=== PATIENT | female | born 1950 | race Caucasian/White ===

== ENCOUNTER 2024-04-06 00:43 | Day surgery (SDC) | payer MEDICARE, SELFPAY ==
[2024-03-26 13:00] VITALS: BMI 21.5
--- NOTE | 2024-04-06 08:51 | PC.NURSE ---
Pts. daughter called in concerned what to do it patients blood sugar starts to drop. Her blood sugar is currently at 197, she has not taken any of her medications for her DM this am. Spoke with Dr. Muniz and pt is to monitor blood sugar today and to take a glucose tab if her sugar is low for her and symptomatic. Daughter verbalizes understanding.
[2024-04-06 14:26] VITALS: BP 127/80; PULSE 69; RESP 19; TEMP 36.6; O2SAT 100
--- NOTE | 2024-04-06 14:28 | SUR.PREOP ---
BG 192 per dexcom in pre-op
[2024-04-06] MEDS: LACTATED RINGERS 1,000 ML 150 ML IV CONT (14:29)
--- NOTE | 2024-04-06 14:29 | WPDHPUPDATE1 ---
History and Physical Update Update Date/Time: 04/06/24 14:29 History and Physical has been reviewed, including an updated exam of the patient. There are NO changes in the patient's condition. Risks, benefits, and alternatives have been discussed and questions answered. Patient agrees to proceed with procedure.
--- NOTE | 2024-04-06 14:39 | WPDANESEPPF ---
Anes - Initial Pre Proc Eval Procedure: Operation Date: 04/06/24 16:00 Proposed Procedures p Esophagogastroduodenoscopy & Colonoscopy - Kurtis Mendez MD Date/Time: 04/06/24 14:39 Surgeon: Kurtis Mendez MD Pre Op Diagnosis: Rees's esophagus, Mixed IBS,GERD Patient Data Age: 73 Gender: F Height: 1.63 m Weight: 55.5 kg Last Vital Signs Temp 97.9 F 04/06/24 14:26 Pulse 69 04/06/24 14:26 Resp 19 04/06/24 14:26 BP 127/80 04/06/24 14:26 Pulse Ox 100 04/06/24 14:26 O2 Del Method Room Air 04/06/24 14:26 Allergies Allergy/AdvReac Type Severity Reaction Status Date / Time No Known Allergies Allergy Mild Verified 04/06/24 14:26 Home Medications Medication Instructions Recorded Confirmed Type atorvastatin 40 mg tablet 40 mg PO DAILY 02/10/24 03/26/24 History cholecalciferol (vitamin D3) 125 125 mcg PO .COMPLEX 02/10/24 03/26/24 History mcg (5,000 unit) capsule ferrous sulfate 325 mg (65 mg 325 mg PO DAILY 02/10/24 03/26/24 History iron) tablet gabapentin 300 mg capsule 300 mg PO BID 02/10/24 03/26/24 History latanoprost 0.005 % eye drops 1 drp LEFT EYE QPM 02/10/24 03/26/24 History mecobalamin (vitamin B12) 2,500 2,500 mcg PO DAILY 02/10/24 03/26/24 History mcg chewable tablet multivitamin 1 tablet PO DAILY 02/10/24 03/26/24 History sertraline 100 mg tablet 100 mg PO DAILY 02/10/24 03/26/24 History solifenacin 5 mg tablet 5 mg PO DAILY 02/10/24 03/26/24 History amlodipine 5 mg tablet 5 mg PO DAILY #90 tabs 03/10/24 03/26/24 Rx glucagon 1 mg/0.2 mL subcutaneous 1 mg (0.2 mL) subcut ONCE #0.4 mL 03/16/24 03/26/24 Rx auto-injector (Gvoke HypoPen 2-Pack) glucose 4 gram chewable tablet 16 g PO Q15M PRN hypoglycemia #60 03/16/24 03/26/24 Rx (Dex4 Glucose) tabs insulin aspart U-100 100 unit/mL 60 unit (0.6 mL) subcut DAILY #60 03/16/24 03/26/24 Rx (3 mL) subcutaneous pen (Novolog mL FlexPen U-100 Insulin aspart) insulin degludec 100 unit/mL (3 24 unit (0.24 mL) subcut DAILY #30 03/16/24 03/26/24 Rx mL) subcutaneous pen (Tresiba mL FlexTouch U-100 insulin) omeprazole 40 mg capsule,delayed 40 mg PO BID 90 days #180 caps 03/16/24 03/26/24 Rx release Patient hx anesthesia problems: none Family hx anesthesia problems: none Results Review: All pre-operative results and documents have been reviewed as part of the pre-operative evaluation. [facility] Past Medical History Medical History Anemia Anxiety Arthritis Depression Diabetes Hypertension IBS (irritable bowel syndrome) Kidney disease Osteoporosis Right ankle injury Surgical History Surgical History History of right shoulder replacement Family History Family History Father Alcoholism Cerebrovascular accident Heart disease Grandparent Cancer of unknown origin Son Diabetes mellitus Daughter Diabetes mellitus Daughter Depression Social History Social History Smoking packs per day: 1 Smoking cigarettes per day: 20.0 Years smoked: 30 Smoking pack-years: 30.00 Smoking status: Former smoker Tobacco type: cigarettes Second hand tobacco smoke exposure: No Smoking end date: 08/13/19 Alcohol intake: current Alcohol use details: socially Substance use: never Substance use type: does not use Do You Feel Safe in your Home?: Yes Lack of Transportation: No Lack of Food: Never True Current Housing: I Have Housing Concerned About Future Housing: No Difficulty Paying Gas/Electric Bills: No Difficulty Paying for Meds: No Currently Unemployed: No Education: Bachelor's Degree Difficulty w/ Childcare or Family Care: No Living arrangements: other Occupation/Education: retired Gender id
--- NOTE | 2024-04-06 14:53 | SUR.OPER ---
EGD end at 1449. Colon started 1453.
[2024-04-06 15:07] VITALS: BP 129/40; PULSE 59; RESP 20; O2SAT 100
[2024-04-06 15:17] VITALS: BP 112/41; PULSE 63; RESP 20; O2SAT 100
--- NOTE | 2024-04-06 15:17 | SUR.PHASEII ---
Blood sugar 187 per dexcom.
[2024-04-06 15:27] VITALS: BP 129/59; PULSE 64; RESP 18; O2SAT 100
== END 2024-04-06 15:40 | disposition home or self-care (01) ==
PROVIDERS: PCP Family Medicine; Referring Provider Nurse Practitioner; Visit Provider Internal Medicine Gastroenterology
PROC: 0DJ08ZZ Inspection of Upper Intestinal Tract, Via Natural or Artificial Opening Endoscopic (ICD-10-PCS; CPT 43235; principal; 2024-04-06 16:00)
DX: R19.4 Change in bowel habit (principal); R10.31 Right lower quadrant pain; D12.3 Benign neoplasm of transverse colon; K64.8 Other hemorrhoids; K58.2 Mixed irritable bowel syndrome; K22.70 Barrett's esophagus without dysplasia; K21.00 Gastro-esophageal reflux disease with esophagitis, without bleeding; E78.5 Hyperlipidemia, unspecified; M81.0 Age-related osteoporosis without current pathological fracture; N18.9 Chronic kidney disease, unspecified; E11.22 Type 2 diabetes mellitus with diabetic chronic kidney disease; I12.9 Hypertensive chronic kidney disease with stage 1 through stage 4 chronic kidney disease, or unspecified chronic kidney disease; F41.9 Anxiety disorder, unspecified
CPT/HCPCS: 43239; 45385; 88305; J2001; J2704; J7120

== ENCOUNTER 2024-05-10 11:12 | Outpatient (CLI) | payer MEDICARE, SELFPAY ==
--- NOTE | ~2024-05-10 | DEXA_ITS ---
Bone Density Report Name: NIKA AMIN Age: 73 Sex: Female Ethnicity: White Date of : 1950 Indication: postmenopausal; screening for osteoporosis; height loss; inflammatory bowel disease; prior fracture; secondary osteoporosis; Referring Provider: JIMENA TRAN Study: Bone densitometry was performed. Exam Date: May 10, 2024 Accession number: [id number] Bone Density: Region BMD T-score Z-score Classification AP Spine(L1-L4) 1.002 -0.4 1.9 Normal Femoral Neck (Right) 0.577 -2.4 -0.5 Osteopenia Total Hip (Right) 0.739 -1.7 0.0 Osteopenia World Health Organization criteria for BMD impression classify patients as: Normal (T-score at or above -1.0), Osteopenia (T-score between -1.0 and -2.5), or Osteoporosis (T-score at or below -2.5). 10-year Fracture Risk: FRAX not reported because: Prior hip or vertebral fracture Clinical Information Provided by Patient: Have had a previous hip or vertebral fracture Has had a low trauma fracture Has secondary osteoporosis Has used the following medications: Vitamin D Has the following medical conditions: Inflammatory bowel diseases Patient maximum height was 64 Menopause Age: 43 No regular weight bearing exercise Drinks caffeinated beverages Onset of menses at age 14 Number of children 3 Impression: The patient has low bone mass, based on the Right Femoral Neck T-score. The patient has risk factors, including: previous fracture. Discussion: INCREASED RISK OF FRACTURE DUE TO HISTORY OF FRACTURE. The patient's previous fracture puts the patient at high risk of a future fracture. In untreated patients, the risk of osteoporotic fracture increases approximately two-fold for each 1.0 SD decrease in T-score. Low bone density is not the only risk factor for fracture; also consider factors such as patient's age, frailty or poor health, risk of falling, risk of injury, previous osteoporotic fracture, family history of osteoporosis, cigarette smoking, low body weight, etc. Not everyone with a low trauma fracture has osteoporosis; osteomalacia and other metabolic bone disorders should also be considered. Patients who have osteoporosis should be evaluated for specific diseases and conditions (secondary causes) that may cause or contribute to bone loss and fracture risk. National Osteoporosis Foundation (NOF) recommends pharmacologic intervention for patients with a prior hip or vertebral fracture regardless of BMD T-score. The patient should follow a healthful lifestyle (good nutrition with adequate calcium and vitamin D, and appropriate weight-bearing exercise). Follow-Up: Consider a repeat BMD and Vertebral Fracture Assessment (VFA) exam in 2 years or sooner if medically necessary, to reassess this patient's status. Reported by: LAURYN on 05/10/2024 11:51:00 AM.
== END 2024-05-10 11:13 | disposition home or self-care (01) ==
LOC: ANHIMG 11:13
PROVIDERS: PCP Physician Assistant Medical; Visit Provider Nurse Practitioner Family
DX: M81.0 Age-related osteoporosis without current pathological fracture (principal); M85.89 Other specified disorders of bone density and structure, multiple sites; Z13.820 Encounter for screening for osteoporosis
CPT/HCPCS: 77080

== ENCOUNTER 2024-05-18 09:30 | Outpatient (RCR) | payer MEDICARE, SELFPAY ==
[2024-03-23 13:42] VITALS: BMI 21.7
[2024-03-23 14:03] VITALS: BMI 21.7
[2024-05-11 14:28] VITALS: BMI 20.9
[2024-05-11 14:31] VITALS: BMI 20.9
== END 2024-06-15 11:24 | disposition home or self-care (01) ==
LOC: ANHDMC 09:30
PROVIDERS: PCP Family Medicine; Visit Provider Internal Medicine Endocrinology, Diabetes & Metabolism
DX: N28.9 Disorder of kidney and ureter, unspecified (principal); N18.32 Chronic kidney disease, stage 3b; E11.9 Type 2 diabetes mellitus without complications; Z71.3 Dietary counseling and surveillance; Z71.89 Other specified counseling
CPT/HCPCS: 97802; 97803; G0108

== ENCOUNTER 2024-05-21 16:23 | Inpatient (IN) | payer MEDICARE, SELFPAY ==
[2024-05-21] VITALS (12 sets, daily range): BP systolic 89–171; BP diastolic 48–72; PULSE 67–74; RESP 15–19; TEMP 36.6–36.7; O2SAT 19–100
--- NOTE | ~2024-05-21 | XR_ITS ---
XR chest 1V portable Ordering provider: Kvng Maier MD History: 73 years Female with . syncopal episode . Comparison: August 07, 2009 FINDINGS: MEDIASTINUM: The cardiac silhouette is not enlarged. LUNGS: No infiltrates, effusions or pneumothorax. OTHER: A right shoulder arthroplasty. No free air under the diaphragm. Degenerative changes of the sp ine. IMPRESSION: No acute cardiopulmonary pathology. Reviewed, dictated and finalized at location A.
--- NOTE | ~2024-05-21 | CT_ITS ---
CT brain wo con Ordering provider: Willie Najera MD History: 73 years Female with . fall . Comparison: November 27, 2007 Technique: CT of the head without contrast. Radiation reduction technique utilized. The dose-length product was 529.67 mGy-cm. FINDINGS: BRAIN PARENCHYMA AND CSF SPACES: Mild leukoaraiosis and diffuse cortical atrophy. Mild atheromatous d isease. Old lacunar infarcts in the basal ganglia. No midline shift, mass effect or hemorrhage. The brain parenchyma and CSF spaces are otherwise normal. VISUALIZED PARANASAL SINUSES: Well aerated. MASTOIDS: Well aerated. BONES: The bones appear intact. SOFT TISSUES: Visualized nasopharynx is normal. Superficial soft tissues are normal. IMPRESSION: No acute intracranial findings. Reviewed, dictated and finalized at location A.
--- NOTE | ~2024-05-21 | CT_ITS ---
CT cervical spine wo con Ordering provider: Willie Najera MD History: . fall . Comparison: None. Technique: CT of the cervical spine was performed without contrast. Sagittal and coronal reformatted images were also obtained and reviewed. Automated exposure control and iterative reconstruction misael hnique were employed. The dose-length product was 197.89 mGy-cm. FINDINGS: VERTEBRAE: No subluxation or acute fracture. The occipital condyles are intact. DISC SPACES: Narrowing of the disc C6-C7. Multilevel facet joint disease. Multilevel uncovertebral zia int osteoarthritic changes. Multilevel intervertebral foraminal narrowing. PARASPINOUS SOFT TISSUES: Bilateral carotid calcifications. IMPRESSION: No acute osseous abnormality cervical spine. Reviewed, dictated and finalized at location A.
--- NOTE | ~2024-05-21 | US_ITS ---
EXAMINATION: US carotid duplex BI DATE: 05/23/2024 14:34 INDICATION: Bilateral carotid bruits. TECHNIQUE: Grayscale, color Doppler, and pulsed Doppler images of the cervical carotid arteries were obtained. The degree of vessel stenosis is placed in one of the following categories: normal, <50%, 5 0-69%, >=70% but less than near-occlusion, near-occlusion, or total occlusion. Note that percent sten osis relative to normal distal artery lumen diameter is indirectly measured from velocity measurement s as described by Indra, et al. Radiology 2003; 229:340-346. COMPARISON: None. FINDINGS: RIGHT: The right common carotid artery (CCA) peak systolic velocity (PSV) is 63 cm/s. The right internal car otid artery (ICA) PSV is 94 cm/s. The right ICA end-diastolic velocity (EDV) is 23 cm/s. The right IC A/CCA PSV ratio is 1.5. Grayscale and color Doppler images yield an estimate of <50% diameter reducti on from plaque in the ICA. There is antegrade flow in the right vertebral artery. LEFT: The left CCA PSV is 77 cm/s. The left ICA PSV is 98 cm/s. The left ICA EDV is 26 cm/s. The left ICA/C CA PSV ratio is 1.3. Grayscale and color Doppler images yield an estimate of <50% diameter reduction from plaque in the ICA. There is antegrade flow in the left vertebral artery. IMPRESSION: 1. <50% stenosis in the right internal carotid artery. 2. <50% stenosis in the left internal carotid artery. Reviewed, dictated and finalized at location E.
--- NOTE | 2024-05-21 16:30 | ECG_ITS ---
Test Date: 2024-05-21 16:35:34 Measurements Intervals Hugo Rate: 68 P: 79 ID: [id number] QRS: 58 QRSD: 101 T: 61 QT: 386 QTc: 412 Interpretive Statements SINUS RHYTHM POSSIBLE LEFT ATRIAL ENLARGEMENT [-0.1mV P WAVE IN V1/V2] POSSIBLE LEFT VENTRICULAR HYPERTROPHY [VOLTAGE CRITERIA PLUS LAE OR QRS WIDENING] MINIMAL ST DEPRESSION [0.025+ mV ST DEPRESSION] No previous ECG available for comparison Electronically Signed On 05-23-2024 13:20:35 CDT by Juan Manuel José M.D.
[2024-05-21 16:58] LABS: Basophils Percent Auto 0.5 % (0.2-1.2); Eosinophils Absolute Auto 0.1 K/mm3 (0-0.3); Eosinophils Percent Auto 2.3 % (0-4.4); Hematocrit 31.2 % (37.0-47.0); Hemoglobin 10.1 g/dL (12.0-15.0); Immature Granulocyte Absolute 0.02 K/mm3 (0.00-0.031); Immature Granulocyte Percent A 0.4 % (0-0.5); Lymphocytes Absolute Auto 1.33 K/mm3 (0.9-3.2); Lymphocytes Percent Auto 23.8 % (18.3-44.2); Mean Corpuscular HGB Conc 32.4 g/dl (32-36); Mean Corpuscular Hemoglobin 32.7 pg (26-34); Mean Platelet Volume 11.7 fl (7.4-10.4); Monocytes Absolute Auto 0.4 K/mm3 (0.1-0.6); Monocytes Percent Auto 7.3 % (2.6-8.5); Neutrophils Absolute Auto 3.7 K/mm3 (1.3-6.7); Neutrophils Percent Auto 65.7 % (45.5-73.1); Platelet Count Result 177 k/mm3 (150-375); Red Blood Count 3.09 M/mm3 (4.2-5.4); White Blood Count 5.6 K/mm3 (4.5-10.0)
--- NOTE | 2024-05-21 17:04 | ED.GENADULT ---
HPI - General Adult General Chief complaint: Syncope Stated complaint: hypotension, near syncope event Time Seen by Provider: 05/21/24 16:47 Source: patient Mode of arrival: ambulatory Limitations: no limitations History of Present Illness HPI narrative: 73 years old white female came to the emergency room by private car because of a fall and possible low blood pressure last night. Patient is telling me that she was sitting on the table reading got up and felt a little bit of balance head wall and slid down slowly to the floor. No loss of consciousness no pain was able to check her blood pressure and was 60/30 she had a large cup of water, later her blood pressure improved to 87/60. Patient is telling me that she had a fall 3 weeks ago while boarding the plane, tripped and fell hit her head on the floor at that time without loss of consciousness. She is telling me that she been having neck pain for the last 6 months, got worse over the last few weeks. She is telling me that the fall last night has nothing to do with her neck pain which is chronic. History of diabetes, peripheral neuropathy, GERD, does not take anti-platelet or anticoagulant medication, currently her main complaint is neck pain which worse with certain movement and certain position better with certain movement and certain positions. Patient denies any fever, chills, nausea, vomiting, chest pain, shortness of breath, back pain or headache or focal neuro deficit. Related Data Home Medications Medication Instructions Recorded Confirmed atorvastatin 40 mg tablet 40 mg PO DAILY 02/10/24 04/13/24 cholecalciferol (vitamin D3) 125 125 mcg PO .COMPLEX 02/10/24 04/13/24 mcg (5,000 unit) capsule ferrous sulfate 325 mg (65 mg 325 mg PO DAILY 02/10/24 04/13/24 iron) tablet gabapentin 300 mg capsule 300 mg PO BID 02/10/24 04/13/24 latanoprost 0.005 % eye drops 1 drp LEFT EYE QPM 02/10/24 04/13/24 mecobalamin (vitamin B12) 2,500 2,500 mcg PO DAILY 02/10/24 04/13/24 mcg chewable tablet multivitamin 1 tablet PO DAILY 02/10/24 04/13/24 polyethylene glycol 3350 17 17 g PO DAILY 04/13/24 04/13/24 gram/dose oral powder (Miralax) Allergies Allergy/AdvReac Type Severity Reaction Status Date / Time No Known Allergies Allergy Mild Verified 05/11/24 15:10 Review of Systems Review of Systems: All systems reviewed & are unremarkable except as noted in HPI and below PMFSH Past Medical History Medical History (Updated 05/21/24 @ 18:57 by Willie Najera MD) Anemia Anxiety Arthritis Chronic kidney disease, stage 3b Depression Diabetes GERD (gastroesophageal reflux disease) Hyperlipidemia Hypertension IBS (irritable bowel syndrome) Kidney disease Osteoporosis Right ankle injury Surgical History Surgical History (Updated 05/21/24 @ 18:33 by Siria Thompson APRN) History of right shoulder replacement Status post amputation of toe of left foot Family History Family History Father Alcoholism Cerebrovascular accident Heart disease Grandparent Cancer of unknown origin Son Diabetes mellitus Daughter Diabetes mellitus Daughter Depression Social History Social History Smoking packs per day: 1 Smoking cigarettes per day: 20.0 Years smoked: 30 Smoking pack-years: 30.00 Smoking status: Former smoker Tobacco type: cigarettes Second hand tobacco smoke exposure: No Smoking end date: 08/13/19 Alcohol intake: current Alcohol use details: socially Substance use: never Substance use type: does not use Do You Feel Safe in your Home?: Yes Lack of Transportation: No Lack of Food: Never True Current Housing: I Have Housing Concerned About Future Housing: No Difficulty Paying Gas/Electric Bills: No Difficulty Paying for Meds: No Currently Unemployed: No Education: Bachelor's Degree Difficulty w/ Childcare or Family Care:
[2024-05-21 17:14] LABS: Alanine Aminotransferase 21 U/L (6-35); Albumin Level 4.2 g/dL (3.5-5.1); Alkaline Phosphatase 62 U/L (38-126); Anion Gap 12 mmol/L (4-12); Aspartate Amino Transferase 20 U/L (14-36); Bilirubin,Total 0.3 mg/dL (0.2-1.3); Blood Urea Nitrogen 42 mg/dL (7-17); Calcium 10.5 mg/dL (8.4-10.2); Carbon Dioxide 22 mmol/L (22-30); Chloride 103 mmol/L (98-107); Estimated Glomerular Filt Rate 21; Glucose 185 mg/dL (65-110); Potassium 4.4 mmol/L (3.4-5.0); Sodium 137 mmol/L (137-145)
--- NOTE | 2024-05-21 18:26 | PM.IMHP ---
H&P: HPI History of Present Illness Date/Time: 05/21/24 18:26 Chief Complaint: Hypotension, Weakness Narrative: 73 y/o F presents here with hypertension and generalized weakness with PMH of DM1, anemia, CKD 3B, GERD, HLD, HTN (not on medication), IBS (primarily diarrhea). The patient reports near syncopal episode that occurred last night. The patient reports that she got up from her chair and began walking. Then felt lightheaded and off balance. Patient had to lean against the wall and slide her body down to the floor. She denies loss of consciousness. Patient then checked her blood pressure which was 60/30 and she checked her glucose which was in the 300s. Patient then drink large cup of water and recheck her blood pressure which improved 87/60. These events were precipitated by hyperglycemia, patient reports her blood sugar has been in the 300s for the past 2 days. Endorses associated polydipsia. Denies changes in urine output but patient is intermittently incontinent at baseline and has chronic diarrhea (no change from baseline) so she reports this is difficult for her to assess and may not be accurate. Patient also reports a history of IBS with primarily diarrhea. She reports no change in volume of diarrhea. No associated nausea, vomiting, abdominal pain, or urinary symptoms. Reports that she moved back here from [place] in January. Patient plans to see Stella here for CKD, first visit scheduled for June. Patient reports she has also been able to establish care with a local process safety engineer, Kaya WELDON. Per their last note on 05/11/24 her regimen was changed to Tresiba 14 units in the a.m., NovoLog 1 unit for every 12 g of carbs, and sliding scale. Patient also in the process of acquiring a insulin pump for the patient to use in tandem with her Dexcom. Patient had had a few lows since then but this has been an improvement from previous where she would be very high and very low. Initial VS at presentation: 98? F, HR 70, RR 18, 89/48, and 100% on RA. ED workup showed: No leukocytosis, hemoglobin 10.1, creatinine 2.3 and GFR 21 (no previous available for comparison), glucose 185, and UA suspicious for UTI. Review of Systems Review of Systems: All systems reviewed & are unremarkable except as noted in HPI and below PMFSH Past Medical History Medical History Anemia Anxiety Arthritis Chronic kidney disease, stage 3b Depression Diabetes GERD (gastroesophageal reflux disease) Hyperlipidemia Hypertension IBS (irritable bowel syndrome) Kidney disease Osteoporosis Right ankle injury Surgical History Surgical History History of right shoulder replacement Status post amputation of toe of left foot Family History Family History Father Alcoholism Cerebrovascular accident Heart disease Grandparent Cancer of unknown origin Son Diabetes mellitus Daughter Diabetes mellitus Daughter Depression Social History Social History Smoking packs per day: 1 Smoking cigarettes per day: 20.0 Years smoked: 30 Smoking pack-years: 30.00 Smoking status: Former smoker Tobacco type: cigarettes Second hand tobacco smoke exposure: No Smoking end date: 08/13/19 Alcohol intake: never Alcohol use details: socially Substance use: never Substance use type: does not use Do You Feel Safe in your Home?: Yes Lack of Transportation: No Lack of Food: Never True Current Housing: I Have Housing Concerned About Future Housing: No Difficulty Paying Gas/Electric Bills: No Difficulty Paying for Meds: No Currently Unemployed: No Education: Bachelor's Degree Difficulty w/ Childcare or Family Care: No Living arrangements: other Occupation/Education: retired Gender identity (if efrain
[2024-05-21] MEDS: SODIUM CHLORIDE 0.9% IV 1,000 ML 999 ML IV CONT (18:33)
[2024-05-21 18:57] LABS: Add Urine Microscopic? YES; Appearance Urine Cloudy (Clear); Bacteria Urine 3+ /hpf; Bilirubin Urine Negative (Negative); Blood Urine Trace (Negative); Color Urine Yellow (Yellow); Glucose Urine UA Negative (Negative); Ketones Urine Trace mg/dL (Negative); Leukocyte Esterase Ur 2+ LEU/UL (Negative); Need Manual Microscopic Reviewed; Nitrate Urine Negative (Negative); Protein Urine 1+ mg/dL (Negative); Specific Grav Ur 1.016 (1.001-1.035); Squamous Epithelial Cell Urine Moderate /hpf (Few); Urobilinogen Urine 0.2 mg/dL (<2.0); WBC Urine 51-100 /hpf (0-3)
[2024-05-21] MEDS: SODIUM CHLORIDE 0.9% IV 1,000 ML 125 ML IV CONT (19:14)
[2024-05-21 19:28] LABS: Troponin I < 0.012 ng/mL (0.000-0.034)
--- NOTE | 2024-05-21 19:47 | ADMGEN ---
This patient, Ashley Joseph, was admitted to Medical Room 252-01. Patient/family oriented to hospital policies and general routines including ID bracelet, bed and alarms, visiting hours, pain management, procedures, bathroom and other care routines, personal items, smoking policy, room service/diet, and visiting hours. Information on how to activate the Rapid Response Team has been discussed. Patient/Family are encouraged to report perceived risks to care and to ask questions if they do not understand what they are told or what they should do.
[2024-05-21] MEDS: PANTOPRAZOLE 40 MG TABLET PO (21:01)
[2024-05-21] MEDS: GABAPENTIN 300 MG CAPSULE PO (21:01)
[2024-05-21] MEDS: SERTRALINE HCL 50 MG TABLET 100 MG PO (21:01)
[2024-05-21] MEDS: ATORVASTATIN 40 MG TABLET PO (21:01)
[2024-05-21] MEDS: LATANOPROST 0.005% OP SOLN 2.5 ML BTL 1 DROP LEFT EYE (21:04)
[2024-05-21 21:13] LABS: Glucose Point of Care 143 mg/dl (65-105)
[2024-05-21 22:19] LABS: Troponin I < 0.012 ng/mL (0.000-0.034)
[2024-05-22] VITALS (11 sets, daily range): BP systolic 105–160; BP diastolic 46–81; PULSE 62–78; RESP 16–18; TEMP 36.4–37; O2SAT 96–100
[2024-05-22 02:55] LABS: Basophils Percent Auto 0.6 % (0.2-1.2); Eosinophils Absolute Auto 0.2 K/mm3 (0-0.3); Eosinophils Percent Auto 3.2 % (0-4.4); Hematocrit 27.6 % (37.0-47.0); Hemoglobin 9.2 g/dL (12.0-15.0); Immature Granulocyte Absolute 0.01 K/mm3 (0.00-0.031); Immature Granulocyte Percent A 0.2 % (0-0.5); Lymphocytes Absolute Auto 1.52 K/mm3 (0.9-3.2); Lymphocytes Percent Auto 28.6 % (18.3-44.2); Mean Corpuscular HGB Conc 33.3 g/dl (32-36); Mean Corpuscular Hemoglobin 33.2 pg (26-34); Mean Corpuscular Volume 99.6 fl (80-100); Mean Platelet Volume 11.2 fl (7.4-10.4); Monocytes Absolute Auto 0.4 K/mm3 (0.1-0.6); Neutrophils Absolute Auto 3.2 K/mm3 (1.3-6.7); Neutrophils Percent Auto 60.4 % (45.5-73.1); Platelet Count Result 156 k/mm3 (150-375); Red Blood Count 2.77 M/mm3 (4.2-5.4); White Blood Count 5.3 K/mm3 (4.5-10.0)
[2024-05-22 03:04] LABS: Alanine Aminotransferase 17 U/L (6-35); Albumin Level 3.4 g/dL (3.5-5.1); Alkaline Phosphatase 52 U/L (38-126); Anion Gap 6 mmol/L (4-12); Aspartate Amino Transferase 19 U/L (14-36); Bilirubin,Total 0.2 mg/dL (0.2-1.3); Blood Urea Nitrogen 35 mg/dL (7-17); Calcium 9.4 mg/dL (8.4-10.2); Carbon Dioxide 23 mmol/L (22-30); Chloride 110 mmol/L (98-107); Estimated CRCL calculation 19 ml/min; Estimated Glomerular Filt Rate 26; Glucose 83 mg/dL (65-110); Potassium 4.2 mmol/L (3.4-5.0); Sodium 139 mmol/L (137-145)
[2024-05-22 03:16] LABS: Troponin I < 0.012 ng/mL (0.000-0.034)
[2024-05-22] MEDS: SODIUM CHLORIDE 0.9% IV 1,000 ML 125 ML IV CONT ×3 (05:46→20:53)
--- NOTE | 2024-05-22 05:47 | PC.NURSE ---
PT HAS DEXCOM, SEE FLOWSHEET
--- NOTE | 2024-05-22 07:09 | PM.IMPN ---
Progress Note: A&P Assessment and Plan (1) Near syncope: Code(s): R55 - Syncope and collapse Status: Acute Assessment and Plan: Per patient she stood from a chair and began walking when she felt lightheaded and dizzy. Patient then had to lean against the wall and slide down to the floor. States her BP at that time was 60/30s with blood glucose in the 300s. -Suspect orthostatic hypotension secondary to dehydration. Dehydration may be secondary to hyperglycemia that has been present for the past 2 days. - Initial BP 89/48, most recent orthostatics negative. Given 3L bolus on admission, started on maintenance fluids. - Initial blood glucose 185. Started on Lantus 14 units daily, SSI TIDWM. - Troponin WNL - EKG showed sinus rhythm with possible left atrial enlargement, possible left ventricular hypertrophy, minimal ST depression. Awaiting formal read. - CXR: No acute cardiopulmonary pathology - Head CT: No acute intracranial findings - C-spine CT: No osseous abnormalities of the cervical spine - UA: cloudy appearance with 1+ protein , trace ketones, 2+ leukocytes, 3-5 RBC, 51-100 WBC, 3+ bacteria - Urine culture collected on 05/21: pending (2) Chronic kidney disease, stage 3b: Code(s): N18.32 - Chronic kidney disease, stage 3b Status: Acute Assessment and Plan: BUN/Cr 42/2.3 with GFR 21 on admission. BERTA superimposed on CKD, suspect this may be due to polyuria due to hyperglycemia and UTI. Patient follows Nephrology, Dr. Douglas. Last seen 02/24/24. Per nephrology note patients baseline Cr appears to be 1.5-1.6. With most recent on 02/17 being 1.56. - BUN/Cr 35/1.9 with GFR 26 on am labs - IV NS 125 ml/hr - Monitor I/O and vital signs - Avoid nephrotoxic medications - Renally dose medications - Trend renal function - Trend electrolytes, correct as needed - Nephrology consulted Continue IV fluids (3) UTI (urinary tract infection): Code(s): N39.0 - Urinary tract infection, site not specified Status: Acute Assessment and Plan: - UA: Cloudy, 1+ protein, trace ketones, 2+ leuks, 3-5 RBC, 51-100 WBC, moderate epithelial cells, 3+ bacteria. - UC pending - no previous micro to be reviewed - started on Ceftriaxone on 05/21 (4) Type 1 diabetes mellitus with hyperglycemia: Code(s): E10.65 - Type 1 diabetes mellitus with hyperglycemia Status: Acute Assessment and Plan: Follows endocrinology Dr. Kirkpatrick. Last seen 05/11/24. Per last endo note, plan to try tandem pump with dexcom g7. - suspect elevated glucose secondary to UTI - hypoglycemia protocol - POC blood glucose ACHS - home medication: Tresiba 14 units and Novolog 1 unit/12 g of carbs - correct regimen ordered - lantus 14 units and low dose TIDWM - A1C 8.9% on 04/13/2024 Plan Diet: Diabetic GI Prophylaxis: Not currently indicated DVT Prophylaxis: SCDs Lines: Peripheral Code Status: Full code Time Spent With Patient Time with patient: 25 - 35 minutes Subjective Date/time seen: 05/22/24 07:09 Interval history: 73 year old female with past medical history of DM1, anemia, CKD 3B, GERD, HLD, HTN (not on medication), IBS (primarily diarrhea) presents here with hypertension and generalized weakness. Patient is pleasant lying comfortably in bed. She states that she has been having dizziness/light headedness with standing for about a month. Her orthostatic blood pressures were negative today. PT/OT ordered. Patient BUN/Cr is improving. Nephrology evaluated patient today. Plan to continue IV fluids and monitor renal function. Patient remains on rocephin for her UTI. Cultures pending. She denies dysuria, burning, odor, increased frequency and trickling of urine. Patient states that her dexcom showed 56 overnight. She was asymptomatic at that time. Likely due to patient not eating dinner. Patients blood glucose has been stable on the current regimen. Patient denies chest pain, shortness of breath, alethea
[2024-05-22 07:57] LABS: Glucose Point of Care 146 mg/dl (65-105)
--- NOTE | 2024-05-22 08:09 | PM.CNNEP ---
Assessment and Plan Assessment and plan (1) Chronic kidney disease, stage 3b: Code(s): N18.32 - Chronic kidney disease, stage 3b Status: Acute Assessment and Plan: Patient has chronic kidney disease. Her baseline creatinine is around 1.5-1.6. It has been as high as 1.8 in the past while she was in [place]. Most likely the CKD is due to hypertension and diabetes. She has been seeing another sagger maker for about 5 years in [place]. She does not tolerate Jose inhibitors. She is not on an SGL T2 inhibitor. Of course with her UTI this is not the time to start. Patient also has acute kidney injury. Her creatinine was up to 2.3 on admission. The patient does have a bladder infection and her sugars were high at home so she could be dehydrated from the glucosuria. If the patient's creatinine has improved overnight with IV fluids. If she gets back down to baseline pretty soon I do not think we need to do a big workup for other causes of BERTA at this point. I will check a CK just to be sure things are okay there. Will continue IV fluids. She is eating now though so I will reduce the rate to 50 per hour. It sounds like her blood pressure probably dropped on standing to make her fall. Will check orthostatic blood pressure readings as well. Her amlodipine is on hold for now. (2) UTI (urinary tract infection): Code(s): N39.0 - Urinary tract infection, site not specified Status: Acute Assessment and Plan: The patient has pyuria. Cultures pending. She is getting ceftriaxone (3) Near syncope: Code(s): R55 - Syncope and collapse Status: Acute Assessment and Plan: Possibly related to orthostatic hypotension from dehydration. Will check orthostatic blood pressure readings today (4) Hypertension: Code(s): I10 - Essential (primary) hypertension Status: Acute Assessment and Plan: Blood pressure is under good control right (5) Barretts esophagus: Code(s): K22.70 - Rees's esophagus without dysplasia Status: Acute Assessment and Plan: She gets scopes occasional (6) Diabetes: Code(s): E11.9 - Type 2 diabetes mellitus without complications Status: Acute Assessment and Plan: Management per hospitalists. History of Present Illness Reason for Consult Consult date: 05/22/24 Chief Complaint Chief complaint: Renal Failure History of Present Illness Narrative: Ashley is a very pleasant 73-year-old lady who has multiple medical problems including chronic kidney disease for at least 5 years due to diabetes and hypertension, Rees's esophagus, hyperlipidemia, osteoarthritis. The patient says she was feeling well until the day of admission which in when she was reading for a long time and then stood up felt woozy took a couple of steps then fell. She called the ambulance and they brought her over to the emergency room. Apparently her blood pressure was 60/40 at home. I am not sure if that was by the ambulance her by her home cuff. In any case when she got to the ER her blood pressure was above 150 and she was asymptomatic. Dr. Najera evaluate and her creatinine was 2.3. She does not have a baseline in the lab section of the chart any felt that she was dehydrated so she was admitted to the floor with IV fluids. She does feel better today. She has not had any fainting spells before. She has never had a stroke or heart attack. She does not have any bloody urine, foamy urine, kidney stones, or bladder infections. No pain with urination. Does not take any Advil Aleve ibuprofen or Motrin. Patient has chronic diabetes. She has had this for 20 years. She does have diabetic retinopathy and has had laser therapy and shots. She has had hypertension for just a couple of years. The patient is on amlodipine now. She had been on lisinopril in the past but her blood pressure went too low so she stopped it. She was told by her former nephrologis
[2024-05-22 08:58] LABS: Creatine Kinase 60 U/L (30-135)
[2024-05-22] MEDS: CYANOCOBALAMIN 500 MCG TABLET PO (09:31)
[2024-05-22] MEDS: GABAPENTIN 300 MG CAPSULE PO ×2 (09:31→17:50)
[2024-05-22] MEDS: SOLIFENACIN 5 MG TABLET PO (09:31)
[2024-05-22] MEDS: CHOLECALCIFEROL 5,000 UNITS TABLET 5000 UNITS PO (09:31)
[2024-05-22] MEDS: FERROUS SULFATE 325 MG TABLET DR PO (09:31)
[2024-05-22] MEDS: MULTIVITAMINS THERAPEUTIC TAB (*BKC) 1 TABLET PO (09:31)
[2024-05-22] MEDS: CYANOCOBALAMIN 1,000 MCG TABLET 2000 MCG PO (09:31)
[2024-05-22] MEDS: PANTOPRAZOLE 40 MG TABLET PO ×2 (09:32→17:50)
[2024-05-22] MEDS: INSULIN GLARGINE (*BKC) 100 UNITS/ML 14 UNITS SUB-Q (09:36)
[2024-05-22 11:45] LABS: Glucose Point of Care 249 mg/dl (65-105)
[2024-05-22] MEDS: INSULIN ASPART (*BKC) 100 UNITS/ML SUB-Q ×2 (12:20→17:50)
[2024-05-22 16:54] LABS: Glucose Point of Care 268 mg/dl (65-105)
[2024-05-22 18:55] LABS: Influenza A QL RT-PCR Negative (Negative); Influenza B QL RT-PCR Negative (Negative); RSV RNA, RT-PCR Negative (Negative); SARS-CoV-2 RNA PCR Negative (Negative)
[2024-05-22] MEDS: SERTRALINE HCL 50 MG TABLET 100 MG PO (20:52)
[2024-05-22] MEDS: ATORVASTATIN 40 MG TABLET PO (20:53)
[2024-05-22] MEDS: LATANOPROST 0.005% OP SOLN 2.5 ML BTL 1 DROP LEFT EYE (21:00)
[2024-05-22 21:03] LABS: Glucose Point of Care 88 mg/dl (65-105)
[2024-05-23] VITALS (8 sets, daily range): BP systolic 119–165; BP diastolic 42–59; PULSE 64–72; RESP 16–20; TEMP 36.6–36.9; O2SAT 97–100
[2024-05-23 04:56] LABS: Basophils Percent Auto 0.9 % (0.2-1.2); Eosinophils Absolute Auto 0.1 K/mm3 (0-0.3); Eosinophils Percent Auto 2.2 % (0-4.4); Hematocrit 28.2 % (37.0-47.0); Hemoglobin 8.9 g/dL (12.0-15.0); Immature Granulocyte Absolute 0.01 K/mm3 (0.00-0.031); Immature Granulocyte Percent A 0.2 % (0-0.5); Lymphocytes Absolute Auto 1.35 K/mm3 (0.9-3.2); Lymphocytes Percent Auto 29.3 % (18.3-44.2); Mean Corpuscular HGB Conc 31.6 g/dl (32-36); Mean Corpuscular Volume 101.4 fl (80-100); Monocytes Absolute Auto 0.4 K/mm3 (0.1-0.6); Monocytes Percent Auto 7.6 % (2.6-8.5); Neutrophils Absolute Auto 2.8 K/mm3 (1.3-6.7); Neutrophils Percent Auto 59.8 % (45.5-73.1); Platelet Count Result 159 k/mm3 (150-375); Red Blood Count 2.78 M/mm3 (4.2-5.4); Red Cell Distribution Width 12.8 % (11.5-14.5); White Blood Count 4.6 K/mm3 (4.5-10.0)
[2024-05-23 05:15] LABS: Alanine Aminotransferase 16 U/L (6-35); Albumin Level 3.1 g/dL (3.5-5.1); Alkaline Phosphatase 48 U/L (38-126); Anion Gap 6 mmol/L (4-12); Aspartate Amino Transferase 18 U/L (14-36); Bilirubin,Total 0.3 mg/dL (0.2-1.3); Blood Urea Nitrogen 29 mg/dL (7-17); Calcium 8.7 mg/dL (8.4-10.2); Carbon Dioxide 25 mmol/L (22-30); Chloride 110 mmol/L (98-107); Estimated CRCL calculation 24 ml/min; Estimated Glomerular Filt Rate 34; Glucose 155 mg/dL (65-110); Phosphorus 3.4 mg/dL (2.5-4.5); Potassium 4.5 mmol/L (3.4-5.0); Sodium 141 mmol/L (137-145)
[2024-05-23 07:47] LABS: Glucose Point of Care 103 mg/dl (65-105)
[2024-05-23] MEDS: SODIUM CHLORIDE 0.9% IV 1,000 ML 125 ML IV CONT ×2 (08:04→17:42)
[2024-05-23] MEDS: CYANOCOBALAMIN 500 MCG TABLET PO (08:04)
[2024-05-23] MEDS: SOLIFENACIN 5 MG TABLET PO (08:05)
[2024-05-23] MEDS: FERROUS SULFATE 325 MG TABLET DR PO (08:05)
[2024-05-23] MEDS: CYANOCOBALAMIN 1,000 MCG TABLET 2000 MCG PO (08:05)
[2024-05-23] MEDS: GABAPENTIN 300 MG CAPSULE PO ×2 (08:05→16:42)
[2024-05-23] MEDS: MULTIVITAMINS THERAPEUTIC TAB (*BKC) 1 TABLET PO (08:05)
[2024-05-23] MEDS: PANTOPRAZOLE 40 MG TABLET PO ×2 (08:05→16:42)
[2024-05-23] MEDS: INSULIN GLARGINE (*BKC) 100 UNITS/ML 14 UNITS SUB-Q (08:08)
--- NOTE | 2024-05-23 08:43 | PM.PNNEP ---
Progress Note: A&P Assessment and Plan (1) Chronic kidney disease, stage 3b: Code(s): N18.32 - Chronic kidney disease, stage 3b Status: Acute Assessment and Plan: Patient has chronic kidney disease. Her baseline creatinine is around 1.5-1.6. It has been as high as 1.8 in the past while she was in [place]. Most likely the CKD is due to hypertension and diabetes. 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 She does not tolerate Jose inhibitors. She is not on an SGL T2 inhibitor. Of course with her UTI this is not the time to start. Patient also has acute kidney injury. Her creatinine was up to 2.3 on admission. She has received fluids. These have been discontinued. Her creatinine is down to 1.5. Patient has bilateral carotid bruits. Will check a carotid Doppler. (2) UTI (urinary tract infection): Code(s): N39.0 - Urinary tract infection, site not specified Status: Acute Assessment and Plan: The patient has pyuria. Cultures shows E coli. Sensitivities pending. She is getting ceftriaxone (3) Near syncope: Code(s): R55 - Syncope and collapse Status: Acute Assessment and Plan: Possibly related to orthostatic hypotension from dehydration. Orthostatics showed a drop of about 14 yesterday. Will see what they are today. (4) Hypertension: Code(s): I10 - Essential (primary) hypertension Status: Acute Assessment and Plan: Blood pressure is under good control right now (5) Barretts esophagus: Code(s): K22.70 - Rees's esophagus without dysplasia Status: Acute Assessment and Plan: She gets scopes occasionally (6) Diabetes: Code(s): E11.9 - Type 2 diabetes mellitus without complications Status: Acute Assessment and Plan: Management per hospitalists. Subjective Date/time seen: 05/23/24 08:43 Interval history: Ashley is feeling better today. No chest pain or shortness of breath No dizziness on standing Review of Systems Constitutional: Constitutional: Reports no additional constitutional complaints Cardiovascular: Cardiovascular: Reports no additional cardiovascular complaints Respiratory: Respiratory: Reports no additional respiratory complaints Gastrointestinal: Gastrointestinal: Reports no additional gastrointestinal complaints Genitourinary: Genitourinary: Reports no additional female genitourinary complaints Exam Narrative: WDWN in NAD skin no rash head ncat lungs clear cor reg no rub abd BS+ nontender and soft ext no edema. Objective Data Vital Signs Vital Signs: Vital Signs - 24 hr 05/22/24 10:58 05/22/24 16:00 05/22/24 19:47 Temperature 97.9 F 98.5 F 98.6 F Pulse Rate 74 77 62 Respiratory Rate 18 18 16 Blood Pressure 158/51 H 160/62 H 124/81 Pulse Oximetry 99 98 99 Oxygen Delivery 05/22/24 19:50 05/22/24 19:56 05/22/24 20:00 Temperature Pulse Rate 66 72 Respiratory Rate Blood Pressure 124/57 L 110/46 L Pulse Oximetry Oxygen Delivery Room Air 05/22/24 21:08 05/23/24 05:59 Temperature 97.8 F Pulse Rate 65 Respiratory Rate 16 Blood Pressure 141/59 H Pulse Oximetry 99 98 Oxygen Delivery Room Air Intake/Output Intake/Output: Intake & Output 05/20/24 05/21/24 05/22/24 05/23/24 23:59 23:59 23:59 23:59 Intake Total 1050 4489.6 1200 Output Total 2500 1000 Balance 1050 1989.6 200 Meds/Results Medications: Active Medications Generic Name Dose Route Start Last Admin Trade Name Freq PRN Reason Stop Dose Admin Acetaminophen 650 mg 05/21/24 18:40 Acetaminophen 325 Mg Tablet PO Q4H PRN Mild Pain (1-3) or Fever Atorvastatin Calcium 40 mg 05/21/24 21:00 05/22/24 20:53 Atorvastatin 40 Mg Tablet PO 40 mg HS BLAKE Administration Cyanocobalamin 2,000 mcg 05/22/24 09:00 05/23/24 08:05 Cyanocobalamin 1,000 Mcg Tablet PO 2,000 mcg DAILY BLAKE Administ
[2024-05-23 12:01] LABS: Glucose Point of Care 139 mg/dl (65-105)
--- NOTE | 2024-05-23 15:57 | PM.IMPN ---
Progress Note: A&P Assessment and Plan (1) Near syncope: Code(s): R55 - Syncope and collapse Status: Acute Assessment and Plan: Per patient she stood from a chair and began walking when she felt lightheaded and dizzy. Patient then had to lean against the wall and slide down to the floor. States her BP at that time was 60/30s with blood glucose in the 300s. -Suspect orthostatic hypotension secondary to dehydration. Dehydration may be secondary to hyperglycemia that has been present for the past 2 days. - Initial BP 89/48, most recent orthostatics negative. Given 3L bolus on admission, started on maintenance fluids. - Initial blood glucose 185. Started on Lantus 14 units daily, SSI TIDWM. - Troponin WNL - EKG showed sinus rhythm with possible left atrial enlargement, possible left ventricular hypertrophy, minimal ST depression. Awaiting formal read. - CXR: No acute cardiopulmonary pathology - Head CT: No acute intracranial findings - C-spine CT: No osseous abnormalities of the cervical spine - UA: cloudy appearance with 1+ protein , trace ketones, 2+ leukocytes, 3-5 RBC, 51-100 WBC, 3+ bacteria - Urine culture collected on 05/21: ecoli sensitivities pending (2) Chronic kidney disease, stage 3b: Code(s): N18.32 - Chronic kidney disease, stage 3b Status: Acute Assessment and Plan: BUN/Cr 42/2.3 with GFR 21 on admission. BERTA superimposed on CKD, suspect this may be due to polyuria due to hyperglycemia and UTI. Patient follows Nephrology, Dr. Douglas. Last seen 02/24/24. Per nephrology note patients baseline Cr appears to be 1.5-1.6. With most recent on 02/17 being 1.56. - BUN/Cr 29/1.5 with GFR 26 on am labs - IV NS 125 ml/hr - Monitor I/O and vital signs - Avoid nephrotoxic medications - Renally dose medications - Trend renal function - Trend electrolytes, correct as needed - Nephrology consulted Continue IV fluids (3) UTI (urinary tract infection): Code(s): N39.0 - Urinary tract infection, site not specified Status: Acute Assessment and Plan: - UA: Cloudy, 1+ protein, trace ketones, 2+ leuks, 3-5 RBC, 51-100 WBC, moderate epithelial cells, 3+ bacteria. - UC: ecoli sensitivities pending - no previous micro to be reviewed - started on Ceftriaxone on 05/21 (4) Type 1 diabetes mellitus with hyperglycemia: Code(s): E10.65 - Type 1 diabetes mellitus with hyperglycemia Status: Acute Assessment and Plan: Follows endocrinology Dr. Kirkpatrick. Last seen 05/11/24. Per last endo note, plan to try tandem pump with dexcom g7. - suspect elevated glucose secondary to UTI - hypoglycemia protocol - POC blood glucose ACHS - home medication: Tresiba 14 units and Novolog 1 unit/12 g of carbs - correct regimen ordered - lantus 14 units and low dose TIDWM - A1C 8.9% on 04/13/2024 Plan Diet: Diabetic GI Prophylaxis: Not currently indicated DVT Prophylaxis: SCDs Lines: Peripheral Code Status: Full code Time Spent With Patient Time with patient: 25 - 35 minutes Subjective Date/time seen: 05/23/24 15:57 Interval history: 73 year old female with past medical history of DM1, anemia, CKD 3B, GERD, HLD, HTN (not on medication), IBS (primarily diarrhea) presents here with hypertension and generalized weakness. Patient is pleasant sitting up in her chair. She has no complaints at this time, denying dizziness/lightheadedness, chest pain, shortness of breath, nausea/vomiting and changes in bowel. She denies burning sensation, dysuria, and hematuria as well. Her urine culture is positive with ecoli, sensitivities pending. She remains on Rocephin at this time. Patients orthostatic pressures negative today. Patient was evaluated by PT who recommends home health. Care coordination following. Review of Systems Review of Systems: All systems reviewed & are unremarkable except as noted in HPI and below Exam Narrative: AF HR 64 RR 18 SpO2 97 BP 150/54 General: fema
[2024-05-23 17:09] LABS: Glucose Point of Care 164 mg/dl (65-105)
[2024-05-23] MEDS: SERTRALINE HCL 50 MG TABLET 100 MG PO (20:14)
[2024-05-23] MEDS: ATORVASTATIN 40 MG TABLET PO (20:14)
[2024-05-23 21:15] LABS: Glucose Point of Care 197 mg/dl (65-105)
[2024-05-23] MEDS: LATANOPROST 0.005% OP SOLN 2.5 ML BTL 1 DROP LEFT EYE (23:31)
[2024-05-24] MEDS: SODIUM CHLORIDE 0.9% IV 1,000 ML 125 ML IV CONT (02:45)
[2024-05-24 04:07] VITALS: BP 120/52; PULSE 72; RESP 18; TEMP 36.4; O2SAT 98
[2024-05-24 05:14] LABS: Basophils Percent Auto 0.6 % (0.2-1.2); Eosinophils Absolute Auto 0.2 K/mm3 (0-0.3); Eosinophils Percent Auto 3.2 % (0-4.4); Hematocrit 27.1 % (37.0-47.0); Hemoglobin 8.7 g/dL (12.0-15.0); Immature Granulocyte Absolute 0.02 K/mm3 (0.00-0.031); Immature Granulocyte Percent A 0.4 % (0-0.5); Lymphocytes Absolute Auto 0.97 K/mm3 (0.9-3.2); Lymphocytes Percent Auto 18.4 % (18.3-44.2); Mean Corpuscular HGB Conc 32.1 g/dl (32-36); Mean Corpuscular Hemoglobin 32.5 pg (26-34); Mean Corpuscular Volume 101.1 fl (80-100); Mean Platelet Volume 11.4 fl (7.4-10.4); Monocytes Absolute Auto 0.4 K/mm3 (0.1-0.6); Monocytes Percent Auto 6.8 % (2.6-8.5); Neutrophils Absolute Auto 3.7 K/mm3 (1.3-6.7); Neutrophils Percent Auto 70.6 % (45.5-73.1); Platelet Count Result 152 k/mm3 (150-375); Red Blood Count 2.68 M/mm3 (4.2-5.4); Red Cell Distribution Width 12.9 % (11.5-14.5); White Blood Count 5.3 K/mm3 (4.5-10.0)
[2024-05-24 05:37] LABS: Alanine Aminotransferase 18 U/L (6-35); Albumin Level 2.9 g/dL (3.5-5.1); Alkaline Phosphatase 44 U/L (38-126); Anion Gap 4 mmol/L (4-12); Aspartate Amino Transferase 25 U/L (14-36); Bilirubin,Total 0.2 mg/dL (0.2-1.3); Blood Urea Nitrogen 21 mg/dL (7-17); Calcium 8.5 mg/dL (8.4-10.2); Carbon Dioxide 24 mmol/L (22-30); Chloride 112 mmol/L (98-107); Estimated CRCL calculation 27 ml/min; Estimated Glomerular Filt Rate 40; Glucose 119 mg/dL (65-110); Phosphorus 3.1 mg/dL (2.5-4.5); Sodium 140 mmol/L (137-145)
[2024-05-24 08:16] LABS: Glucose Point of Care 102 mg/dl (65-105)
[2024-05-24] MEDS: ACETAMINOPHEN 325 MG TABLET 650 MG PO (08:55)
[2024-05-24] MEDS: AMOXICILLIN/CLAVULANATE K 875-125 MG TAB 1 TABLET PO (08:56)
[2024-05-24] MEDS: CYANOCOBALAMIN 1,000 MCG TABLET 2000 MCG PO (08:57)
[2024-05-24] MEDS: CHOLECALCIFEROL 5,000 UNITS TABLET 5000 UNITS PO (08:57)
[2024-05-24] MEDS: CYANOCOBALAMIN 500 MCG TABLET PO (08:57)
[2024-05-24] MEDS: SOLIFENACIN 5 MG TABLET PO (08:58)
[2024-05-24] MEDS: PANTOPRAZOLE 40 MG TABLET PO (08:58)
[2024-05-24] MEDS: FERROUS SULFATE 325 MG TABLET DR PO (08:58)
[2024-05-24] MEDS: GABAPENTIN 300 MG CAPSULE PO (08:58)
[2024-05-24] MEDS: MULTIVITAMINS THERAPEUTIC TAB (*BKC) 1 TABLET PO (08:59)
[2024-05-24] MEDS: INSULIN GLARGINE (*BKC) 100 UNITS/ML 14 UNITS SUB-Q (08:59)
--- NOTE | 2024-05-24 11:01 | PM.PNNEP ---
Progress Note: A&P Assessment and Plan (1) BERTA (acute kidney injury): Code(s): N17.9 - Acute kidney failure, unspecified Status: Acute Assessment and Plan: improvement noted suspect due to prerenal factors +/- UTI continue current therapy (2) Chronic kidney disease, stage 3b: Code(s): N18.32 - Chronic kidney disease, stage 3b Status: Chronic Assessment and Plan: stable if not better than basleimt baseline creatinine runs around 1.5 - 1.6mg/dl thought to be secondary to diabetes and hypertension (3) UTI (urinary tract infection): Code(s): N39.0 - Urinary tract infection, site not specified Status: Acute Assessment and Plan: admission UA suggestive urine culture with E. coli on antibiotics (4) Near syncope: Code(s): R55 - Syncope and collapse Status: Acute Assessment and Plan: suspect orthostatic hypotension from dehydration better at this time (5) Hypertension: Code(s): I10 - Essential (primary) hypertension Status: Chronic Assessment and Plan: reasonable control follow trend of hemodynamics (6) Diabetes: Code(s): E11.9 - Type 2 diabetes mellitus without complications Status: Chronic Assessment and Plan: follow accu-cheks glycemic control per hospitalists Not much else to add -- will continue to follow from a distance. Subjective Date/time seen: 05/24/24 11:01 Interval history: Follow-up for acute kidney injury/acute renal failure on chronic kidney disease. Chart reviewed -- assuming care from Dr. Douglas; renal function stable if not better than baseline by recent testing; no apparent distress voiced at the time of my visit; no other issues/events overnight or earlier this morning. Exam Narrative: General: elderly but WD/WN female in NAD Heart: normal S1 and S2; no rub Lungs: clear to auscultation Abdomen: soft, nontender, nondistended, positive bowel sounds Extremities: no cyanosis or clubbing; no edema Skin: warm and dry Objective Data Vital Signs Vital Signs: Vital Signs Temp Pulse Resp BP Pulse Ox O2 Del Method 05/24/24 08:58 Room Air 05/24/24 04:07 97.6 F 72 18 120/52 L 98 05/23/24 20:00 Room Air 05/23/24 19:29 64 161/56 H 05/23/24 19:26 67 165/59 H 05/23/24 19:24 98 F 66 18 157/57 H 99 05/23/24 15:59 98.5 F 64 18 160/57 H 100 05/23/24 14:54 Room Air Intake/Output Intake/Output: Intake & Output 05/21/24 05/22/24 05/23/24 05/24/24 23:59 23:59 23:59 23:59 Intake Total 1050 4539.6 3220 1720 Output Total 2500 2350 200 Balance 1050 2039.6 870 1520 Meds/Results Medications: Active Medications Generic Name Dose Route Start Last Admin Trade Name Freq PRN Reason Stop Dose Admin Acetaminophen 650 mg 05/21/24 18:40 05/24/24 08:55 Acetaminophen 325 Mg Tablet PO 650 mg Q4H PRN Administration Mild Pain (1-3) or Fever Amoxicillin/Clavulanate Potassium 1 tablet 05/24/24 09:00 05/24/24 08:56 Amoxicillin/Clavulanate K 875-125 Mg Tab PO 1 tablet Q12HR BLAKE Administration Atorvastatin Calcium 40 mg 05/21/24 21:00 05/23/24 20:14 Atorvastatin 40 Mg Tablet PO 40 mg HS BLAKE Administration Cyanocobalamin 2,000 mcg 05/22/24 09:00 05/24/24 08:57 Cyanocobalamin 1,000 Mcg Tablet PO 2,000 mcg DAILY BLAKE Administration Cyanocobalamin 500 mcg 05/22/24 09:00 05/24/24 08:57 Cyanocobalamin 500 Mcg Tablet PO 500 mcg DAILY BLAKE Administration Dextrose 12.5 gm 05/21/24 20:10 Dextrose 50% 25 Gm/50 Ml Syringe IV PUSH PRN PRN Hypoglycemia Protocol Ferrous Sulfate 325 mg 05/22/24 09:00 05/24/24 08:58 Ferrous Sulfate [address] PO 325 mg DAILY BLAKE Administration Gabapentin 300 mg 05/21/24 20:25 05/24/24 08:58 Gabapentin 300 Mg Capsule PO 300 mg BID BLAKE Administration Glucagon 1 mg
[2024-05-24 11:44] LABS: Glucose Point of Care 167 mg/dl (65-105)
--- NOTE | 2024-05-24 14:32 | PM.DS ---
DS: Admitting Diagnosis Discharge Date 05/24/24 Admitting Diagnosis Near syncope CKD stage IIIB Urinary tract infection Type 1 diabetes DS: Discharge Diagnosis Discharge Diagnosis (1) Near syncope: Code(s): R55 - Syncope and collapse Status: Acute (2) Chronic kidney disease, stage 3b: Code(s): N18.32 - Chronic kidney disease, stage 3b Status: Chronic (3) UTI (urinary tract infection): Code(s): N39.0 - Urinary tract infection, site not specified Status: Acute (4) Type 1 diabetes mellitus with hyperglycemia: Code(s): E10.65 - Type 1 diabetes mellitus with hyperglycemia Status: Acute DS: Summary Hospital Course Reason for hospitalization: Near syncope CKD stage IIIB Urinary tract infection Type 1 diabetes Hospital Course: 73 year old female with past medical history of DM1, anemia, CKD 3B, GERD, HLD, HTN (not on medication), IBS (primarily diarrhea) presents here with hypertension and generalized weakness. Per patient she stood from a chair and began walking when she felt lightheaded and dizzy. Patient then had to lean against the wall and slid down to the floor. States her BP at that time was 60/30s with blood glucose in the 300s. Suspect the orthostatic hypotension secondary to dehydration as patient notes that she had decreased oral intake for past few days. Patient also reported increased urination likely secondary to hyperglycemia from her ongoing infection. On admission patient had a BP of 89/48 with a blood glucose 185. She was started on IV fluids at that time and her home diabetes regimen. Troponin WNL. EKG sinus rhythm. All imaging negative for acute processes. UA was concerning for UTI and patient started on rocephin. Patient also noted to have an BERTA on CKD. Nephrology was consulted and BUN/Cr returned to baseline. Carotid dopplers showed < 50% stenosis of bilateral ICAs. Urine culture positive for pansenstive ecoli. Patient was transitioned to Augmentin. Patients glucose remained stable throughout admission. She is to follow up with her getterer as scheduled. Orthostatics were negative prior to discharge. Patient denied dizziness/lightheadedness and feelings of off balance prior to discharge. She was evaluated by PT/OT who recommended home health. Patient discharged with home health in stable condition. She is to complete her antibiotic as prescribed and follow up with her PCP and getterer as scheduled. Status at Discharge Functional status at discharge: uses cane/walker Time Spent with Patient Time attestation: Total time spent providing and/or coordinating discharge services: Exam Narrative: AF HR 72 RR 18 SpO2 98 BP 120/52 General: female in no acute respiratory distress who is nontoxic appearing, lying semi recumbent in bed. HEENT: Normocephalic. Atraumatic. No facial asymmetry. Chest: Lungs are clear to auscultation bilaterally. No wheezes or crackles. CV: Heart was regular rate and rhythm. Blowing systolic murmur. No gallops, or rubs. Abd: Abdomen was soft. Nontender. Nondistended. Positive bowel sounds. No organomegaly or masses. Ext: No clubbing, cyanosis, or edema. 2+ DP pulses bilaterally. DS: Data Data Completed and Pending Completed studies during hospitalization: carotid doppler study c spine ct head ct chest XR Labs on day of discharge: Labs from last 24 hours 05/24/24 05/24/24 05/24/24 11:38 08:11 04:52 WBC 5.3 RBC 2.68 L Hgb 8.7 L Hct 27.1 L MCV 101.1 H MCH 32.5 MCHC 32.1 RDW 12.9 Plt Count 152 MPV 11.4 H Immature Gran % (Auto) 0.4 Neut % (Auto) 70.6 Lymph % (Auto) 18.4 Brown % (Auto) 6.8 Eos % (Auto) 3.2 Baso % (Auto) 0.6 Lymph # (Auto) 0.97 Brown # (Auto) 0.4 Eos # (Auto) 0.2 Baso # (Auto) 0.0 Abs Immat Gran (auto) 0.02 Absolute Neuts (auto) 3.7 Absolute Nucleated RBC 0.000 Nucleated RBC % 0.0 Sodium 140 Potassium 4.0 C
== END 2024-05-24 13:34 | disposition home health service (06) | DRG 312 ==
LOC: ANHED 17:08 → ANH2MED 18:55
PROVIDERS: Internal Medicine Nephrology; Student in an Organized Health Care Education/Training Program; Admitting Provider Internal Medicine; Emergency Provider Emergency Medicine; PCP Family Medicine; Visit Provider Student in an Organized Health Care Education/Training Program
DX: I95.1 Orthostatic hypotension (principal); N39.0 Urinary tract infection, site not specified; N17.9 Acute kidney failure, unspecified; B96.20 Unspecified Escherichia coli [E. coli] as the cause of diseases classified elsewhere; E86.0 Dehydration; E10.65 Type 1 diabetes mellitus with hyperglycemia; N18.32 Chronic kidney disease, stage 3b; E10.22 Type 1 diabetes mellitus with diabetic chronic kidney disease; I12.9 Hypertensive chronic kidney disease with stage 1 through stage 4 chronic kidney disease, or unspecified chronic kidney disease; K21.9 Gastro-esophageal reflux disease without esophagitis; D64.9 Anemia, unspecified; F41.9 Anxiety disorder, unspecified; E10.42 Type 1 diabetes mellitus with diabetic polyneuropathy; M19.90 Unspecified osteoarthritis, unspecified site; M81.0 Age-related osteoporosis without current pathological fracture; F32.A Depression, unspecified; K58.0 Irritable bowel syndrome with diarrhea; E78.5 Hyperlipidemia, unspecified; Z96.611 Presence of right artificial shoulder joint; Z89.422 Acquired absence of other left toe(s); Z87.891 Personal history of nicotine dependence
CPT/HCPCS: 36415; 70450; 71045; 72125; 80053; 80069; 81001; 82550; 82948; 84100; 84484; 85025; 87077; 87086; 87088; 87186; 87637; 93005; 93880; 96361; 96365; 97161; 97165; 99285; A9270; G0378; J0696; J1815; J7030

== ENCOUNTER 2024-06-21 13:45 | Outpatient (CLI) | payer MEDICARE, SELFPAY ==
--- NOTE | ~2024-06-21 | MM_ITS ---
EXAMINATION: MM screening patrick BI w emi HISTORY: Screening mammogram TECHNIQUE: Craniocaudal and mediolateral oblique 3-D tomosynthesis images were obtained and synthetic 2-D images were generated. CAD analysis was submitted and interpreted. COMPARISON: 12/02/2007 BREAST PARENCHYMAL COMPOSITION:Dense: The breasts are extremely dense, which lowers the sensitivity o f mammography. FINDINGS: No suspicious mass, calcification, or architectural distortion are identified in either kenneth ast to suggest malignancy. There has been no suspicious interval change. IMPRESSION: No mammographic evidence of malignancy. Recommend routine screening mammography in one year. BI-RADS Category 1: Negative Reviewed, dictated and finalized at location M.
== END 2024-06-21 13:46 | disposition home or self-care (01) ==
LOC: MICIMG 13:46
PROVIDERS: PCP Family Medicine; Visit Provider Physician Assistant Medical
DX: Z12.31 Encounter for screening mammogram for malignant neoplasm of breast (principal)
CPT/HCPCS: 77063; 77067

== ENCOUNTER 2024-07-06 12:18 | Outpatient (CLI) | payer MEDICARE, SELFPAY ==
--- NOTE | ~2024-07-06 | CT_ITS ---
EXAMINATION: CT abdomen pelvis w con DATE: 07/06/2024 13:01 INDICATION: Left lower quadrant abdominal pain. TECHNIQUE: Computed tomography (CT) of the abdomen and pelvis was performed with 100 mL Omnipaque-350 intravenous contrast. Automated exposure control and iterative reconstruction technique were employe d. The dose-length product was 239.40 mGy-cm. COMPARISON: 10/28/2007 FINDINGS: Mild dependent and discoid atelectasis in the bilateral lower lobes. Heart size is normal. Atheroscle rotic coronary artery calcifications and aortic valve and mitral annular calcific lesion. No pericard ial or pleural effusion. Focal hepatic steatosis along the ligamentum teres. Gallbladder, pancreas an d bilateral adrenal glands are normal. Splenic calcifications consistent with old granulomatous disea se. There are bilateral renal cysts the largest on the left measuring 3.0 cm. There is also asymmetri c diffuse mild left renal atrophy. No bowel obstruction. Bladder is normal. Uterus and bilateral adne xa are unremarkable. Old healed subcapital fracture of the proximal left femur which is fixed with 3 leg screws. Small amount of free fluid in the cul-de-sac. No abscess or free intraperitoneal gas. Mil d lumbar dextrocurvature. Chronic appearing L1 and L5 compression fractures. IMPRESSION: 1. Small amount of nonspecific free fluid in the cul-de-sac. No acute intra-abdominal/pelvic process. 2. Mild left renal atrophy. Reviewed, dictated and finalized at location A. IMPRESSION: 1. Small amount of nonspecific free fluid in the cul-de-sac. No acute intra-abd ominal/pelvic process. 2. Mild left renal atrophy.
== END 2024-07-06 12:19 | disposition home or self-care (01) ==
LOC: ANHIMG 12:23
PROVIDERS: PCP Family Medicine; Visit Provider Nurse Practitioner
DX: R10.32 Left lower quadrant pain (principal)
CPT/HCPCS: 74177; Q9967

== ENCOUNTER 2024-09-06 11:00 | Outpatient (RCR) | payer MEDICARE, SELFPAY ==
--- NOTE | 2024-07-05 11:47 | OPREHPOC ---
Outpatient Therapy Plan of Care This is a Multidisciplinary Plan of Care that may contain components documented by all disciplines (PT, OT, and ST.) PT Problem 1 PT Problem #1 Knowledge Deficit PT Goal 1 Goal / Goal Update Patient will be independent with HEP for gross strengthening Target Visit 4 PT Problem 2 PT Problem #2 Impaired Gait PT Goal 1 Goal / Goal Update Patient will demonstrate 375' ambulation on 3 minute walk test to reflect improved endurance an gait speed to reduce fall risk. Target Visit 8 PT Goal 2 Goal / Goal Update Improve Tinetti Score by 4 point to reduce gross fall risk and improve home mobility Target Visit 8 PT Problem 3 PT Problem #3 Impaired Strength PT Goal 1 Goal / Goal Update Improve francie hip abduction to 4.5 to improve lateral stability with gait and squatting activity Target Visit 8 PT Goal 2 Goal / Goal Update Improve francie hip flexion strength to 4+/5 to improve foot clearance with stairs and ambulatory activity Target Visit 8 PT Problem 4 PT Problem #4 Impaired Functional Mobil PT Goal 1 Goal / Goal Update Improve 5 sit to stand test by 2 seconds to reduce fall risk with transfers and transitional activity in home and community Target Visit 8
--- NOTE | 2024-07-05 11:47 | PTOPEVAL1 ---
Assessment and note entered by Glen Fermin, PT Evaluation Information Assessment Status Evaluation ICD-10 Condition Codes (PT) Difficulty Walking R26.2,R26.9,Weakness R53.1 Onset December 2021 Subjective Information Reports that for the last year and a half she has noticed increased unsteadiness on her feet. Reports that she became more sedentary and she started to see more problems with her balance. She noticed some drops in her blood pressure with activity. She has been monitoring her blood pressure and it drops throughout the day. She has been using a wheeled walker for about 2 months. She had a kidney infection and was hospitalized prior. Last fall was in April but she had a few prior to that. Has mild neck pain but nothing significant in LEs. Really feels that she is just getting weak. 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 She would like to be able to get around the yard a little better and garden. Reported Pain Level Pain Score 0: Self Report Assessment PT Clinical Summary Patient presents with high risk for falls and weakness of francie hips at this time. Patient demonstrates consistent unsteadiness with straight line ambulation and deconditioning. Will benefit form skilled therapy to address objective deficits to reduce fall risk and improve gross functional mobility and safety. Plan of Care Interventions Gait Training,Manual Therapy,Neuro Re-education, Therapeutic Activities,Therapeutic Exercise PT Services Indicated Yes Treatment Frequency and 2x/week for 8 visits Duration These treatments will address the objective and functional deficits as defined above. The patient will be advanced safely and appropriately in order for the patient to progress towards his/her prior level of function. Additional exercises will be introduced and as well as a comprehensive home exercise program upon discharge, if needed, ?to ensure carryover of functional gains achieved in the clinic. This treatment plan has been reviewed and agreement upon by the patient.
--- NOTE | 2024-07-28 11:56 | OPREHPOC ---
Outpatient Therapy Plan of Care This is a Multidisciplinary Plan of Care that may contain components documented by all disciplines (PT, OT, and ST.) PT Problem 1 PT Problem #1 Knowledge Deficit PT Goal 1 Goal / Goal Update Patient will be independent with HEP for gross strengthening Target Visit 4 Progress Met PT Goal 2 Goal / Goal Update 07-28-24: progress goal met; continue to progress HEP Target Visit 14 PT Problem 2 PT Problem #2 Impaired Gait PT Goal 1 Goal / Goal Update Patient will demonstrate 375' ambulation on 2 minute walk test to reflect improved endurance an gait speed to reduce fall risk. 07-28-24: progress goal not met, but improved to 350' increase goal to 400' Target Visit 14 PT Goal 2 Goal / Goal Update Improve Tinetti Score by 4 point to reduce gross fall risk and improve home mobility 07-28-24: progress goal met; increase goal to Tinetti balance/gait score of 26/ 28 Target Visit 14 PT Problem 3 PT Problem #3 Impaired Strength PT Goal 1 Goal / Goal Update 1 Improve francie hip abduction to 4.5 to improve lateral stability with gait and squatting activity 07-28-24: progress goal not met continue towards goal 1 NEW GOALS *2 single leg standing R 6 seconds *3 single leg standing L 6 seconds Target Visit 14 PT Goal 2 Goal / Goal Update Improve francie hip flexion strength to 4+/5 to improve foot clearance with stairs and ambulatory activity 07-28-24: progress goal met Target Visit 8 Progress Met PT Problem 4 PT Problem #4 Impaired Functional Mobil PT Goal 1 Goal / Goal Update Improve 5 sit to stand test by 2 seconds to reduce fall risk with transfers and transitional activity in home and community Target Visit 8 Progress Not Met PT Goal 2 Goal / Goal Update 07-28-24: progress goal not met; goal for 5 reps sit/stand time of 15 seconds Target Visit 14
--- NOTE | 2024-07-28 11:57 | PTOPPROG ---
Assessment and note entered by Martha Shah, PT Progress Report Assessment Status Progress ICD-10 Condition Codes (PT) Difficulty Walking R26.2,R26.9,Weakness R53.1 Onset December 2021 Subjective Information feel like her legs are stronger but balance still not good; use the wheeled walker when going out but not in her house; have been doing the exercises 1-2 x/day; have not had any falls since starting therapy; doing ok on stairs, use the hand railing; am comfortable with using the walker to get around, want to be safe; want to continue therapy for more strength and balance--want to go to [place] to visit her daughter and family; Assessment PT Clinical Summary Ashley has received 8 PT sessions. Compared to the initial evaluation: Tinetti balance score from 16 to 23/28; 2 minute walking test distance with wheeled walker from 310 to 350' 5 reps sit/stand time from 16 to 18 seconds; strength of hips/LE improved; Self assessment with LE functional scale from 50 to 41% limitation in activity level. Education for HEP and safety with mobility and transfers completed. The goals were partially met. Continue PT to further increase strength and balance, for safety with mobility and return to more active lifestyle. Plan of Care Interventions Gait Training,Neuro Re-education,Patient/Caregiver Education,Therapeutic Activities,Therapeutic Exercise PT Services Indicated Yes Treatment Frequency and 1x/wk for 6 visits Duration These treatments will address the objective and functional deficits as defined above. The patient will be advanced safely and appropriately in order for the patient to progress towards his/her prior level of function. Additional exercises will be introduced and as well as a comprehensive home exercise program upon discharge, if needed, ?to ensure carryover of functional gains achieved in the clinic. This treatment plan has been reviewed and agreement upon by the patient.
--- NOTE | 2024-08-10 11:58 | PCPTNOTE ---
Pt cancelled due to illness.
--- NOTE | 2024-08-25 15:04 | PCPTNOTE ---
Pt canceled due to illness.
--- NOTE | 2024-09-06 11:48 | PTOPDC ---
Assessment and note entered by Martha Shah, PT Discharge Report Assessment Status Discharge ICD-10 Condition Codes (PT) Difficulty Walking R26.2,R26.9,Weakness R53.1 Onset December 2021 Subjective Information legs are stronger, walking is better; do not use the walker for short distances or in her home; use the rollator for distances; have not had any falls; using the treadmill every day, trying for 15 minutes, 1-2x/day; doing the exercises every day; ready for discharge from PT. Reported Pain Level Pain Score 0: Self Report Assessment PT Clinical Summary Ashley has received a total of 12 PT sessions. Compared to the last reevaluation: Tinetti balance score improved by 1 point; 2 minute walking test distance from 350' to 375' with rollator; 5 reps sit/stand time is the same; LE functional scale from 41% to 29% limitation in activity level. Education completed for HEP and safety with mobility. The goals were partially achieved. Discharge PT. She is to continue with her HEP and activity as tolerated. Plan of Care PT Services Indicated No
== END 2024-09-17 11:25 | disposition home or self-care (01) ==
LOC: ANHPT 11:00
PROVIDERS: PCP Family Medicine; Visit Provider Student in an Organized Health Care Education/Training Program
DX: R26.81 Unsteadiness on feet (principal); R53.1 Weakness
CPT/HCPCS: 97110; 97112; 97116; 97161; 97530

== ENCOUNTER 2024-09-08 08:00 | Outpatient (CLI) | payer MEDICARE, SELFPAY ==
--- NOTE | ~2024-09-08 | CT_ITS ---
EXAMINATION: CT abdomen pelvis wo con DATE: 09/08/2024 08:40 INDICATION: Other ascites. TECHNIQUE: Computed tomography (CT) of the abdomen and pelvis was performed without intravenous contr ast. Automated exposure control and iterative reconstruction technique were employed. The dose-length product was 222.80 mGy-cm. COMPARISON: CT abdomen and pelvis 07/06/2024 FINDINGS: The visualized portions of the lung bases demonstrate mild atelectasis. No pleural effusion . The liver and gallbladder are normal. Calcifications in the spleen are consistent with old granulom atous disease. The pancreas and adrenal glands are normal. There are cysts in the kidneys measuring u p to 3.0 cm on the left. There is mild atrophy of left kidney. There is no urolithiasis. The bladder is markedly distended. Gas in the bladder lumen is likely from recent instrumentation. There are no d ilated loops of bowel. The appendix is not visualized. There is calcified atherosclerosis of the aort a and many of the other arteries. There is no free intraperitoneal fluid. There are no pathologically enlarged lymph nodes. There is internal fixation of proximal left femur. There are chronic compressi on fractures of L1 and L5. There is mild lumbar spondylosis. IMPRESSION: 1. No ascites. Reviewed, dictated and finalized at location A. HANT KEEPER IMPRESSION: 1. No ascites.
[2024-09-08 08:20] LABS: Estimated Glomerular Filt Rate 26
== END 2024-09-08 08:01 | disposition home or self-care (01) ==
PROVIDERS: PCP Family Medicine; Visit Provider Nurse Practitioner
DX: R18.8 Other ascites (principal)
CPT/HCPCS: 74176

== ENCOUNTER 2024-10-25 16:10 | Emergency (ER) | payer MEDICARE, SELFPAY ==
--- NOTE | ~2024-10-25 | CT_ITS ---
CLINICAL INDICATION: Nausea vomiting and diarrhea COMPARISON: 09/08/2024 and dating back to 10/28/2007. TECHNIQUE: Multiple contiguous axial images of the abdomen and pelvis were performed following the ad ministration of with 100 mL Omnipaque-350 intravenous contrast The dose-length product (DLP) was 220.00 mGy-cm. Automated exposure control and iterative reconstruction technique were employed. FINDINGS/OBSERVATIONS: Visualized lower thorax: Trace dependent atelectasis. The remainder of the bilateral lung bases are clear. The heart is of normal size, without pericardial effusion. Small hiatal hernia is present. Liver: The liver enhances homogeneously, and is not enlarged measuring 15 cm in longitudinal dimension. Gallbladder and biliary system: The gallbladder is only minimally distended, and otherwise unremarkable. Pancreas: The pancreas is atrophic, without ductal dilatation. Spleen: Punctate calcifications identified within the splenic parenchyma, suggesting prior granulomatous dise ase. The remainder of the spleen otherwise enhances homogeneously and is not enlarged measuring 8 cm in lo ngitudinal dimension. Kidneys: Multiple areas of fluid attenuation within the bilateral kidneys, unchanged dating back to 2007 for w hich cysts are suspected. The remainder of the bilateral kidneys otherwise enhance symmetrically without hydronephrosis or krystal l calculi. Adrenal glands: Unremarkable. Gastrointestinal tract: Fecal stasis within the colon. Appendix: The appendix is not definitively visualized. However, no pericecal inflammatory change is identified suggest the presence of acute appendicitis. Vasculature: Densely calcified atherosclerotic disease. Lymph nodes: No pathologically enlarged or morphologically suspicious lymph nodes within the retroperitoneum or at the root of the mesentery. Pelvic structures: The bladder is significantly distended, and contains a small amount of nondependent air. Wall thickening is also noted, which is abnormal given the amount of bladder distention. Free fluid within the rectouterine pouch. The uterus is anteverted and anteflexed, and somewhat atrophic, and contains multiple calcifications suggesting prior fibroid disease. Body wall and musculoskeletal: Degenerative disease within the lumbar spine, with osteophyte formation and disc space narrowing. Compression of the superior endplate of L5 is present, unchanged when compared with 07/06/2024 (but an interval change from 2007). Compression of the inferior endplate of L1, unchanged when compared with 07/06/2024 (but an interval c hange from 2007). Multiple screws within the left femur. IMPRESSION: Wall thickening within the bladder with significant bladder distention and free fluid within the rect outerine pouch. Otherwise, innumerable nonacute findings, as detailed above. Reviewed, dictated and finalized at location A. NT EXTERMINATOR IMPRESSION: Wall thickening within the bladder with significant bladder distention and free fluid within the rectouterine pouch. Otherwise, innumerable nonacute findings, as detailed above.
[2024-10-25 16:22] VITALS: BP 164/68; PULSE 84; RESP 20; TEMP 36.1; O2SAT 100
[2024-10-25 16:29] LABS: Glucose Point of Care 406 mg/dl (65-105)
--- NOTE | 2024-10-25 17:42 | ED.NAVMDI ---
HPI - Nausea/Vomiting/Diarrhea General Chief complaint: Nausea/Vomiting/Diarrhea <CATRACHO Walters Last Filed: 10/25/24 17:54> Stated complaint: high blood glucose N/V <CATRACHO Walters Last Filed: 10/25/24 17:54> Time Seen by Provider: 10/25/24 17:42 <CATRACHO Walters Last Filed: 10/25/24 17:54> Focused HPI: Patient is a 73 y/o female who presents to the ED via EMS with c/o N/V, hyperglycemia. Patient has hx of IDDM. Was started on an insulin pump a couple of months ago. BG typically around 120s. Began elevating around 10am last night. Was > 450 this morning. Patient then began having nausea with dry heaving and vomiting this morning and afternoon. Was c/o pain throughout her upper abdomen, but states this has subsided some. Also reports diarrhea. Denies known fevers. Patient was admitted here several years ago for DKA. GENERAL: Elderly, somewhat frail, and in no acute distress. HEAD: Normocephalic, atraumatic. CHEST: Clear to auscultation. ?No respiratory distress. HEART: Regular rate and rhythm.? ABD: Mild TTP in epigastric region. NEURO: ?Alert and oriented x3. Patient screened in triage and initial orders placed.? ?Additional care and disposition to be based upon?diagnostic testing and treatment. <CATRACHO Walters Last Filed: 10/25/24 17:54> Source: patient and family <CATRACHO Walters Last Filed: 10/25/24 17:54> Mode of arrival: EMS <CATRACHO Walters Last Filed: 10/25/24 17:54> Limitations: no limitations <CATRACHO Walters Last Filed: 10/25/24 17:54> Related Data Home medications: Home Medications ?Medication ?Instructions ?Recorded ?Confirmed ?Last Taken ?Type atorvastatin 40 mg tablet 40 mg PO HS 02/10/24 09/28/24 Unknown History cholecalciferol (vitamin D3) 125 125 mcg PO EVERY OTHER DAY 02/10/24 09/28/24 Unknown History mcg (5,000 unit) capsule ferrous sulfate 325 mg (65 mg 325 mg PO DAILY 02/10/24 09/28/24 Unknown History iron) tablet latanoprost 0.005 % eye drops 1 drp LEFT EYE HS 02/10/24 09/28/24 Unknown History mecobalamin (vitamin B12) 2,500 2,500 mcg PO DAILY 02/10/24 09/28/24 Unknown History mcg chewable tablet multivitamin 1 tablet PO DAILY 02/10/24 09/28/24 Unknown History <Bella Milligan PA-C - Last Filed: 10/25/24 17:54> Allergies/Adverse reactions: Allergies Allergy/AdvReac Type Severity Reaction Status Date / Time No Known Allergies Allergy Mild Verified 10/25/24 16:30 <Bella Milligan PA-C - Last Filed: 10/25/24 17:54> Review of Systems Review of Systems: All systems are reviewed and are negative unless stated otherwise in the HPI. <Saleem Rodriguez MD - Last Filed: 10/25/24 23:04> PMFSH Past Medical History Medical History: Medical History GERD (gastroesophageal reflux disease) Chronic kidney disease, stage 3b Hyperlipidemia Right ankle injury Osteoporosis Kidney disease IBS (irritable bowel syndrome) Hypertension Diabetes Arthritis Depression Anxiety Anemia <CATRACHO Walters Last Filed: 10/25/24 17:54> Surgical History Surgical History: Surgical History Status post amputation of toe of left foot History of right shoulder replacement <Bella Milligan PA-C - Last Filed: 10/25/24 17:54> Family History Family History: Family History Father Alcoholism Cerebrovascular accident Heart disease Grandparent Cancer of unknown origin Son Diabetes mellitus Daughter Diabetes mellitus Daughter Depression <Bella Milligan PA-C - Last Filed: 10/25/24 17:54> Social History Social History: Social History Smoking packs per day: 1 Smoking cigarettes per day: 20.0 Years smoked: 30 Smoking pack-years: 30.00 Smoking status: Former smoker Tobacco type: cigarettes Second hand tobacco smoke exposure: No Smoking end date: 08/13/19 Alcohol intake: never Alcohol use details: socially Substance use: never Substance use type: does not use Do You Feel Safe in your Home?: Yes Lack of Transportation: No Lack of Food: Never True Current Housing: I Have Housing Concerned About Future Housing: No Difficulty Paying Gas/Electric Bills: No Difficulty Paying for Meds: No Currently Unemployed: No Education: Bachelor's Degree Difficulty w/ Childcare or Family Care: No Living arrangements: other Occupation/Education: retired Gender identity (if verbalized by the patient): Female Spiritual care concerns: No Agree to blood products: Yes <Bella Milligan PA-C - Last Filed: 10/25/24 17:54> Exam Narrative: General: Alert, awake, afebrile, in no acute distress. HEENT: PERRL, no rhinorrhea, no post nasal drip, oropharynx clear. Neck: Trachea midline, no JVD, no lymphadenopathy. Cardiovascular: Regular rate and rhythm, no murmurs, rubs or gallops, no peripheral edema. Respiratory: Clear to auscultation bilaterally, no tachypnea, no wheezing, no rhonchi, no rubs, no respiratory distress. Abdomen: Soft, nontender, nondistended, no rebound, no guarding, no peritoneal signs. Musculoskeletal: No joint swelling or deformity, normal muscle tone. Skin: No rashes or petechia, no signs of infection. Psychiatric: Alert and oriented, normal behavior and judgment for situation. Neurological: Alert and oriented to person, place, and time. Follows all commands. No focal deficits, speech is clear and fluent. <Saleem Rodriguez MD - Last Filed: 10/25/24 23:04> Course Vital Signs Vital signs: Vital Signs Temperature 97.0 F L 10/25/24 16:22 Pulse Rate 84 10/25/24 16:22 Respiratory Rate 20 10/25/24 16:22 Blood Pressure 164/68 H 10/25/24 16:22 Pulse Oximetry 100 10/25/24 16:22 Oxygen Delivery Room Air 10/25/24 16:22 Temperature 97.0 F L 10/25/24 16:22 Pulse Rate 84 10/25/24 16:22 Respiratory Rate 20 10/25/24 16:22 Blood Pressure 164/68 H 10/25/24 16:22 Pulse Oximetry 100 10/25/24 16:22 Oxygen Delivery Room Air 10/25/24 16:22 <Bella Milligan PA-C - Last Filed: 10/25/24 17:54> Vital Signs Temperature 97.0 F L 10/25/24 16:22 Pulse Rate 84 10/25/24 16:22 Respiratory Rate 20 10/25/24 16:22 Blood Pressure 164/68 H 10/25/24 16:22 Pulse Oximetry 100 10/25/24 16:22 Oxygen Delivery Room Air 10/25/24 16:22 Temperature 97.0 F L 10/25/24 16:22 Pulse Rate 84 10/25/24 16:22 Respiratory Rate 20 10/25/24 16:22 Blood Pressure 164/68 H 10/25/24 16:22 Pulse Oximetry 100 10/25/24 16:22 Oxygen Delivery Room Air 10/25/24 16:22 <Saleem Rodriguez MD - Last Filed: 10/25/24 23:04> MDM - Nausea/Vomiting/Diarrhea MDM Narrative Medical decision making narrative: MSE by CAROLINA in triage. <Bella Milligan PA-C - Last Filed: 10/25/24 17:54> MSE by CAROLINA in triage. The patient was evaluated by myself in the emergency department. History is obtained from patient who is an independent historian and physical exam was performed. External medical records were reviewed at this time. IV was established and pertinent tests were ordered. Patient was administered 1 L IV fluid bolus with normal saline and 4 mg of IV Zofran for nausea. Laboratory results obtained revealing a glucose of 349 otherwise unremarkable. Urinalysis revealed a 11-20 white blood cells and 4+ bacteria. Patient was informed of these findings at bedside and that she will be placed on oral antibiotic for her urinary tract infection. 1 g of IV Rocephin was administered at this time. Imaging studies obtained included CT abdomen pelvis with IV contrast which was independently interpreted by me revealing bladder wall thickening with distension otherwise no acute process, which is pending final radiology interpretation. Differential diagnosis considerations include gastroenteritis, dehydration, electrolyte derangements, DKA, hyperglycemia, infectious process such as pneumonia/UTI. Comorbidities impacting this visit include history of type 1 insulin-dependent diabetes mellitus. I have evaluated and discussed social determinants of health with the patient that could potentially impact subsequent diagnosis and treatment plans. On repeat assessment of the patient, reevaluation revealed that the patient is doing well and is in no acute distress. Patient symptoms have improved since she arrived to our emergency department. Repeat vital signs were all reviewed and noted to be stable. Differential diagnosis and treatment plan were discussed with the patient at bedside. Patient agrees with discussion and after shared medical decision making agrees with discharge. All questions were answered to the patient's satisfaction. Patient will follow up with her PCP in 3-5 days. Script for Zofran and cephalexin were sent to patient's pharmacy to take as prescribed. Patient was provided with strict return precautions and instructed to return to the emergency department if any new or worsening symptoms develop. The patient was discharged in stable condition. <Saleem Rodriguez MD - Last Filed: 10/25/24 23:04> Lab Data Result diagrams: 10/25/24 19:16 10/25/24 19:16 <Bella Milligan PA-C - Last Filed: 10/25/24 17:54> Labs: Lab Results 10/25/24 10/25/24 10/25/24 Range/Units 16:25 19:16 19:17 WBC 8.7 (4.5-10.0) K/mm3 RBC 2.93 L (4.2-5.4) M/mm3 Hgb 9.5 L (12.0-15.0) g/dL Hct 29.4 L (37.0-47.0) % MCV 100.3 H (80-100) fl MCH 32.4 (26-34) pg MCHC 32.3 (32-36) g/dl RDW 13.3 (11.5-14.5) % Plt Count 213 (150-375) k/mm3 MPV 10.8 H (7.4-10.4) fl Immature Gran % (Auto) 0.3 (0-0.5) % Neut % (Auto) 92.0 H (45.5-73.1) % Lymph % (Auto) 4.9 L (18.3-44.2) % [place] % (Auto) 2.5 L (2.6-8.5) % Eos % (Auto) 0.0 (0-4.4) % Baso % (Auto) 0.3 (0.2-1.2) % Lymph # (Auto) 0.43 L (0.9-3.2) K/mm3 [place] # (Auto) 0.2 (0.1-0.6) K/mm3 Eos # (Auto) 0.0 (0-0.3) K/mm3 Baso # (Auto) 0.0 (0.0-0.1) K/mm3 Abs Immat Gran (auto) 0.03 (0.00-0.031) K/mm3 Absolute Neuts (auto) 8.0 H (1.3-6.7) K/mm3 Absolute Nucleated RBC 0.000 (0.0-0.012) K/mm3 Nucleated RBC % 0.0 (0.0-0.2) % Sodium 139 (137-145) mmol/L Potassium 4.8 (3.4-5.0) mmol/L Chloride 108 H (98-107) mmol/L Carbon Dioxide 22 (22-30) mmol/L Anion Gap 9 (4-12) mmol/L BUN 46 H D (7-17) mg/dL Creatinine 1.40 H (0.7-1.0) mg/dL Estim Creat Clear Calc 25 ml/min Estimated GFR 37 L (59 - ) Glucose 349 H (65-110) mg/dL POC Capillary Glucose 406 H (65-105) mg/dl Hemoglobin A1c 7.3 H (<5.7) % Lactic Acid 1.1 (0.7-2.0) mmol/L Calcium 9.6 (8.4-10.2) mg/dL Phosphorus 2.5 (2.5-4.5) mg/dL Magnesium 1.8 (1.6-2.3) mg/dL Total Bilirubin 0.4 (0.2-1.3) mg/dL AST 35 (14-36) U/L ALT 38 H (6-35) U/L Alkaline Phosphatase 65 (38-126) U/L Total Protein 7.0 (6.3-8.2) g/dL Albumin 4.1 (3.5-5.1) g/dL Beta-Hydroxybutyrate/Acetoacetate 0.21 (0.02-0.27) mmol/L Urine Color (Yellow) Urine Appearance (Clear) Urine pH (5.0-9.0) Ur Specific [place] (1.001-1.035) Urine Protein (Negative) mg/dL Urine Glucose (UA) (Negative) mg/dL Urine Ketones (Negative) mg/dL Ur Blood (Man) (Negative) Urine Nitrate (Negative) Urine Bilirubin (Negative) Urine Urobilinogen (<2.0) mg/dL Add Ur Microanalysis Leukocyte Esterase Rfl (Negative) TAYLOR/UL Urine RBC (0-2) /hpf Urine WBC (0-3) /hpf Ur Squamous Epith Cells (Few) /hpf Urine Bacteria /hpf Urine Casts Influenza A (RT-PCR) Negative (Negative) Influenza B (RT-PCR) Negative (Negative) RSV (RT-PCR) Negative (Negative) SARS-CoV-2 RNA (RT-PCR) Negative (Negative) 10/25/24 10/25/24 Range/Units 21:25 21:38 WBC (4.5-10.0) K/mm3 RBC (4.2-5.4) M/mm3 Hgb (12.0-15.0) g/dL Hct (37.0-47.0) % MCV (80-100) fl MCH (26-34) pg MCHC (32-36) g/dl RDW (11.5-14.5) % Plt Count (150-375) k/mm3 MPV (7.4-10.4) fl Immature Gran % (Auto) (0-0.5) % Neut % (Auto) (45.5-73.1) % Lymph % (Auto) (18.3-44.2) % [place] % (Auto) (2.6-8.5) % Eos % (Auto) (0-4.4) % Baso % (Auto) (0.2-1.2) % Lymph # (Auto) (0.9-3.2) K/mm3 [place] # (Auto) (0.1-0.6) K/mm3 Eos # (Auto) (0-0.3) K/mm3 Baso # (Auto) (0.0-0.1) K/mm3 Abs Immat Gran (auto) (0.00-0.031) K/mm3 Absolute Neuts (auto) (1.3-6.7) K/mm3 Absolute Nucleated RBC (0.0-0.012) K/mm3 Nucleated RBC % (0.0-0.2) % Sodium (137-145) mmol/L Potassium (3.4-5.0) mmol/L Chloride (98-107) mmol/L Carbon Dioxide (22-30) mmol/L Anion Gap (4-12) mmol/L BUN (7-17) mg/dL Creatinine (0.7-1.0) mg/dL Estim Creat Clear Calc ml/min Estimated GFR (59 - ) Glucose (65-110) mg/dL POC Capillary Glucose 252 H (65-105) mg/dl Hemoglobin A1c (<5.7) % Lactic Acid (0.7-2.0) mmol/L Calcium (8.4-10.2) mg/dL Phosphorus (2.5-4.5) mg/dL Magnesium (1.6-2.3) mg/dL Total Bilirubin (0.2-1.3) mg/dL AST (14-36) U/L ALT (6-35) U/L Alkaline Phosphatase (38-126) U/L Total Protein (6.3-8.2) g/dL Albumin (3.5-5.1) g/dL Beta-Hydroxybutyrate/Acetoacetate (0.02-0.27) mmol/L Urine Color Yellow (Yellow) Urine Appearance Cloudy H (Clear) Urine pH 5.0 (5.0-9.0) Ur Specific [place] 1.019 (1.001-1.035) Urine Protein 3+ H (Negative) mg/dL Urine Glucose (UA) 3+ H (Negative) mg/dL Urine Ketones Negative (Negative) mg/dL Ur Blood (Man) 1+ H (Negative) Urine Nitrate Negative (Negative) Urine Bilirubin Negative (Negative) Urine Urobilinogen 0.2 (<2.0) mg/dL Add Ur Microanalysis Reviewed Leukocyte Esterase Rfl Negative (Negative) TAYLOR/UL Urine RBC 0-2 (0-2) /hpf Urine WBC 11-20 H (0-3) /hpf Ur Squamous Epith Cells None seen (Few) /hpf Urine Bacteria 4+ H /hpf Urine Casts 0-2 Influenza A (RT-PCR) (Negative) Influenza B (RT-PCR) (Negative) RSV (RT-PCR) (Negative) SARS-CoV-2 RNA (RT-PCR) (Negative) <Bella Milligan PA-C - Last Filed: 10/25/24 17:54> Lab Results 10/25/24 10/25/24 10/25/24 Range/Units 16:25 19:16 19:17 WBC 8.7 (4.5-10.0) K/mm3 RBC 2.93 L (4.2-5.4) M/mm3 Hgb 9.5 L (12.0-15.0) g/dL Hct 29.4 L (37.0-47.0) % MCV 100.3 H (80-100) fl MCH 32.4 (26-34) pg MCHC 32.3 (32-36) g/dl RDW 13.3 (11.5-14.5) % Plt Count 213 (150-375) k/mm3 MPV 10.8 H (7.4-10.4) fl Immature Gran % (Auto) 0.3 (0-0.5) % Neut % (Auto) 92.0 H (45.5-73.1) % Lymph % (Auto) 4.9 L (18.3-44.2) % [place] % (Auto) 2.5 L (2.6-8.5) % Eos % (Auto) 0.0 (0-4.4) % Baso % (Auto) 0.3 (0.2-1.2) % Lymph # (Auto) 0.43 L (0.9-3.2) K/mm3 [place] # (Auto) 0.2 (0.1-0.6) K/mm3 Eos # (Auto) 0.0 (0-0.3) K/mm3 Baso # (Auto) 0.0 (0.0-0.1) K/mm3 Abs Immat Gran (auto) 0.03 (0.00-0.031) K/mm3 Absolute Neuts (auto) 8.0 H (1.3-6.7) K/mm3 Absolute Nucleated RBC 0.000 (0.0-0.012) K/mm3 Nucleated RBC % 0.0 (0.0-0.2) % Sodium 139 (137-145) mmol/L Potassium 4.8 (3.4-5.0) mmol/L Chloride 108 H (98-107) mmol/L Carbon Dioxide 22 (22-30) mmol/L Anion Gap 9 (4-12) mmol/L BUN 46 H D (7-17) mg/dL Creatinine 1.40 H (0.7-1.0) mg/dL Estim Creat Clear Calc 25 ml/min Estimated GFR 37 L (59 - ) Glucose 349 H (65-110) mg/dL POC Capillary Glucose 406 H (65-105) mg/dl Hemoglobin A1c 7.3 H (<5.7) % Lactic Acid 1.1 (0.7-2.0) mmol/L Calcium 9.6 (8.4-10.2) mg/dL Phosphorus 2.5 (2.5-4.5) mg/dL Magnesium 1.8 (1.6-2.3) mg/dL Total Bilirubin 0.4 (0.2-1.3) mg/dL AST 35 (14-36) U/L ALT 38 H (6-35) U/L Alkaline Phosphatase 65 (38-126) U/L Total Protein 7.0 (6.3-8.2) g/dL Albumin 4.1 (3.5-5.1) g/dL Beta-Hydroxybutyrate/Acetoacetate 0.21 (0.02-0.27) mmol/L Urine Color (Yellow) Urine Appearance (Clear) Urine pH (5.0-9.0) Ur Specific [place] (1.001-1.035) Urine Protein (Negative) mg/dL Urine Glucose (UA) (Negative) mg/dL Urine Ketones (Negative) mg/dL Ur Blood (Man) (Negative) Urine Nitrate (Negative) Urine Bilirubin (Negative) Urine Urobilinogen (<2.0) mg/dL Add Ur Microanalysis Leukocyte Esterase Rfl (Negative) TAYLOR/UL Urine RBC (0-2) /hpf Urine WBC (0-3) /hpf Ur Squamous Epith Cells (Few) /hpf Urine Bacteria /hpf Urine Casts Influenza A (RT-PCR) Negative (Negative) Influenza B (RT-PCR) Negative (Negative) RSV (RT-PCR) Negative (Negative) SARS-CoV-2 RNA (RT-PCR) Negative (Negative) 10/25/24 10/25/24 Range/Units 21:25 21:38 WBC (4.5-10.0) K/mm3 RBC (4.2-5.4) M/mm3 Hgb (12.0-15.0) g/dL Hct (37.0-47.0) % MCV (80-100) fl MCH (26-34) pg MCHC (32-36) g/dl RDW (11.5-14.5) % Plt Count (150-375) k/mm3 MPV (7.4-10.4) fl Immature Gran % (Auto) (0-0.5) % Neut % (Auto) (45.5-73.1) % Lymph % (Auto) (18.3-44.2) % [place] % (Auto) (2.6-8.5) % Eos % (Auto) (0-4.4) % Baso % (Auto) (0.2-1.2) % Lymph # (Auto) (0.9-3.2) K/mm3 [place] # (Auto) (0.1-0.6) K/mm3 Eos # (Auto) (0-0.3) K/mm3 Baso # (Auto) (0.0-0.1) K/mm3 Abs Immat Gran (auto) (0.00-0.031) K/mm3 Absolute Neuts (auto) (1.3-6.7) K/mm3 Absolute Nucleated RBC (0.0-0.012) K/mm3 Nucleated RBC % (0.0-0.2) % Sodium (137-145) mmol/L Potassium (3.4-5.0) mmol/L Chloride (98-107) mmol/L Carbon Dioxide (22-30) mmol/L Anion Gap (4-12) mmol/L BUN (7-17) mg/dL Creatinine (0.7-1.0) mg/dL Estim Creat Clear Calc ml/min Estimated GFR (59 - ) Glucose (65-110) mg/dL POC Capillary Glucose 252 H (65-105) mg/dl Hemoglobin A1c (<5.7) % Lactic Acid (0.7-2.0) mmol/L Calcium (8.4-10.2) mg/dL Phosphorus (2.5-4.5) mg/dL Magnesium (1.6-2.3) mg/dL Total Bilirubin (0.2-1.3) mg/dL AST (14-36) U/L ALT (6-35) U/L Alkaline Phosphatase (38-126) U/L Total Protein (6.3-8.2) g/dL Albumin (3.5-5.1) g/dL Beta-Hydroxybutyrate/Acetoacetate (0.02-0.27) mmol/L Urine Color Yellow (Yellow) Urine Appearance Cloudy H (Clear) Urine pH 5.0 (5.0-9.0) Ur Specific [place] 1.019 (1.001-1.035) Urine Protein 3+ H (Negative) mg/dL Urine Glucose (UA) 3+ H (Negative) mg/dL Urine Ketones Negative (Negative) mg/dL Ur Blood (Man) 1+ H (Negative) Urine Nitrate Negative (Negative) Urine Bilirubin Negative (Negative) Urine Urobilinogen 0.2 (<2.0) mg/dL Add Ur Microanalysis Reviewed Leukocyte Esterase Rfl Negative (Negative) TAYLOR/UL Urine RBC 0-2 (0-2) /hpf Urine WBC 11-20 H (0-3) /hpf Ur Squamous Epith Cells None seen (Few) /hpf Urine Bacteria 4+ H /hpf Urine Casts 0-2 Influenza A (RT-PCR) (Negative) Influenza B (RT-PCR) (Negative) RSV (RT-PCR) (Negative) SARS-CoV-2 RNA (RT-PCR) (Negative) <Saleem Rodriguez MD - Last Filed: 10/25/24 23:04> Discharge Plan Discharge Clinical Impression: Nausea & vomiting, Diarrhea, Acute UTI (urinary tract infection), Hyperglycemia <Bella Milligan PA-C - Last Filed: 10/25/24 17:54> Patient Disposition: Home, Self-Care <Bella Milligan PA-C - Last Filed: 10/25/24 17:54> Condition: Improved <Bella Milligan PA-C - Last Filed: 10/25/24 17:54> Instructions: Antibiotic Form, Gastroenteritis (ED), Urinary Tract Infection in Older Adults (ED) <CATRACHO Walters Last Filed: 10/25/24 17:54> Additional Instructions: Please take the prescribed antibiotic as instructed for urinary tract infection. Return to the emergency department if any new or worsening symptoms develop. Follow-up with your family doctor within the next 3-5 days. <CATRACHO Walters Last Filed: 10/25/24 17:54> Patient Language: [place] <CATRACHO Walters Last Filed: 10/25/24 17:54> Prescriptions: New cephalexin 500 mg capsule 500 mg PO Q12H 7 Days Qty: 14 0RF ondansetron 4 mg tablet,disintegrating 4 mg PO Q8H PRN (Reason: nausea and vomiting) Qty: 14 0RF No Action omeprazole 40 mg capsule,delayed release(DR/EC) 40 mg PO BID 90 Days Qty: 180 3RF insulin aspart U-100 [Novolog U-100 Insulin aspart] 100 unit/mL solution 50 unit continuous subcutaneous infusion DAILY 90 Days Qty: 50 1RF atorvastatin 40 mg tablet 40 mg PO HS latanoprost 0.005 % drops 1 drp LEFT EYE HS cholecalciferol (vitamin D3) 125 mcg (5,000 unit) capsule 125 mcg PO EVERY OTHER DAY Rx Instructions: 125 mcg orally every other day; DUE NEXT ON TUESDAY 05/22 mecobalamin (vitamin B12) 2,500 mcg tablet,chewable 2,500 mcg PO DAILY ferrous sulfate 325 mg (65 mg iron) tablet 325 mg PO DAILY multivitamin Tablet 1 tablet PO DAILY Gvoke HypoPen 2-Pack 1 mg/0.2 mL auto-injector 1 mg subcut ONCE Qty: 0.4 4RF Rx Instructions: may repeat once after 15 minutes if no response glucose [Dex4 Glucose] 4 gram tablet,chewable 16 g PO Q15M PRN (Reason: hypoglycemia) Qty: 60 1RF Rx Instructions: until symptoms of low blood sugar are controlled cholestyramine-aspartame 4 gram powder in packet 4 g PO DAILY Qty: 60 3RF Rx Instructions: administer w/meal; avoid other meds within 1hr before or 4-6hr after dose solifenacin 5 mg tablet 5 mg PO DAILY Qty: 90 1RF gabapentin 300 mg capsule 300 mg PO BID Qty: 180 1RF sertraline 100 mg tablet 100 mg PO HS Qty: 30 6RF <Bella Milligan PA-C - Last Filed: 10/25/24 17:54> Follow-up/Referrals: Corine Smith MD [Primary Care Provider] - 3 Days <Bella Milligan PA-C - Last Filed: 10/25/24 17:54> Time of Disposition: 22:54 <Bella Milligan PA-C - Last Filed: 10/25/24 17:54> 22:54 <Saleem Rodriguez MD - Last Filed: 10/25/24 23:04>
[2024-10-25 19:30] LABS: Basophils Percent Auto 0.3 % (0.2-1.2); Hematocrit 29.4 % (37.0-47.0); Hemoglobin 9.5 g/dL (12.0-15.0); Immature Granulocyte Absolute 0.03 K/mm3 (0.00-0.031); Immature Granulocyte Percent A 0.3 % (0-0.5); Lymphocytes Absolute Auto 0.43 K/mm3 (0.9-3.2); Lymphocytes Percent Auto 4.9 % (18.3-44.2); Mean Corpuscular HGB Conc 32.3 g/dl (32-36); Mean Corpuscular Hemoglobin 32.4 pg (26-34); Mean Corpuscular Volume 100.3 fl (80-100); Mean Platelet Volume 10.8 fl (7.4-10.4); Monocytes Absolute Auto 0.2 K/mm3 (0.1-0.6); Monocytes Percent Auto 2.5 % (2.6-8.5); Platelet Count Result 213 k/mm3 (150-375); Red Blood Count 2.93 M/mm3 (4.2-5.4); Red Cell Distribution Width 13.3 % (11.5-14.5); White Blood Count 8.7 K/mm3 (4.5-10.0)
[2024-10-25 19:45] LABS: Lactic Acid Reflex 1.1 mmol/L (0.7-2.0)
[2024-10-25 19:47] LABS: Alanine Aminotransferase 38 U/L (6-35); Albumin Level 4.1 g/dL (3.5-5.1); Alkaline Phosphatase 65 U/L (38-126); Anion Gap 9 mmol/L (4-12); Aspartate Amino Transferase 35 U/L (14-36); Bilirubin,Total 0.4 mg/dL (0.2-1.3); Blood Urea Nitrogen 46 mg/dL (7-17); Calcium 9.6 mg/dL (8.4-10.2); Carbon Dioxide 22 mmol/L (22-30); Chloride 108 mmol/L (98-107); Estimated CRCL calculation 25 ml/min; Estimated Glomerular Filt Rate 37; Glucose 349 mg/dL (65-110); Magnesium 1.8 mg/dL (1.6-2.3); Phosphorus 2.5 mg/dL (2.5-4.5); Potassium 4.8 mmol/L (3.4-5.0); Sodium 139 mmol/L (137-145)
[2024-10-25 19:52] LABS: Beta-Hydroxybutyrate/Acetoacetate 0.21 mmol/L (0.02-0.27)
[2024-10-25 20:08] LABS: Influenza A QL RT-PCR Negative (Negative); Influenza B QL RT-PCR Negative (Negative); RSV RNA, RT-PCR Negative (Negative); SARS-CoV-2 RNA PCR Negative (Negative)
[2024-10-25 21:30] LABS: Hemoglobin A1C 7.3 % (<5.7)
[2024-10-25 21:30] LABS: Glucose Point of Care 252 mg/dl (65-105)
[2024-10-25] MEDS: ONDANSETRON INJ 4 MG/2 ML VIAL IV PUSH (21:43)
[2024-10-25] MEDS: FAMOTIDINE 20 MG/2 ML VIAL IV PUSH (21:43)
[2024-10-25] MEDS: SODIUM CHLORIDE 0.9% IV 1,000 ML 999 ML IV CONT (22:01)
[2024-10-25 22:40] LABS: Add Urine Microscopic? YES; Appearance Urine Cloudy (Clear); Bacteria Urine 4+ /hpf; Bilirubin Urine Negative (Negative); Blood Urine 1+ (Negative); Color Urine Yellow (Yellow); Glucose Urine UA 3+ mg/dL (Negative); Ketones Urine Negative (Negative); Leukocyte Esterase Ur Negative LEU/UL (Negative); Need Manual Microscopic Reviewed; Nitrate Urine Negative (Negative); Non Pathogenic Casts 0-2; Protein Urine 3+ mg/dL (Negative); RBC Urine 0-2 /hpf (0-2); Specific Grav Ur 1.019 (1.001-1.035); Squamous Epithelial Cell Urine None Seen /hpf (Few); Urobilinogen Urine 0.2 mg/dL (<2.0)
[2024-10-25] MEDS: METOCLOPRAMIDE HCL INJ 10 MG/2 ML VIAL IV PUSH (23:22)
[2024-10-25] MEDS: diphenhydrAMINE HCl INJ 50 MG/ML VIAL 25 MG IV PUSH (23:22)
[2024-10-25] MEDS: SODIUM CHLORIDE 0.9% IV 200 ML 100 ML (23:23)
== END 2024-10-26 00:50 | disposition home or self-care (01) ==
PROVIDERS: Physician Assistant; Emergency Provider Emergency Medicine; PCP Family Medicine
DX: R11.2 Nausea with vomiting, unspecified (principal); R19.7 Diarrhea, unspecified; N39.0 Urinary tract infection, site not specified; E11.65 Type 2 diabetes mellitus with hyperglycemia; Z79.4 Long term (current) use of insulin; Z96.41 Presence of insulin pump (external) (internal); K21.9 Gastro-esophageal reflux disease without esophagitis; N18.32 Chronic kidney disease, stage 3b; M81.0 Age-related osteoporosis without current pathological fracture; I12.9 Hypertensive chronic kidney disease with stage 1 through stage 4 chronic kidney disease, or unspecified chronic kidney disease; F41.8 Other specified anxiety disorders; Z87.891 Personal history of nicotine dependence; Z20.822 Contact with and (suspected) exposure to COVID-19
CPT/HCPCS: 36415; 74177; 80053; 81001; 82010; 82948; 83036; 83605; 83735; 84100; 85025; 87086; 87186; 87637; 96365; 96366; 96367; 96375; 96376; 99284; J0696; J1200; J2405; J2765; J7030; Q9967

== ENCOUNTER 2024-12-29 11:19 | Emergency (ER) | payer MEDICARE, SELFPAY ==
[2024-12-29] VITALS (7 sets, daily range): BP systolic 154–203; BP diastolic 58–72; PULSE 63–78; RESP 16; TEMP 36.3–36.6; O2SAT 94–100
--- NOTE | ~2024-12-29 | XR_ITS ---
Clinical Indication: Chest pain PA and lateral views of the chest: Comparison: 05/21/2024 Findings: The lungs are clear, without evidence of focal consolidation or pleural effusion. Cardiome diastinal silhouette is within normal limits. Right shoulder arthroplasty present. Impression: Clear lungs. Reviewed, dictated and finalized at [facility]. Impression: Clear lungs.
--- NOTE | ~2024-12-29 | CT_ITS ---
CTA brain carotid Ordering provider: Isabell Alanis MD History: . HTN, blurred vision, posterior TODD . Comparison: None Technique: CT angiogram head and neck was performed following timed intravenous injection of contrast . Thin slice axial images and reformatted coronal images were obtained. Three dimensional reformatted images of the brain were also obtained using a [employer] workstation. DLP: 1066 mGy-cm FINDINGS: HEAD: --ANTERIOR AND MIDDLE CEREBRAL ARTERIES AND BRANCHES: Normal caliber and contour. --INTERNAL CAROTID ARTERIES: Mild atheromatous disease but no significant stenosis. No occlusion. --BASILAR ARTERY AND BRANCHES: Normal caliber and contour. No atheromatous disease. 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 --ANEURYSM: None visualized. --BRAIN: Please refer to report of CT head performed the same day. --BONES AND SUPERFICIAL SOFT TISSUES: Please refer to report of CT head performed the same day. --PARANASAL SINUSES AND MASTOIDS: Please refer to report of CT head done the same day. NECK: --RIGHT CERVICAL CAROTID SYSTEM: Mild atheromatous disease of the carotid bulb and proximal internal carotid artery without significant stenosis. Percent stenosis per NASCET criteria is 17% No carotid dissection. --LEFT CERVICAL CAROTID SYSTEM: Normal caliber and contour. Percent stenosis per NASCET criteria is 0% No carotid dissection. --VERTEBRAL ARTERIES: Normal caliber and contour. --VISUALIZED AORTIC ARCH AND BRANCHING VESSELS: Mild atheromatous disease but no significant stenosis . --SOFT TISSUES: Unremarkable. --CERVICAL SPINE: Age appropriate degenerative changes. IMPRESSION: Unremarkable CTA of the head and neck. Percent stenosis per NASCET criteria is 17% on the right, 0% on the left. Reviewed, dictated and finalized at location A.
--- NOTE | ~2024-12-29 | CT_ITS ---
CT head without contrast Indication: Hypertension, headache COMPARISON: 924 Technique: Serial scans were obtained through the brain without the administration of contrast. Dose reduction technique was used on this scan by utilizing automated exposure control and iterative recon struction technique. The dose-length product (DLP) was 605.33 mGy-cm. Findings: There is no evidence of intracranial hemorrhage, mass lesion, or acute infarct. The ventri cles and subarachnoid spaces are dilated, consistent with mild atrophy. Low attenuation regions are seen within the periventricular white matter bilaterally, likely representing changes from chronic mi crovascular ischemic disease. There is no evidence of edema, mass effect or midline shift. The visu alized paranasal sinuses and mastoid air cells are clear. Impression: No intracranial hemorrhage, mass, or acute infarct. Atrophy and chronic white matter changes, as above. Reviewed, dictated and finalized at location . Impression: No intracranial hemorrhage, mass, or acute infarct. Atrophy and chronic white matter changes, as above.
--- NOTE | ~2024-12-29 | US_ITS ---
EXAMINATION: US venous doppler [facility] DATE: 12/29/2024 19:18 INDICATION: Positive d-dimer TECHNIQUE: Grayscale ultrasound images without and with compression and Doppler ultrasound images of the bilateral lower extremity veins were obtained. COMPARISON: None. FINDINGS: The visualized portions of right common femoral vein, profunda (deep) femoral vein, femoral vein, pop liteal vein, peroneal veins, posterior tibial veins, and greater saphenous vein outflow are patent. The visualized portions of left common femoral vein, profunda femoral vein, femoral vein, popliteal v ein, peroneal veins, posterior tibial veins, and greater saphenous vein outflow are patent. IMPRESSION: 1. No deep venous thrombosis within the bilateral lower extremities. Reviewed, dictated and finalized at location A.
--- NOTE | 2024-12-29 11:38 | ECG_ITS ---
Test Date: 2024-12-29 11:45:36 Measurements Intervals [place] Rate: 68 P: 65 OK: 173 QRS: 52 QRSD: 99 T: 57 QT: 392 QTc: 419 Interpretive Statements SINUS RHYTHM LEFT VENTRICULAR HYPERTROPHY ABNORMAL ECG Electronically Signed On 12-29-2024 12:56:00 CDT by Serjio Moreland M.D.
--- OUTSIDE RECORDS SUMMARY | 2024-12-29 13:15 | XMS_ITS | Continuity of Care Document ---
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 Role Phone Aguilar OD, Rory Unavailable Unavailable Procedures Procedure Date Eye Exam & Treatment Refraction BF Plastic Sphcyl [place] To +/-4d .12-2d Frames Deluxe Tax - Medical Advance Directives Directive Yes / No Effective Date File Name No Information Encounters Encounter Description Practice Location Reason(s) For Visit Diagnoses Date Provider Providers Copied on Encounter [facility], [id number] [place] [address] [address], [place], [place], [address], [place] tel:[phone] SEC [facility] No Information Mar-0 3-201 0 Aguilar OD Rory. [address] [facility] , [address], [place], [address], [place]. tel:[phone] [facility], [address] [place] [address] [address], [place], [place], [id number], [place] tel:[phone] SEC [facility] No Information Mar-0 3-201 0 [facility] . [address] [facility], [address], [place], [place], [id number], [place]. tel:[phone] Referring Provider: Rory Aguilar OD Niyah, [address] [place], [place] [address], [place], [address]. tel:[phone] sulting Provider: Jamie March, [address] [place], [place] [address]ate [place], [address]. tel:[phone] Family History Family Member Type Diagnosis Age At Onset No Information Payers Payer name Insurance type Covered green party ID Eugenia baeza(s) [facility] CI [id number] Social History Type Description Quantity Date Captured [...]
--- NOTE | 2024-12-29 13:33 | ED.RECABL ---
HPI - Recheck/Abnormal Lab/Rx General Chief Complaint: Recheck/Abnormal Lab/Rx <Bella Milligan PA-C - Last Filed: 12/29/24 13:44> Stated Complaint: htn <Bella Milligan PA-C - Last Filed: 12/29/24 13:44> Time Seen by Provider: 12/29/24 13:33 <CATRACHO Walters Last Filed: 12/29/24 13:44> Focused HPI: Patient is a 74-year-old female who presents the ED with report of hypertension. Patient reports she had a wound check f/u appointment today with her PCP and BP was elevated to 190s systolic in the office. Sent here for further evaluation. Patient does complain of blurry vision, posterior headache, heart burn. Has history of GERD and is on omeprazole, does not typically have heartburn. Denies shortness of breath, dizziness, lightheadedness, syncope, double vision, focal weakness or numbness. Has previous hx of HTN, had been on amlodipine but was taken off this at least 8 months ago d/t having syncopal episodes/hypotension. GENERAL: Elderly but well-appearing, well-nourished, and in no acute distress. HEAD: Normocephalic, atraumatic. CHEST: Clear to auscultation. ?No respiratory distress. HEART: Regular rate and rhythm.? SKIN: Small healing wound to L anterior myles. No signs of infection. NEURO: ?Alert and oriented x3. no pronator drift. Eyes PERRLA, EOMI, no nystagmus. No focal deficits. Moves all extremities equally. Steady gait. Patient screened in triage and initial orders placed.? ?Additional care and disposition to be based upon?diagnostic testing and treatment. <CATRACHO Walters Last Filed: 12/29/24 13:44> Source: patient <CATRACHO Walters Last Filed: 12/29/24 13:44> Mode of arrival: ambulatory <CATRACHO Walters Last Filed: 12/29/24 13:44> Limitations: no limitations <CATRACHO Walters Last Filed: 12/29/24 13:44> History of Present Illness HPI narrative: agree with the above with the following additions/corrections: At PCP for wound check. Patient had previously been on amlodipine for diagnosis of hypertension but this was discontinued due to hypotension and syncope. she has a history of diabetes for which she is on insulin pump. she denies any unilateral symptoms including no sensory or motor issues. No slurred speech or altered mentation per her and her daughter. Denies anticoagulation or trauma. States it is hard to tell if she is having chest pain. describes it more as heartburn because she has a diagnosis of Rees's esophagus and GERD. On omeprazole. Denies any chest pain. While in the emergency department, she developed a posterior headache. She denies any photophobia or phonophobia. Denies any fever or neck stiffness. No nausea. She has no vision in her left eye states that she has been having issues with blurred vision in her right eye with worsening over the past 2 days. No diplopia. patient states she has been having balance problems so she was taken off her bladder medication (she states it was sertraline ?) . She then started to have more significant urine output became incontinent again and so she put herself back on this medication. patient denies any subjective lower extremity edema. lives with her daughter who has not been symptomatic. <Isabell Alanis MD - Last Filed: 12/29/24 22:17> Related Data Home Medications: Home Medications ?Medication ?Instructions ?Recorded ?Confirmed ?Last Taken ?Type cholecalciferol (vitamin D3) 125 125 mcg PO EVERY OTHER DAY 02/10/24 12/29/24 Unknown History mcg (5,000 unit) capsule ferrous sulfate 325 mg (65 mg 325 mg PO DAILY 02/10/24 12/29/24 Unknown History iron) tablet mecobalamin (vitamin B12) 2,500 2,500 mcg PO DAILY 02/10/24 12/29/24 Unknown History mcg chewable tablet multivitamin 1 tablet PO DAILY 02/10/24 12/29/24 Unknown History <Bella Milligan PA-C - Last Filed: 12/29/24 13:44> Allergies/Adverse Reactions: Allergies Allergy/AdvReac Type Severity Reaction Status Date / Time No Known Allergies Allergy Mild Verified 12/14/24 14:06 <CATRACHO Walters Last Filed: 12/29/24 13:44> [facility] Past Medical History Medical History: Medical History Barretts esophagus GERD (gastroesophageal reflux disease) Chronic kidney disease, stage 3b Hyperlipidemia Right ankle injury Osteoporosis Kidney disease IBS (irritable bowel syndrome) Hypertension Diabetes Arthritis Depression Anxiety Anemia <CATRACHO Walters Last Filed: 12/29/24 13:44> Surgical History Surgical History: Surgical History Status post amputation of toe of left foot History of right shoulder replacement <CATRACHO Walters Last Filed: 12/29/24 13:44> Family History Family History: Family History Father Alcoholism Cerebrovascular accident Heart disease Grandparent Cancer of unknown origin Son Diabetes mellitus Daughter Diabetes mellitus Daughter Depression <CATRACHO Walters Last Filed: 12/29/24 13:44> Social History Social History: Social History Smoking packs per day: 1 Smoking cigarettes per day: 20.0 Years smoked: 30 Smoking pack-years: 30.00 Smoking status: Former smoker Tobacco type: cigarettes Second hand tobacco smoke exposure: No Smoking end date: 08/13/19 Alcohol intake: never Alcohol use details: socially Substance use: never Substance use type: does not use Do You Feel Safe in your Home?: Yes Lack of Transportation: No Lack of Food: Never True Current Housing: I Have Housing Concerned About Future Housing: No Difficulty Paying Gas/Electric Bills: No Difficulty Paying for Meds: No Currently Unemployed: No Education: Bachelor's Degree Difficulty w/ Childcare or Family Care: No Living arrangements: with family Additional living arrangements comments: daughter Occupation/Education: retired Gender identity (if verbalized by the patient): Female Spiritual care concerns: No Agree to blood products: Yes <CATRACHO Walters Last Filed: 12/29/24 13:44> Exam Narrative: GENERAL: Well-appearing, well-nourished, and in no acute distress. HEAD: Normocephalic, atraumatic. EYES: Non injected, non icteric. ENT: Nares clear, no rhinorrhea or epistaxis. NECK: Supple. Meningismus. Demonstrates flexion and extension as well as rotational movement of her neck. CHEST: Speaking in full sentences. No respiratory distress. HEART: Regular rate and rhythm. . ABDOMEN: Soft, nondistended. EXTREMITIES: Normal range of motion. 1+ edema in right lower extremity; trace edema on left. SKIN: Warm, dry, no rash. NEURO: No focal deficits. Alert and oriented x3. Answers questions appropriately. Follows commands. No abnormal movements appreciated. Speaks clearly without aphasia or dysarthria. No motor drift x4. No loss of nasolabial fold or other facial asymmetry. PSYCH: Normal mood and affect. <Isabell Alanis MD - Last Filed: 12/29/24 22:17> Course Vital Signs Vital signs: Vital Signs Temperature 97.8 F 12/29/24 11:35 Pulse Rate 72 12/29/24 11:35 Respiratory Rate 16 12/29/24 11:35 Blood Pressure 203/71 H 12/29/24 11:35 Pulse Oximetry 100 12/29/24 11:35 Oxygen Delivery Room Air 12/29/24 11:35 Temperature 97.4 F L 12/29/24 15:04 Pulse Rate 66 12/29/24 19:53 Respiratory Rate 16 12/29/24 19:53 Blood Pressure 154/67 H 12/29/24 19:53 Pulse Oximetry 95 12/29/24 19:53 Oxygen Delivery Room Air 12/29/24 11:35 <Bella Milligan PA-C - Last Filed: 12/29/24 13:44> Vital Signs Temperature 97.8 F 12/29/24 11:35 Pulse Rate 72 12/29/24 11:35 Respiratory Rate 16 12/29/24 11:35 Blood Pressure 203/71 H 12/29/24 11:35 Pulse Oximetry 100 12/29/24 11:35 Oxygen Delivery Room Air 12/29/24 11:35 Temperature 97.4 F L 12/29/24 15:04 Pulse Rate 66 12/29/24 19:53 Respiratory Rate 16 12/29/24 19:53 Blood Pressure 154/67 H 12/29/24 19:53 Pulse Oximetry 95 12/29/24 19:53 Oxygen Delivery Room Air 12/29/24 11:35 <Isabell Alanis MD - Last Filed: 12/29/24 22:17> MDM - Recheck/Abnormal Lab/Rx MDM Narrative Medical decision making narrative: MSE by CAROLINA in triage. <Bella Milligan PA-C - Last Filed: 12/29/24 13:44> MSE by CAROLINA in triage. Patient presents after being at primary care physician's for a wound check and found to be hypertensive. Previous diagnosis of hypertension and had been amlodipine was discontinued due to hypotension and syncope. She has also been having questionable chest pain she describes it as a heartburn fill to relate more to her known diagnosis of Rees's esophagus and GERD for which she is on omeprazole. In the emergency department she is afebrile vital signs notable for hypertension. Patient's creatinine is stable and consistent with previous, CKD. troponin normal. Normocytic anemia, stable from previous. While in the emergency department a developed a posterior headache. After obtaining the patient's history and performing a physical exam, the headache is most likely due to benign etiology (e.g. tension headache, migraine, or other headache of non-emergent etiology), though considered alternative diagnoses including below. Unlikely SAH: headache is non-thunderclap. Headache is non-maximal at onset Unlikely subdural/epidural hematoma: no history of trauma, no anticoagulation Unlikely meningitis: afebrile, no meningismus, no photophobia Unlikely temporal arteritis: No tenderness in temporal area - pain is posterior/occipital Unlikely acute angle glaucoma: pupils grossly normal; no nausea Unlikely carbon monoxide poisoning: no other house members with similar symptoms The patient's headache was treated symptomatically with ketorolac, benadryl, compazine after non contrast CT obtained. Given her lower extremity edema (though no shortness of breath), particularly generally unilateral, Dimer ordered. Elevated so proceeded with US to evaluate for DVT. Held off on ordering BNP as lungs CTAB and on imaging. repeat troponin normal right eye 20/30 on visual acuity and left eye cannot see anything although patient states this is chronic patient reassessed at approximately 7:00 p.m. she states her headache is better although still present, described as a pressure posteriorly. Will administer magnesium as well as labetalol. US negative for DVT. Patient's headache is resolved she is feeling much better. She has had improvement of her blood pressure continually including systolic of 154 on assessment approximately and weakness. Discussed the uncertainty of what hypertension was causing her symptoms or if her symptoms with pain or causing or contributing to her hypertension. She is feeling much better currently. Option of admission versus discharge with outpatient follow up was extensively discussed. Through shared decision making with patient and her daughter, both feel comfortable with being discharged home. Discussed appropriate way to measure blood pressure at home with home cuff. Advised she call Dr. Smith's office to inquire how long to keep a long and when follow up was advised. Encouraged her to keep the log including if she is having any symptoms at the time. Discussed that it may be recommended in the future the patient placed back on antihypertensive, potentially the same or different agent. Patient was given strict emergency department return precautions and they verifies understanding and are in agreement. Discussed the spectrum of asymptomatic as symptomatic hypertension including the differential diagnoses listed below. <Isabell Alanis MD - Last Filed: 12/29/24 22:17> Differential Diagnosis Differential diagnosis: Likely other (Asymptomatic hypertension; hypertensive urgency/emergency/crisis; PRES (though not encephalopathic); ) <Isabell Alanis MD - Last Filed: 12/29/24 22:17> Medical Records Attestation: I reviewed the patient's medical records. <Isabell Alanis MD - Last Filed: 12/29/24 22:17> Medical records narrative: Previous carotid artery examination had demonstrated 50% bilateral per review previous ultrasound, improved today <Isabell Alanis MD - Last Filed: 12/29/24 22:17> Lab Data Attestation: I reviewed the patient's lab results. <Isabell Alanis MD - Last Filed: 12/29/24 22:17> Result diagrams: 12/29/24 14:26 12/29/24 14:26 <Bella Milligan PA-C - Last Filed: 12/29/24 13:44> Labs: Lab Results 12/29/24 12/29/24 12/29/24 Range/Units 14:26 17:35 17:35 WBC 5.2 (4.5-10.0) K/mm3 RBC 3.09 L (4.2-5.4) M/mm3 Hgb 10.0 L (12.0-15.0) g/dL Hct 30.9 L (37.0-47.0) % MCV 100.0 (80-100) fl MCH 32.4 (26-34) pg MCHC 32.4 (32-36) g/dl RDW 13.8 (11.5-14.5) % Plt Count 179 (150-375) k/mm3 MPV 11.1 H (7.4-10.4) fl Immature Gran % (Auto) 0.4 (0-0.5) % Neut % (Auto) 70.6 (45.5-73.1) % Lymph % (Auto) 18.6 (18.3-44.2) % Hendricks % (Auto) 7.7 (2.6-8.5) % Eos % (Auto) 2.3 (0-4.4) % Baso % (Auto) 0.4 (0.2-1.2) % Lymph # (Auto) 0.97 (0.9-3.2) K/mm3 Hendricks # (Auto) 0.4 (0.1-0.6) K/mm3 Eos # (Auto) 0.1 (0-0.3) K/mm3 Baso # (Auto) 0.0 (0.0-0.1) K/mm3 Abs Immat Gran (auto) 0.02 (0.00-0.031) K/mm3 Absolute Neuts (auto) 3.7 (1.3-6.7) K/mm3 Absolute Nucleated RBC 0.000 (0.0-0.012) K/mm3 Nucleated RBC % 0.0 (0.0-0.2) % PT 11.9 (11.1-14.7) Seconds INR 0.9 APTT 25.7 (22.3-36.8) Seconds D-Dimer 1.43 H (<0.48) ug/mL Sodium 140 (137-145) mmol/L Potassium 4.8 (3.4-5.0) mmol/L Chloride 105 (98-107) mmol/L Carbon Dioxide 27 (22-30) mmol/L Anion Gap 8 (4-12) mmol/L BUN 40 H (7-17) mg/dL Creatinine 1.49 H (0.7-1.0) mg/dL Estim Creat Clear Calc 26 ml/min Estimated GFR 34 L (59 - ) Glucose 105 (65-110) mg/dL Calcium 9.4 (8.4-10.2) mg/dL Magnesium 1.8 Cancelled (1.6-2.3) mg/dL Total Bilirubin 0.4 (0.2-1.3) mg/dL AST 26 (14-36) U/L ALT 25 (6-35) U/L Alkaline Phosphatase 66 (38-126) U/L Troponin I < 0.012 < 0.012 (0.000-0.034) ng/mL Total Protein 7.0 (6.3-8.2) g/dL Albumin 3.9 (3.5-5.1) g/dL Lipase 28 (23-300) U/L <Bella Milligan PA-C - Last Filed: 12/29/24 13:44> Lab Results 12/29/24 12/29/24 12/29/24 Range/Units 14:26 17:35 17:35 WBC 5.2 (4.5-10.0) K/mm3 RBC 3.09 L (4.2-5.4) M/mm3 Hgb 10.0 L (12.0-15.0) g/dL Hct 30.9 L (37.0-47.0) % MCV 100.0 (80-100) fl MCH 32.4 (26-34) pg MCHC 32.4 (32-36) g/dl RDW 13.8 (11.5-14.5) % Plt Count 179 (150-375) k/mm3 MPV 11.1 H (7.4-10.4) fl Immature Gran % (Auto) 0.4 (0-0.5) % Neut % (Auto) 70.6 (45.5-73.1) % Lymph % (Auto) 18.6 (18.3-44.2) % Hendricks % (Auto) 7.7 (2.6-8.5) % Eos % (Auto) 2.3 (0-4.4) % Baso % (Auto) 0.4 (0.2-1.2) % Lymph # (Auto) 0.97 (0.9-3.2) K/mm3 Hendricks # (Auto) 0.4 (0.1-0.6) K/mm3 Eos # (Auto) 0.1 (0-0.3) K/mm3 Baso # (Auto) 0.0 (0.0-0.1) K/mm3 Abs Immat Gran (auto) 0.02 (0.00-0.031) K/mm3 Absolute Neuts (auto) 3.7 (1.3-6.7) K/mm3 Absolute Nucleated RBC 0.000 (0.0-0.012) K/mm3 Nucleated RBC % 0.0 (0.0-0.2) % PT 11.9 (11.1-14.7) Seconds INR 0.9 APTT 25.7 (22.3-36.8) Seconds D-Dimer 1.43 H (<0.48) ug/mL Sodium 140 (137-145) mmol/L Potassium 4.8 (3.4-5.0) mmol/L Chloride 105 (98-107) mmol/L Carbon Dioxide 27 (22-30) mmol/L Anion Gap 8 (4-12) mmol/L BUN 40 H (7-17) mg/dL Creatinine 1.49 H (0.7-1.0) mg/dL Estim Creat Clear Calc 26 ml/min Estimated GFR 34 L (59 - ) Glucose 105 (65-110) mg/dL Calcium 9.4 (8.4-10.2) mg/dL Magnesium 1.8 Cancelled (1.6-2.3) mg/dL Total Bilirubin 0.4 (0.2-1.3) mg/dL AST 26 (14-36) U/L ALT 25 (6-35) U/L Alkaline Phosphatase 66 (38-126) U/L Troponin I < 0.012 < 0.012 (0.000-0.034) ng/mL Total Protein 7.0 (6.3-8.2) g/dL Albumin 3.9 (3.5-5.1) g/dL Lipase 28 (23-300) U/L <Isabell Alanis MD - Last Filed: 12/29/24 22:17> Imaging Data Radiologist's impression: Impressions Head CT 12/29/24 13:51 Impression: No intracranial hemorrhage, mass, or acute infarct. Atrophy and chronic white matter changes, as above. Chest X-Ray 12/29/24 13:58 Impression: Clear lungs. Head/Neck CTA 12/29/24 18:13 IMPRESSION: Unremarkable CTA of the head and neck. Percent stenosis per NASCET criteria is 17% on the right, 0% on the left. Venous Doppler Study 12/29/24 19:23 IMPRESSION: 1. No deep venous thrombosis within the bilateral lower extremities. <Isabell Alanis MD - Last Filed: 12/29/24 22:17> ECG Data EKG #1: Attestation: I personally reviewed and interpreted this ECG as follows: <Isabell Alanis MD - Last Filed: 12/29/24 22:17> ECG completion date: 12/29/24 <Isabell Alanis MD - Last Filed: 12/29/24 22:17> ECG completion time: 11:45 <Isabell Alanis MD - Last Filed: 12/29/24 22:17> Interpretation: normal sinus rhythm at a rate of 60 beats per minute. MN interval 173. QRS 99. QT/ QTC 392/410. Good R-wave progression across the precordial leads. no T-wave inversions. Pre populated algorithm suggests left ventricular hypertrophy ; S wave depth in V1 + tallest R wave height in V5-6 is >/=35mm but R wave in lead I + S wave in lead III is <25mm. <Isabell Alanis MD - Last Filed: 12/29/24 22:17> Discharge Plan Discharge Clinical Impression: HTN (hypertension), CKD (chronic kidney disease), Normocytic anemia, Stenosis of right carotid artery, Cephalalgia <Bella Milligan PA-C - Last Filed: 12/29/24 13:44> Patient Disposition: Home, Self-Care <Bella Milligan PA-C - Last Filed: 12/29/24 13:44> Condition: Stable <Bella Milligan PA-C - Last Filed: 12/29/24 13:44> Instructions: Antibiotic Form, Chronic Kidney Disease (ED), Chronic Kidney Disease Diet (DC), Carotid Artery Disease (DC), Acute Headache (DC), Hypertension (ED), Anemia (ED), Hypertension and Diabetes (ED) <Bella Milligan PA-C - Last Filed: 12/29/24 13:44> Additional Instructions: as we discussed, is reasonable to go home and start keeping a log of her blood pressures as well as if you have having any symptoms and follow-up with your primary care physician to see if you should be started on another blood pressure medication. return to the emergency department with any new or worsening symptoms Percent stenosis per NASCET criteria is 17% on the right, 0% on the left. You have had carotid artery ultrasound before and, if your primary care physician believes further work up is necessary, they can follow up on this. <Bella Milligan PA-C - Last Filed: 12/29/24 13:44> Patient Language: Kazakh <Bella Milligan PA-C - Last Filed: 12/29/24 13:44> Prescriptions: No Action omeprazole 40 mg capsule,delayed release(DR/EC) 40 mg PO BID 90 Days Qty: 180 3RF insulin aspart U-100 [Novolog U-100 Insulin aspart] 100 unit/mL solution 50 unit continuous subcutaneous infusion DAILY 90 Days Qty: 50 1RF atorvastatin 40 mg tablet 40 mg PO HS Qty: 90 1RF gabapentin 300 mg capsule 300 mg PO BID Qty: 180 1RF cholecalciferol (vitamin D3) 125 mcg (5,000 unit) capsule 125 mcg PO EVERY OTHER DAY Rx Instructions: 125 mcg orally every other day; DUE NEXT ON TUESDAY 05/22 mecobalamin (vitamin B12) 2,500 mcg tablet,chewable 2,500 mcg PO DAILY ferrous sulfate 325 mg (65 mg iron) tablet 325 mg PO DAILY multivitamin Tablet 1 tablet PO DAILY Gvoke HypoPen 2-Pack 1 mg/0.2 mL auto-injector 1 mg subcut ONCE Qty: 0.4 4RF Rx Instructions: may repeat once after 15 minutes if no response glucose [Dex4 Glucose] 4 gram tablet,chewable 16 g PO Q15M PRN (Reason: hypoglycemia) Qty: 60 1RF Rx Instructions: until symptoms of low blood sugar are controlled mupirocin [Centany] 2 % ointment 1 applic topical BID Qty: 15 0RF ondansetron 4 mg tablet,disintegrating 4 mg PO Q8H PRN (Reason: nausea and vomiting) Qty: 14 0RF sertraline 100 mg tablet 100 mg PO HS Qty: 30 6RF solifenacin 5 mg tablet 5 mg PO DAILY Qty: 90 1RF colestipol [Colestid] 1 gram tablet 1 g PO BID Qty: 60 6RF <Bella Milligan PA-C - Last Filed: 12/29/24 13:44> Follow-up/Referrals: Corine Smith MD [Primary Care Provider] - <Bella Milligan PA-C - Last Filed: 12/29/24 13:44> Time of Disposition: 19:55 <Bella Milligan PA-C - Last Filed: 12/29/24 13:44> 19:55 <Isabell Alanis MD - Last Filed: 12/29/24 22:17>
[2024-12-29 14:34] LABS: Basophils Percent Auto 0.4 % (0.2-1.2); Eosinophils Absolute Auto 0.1 K/mm3 (0-0.3); Eosinophils Percent Auto 2.3 % (0-4.4); Hematocrit 30.9 % (37.0-47.0); Immature Granulocyte Absolute 0.02 K/mm3 (0.00-0.031); Immature Granulocyte Percent A 0.4 % (0-0.5); Lymphocytes Absolute Auto 0.97 K/mm3 (0.9-3.2); Lymphocytes Percent Auto 18.6 % (18.3-44.2); Mean Corpuscular HGB Conc 32.4 g/dl (32-36); Mean Corpuscular Hemoglobin 32.4 pg (26-34); Mean Platelet Volume 11.1 fl (7.4-10.4); Monocytes Absolute Auto 0.4 K/mm3 (0.1-0.6); Monocytes Percent Auto 7.7 % (2.6-8.5); Neutrophils Absolute Auto 3.7 K/mm3 (1.3-6.7); Neutrophils Percent Auto 70.6 % (45.5-73.1); Platelet Count Result 179 k/mm3 (150-375); Red Blood Count 3.09 M/mm3 (4.2-5.4); Red Cell Distribution Width 13.8 % (11.5-14.5); White Blood Count 5.2 K/mm3 (4.5-10.0)
[2024-12-29 14:46] LABS: INR 0.9; Prothrombin Time 11.9 Seconds (11.1-14.7)
[2024-12-29 14:47] LABS: Partial Thromboplastin Time 25.7 Seconds (22.3-36.8)
[2024-12-29 14:59] LABS: Alanine Aminotransferase 25 U/L (6-35); Albumin Level 3.9 g/dL (3.5-5.1); Alkaline Phosphatase 66 U/L (38-126); Anion Gap 8 mmol/L (4-12); Aspartate Amino Transferase 26 U/L (14-36); Bilirubin,Total 0.4 mg/dL (0.2-1.3); Blood Urea Nitrogen 40 mg/dL (7-17); Calcium 9.4 mg/dL (8.4-10.2); Carbon Dioxide 27 mmol/L (22-30); Chloride 105 mmol/L (98-107); Estimated CRCL calculation 26 ml/min; Estimated Glomerular Filt Rate 34; Glucose 105 mg/dL (65-110); Potassium 4.8 mmol/L (3.4-5.0); Sodium 140 mmol/L (137-145)
[2024-12-29 15:10] LABS: Troponin I < 0.012 ng/mL (0.000-0.034)
--- OUTSIDE RECORDS SUMMARY | 2024-12-29 17:18 | XMS_ITS | Continuity of Care Document ---
Author Organization 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, [id number] [place] [address] [address], [place], [place], [id number], [place] tel:[phone] SEC [facility] No Information Mar-0 3-201 0 Aguilar OD Rory. [address] [facility] , [address], [place], [address], [place]. tel:[phone] [facility], [address] [place] [address] [address], [place], [place], [address], [place] tel:[phone] SEC [facility] No Information Mar-0 3-201 0 [facility] . [address] [address] [facility], [address], [place], [place], [address], [place]. tel:[phone] Referring Provider: Rory Aguilar OD Niyah, [address] [place], [place] [address], [place], [address]. tel:[phone] sulting Provider: Jamie March, [address] [place], [place] [address]ate [facility] [place], [address]. tel:[phone] Family History Family Member Type Diagnosis Age At Onset No Information Payers Payer name Insurance type Covered democrat ID Eugenia baeza(s) [facility] CI [id number] Social History Type Description Quantity Date Captured [...]
--- NOTE | 2024-12-29 17:27 | ECG_ITS ---
Test Date: 2024-12-29 17:29:27 Measurements Intervals [place] Rate: 68 P: 63 WI: 179 QRS: 30 QRSD: 98 T: 43 QT: 381 QTc: 405 Interpretive Statements SINUS RHYTHM POSSIBLE LEFT ATRIAL ENLARGEMENT [-0.1mV P-WAVE IN V1/V2] POSSIBLE LEFT VENTRICULAR HYPERTROPHY [VOLTAGE CRITERIA PLUS LAE OR QRS WIDENING] Compared to ECG 12/29/2024 11:45:36 No significant changes Electronically Signed On 12-30-2024 09:13:40 CDT by Villa Hamm M.D.
[2024-12-29 17:58] LABS: Lipase 28 U/L (23-300); Magnesium 1.8 mg/dL (1.6-2.3)
[2024-12-29] MEDS: diphenhydrAMINE HCl INJ 50 MG/ML VIAL 12.5 MG IV PUSH (18:05)
[2024-12-29] MEDS: KETOROLAC 15 MG/ML VIAL (*BKC) IV PUSH (18:05)
[2024-12-29] MEDS: ACETAMINOPHEN 500 MG TABLET 1000 MG PO (18:05)
[2024-12-29] MEDS: PROCHLORPERAZINE EDISYLATE 10 MG/2 ML VIAL 2.5 MG IV PUSH (18:06)
[2024-12-29 18:09] LABS: Troponin I < 0.012 ng/mL (0.000-0.034)
[2024-12-29 18:19] LABS: D Dimer 1.43 ug/mL (<0.48)
[2024-12-29] MEDS: LABETALOL HCL INJ 100 MG/20 ML VIAL 10 MG IV PUSH (19:05)
[2024-12-29] MEDS: MAGNESIUM SULF 1 GM/D5W 100 ML 1 GM/100 ML BAG IVPB (19:05)
[2024-12-29] MEDS: BELLADONNA ALK/PHENOB ELIX 10 ML, MAG HYDROX/ALUMINUM HYD/SIMETH 30 ML, LIDOCAINE 2% VI... PO (19:57)
== END 2024-12-29 20:04 | disposition home or self-care (01) ==
PROVIDERS: Physician Assistant; Emergency Provider Student in an Organized Health Care Education/Training Program; PCP Family Medicine
DX: D64.9 Anemia, unspecified (principal); I12.9 Hypertensive chronic kidney disease with stage 1 through stage 4 chronic kidney disease, or unspecified chronic kidney disease; N18.9 Chronic kidney disease, unspecified; R51.9 Headache, unspecified; I65.21 Occlusion and stenosis of right carotid artery; K21.9 Gastro-esophageal reflux disease without esophagitis; E78.5 Hyperlipidemia, unspecified; E11.9 Type 2 diabetes mellitus without complications; F32.A Depression, unspecified; Z79.4 Long term (current) use of insulin; R60.0 Localized edema
CPT/HCPCS: 36415; 70450; 70496; 70498; 71046; 80053; 83690; 83735; 84484; 85025; 85380; 85610; 85730; 93005; 93970; 96365; 96375; 99284; A9270; J0780; J1200; J1885; J3475; Q9967

== ENCOUNTER 2025-01-05 12:34 | Outpatient (CLI) | payer MEDICARE, SELFPAY ==
--- NOTE | 2025-01-05 12:57 | ECHO_ITS ---
Patient Info Name: Ashley Joseph Age: 74 years : 1950 Gender: Female Ht: 64 in Wt: 119 lbs BSA: 1.56 m2 HR: 74 bpm BP: 139 / 71 mmHg Technical Quality: Good Exam Date: 01/05/2025 1:00 PM Exam Location: Echo Lab Patient Status: Outpatient Admit Date: 01/05/2025 Staff Ordering Physician: Raya Gauthier PA-C Cadd Drafter: Kayce Mireles RDCS Attending Provider: Raya Gauthier PA-C Referring Physician: Abrahan ORR; Exam Type: CA echo doppler color flow Study Info Indications R01.1 - Cardiac murmur, unspecified Complete two-dimensional, color flow and Doppler transthoracic echocardiogram is performed. Summary 1. Complete two-dimensional, color flow and Doppler transthoracic echocardiogram is performed. 2. Left ventricular chamber dimension is mildly enlarged. 3. Left ventricular systolic function is normal, estimated at 60-65%. 4. There is mild concentric increased left ventricular wall thickness. 5. The left ventricular diastolic function is grade I diastolic dysfunction. 6. E/e' 13 is mildly elevated. 7. Left atrial chamber dimension is mildly enlarged. 8. There is severe aortic valve sclerosis. 9. There is moderate aortic valve stenosis with a peak velocity of 303 cm/s, mean gradient of 22 mmHg, and aortic valve area of 1.6 cm2. 10. There is mild aortic valve regurgitation. 11. The mitral valve has moderately calcified annulus. 12. There is moderate tricuspid valve regurgitation. 13. No pulmonary hypertension, estimated pulmonary arterial systolic pressure is 35 mmHg. 14. There is trace pulmonic regurgitation. 15. Dilated inferior vena cava with >50% collapse upon inspiration consistent with elevated right atrial pressure, 10 mmHg. Left Ventricle E/e' 13 is mildly elevated. Left ventricular chamber dimension is mildly enlarged. Left ventricular systolic function is normal, estimated at 60-65%. There is mild concentric increased left ventricular wall thickness. The left ventricular diastolic function is grade I diastolic dysfunction. Right Ventricle Right ventricular systolic function is normal and with normal TAPSE 2.2 cm. Right ventricular chamber dimension is normal. Left Atria Left atrial chamber dimension is mildly enlarged. Right Atria Right atrial chamber dimension is normal. Aortic Valve The aortic valve is trileaflet. There is severe aortic valve sclerosis. There is moderate aortic valve stenosis with a peak velocity of 303 cm/s, mean gradient of 22 mmHg, and aortic valve area of 1.6 cm2. There is mild aortic valve regurgitation. Pulmonic Valve There is trace pulmonic regurgitation. Mitral Valve The mitral valve has moderately calcified annulus. There is no mitral valve stenosis. There is no mitral valve regurgitation. Tricuspid Valve There is moderate tricuspid valve regurgitation. No pulmonary hypertension, estimated pulmonary arterial systolic pressure is 35 mmHg. Pericardium/Pleural There is no pericardial effusion. Inferior Vena Cava Dilated inferior vena cava with >50% collapse upon inspiration consistent with elevated right atrial pressure, 10 mmHg. Aorta The aortic root size at the sinus of Valsalva is normal. Left Ventricular Outflow Tract Name Value Normal LVOT 2D LVOT Diameter 2.0 cm LVOT Doppler LVOT Peak Gradient 7 mmHg LVOT Mean Gradient 4 mmHg LVOT VTI 36 cm LVOT VTI/AV VTI Ratio 0.5 LVOT Stroke Volume 115 ml LVOT CO 19.9 l/min LVOT CI 12.8 l/min/m2 Pulmonic Valve Name Value Normal PV Doppler PV Peak Gradient 5 mmHg Mitral Valve Name Value Normal MV Doppler MV Decel [place] 330 cm/s2 MV PHT 68 ms MV Area (PHT) 3.2 cm2 4.0-5.0 MV Diastolic Function MV E Peak Velocity 77 cm/s MV A Peak Velocity 124 cm/s MV E/A 0.6 MV Decel Time 234 ms MV Annular TDI MV E/e' (Septal) 14.2 <=8.0 MV E/e' (Lateral) 13.3 <=8.0 MV E/e' (Average) 13.8 Tricuspid Valve Name Value Normal TV Regurgitation Doppler TR Peak Velocity 251 cm/s TR Peak Gradient 24 mmHg Estimated PAP/RSVP RA Pressure 10 mmHg <=5 PA Systolic Pressure 35 mmHg <36 RV Systolic Pressure 35 mmHg <36 Aorta Name Value Normal Ascending Aorta Ao Root Diameter (MM) 2.9 cm Ao Root Diam Index (MM) 1.9 cm/m2 Aortic Valve Name Value Normal AV Doppler AV Peak Velocity 303 cm/s AV Peak Gradient 37 mmHg AV Mean Gradient 22 mmHg AV VTI 73 cm AV Area (Cont Eq VTI) 1.6 cm2 >=3.0 AV Area (Cont Eq Mauri) 1.4 cm2 AV Regurgitation 2D LVOT Area 3.2 cm2 AV Regurgitation Doppler AR Decel Time 1,671 ms AR Decel [place] 261 cm/s2 AR PHT 485 ms Ventricles Name Value Normal LV Dimensions 2D/MM IVS Diastolic Thickness (2D) 1.2 cm 0.6-1.0 LVID Diastole (2D) 4.0 cm 3.8-5.2 LVIW Diastolic Thickness (2D) 1.1 cm 0.6-0.9 LVID Systole (2D) 3.1 cm 2.2-3.5 LVOT Diameter 2.0 cm LV Mass (2D Cubed) 157.41 g 67.00-162.00 LV Mass Index (2D Cubed) 101 g/m2 43-95 Relative Wall Thickness (2D) 0.56 LV Fractional Shortening/Ejection Fraction 2D/MM LV Fractional Shortening (2D) 23 % 27-45 LV EF (2D Teicholz) 46 % 54-74 LV Diastolic Volume (4C MOD) 113 ml LV EF (4C MOD) 58 % LV Diastolic Volume (2C MOD) 104 ml LV EF (2C MOD) 61 % LV Diastolic Volume (BP MOD) 111 ml 46-106 LV Diastolic Volume Index (BP MOD) 71 ml/m2 29-61 LV Systolic Volume (BP MOD) 44 ml 14-42 LV Systolic Volume Index (BP MOD) 28 ml/m2 8-24 LV EF (BP MOD) 61 % 54-74 LV Diastolic Length (4C) 7.6 cm LV Systolic Length (4C) 6.1 cm LV Stroke Volume (4C MOD) 66 ml Atria Name Value Normal LA Dimensions LA Dimension (MM) 0.0 cm 2.7-3.8 LA Volume (4C A-L) 59 ml LA Volume (BP A-L) 54 ml RA Dimensions RA Area (4C) 15.5 cm2 <=18.0 Report Signatures
--- OUTSIDE RECORDS SUMMARY | 2025-01-05 13:37 | XMS_ITS | Continuity of Care Document ---
Author Organization [facility] Address [address] [place] [address] Phone Care Team Providers Care Silhouette Artist Name Role Phone Aguilar OD, Rory Unavailable Unavailable Procedures Procedure Date Eye Exam & Treatment Refraction BF Plastic Sphcyl [place] To +/-4d .12-2d Frames Deluxe Tax - Medical Advance Directives Directive Yes / No Effective Date File Name No Information Encounters Encounter Description Practice Location Reason(s) For Visit Diagnoses Date Provider Providers Copied on Encounter [facility], [id number] [place] [address] [address], [place], [place], [id number], [place] tel:[phone] [facility] No Information Mar-0 3-201 0 Aguilar OD Rory. [address] [facility] , [address], [place], [address], [place]. tel:[phone] [facility], [address] [place] [address] [address], [place], [place], [id number], [place] tel:[phone] [facility] No Information Mar-0 3-201 0 [facility] . [address], [address], [place], [place], [address], [place]. tel:[phone] Referring Provider: Rory Aguilar OD Niyah, [address] [place], [place] [address], [place], [address]. tel:[phone] sulting Provider: Jamie March, [address] [place], [place] [address]ate [facility] [place], [address]. tel:[phone] Family History Family Member Type Diagnosis Age At Onset No Information Payers Payer name Insurance type Covered constitution party ID Eugenia baeza(s) [facility] CI [id number] Social History Type Description Quantity Date Captured [...]
== END 2025-01-05 12:35 | disposition home or self-care (01) ==
LOC: ANHCARD 12:37
PROVIDERS: PCP Family Medicine; Visit Provider Student in an Organized Health Care Education/Training Program
DX: R01.1 Cardiac murmur, unspecified (principal); I51.89 Other ill-defined heart diseases
CPT/HCPCS: 93306

== ENCOUNTER 2025-01-17 10:50 | Outpatient (CLI) | payer MEDICARE, SELFPAY ==
--- NOTE | ~2025-01-17 | MR_ITS ---
MRI of the brain Clinical History: Unsteady gait Technique: Axial and sagittal T1-weighted images were acquired. These were followed by axial T2-weigh samantha, diffusion weighted, gradient, and FLAIR images. Following intravenous administration of 10 cc Pr oHance gadolinium, T1-weighted fat-sat imaging was performed in the axial and coronal planes. Findings: There is no acute infarct, internal hemorrhage, or mass lesion. There is moderate chronic m icrovascular ischemic change in the periventricular white matter bilaterally. Ventricles and subarachnoid spaces are mildly dilated. Orbits are unremarkable. There are mild bilate ral mastoid effusions. Paranasal sinuses are clear. Major intracranial flow voids are grossly intact. Sagittal midline structures are intact. No abnormal postcontrast enhancement identified. IMPRESSION: No acute infarct, intracranial hemorrhage, or mass lesion. Moderate chronic microvascular ischemic change and mild to moderate generalized atrophy. Reviewed, dictated and finalized at [facility].
--- OUTSIDE RECORDS SUMMARY | 2025-01-17 12:34 | XMS_ITS | Continuity of Care Document ---
Author Organization [facility] Address [address] [place] [address] Phone Care Team Providers Care Cytogenetics Laboratory Manager Name Role Phone Aguilar OD, Rory Unavailable Unavailable Procedures Procedure Date Eye Exam & Treatment Refraction BF Plastic Sphcyl [place] To +/-4d .12-2d Frames Deluxe Tax - Medical Advance Directives Directive Yes / No Effective Date File Name No Information Encounters Encounter Description Practice Location Reason(s) For Visit Diagnoses Date Provider Providers Copied on Encounter [facility], [address] [place] [address] [address], [place], [place], [address], [place] tel:[phone] [facility] No Information Mar-0 3-201 0 Aguilar OD Rory. [address] [facility] , [address], [place], [address], [place]. tel:[phone] [facility], [address] [place] [address] [address], [place], [place], [address], [place] tel:[phone] [facility] No Information Mar-0 3-201 0 [facility] . [address] [facility], [address], [place], [place], [address], [place]. tel:[phone] Referring Provider: Rory Aguilar OD Niyah, [address] [place], [place] [address], [place], [address]. tel:[phone] sulting Provider: Jamie March, [address] [place], [place] [address]ate [place], [address]. tel:[phone] Family History Family Member Type Diagnosis Age At Onset No Information Payers Payer name Insurance type Covered libertarian ID Eugenia baeza(s) [facility] CI [id number] Social History Type Description Quantity Date Captured [...]
== END 2025-01-17 10:51 | disposition home or self-care (01) ==
PROVIDERS: PCP Family Medicine; Visit Provider Student in an Organized Health Care Education/Training Program
DX: I67.82 Cerebral ischemia (principal); G31.9 Degenerative disease of nervous system, unspecified; R41.89 Other symptoms and signs involving cognitive functions and awareness; R26.81 Unsteadiness on feet
CPT/HCPCS: 70553; A9579

== ENCOUNTER 2025-07-05 13:28 | Outpatient (CLI) | payer MEDICARE, SELFPAY ==
--- OUTSIDE RECORDS SUMMARY | 2009-12-13 05:00 | XMS_ITS | Continuity of Care Document ---
Author Organization [facility] Address [address] [place] [address] Phone Care Team Providers Care Vice President Of Marketing Name Role Phone Aguilar OD, Rory Unavailable Unavailable Procedures Procedure Date Eye Exam & Treatment Refraction BF Plastic Sphcyl [place] To +/-4d .12-2d Frames Deluxe Tax - Medical Advance Directives Directive Yes / No Effective Date File Name No Information Encounters Encounter Description Practice Location Reason(s) For Visit Diagnoses Date Provider Providers Copied on Encounter [facility], [address] [place] [address] [address], [place], [place], [address], [place] tel:[phone] SEC [facility] No Information Mar-0 3-201 0 Aguilar OD Rory. [address] [facility] , [address], [place], [address], [place]. tel:[phone] [facility], [address] [place] [address] [address], [place], [place], [address], [place] tel:[phone] SEC [facility] No Information Mar-0 3-201 0 [facility] . [address] [facility], [address], [place], [place], [address], [place]. tel:[phone] Referring Provider: Rory Aguilar OD Niyah, [address] [place], [place] [address], [place], [address]. tel:[phone] sulting Provider: Jamie March, [address] [place], [place] [address]ate [facility], [address]. tel:[phone] Family History Family Member Type Diagnosis Age At Onset No Information Payers Payer name Insurance type Covered republican ID Eugenia baeza(s) [facility] CI [id number] Social History Type Description Quantity Date Captured [...]
--- NOTE | ~2025-07-05 | MM_ITS ---
EXAMINATION: MM screening patrick BI w emi HISTORY: Screening TECHNIQUE: Craniocaudal and mediolateral oblique 3-D tomosynthesis images were obtained and synthetic 2-D images were generated. CAD analysis was submitted and interpreted. COMPARISON: 03/21/2024 BREAST PARENCHYMAL COMPOSITION: The breasts are extremely dense, which lowers the sensitivity of mammography. FINDINGS: There is no evidence of suspicious mass, calcification, or architectural distortion to suggest malignancy. There has been no suspicious interval change. IMPRESSION: 1. No mammographic evidence of malignancy. Recommend routine screening mammography in one year. BI-RADS Category 2: Benign finding(s) Reviewed, dictated and finalized at location Q. IMPRESSION: 1. No mammographic evidence of malignancy. Recommend routine screening mammogra phy in one year. BI-RADS Category 2: Benign finding(s)
== END 2025-07-05 13:29 | disposition home or self-care (01) ==
PROVIDERS: PCP Family Medicine; Visit Provider Family Medicine
DX: Z12.31 Encounter for screening mammogram for malignant neoplasm of breast (principal)
CPT/HCPCS: 77063; 77067

== ENCOUNTER 2025-07-26 01:57 | Inpatient (IN) | payer MEDICARE, SELFPAY ==
--- OUTSIDE RECORDS SUMMARY | 2009-12-13 05:00 | XMS_ITS | Continuity of Care Document ---
Author Organization [facility] Address [address] [place] [address] Phone Care Team Providers Care Obstetrician Name Role Phone Aguilar OD, Rory Unavailable Unavailable Procedures Procedure Date Eye Exam & Treatment Refraction BF Plastic Sphcyl [place] To +/-4d .12-2d Frames Deluxe Tax - Medical Advance Directives Directive Yes / No Effective Date File Name No Information Encounters Encounter Description Practice Location Reason(s) For Visit Diagnoses Date Provider Providers Copied on Encounter [facility], [address] [place] [address] [address], [place], [place], [address], [place] tel:[phone] SEC [facility] No Information Mar-0 3-201 0 Agiular OD Rory. [address] [facility] , [address], [place], [address], [place]. tel:[phone] [facility], [address] [place] [address] [address], [place], [place], [address], [place] tel:[phone] SEC [facility] No Information Mar-0 3-201 0 [facility] . [address], [address], [place], [place], [address], [place]. tel:[phone] Referring Provider: Rory Aguilar OD Niyah, [address] [place], [place] [address], [place], [address]. tel:[phone] sulting Provider: Jamie March, [address] [place], [place] [address]ate [facility] [place], [address]. tel:[phone] Family History Family Member Type Diagnosis Age At Onset No Information Payers Payer name Insurance type Covered green party ID Eugenia baeza(s) [facility] CI [id number] Social History Type Description Quantity Date Captured [...]
[2025-07-26] VITALS (32 sets, daily range): BP systolic 136–215; BP diastolic 53–107; PULSE 68–86; RESP 14–20; TEMP 35.6–37.1; O2SAT 96–100; BMI 23.1
--- NOTE | ~2025-07-26 | XR_ITS ---
Examination: XR chest 1V portable Clinical History: high blood sugar Comparison: 12/29/2024 Technique: Portable AP Findings: Heart size normal. Lungs clear. No acute bony abnormality. IMPRESSION: 1. No acute cardiopulmonary findings given portable technique. Reviewed, dictated and finalized at location R.
--- NOTE | ~2025-07-26 | US_ITS ---
EXAMINATION: US renal BI DATE: 07/28/2025 16:34 INDICATION: Worsening renal function TECHNIQUE: Multiple ultrasound grayscale images of the kidneys were obtained. COMPARISON: None. FINDINGS: The right kidney measures 12.7 x 5.8 x 6.4 cm. The left kidney measures 8.2 x 4.9 x 4.9 cm. There is mild cortical thinning of the left kidney when compared with the right kidney Bilateral diffuse increased renal cortical echogenicity consistent with medical renal disease. Bilateral anechoic renal cysts measuring up to 1.8 cm the right kidney and up to 3.1 cm the left kidney. Mild bilateral hydronephrosis. No stones identified. The bladder is distended with bilateral ureteral jets visible on color Doppler. IMPRESSION: 1. Mild bilateral hydronephrosis but with bilateral ureteral jets visualized in the distended bladder on color Doppler. 2. Diffuse bilateral increased renal cortical echogenicity consistent with medical renal disease. 3. Mild left renal atrophy. Reviewed, dictated and finalized at location A. IMPRESSION: 1. Mild bilateral hydronephrosis but with bilateral ureteral jets visualized i n the distended bladder on color Doppler. 2. Diffuse bilateral increased renal cortical echogenicity consistent with medi arabella renal disease. 3. Mild left renal atrophy.
--- NOTE | ~2025-07-26 | CT_ITS ---
CT abdomen pelvis w con Clinical History: LLQ abd pain; hypergly; UTI; chronic diarrhea . Comparison: CT abdomen and pelvis 10/25/2024 Technique: Axial images lung bases to symphysis pubis IV contrast information not listed in PACS Coronal, sagittal reformats CT images acquired with automatic exposure control for dose reduction DLP: 265 mGy-cm Findings: Lung bases: Scarring. Visualized heart and pericardium: Unremarkable. Liver: Unremarkable. Gallbladder: Unremarkable. Spleen: Unremarkable. Pancreas: Atrophic. Adrenal glands: Unremarkable. Kidneys: Chronic perinephric stranding, nonspecific. Probable minimal central collecting system urothelial enhancement. Right kidney- No hydronephrosis. No renal stones. Several cysts. Left kidney-atrophic. No hydronephrosis. No renal stones. Cyst. Distal esophagus/stomach: Unremarkable. Small bowel loops: Mild wall thickening. Colon: Normal caliber and wall thickness. Normal RLQ appendix. Nodes: No enlarged nodes. Peritoneum: No ascites. No free air. Urinary bladder: Wall thickening. Intraluminal gas locules. Uterus: Unremarkable. Adnexa: No masses. Bones: No acute bony abnormality. Superior endplate compression deformity L5. Inferior endplate deformity L1. Both unchanged. Soft tissues: Unremarkable. Aorta: No aneurysm or dissection. Atherosclerotic disease. IVC: Unremarkable. Main portal vein/SMV/splenic vein: Patent. IMPRESSION: 1. Enteritis. 2. Cystitis. Suspect superimposed ascending pyelitis. Reviewed, dictated and finalized at location R.
--- OUTSIDE RECORDS SUMMARY | 2025-07-26 01:59 | XMS_ITS ---
Author Organization Unknown ENCOUNTERS Encounter Performer Location Date Diagnosis Diagnosis Status Outpatient [facility] [address] [place] [id number] [facility] [address] [place] [address] [id number] ANGY Pre Admit [facility] [address] [place] [address] [id number] Outpatient [facility] [address] [place] [id number] [facility] [address] [place] [address] [id number] ANGY Inpatient [facility] [address] [place] [address] [id number] HHS Outpatient [facility] [address] [place] [address] [id number] Emergency [facility] [address] [place] [address] [id number] Pre Admit [facility] [address] [place] [address] [id number] Outpatient [facility] [address] [place] [address] [id number] ANGY Outpatient [facility] [address] [place] [address] [id number] ANGY Pre Admit [facility] [address] [place] [address] [id number] Outpatient [facility] [address] [place] [address] [id number] ANGY *Note: Encounters from your own facility or health system may be excluded. Allergies, Adverse Reactions, Alerts Allergen Type Severity Identification Date Medications Name Date Quantity Days Supplied GPI Number
[2025-07-26 02:45] LABS: Hematocrit 28.9 % (37.0-47.0); Hemoglobin 9.2 g/dL (12.0-15.0); Immature Granulocyte Percent A 0.2 % (0-0.5); Lymphocytes Absolute Auto 0.85 K/mm3 (0.9-3.2); Mean Corpuscular HGB Conc 31.8 g/dl (32-36); Mean Corpuscular Hemoglobin 31.8 pg (26-34); Mean Corpuscular Volume 100.0 fl (80-100); Nucleated Red Blood Cells Absolute Auto 0.000 K/mm3 (0.0-0.012); Nucleated Red Blood Cells Perc 0.0 % (0.0-0.2); Platelet Count Result 201 k/mm3 (150-375); Red Blood Count 2.89 M/mm3 (4.2-5.4); White Blood Count 5.8 K/mm3 (4.5-10.0)
[2025-07-26 02:54] LABS: Alanine Aminotransferase 19 U/L (6-35); Albumin Level 3.7 g/dL (3.5-5.1); Alkaline Phosphatase 92 U/L (38-126); Anion Gap 10 mmol/L (4-12); Aspartate Amino Transferase 23 U/L (14-36); Bilirubin,Total 0.3 mg/dL (0.2-1.3); Blood Urea Nitrogen 50 mg/dL (7-17); Calcium 8.1 mg/dL (8.4-10.2); Carbon Dioxide 17 mmol/L (22-30); Chloride 102 mmol/L (98-107); Estimated CRCL calculation 19 ml/min; Estimated Glomerular Filt Rate 23; Magnesium 1.6 mg/dL (1.6-2.3); Potassium 5.3 mmol/L (3.4-5.0); Sodium 129 mmol/L (137-145); Total Protein 6.8 g/dL (6.3-8.2)
[2025-07-26 03:07] LABS: Glucose 762 mg/dL (65-110)
[2025-07-26 03:21] LABS: Add Urine Microscopic? YES; Appearance Urine Cloudy (Clear); Glucose Urine UA 3+ mg/dL (Negative); Leukocyte Esterase Ur 1+ LEU/UL (Negative); Nitrate Urine Negative (Negative); Non Pathogenic Casts 0-2; Specific Grav Ur 1.016 (1.001-1.035)
[2025-07-26] MEDS: LACTATED RINGERS 1,000 ML 999 ML IV CONT (03:53)
[2025-07-26 04:48] LABS: Influenza A QL RT-PCR Negative (Negative); Influenza B QL RT-PCR Negative (Negative); RSV RNA, RT-PCR Negative (Negative); SARS-CoV-2 RNA PCR Negative (Negative)
--- NOTE | 2025-07-26 08:03 | ED_ITS ---
HPI - Recheck/Abnormal Lab/Rx General Chief Complaint: Recheck/Abnormal Lab/Rx Stated Complaint: high blood sugar Time Seen by Provider: 07/26/25 07:37 Source: patient and family Mode of arrival: ambulatory Limitations: no limitations History of Present Illness HPI narrative: Patient presents with report high blood sugar with past 24 hours. It had been reading high day on her continuous glucose monitor. She has an insulin pump in place which delivers 0.55 units/hour as the basal rate with boluses based on either carb correction or blood glucose readings. Her last bolus was 4.53 units. She has chronic diarrhea. She is concerned for urinary tract infection based on a burning sensation with urination. Her inspector crystal is Dr. Douglas. She sees irrigator sprinkling system Dr. Davey Ludwig in your refill. Her device is showing that it is delivering insulin and there does not appear to be any indication of pump failure although patient does note that this has happened before where her blood sugar remains high in the setting of infection. Blood sugar was 398 at dinner which was approximately 6:00 p.m.. Patient reports that she had a partial last bowel movement. Her diarrhea has otherwise been nonbloody. Not on antibiotics. She has a history of being in DKA several years ago and was in the ICU for 4 days. Denies any altered mental status and daughter confirms. Patient notably hypertensive in the emergency department and is reported that she had briefly been on antihypertensive medications once but had frequently been hypotensive on these and thus they were not discontinued. Patient had been prescribed a cough medicines and had been told that it could cause a urinary tract infection but she states that she never took this prescription. She is complaining of some left lower quadrant abdominal pain but denies any fevers or chills. Her primary care physician is/was Dr Corine Smith, due to see the PA next week. Last HA1c when saw her irrigator sprinkling system recently was 6.5%. Related Data Home Medications ?Medication ?Instructions ?Recorded ?Confirmed ?Last Taken ?Type cholecalciferol (vitamin D3) 125 125 mcg PO EVERY OTHE R DAY 02/10/24 07/26/25 07/25/25 History mcg (5,000 unit) capsule ferrous sulfate 325 mg (65 mg 325 mg PO DAILY 02/10/24 07/26/25 07/25/25 History iron) tablet mecobalamin (vitamin B12) 2,500 2,500 mcg PO DAILY 07/26/25 07/25/25 History mcg chewable tablet multivitamin 1 tablet PO DAILY 02/10/24 1 07/25/25 History furosemide 20 mg tablet 40 mg PO QAM 07/26/2507/25/25 History Allergies Allergy/AdvReac Type Severity Reaction Status Date / Time No Known Allergies Allergy Mild Verified 07/26/25 02:02 PMFSH Past Medical History Medical History (Updated 07/27/25 @ 05:34 by Isabell Alanis MD) DKA (diabetic ketoacidosis) Chronic diarrhea Diabetic polyneuropathy Minimal cognitive impairment Hyperlipidemia Barretts esophagus GERD (gastroesophageal reflux disease) Chronic kidney disease, stage 3b Right ankle injury Osteoporosis Kidney disease IBS (irritable bowel syndrome) Hypertension Diabetes Arthritis Depression Anxiety Anemia Surgical History Surgical History Status post amputation of toe of left foot History of right shoulder replacement Family History Family History Father Alcoholism Cerebrovascular accident Heart disease Grandparent Cancer of unknown origin Son Diabetes mellitus Daughter Diabetes mellitus Daughter Depression Social History Social History Smoking packs per day: 1 Smoking cigarettes per day: 20.0 Years smoked: 30 Smoking pack-years: 30.00 Smoking status: Former smoker Tobacco type: cigarettes Second hand tobacco smoke exposure: No Smoking end date: 08/13/19 Alcohol intake: never Alcohol use details: socially Substance use: never Substance use type: does not use Do You Feel Safe in your Home?: Yes Lack of Transportation: No Lack of Food: Never True Current Housing: I Have Housing Concerned About Future Housing: No Difficulty Paying Gas/Electric Bills: No Difficulty Paying for Meds: No Currently Unemployed: No Education: Bachelor's Degree Difficulty w/ Childcare or Family Care: No Living arrangements: with family Additional living arrangements comments: daughter Occupation/Education: retired Gender identity (if verbalized by the patient): Female Spiritual care concerns: No Agree to blood products: Yes Exam 2 Narrative: GENERAL: Well-appearing, well-nourished, and in no acute distress. HEAD: Normocephalic, atraumatic. EYES: Non injected, non icteric ENT: Nares clear, no rhinorrhea or epistaxis. Gross auditory acuity intact. NECK: Supple. No meningismus. CHEST: Speaking in full sentences. No respiratory distress. HEART: Regular rate and rhythm. . ABDOMEN: Soft, nondistended. No rigidity or guarding. Not peritoneal. Mild TTP in LLQ/left of suprapubic. EXTREMITIES: Normal range of motion. No lower extremity edema. SKIN: Warm, dry, no rash. NEURO: No focal deficits. Alert and oriented. Answering questions. Following commands. Normal speech without aphasia or dysarthria. PSYCH: Normal mood and affect. Course Vital Signs Vital signs: Vital Signs Temperature 97.9 F 07/26/25 02:00 Pulse Rate 78 07/26/25 02:00 Respiratory Rate 18 07/26/25 02:00 Blood Pressure 205/66 H 07/26/25 02:00 Pulse Oximetry 98 07/26/25 02:00 Temperature 97.7 F 07/26/25 21:26 Pulse Rate 79 07/26/25 21:26 Respiratory Rate 14 07/26/25 21:26 Blood Pressure 153/65 H 07/26/25 23:50 Pulse Oximetry 98 07/26/25 21:26 Oxygen Delivery Room Air 07/26/25 20:00 MDM - Recheck/Abnormal Lab/Rx MDM Narrative Medical decision making narrative: Patient presents with concern for high blood sugar for the past 24 hours. She has a continuous glucose monitor and insulin pump which has been seemingly delivering both her basal rate and bolus is that account for both p.r.n. carb correction as well as continuous readings. She is concerned she has urinary tract infection based on dysuria. History of DKA. In the emergency department she is afebrile with vital signs notable for hypertension. POC glucose >500. 1L LR had been ordered from triage. Magnesium within normal limits. Urinalysis with signs of infection. Urine culture from 10/2024 grew E coli which was pansensitive to the antibiotics tested. For this reason will give a dose of ceftriaxone, and pyridium for dysuria. She has glucosuria but notably no ketonuria. Hemoglobin shows a normocytic anemia, stable from previous. Creatinine shows that she has an BERTA; this appears to be superimposed on baseline CKD. An additional 1 L normal saline is ordered. She has mild hyperkalemia. Calcium gluconate and EKG are ordered as is 5U (renally dosed) insulin. Pseudo hyponatremia as the sodium corrects to 140/145 given the glucose. Patient's calcium also corrects to 8.3 given the albumin level. Overall, although patient's glucose is markedly elevated greater than 700 on her chemistry and she does have an abnormal CO2, she is not frankly acidotic as it is greater than 17 and she is without anion gap; beta hydroxybutyrate is elevated. Phosphorus, viral swab, and chest x-ray normal. Repeat BMP are timed / ordered for 9:30 a.m.. Repeat POC >[address] abd/pelvis ordered given LLQ pain. I did sign given her GFR but with every reason to believe she would improve on repeat assessment of labs. Repeat POC >600. On repeat, her hyperglycemia persists although without anion gap. Her creatinine is improving. She continues to have pseudo hyponatremia as it corrects to 139/144 (normal) given hyperglycemia. Given the combination of BERTA and hyperglycemia and infection, patient was offered admission versus discharge home. She is concerned that her blood sugar has remained so high in the setting of this infection and does believe that she should stay in the hospital and this is very reasonable for all the reasons above. In addition, she has remained hypertensive while in the emergency department. While I am hesitant to give a diagnosis of hypertension, she does have 1 listed in her EMR and this should be monitored further to see if she should be placed on an antihypertensive medication again. Patient had previously been on 1 but had been hypotensive with that. Discussed with on-call hospitalist and accepted for admission. TIDAC glucose checks ordered in addition to hypoglycemia protocol. Differential Diagnosis Differential diagnosis: Likely other (DKA, hyperglycemia, HHS; infection including urinary tract infection/diverticulitis; chronic diarrhea; electrolyte abnormalities) Lab Data Attestation: I reviewed the patient's lab results. 07/26/25 02:25 07/26/25 08:12 Labs: Lab Results 07/26/25 07/26/25 07/26/25 Range/Units 02:04 02:25 04:04 WBC 5.8 (4.5-10.0) K/mm3 RBC 2.89 L (4.2-5.4) M/mm3 Hgb 9.2 L (12.0-15.0) g/dL Hct 28.9 L (37.0-47.0) % MCV 100.0 (80-100) fl MCH 31.8 (26-34) pg MCHC 31.8 L (32-36) g/dl RDW 13.2 (11.5-14.5) % Plt Count 201 (150-375) k/mm3 MPV 11.6 H (7.4-10.4) fl Immature Gran % (Auto) 0.2 (0-0.5) % Neut % (Auto) 74.6 H (45.5-73.1) % Lymph % (Auto) 14.7 L (18.3-44.2) % [place] % (Auto) 6.7 (2.6-8.5) % Eos % (Auto) 3.1 (0-4.4) % Baso % (Auto) 0.7 (0.2-1.2) % Lymph # (Auto) 0.85 L (0.9-3.2) K/mm3 [place] # (Auto) 0.4 (0.1-0.6) K/mm3 Eos # (Auto) 0.2 (0-0.3) K/mm3 Baso # (Auto) 0.0 (0.0-0.1) K/mm3 Abs Immat Gran (auto) 0.01 (0.00-0.031) K/mm3 Absolute Neuts (auto) 4.3 (1.3-6.7) K/mm3 Absolute Nucleated RBC 0.000 (0.0-0.012) K/mm3 Nucleated RBC % 0.0 (0.0-0.2) % Sodium 129 L (137-145) mmol/L Potassium 5.3 H (3.4-5.0) mmol/L Chloride 102 (98-107) mmol/L Carbon Dioxide 17 L (22-30) mmol/L Anion Gap 10 (4-12) mmol/L BUN 50 H D (7-17) mg/dL Creatinine 2.07 H (0.7-1.0) mg/dL Estim Creat Clear Calc 19 ml/min Estimated GFR 23 L (59 - ) Glucose 762 H* (65-110) mg/dL POC Capillary Glucose > 500 H* (65-105) mg/dl Calcium 8.1 L (8.4-10.2) mg/dL Phosphorus 3.7 (2.5-4.5) mg/dL Magnesium 1.6 (1.6-2.3) mg/dL Total Bilirubin 0.3 (0.2-1.3) mg/dL AST 23 (14-36) U/L ALT 19 (6-35) U/L Alkaline Phosphatase 92 (38-126) U/L Total Protein 6.8 (6.3-8.2) g/dL Albumin 3.7 (3.5-5.1) g/dL Beta-Hydroxybutyrate/Acetoacetate (0.02-0.27) mmol/L Urine Color Yellow (Yellow) Urine Appearance Cloudy H (Clear) Urine pH 5.5 (5.0-9.0) Ur Specific [place] 1.016 (1.001-1.035) Urine Protein 2+ H (Negative) mg/dL Urine Glucose (UA) 3+ H (Negative) mg/dL Urine Ketones Negative (Negative) mg/dL Ur Blood (Man) 1+ H (Negative) Urine Nitrate Negative (Negative) Urine Bilirubin Negative (Negative) Urine Urobilinogen 0.2 (<2.0) mg/dL Leukocyte Esterase Rfl 1+ H (Negative) TAYLOR/UL Urine RBC 3-5 H (0-2) /hpf Urine WBC 21-50 H (0-3) /hpf Ur Squamous Epith Cells Occasional (Few) /hpf Urine Bacteria 4+ H /hpf Urine Casts 0-2 Influenza A (RT-PCR) Negative (Negative) Influenza B (RT-PCR) Negative (Negative) RSV (RT-PCR) Negative (Negative) SARS-CoV-2 RNA (RT-PCR) Negative (Negative) 07/26/25 07/26/25 07/26/25 Range/Units 08:12 08:12 08:12 WBC (4.5-10.0) K/mm3 RBC (4.2-5.4) M/mm3 Hgb (12.0-15.0) g/dL Hct (37.0-47.0) % MCV (80-100) fl MCH (26-34) pg MCHC (32-36) g/dl RDW (11.5-14.5) % Plt Count (150-375) k/mm3 MPV (7.4-10.4) fl Immature Gran % (Auto) (0-0.5) % Neut % (Auto) (45.5-73.1) % Lymph % (Auto) (18.3-44.2) % [place] % (Auto) (2.6-8.5) % Eos % (Auto) (0-4.4) % Baso % (Auto) (0.2-1.2) % Lymph # (Auto) (0.9-3.2) K/mm3 [place] # (Auto) (0.1-0.6) K/mm3 Eos # (Auto) (0-0.3) K/mm3 Baso # (Auto) (0.0-0.1) K/mm3 Abs Immat Gran (auto) (0.00-0.031) K/mm3 Absolute Neuts (auto) (1.3-6.7) K/mm3 Absolute Nucleated RBC (0.0-0.012) K/mm3 Nucleated RBC % (0.0-0.2) % Sodium 130 L Cancelled (137-145) mmol/L Potassium 5.0 Cancelled (3.4-5.0) mmol/L Chloride 106 (98-107) mmol/L Carbon Dioxide (22-30) mmol/L Anion Gap (4-12) mmol/L BUN (7-17) mg/dL Creatinine (0.7-1.0) mg/dL Estim Creat Clear Calc ml/min Estimated GFR (59 - ) Glucose (65-110) mg/dL POC Capillary Glucose (65-105) mg/dl Calcium (8.4-10.2) mg/dL Phosphorus (2.5-4.5) mg/dL Magnesium (1.6-2.3) mg/dL Total Bilirubin (0.2-1.3) mg/dL AST (14-36) U/L ALT (6-35) U/L Alkaline Phosphatase (38-126) U/L Total Protein (6.3-8.2) g/dL Albumin (3.5-5.1) g/dL Beta-Hydroxybutyrate/Acetoacetate (0.02-0.27) mmol/L Urine Color (Yellow) Urine Appearance (Clear) Urine pH (5.0-9.0) Ur Specific [place] (1.001-1.035) Urine Protein (Negative) mg/dL Urine Glucose (UA) (Negative) mg/dL Urine Ketones (Negative) mg/dL Ur Blood (Man) (Negative) Urine Nitrate (Negative) Urine Bilirubin (Negative) Urine Urobilinogen (<2.0) mg/dL Leukocyte Esterase Rfl (Negative) TAYLOR/UL Urine RBC (0-2) /hpf Urine WBC (0-3) /hpf Ur Squamous Epith Cells (Few) /hpf Urine Bacteria /hpf Urine Casts Influenza A (RT-PCR) (Negative) Influenza B (RT-PCR) (Negative) RSV (RT-PCR) (Negative) SARS-CoV-2 RNA (RT-PCR) (Negative) 07/26/25 07/26/25 07/26/25 Range/Units 08:12 08:12 08:12 WBC (4.5-10.0) K/mm3 RBC (4.2-5.4) M/mm3 Hgb (12.0-15.0) g/dL Hct (37.0-47.0) % MCV (80-100) fl MCH (26-34) pg MCHC (32-36) g/dl RDW (11.5-14.5) % Plt Count (150-375) k/mm3 MPV (7.4-10.4) fl Immature Gran % (Auto) (0-0.5) % Neut % (Auto) (45.5-73.1) % Lymph % (Auto) (18.3-44.2) % [place] % (Auto) (2.6-8.5) % Eos % (Auto) (0-4.4) % Baso % (Auto) (0.2-1.2) % Lymph # (Auto) (0.9-3.2) K/mm3 [place] # (Auto) (0.1-0.6) K/mm3 Eos # (Auto) (0-0.3) K/mm3 Baso # (Auto) (0.0-0.1) K/mm3 Abs Immat Gran (auto) (0.00-0.031) K/mm3 Absolute Neuts (auto) (1.3-6.7) K/mm3 Absolute Nucleated RBC (0.0-0.012) K/mm3 Nucleated RBC % (0.0-0.2) % Sodium (137-145) mmol/L Potassium (3.4-5.0) mmol/L Chloride Cancelled (98-107) mmol/L Carbon Dioxide 15 L Cancelled (22-30) mmol/L Anion Gap 9 Cancelled (4-12) mmol/L BUN 49 H (7-17) mg/dL Creatinine (0.7-1.0) mg/dL Estim Creat Clear Calc ml/min Estimated GFR (59 - ) Glucose (65-110) mg/dL POC Capillary Glucose (65-105) mg/dl Calcium (8.4-10.2) mg/dL Phosphorus (2.5-4.5) mg/dL Magnesium (1.6-2.3) mg/dL Total Bilirubin (0.2-1.3) mg/dL AST (14-36) U/L ALT (6-35) U/L Alkaline Phosphatase (38-126) U/L Total Protein (6.3-8.2) g/dL Albumin (3.5-5.1) g/dL Beta-Hydroxybutyrate/Acetoacetate (0.02-0.27) mmol/L Urine Color (Yellow) Urine Appearance (Clear) Urine pH (5.0-9.0) Ur Specific [place] (1.001-1.035) Urine Protein (Negative) mg/dL Urine Glucose (UA) (Negative) mg/dL Urine Ketones (Negative) mg/dL Ur Blood (Man) (Negative) Urine Nitrate (Negative) Urine Bilirubin (Negative) Urine Urobilinogen (<2.0) mg/dL Leukocyte Esterase Rfl (Negative) TAYLOR/UL Urine RBC (0-2) /hpf Urine WBC (0-3) /hpf Ur Squamous Epith Cells (Few) /hpf Urine Bacteria /hpf Urine Casts Influenza A (RT-PCR) (Negative) Influenza B (RT-PCR) (Negative) RSV (RT-PCR) (Negative) SARS-CoV-2 RNA (RT-PCR) (Negative) 07/26/25 07/26/25 07/26/25 Range/Units 08:12 08:12 08:12 WBC (4.5-10.0) K/mm3 RBC (4.2-5.4) M/mm3 Hgb (12.0-15.0) g/dL Hct (37.0-47.0) % MCV (80-100) fl MCH (26-34) pg MCHC (32-36) g/dl RDW (11.5-14.5) % Plt Count (150-375) k/mm3 MPV (7.4-10.4) fl Immature Gran % (Auto) (0-0.5) % Neut % (Auto) (45.5-73.1) % Lymph % (Auto) (18.3-44.2) % [place] % (Auto) (2.6-8.5) % Eos % (Auto) (0-4.4) % Baso % (Auto) (0.2-1.2) % Lymph # (Auto) (0.9-3.2) K/mm3 [place] # (Auto) (0.1-0.6) K/mm3 Eos # (Auto) (0-0.3) K/mm3 Baso # (Auto) (0.0-0.1) K/mm3 Abs Immat Gran (auto) (0.00-0.031) K/mm3 Absolute Neuts (auto) (1.3-6.7) K/mm3 Absolute Nucleated RBC (0.0-0.012) K/mm3 Nucleated RBC % (0.0-0.2) % Sodium (137-145) mmol/L Potassium (3.4-5.0) mmol/L Chloride (98-107) mmol/L Carbon Dioxide (22-30) mmol/L Anion Gap (4-12) mmol/L BUN Cancelled (7-17) mg/dL Creatinine 1.89 H Cancelled (0.7-1.0) mg/dL Estim Creat Clear Calc 20 Cancelled ml/min Estimated GFR 26 L (59 - ) Glucose (65-110) mg/dL POC Capillary Glucose (65-105) mg/dl Calcium (8.4-10.2) mg/dL Phosphorus (2.5-4.5) mg/dL Magnesium (1.6-2.3) mg/dL Total Bilirubin (0.2-1.3) mg/dL AST (14-36) U/L ALT (6-35) U/L Alkaline Phosphatase (38-126) U/L Total Protein (6.3-8.2) g/dL Albumin (3.5-5.1) g/dL Beta-Hydroxybutyrate/Acetoacetate (0.02-0.27) mmol/L Urine Color (Yellow) Urine Appearance (Clear) Urine pH (5.0-9.0) Ur Specific [place] (1.001-1.035) Urine Protein (Negative) mg/dL Urine Glucose (UA) (Negative) mg/dL Urine Ketones (Negative) mg/dL Ur Blood (Man) (Negative) Urine Nitrate (Negative) Urine Bilirubin (Negative) Urine Urobilinogen (<2.0) mg/dL Leukocyte Esterase Rfl (Negative) TAYLOR/UL Urine RBC (0-2) /hpf Urine WBC (0-3) /hpf Ur Squamous Epith Cells (Few) /hpf Urine Bacteria /hpf Urine Casts Influenza A (RT-PCR) (Negative) Influenza B (RT-PCR) (Negative) RSV (RT-PCR) (Negative) SARS-CoV-2 RNA (RT-PCR) (Negative) 07/26/25 07/26/25 07/26/25 Range/Units 08:12 08:12 08:12 WBC (4.5-10.0) K/mm3 RBC (4.2-5.4) M/mm3 Hgb (12.0-15.0) g/dL Hct (37.0-47.0) % MCV (80-100) fl MCH (26-34) pg MCHC (32-36) g/dl RDW (11.5-14.5) % Plt Count (150-375) k/mm3 MPV (7.4-10.4) fl Immature Gran % (Auto) (0-0.5) % Neut % (Auto) (45.5-73.1) % Lymph % (Auto) (18.3-44.2) % [place] % (Auto) (2.6-8.5) % Eos % (Auto) (0-4.4) % Baso % (Auto) (0.2-1.2) % Lymph # (Auto) (0.9-3.2) K/mm3 [place] # (Auto) (0.1-0.6) K/mm3 Eos # (Auto) (0-0.3) K/mm3 Baso # (Auto) (0.0-0.1) K/mm3 Abs Immat Gran (auto) (0.00-0.031) K/mm3 Absolute Neuts (auto) (1.3-6.7) K/mm3 Absolute Nucleated RBC (0.0-0.012) K/mm3 Nucleated RBC % (0.0-0.2) % Sodium (137-145) mmol/L Potassium (3.4-5.0) mmol/L Chloride (98-107) mmol/L Carbon Dioxide (22-30) mmol/L Anion Gap (4-12) mmol/L BUN (7-17) mg/dL Creatinine (0.7-1.0) mg/dL Estim Creat Clear Calc ml/min Estimated GFR Cancelled (59 - ) Glucose 681 H* Cancelled (65-110) mg/dL POC Capillary Glucose > 500 H* (65-105) mg/dl Calcium 7.5 L Cancelled (8.4-10.2) mg/dL Phosphorus (2.5-4.5) mg/dL Magnesium (1.6-2.3) mg/dL Total Bilirubin (0.2-1.3) mg/dL AST (14-36) U/L ALT (6-35) U/L Alkaline Phosphatase (38-126) U/L Total Protein (6.3-8.2) g/dL Albumin (3.5-5.1) g/dL Beta-Hydroxybutyrate/Acetoacetate (0.02-0.27) mmol/L Urine Color (Yellow) Urine Appearance (Clear) Urine pH (5.0-9.0) Ur Specific [place] (1.001-1.035) Urine Protein (Negative) mg/dL Urine Glucose (UA) (Negative) mg/dL Urine Ketones (Negative) mg/dL Ur Blood (Man) (Negative) Urine Nitrate (Negative) Urine Bilirubin (Negative) Urine Urobilinogen (<2.0) mg/dL Leukocyte Esterase Rfl (Negative) TAYLOR/UL Urine RBC (0-2) /hpf Urine WBC (0-3) /hpf Ur Squamous Epith Cells (Few) /hpf Urine Bacteria /hpf Urine Casts Influenza A (RT-PCR) (Negative) Influenza B (RT-PCR) (Negative) RSV (RT-PCR) (Negative) SARS-CoV-2 RNA (RT-PCR) (Negative) 07/26/25 07/26/25 07/26/25 Range/Units 08:13 09:14 10:08 WBC (4.5-10.0) K/mm3 RBC (4.2-5.4) M/mm3 Hgb (12.0-15.0) g/dL Hct (37.0-47.0) % MCV (80-100) fl MCH (26-34) pg MCHC (32-36) g/dl RDW (11.5-14.5) % Plt Count (150-375) k/mm3 MPV (7.4-10.4) fl Immature Gran % (Auto) (0-0.5) % Neut % (Auto) (45.5-73.1) % Lymph % (Auto) (18.3-44.2) % [place] % (Auto) (2.6-8.5) % Eos % (Auto) (0-4.4) % Baso % (Auto) (0.2-1.2) % Lymph # (Auto) (0.9-3.2) K/mm3 [place] # (Auto) (0.1-0.6) K/mm3 Eos # (Auto) (0-0.3) K/mm3 Baso # (Auto) (0.0-0.1) K/mm3 Abs Immat Gran (auto) (0.00-0.031) K/mm3 Absolute Neuts (auto) (1.3-6.7) K/mm3 Absolute Nucleated RBC (0.0-0.012) K/mm3 Nucleated RBC % (0.0-0.2) % Sodium (137-145) mmol/L Potassium (3.4-5.0) mmol/L Chloride (98-107) mmol/L Carbon Dioxide (22-30) mmol/L Anion Gap (4-12) mmol/L BUN (7-17) mg/dL Creatinine (0.7-1.0) mg/dL Estim Creat Clear Calc ml/min Estimated GFR (59 - ) Glucose (65-110) mg/dL POC Capillary Glucose > 500 H* 417 H (65-105) mg/dl Calcium (8.4-10.2) mg/dL Phosphorus (2.5-4.5) mg/dL Magnesium (1.6-2.3) mg/dL Total Bilirubin (0.2-1.3) mg/dL AST (14-36) U/L ALT (6-35) U/L Alkaline Phosphatase (38-126) U/L Total Protein (6.3-8.2) g/dL Albumin (3.5-5.1) g/dL Beta-Hydroxybutyrate/Acetoacetate 1.82 H (0.02-0.27) mmol/L Urine Color (Yellow) Urine Appearance (Clear) Urine pH (5.0-9.0) Ur Specific [place] (1.001-1.035) Urine Protein (Negative) mg/dL Urine Glucose (UA) (Negative) mg/dL Urine Ketones (Negative) mg/dL Ur Blood (Man) (Negative) Urine Nitrate (Negative) Urine Bilirubin (Negative) Urine Urobilinogen (<2.0) mg/dL Leukocyte Esterase Rfl (Negative) TAYLOR/UL Urine RBC (0-2) /hpf Urine WBC (0-3) /hpf Ur Squamous Epith Cells (Few) /hpf Urine Bacteria /hpf Urine Casts Influenza A (RT-PCR) (Negative) Influenza B (RT-PCR) (Negative) RSV (RT-PCR) (Negative) SARS-CoV-2 RNA (RT-PCR) (Negative) Imaging Data Radiologist's impression: Impressions Chest X-Ray 07/26/25 06:30 IMPRESSION: 1. No acute cardiopulmonary findings given portable technique. Abdomen/Pelvis CT 07/26/25 09:09 IMPRESSION: 1. Enteritis. 2. Cystitis. Suspect superimposed ascending pyelitis. ECG Data EKG #1: Attestation: I personally reviewed and interpreted this ECG as follows: ECG completion date: 07/26/25 ECG completion time: 08:37 Interpretation: Normal sinus rhythm at a rate of 80 beats per minute. [place] interval 144. QRS 100. QT/QTC 370/437. Good R-wave progression across the precordial leads. No T-wave inversion. There is baseline artifact in V4 and V5 that limits full interpretation however no marked elevation. Discharge Plan Discharge Clinical Impression: Dysuria, Normocytic anemia, Acute kidney injury superimposed on CKD, Pseudohyponatremia, Enteritis, Cystitis, Pyelitis, Hyperglycemia due to diabetes mellitus UTI (urinary tract infection) Qualifiers: Urinary tract infection type: site unspecified Hematuria presence: without hematuria Qualified Code(s): N39.0 - Urinary tract infection, site not specified Patient Disposition: Still a Patient Condition: Stable
--- NOTE | 2025-07-26 08:10 | ECG_ITS ---
Test Date: 2025-07-26 08:37:51 Measurements Intervals [place] Rate: 80 P: 39 AL: 144 QRS: 30 QRSD: 100 T: 50 QT: 378 QTc: 437 Interpretive Statements SINUS RHYTHM MINIMAL Q WAVES- LATERAL LEADS BASELINE ARTIFACT- V4-V5 BORDERLINE ECG Compared to ECG 12/29/2024 17:29:27 No significant changes Electronically Signed On 07-26-2025 09:20:32 CDT by Toro Bell D.O.
[2025-07-26] MEDS: PHENAZOPYRIDINE HCL 100 MG TABLET PO (08:31)
[2025-07-26] MEDS: CALCIUM GLUCONATE 1,000 MG/10 ML VIAL 1000 MG IV PUSH (08:32)
[2025-07-26] MEDS: SODIUM CHLORIDE 0.9% IV 1,000 ML 999 ML IV CONT (08:32)
[2025-07-26] MEDS: INSULIN HUMAN REGULAR (*BKC) 100 UNITS/ML IV PUSH (08:34)
[2025-07-26] MEDS: SODIUM CHLORIDE 0.9% IV 100 ML 600 ML (08:39)
[2025-07-26 08:42] LABS: Glucose 681 mg/dL (65-110)
[2025-07-26] MEDS: cefTRIAXone 1 GM in SODIUM CHLORIDE 0.9% IV 50 ML 100 ML IVPB (08:51)
[2025-07-26 09:10] LABS: Beta-Hydroxybutyrate/Acetoace. 1.82 mmol/L (0.02-0.27)
[2025-07-26] MEDS: GABAPENTIN 300 MG CAPSULE PO ×2 (10:05→18:29)
[2025-07-26 10:55] LABS: Anion Gap 9 mmol/L (4-12); Blood Urea Nitrogen 49 mg/dL (7-17); Calcium 7.5 mg/dL (8.4-10.2); Carbon Dioxide 15 mmol/L (22-30); Chloride 106 mmol/L (98-107); Estimated CRCL calculation 20 ml/min; Estimated Glomerular Filt Rate 26; Potassium 5.0 mmol/L (3.4-5.0); Sodium 130 mmol/L (137-145)
--- NOTE | 2025-07-26 12:24 | PM.IMHP ---
H&P: HPI History of Present Illness Date/Time: 07/26/25 12:24 Chief Complaint: Hyperglycemia, UTI Narrative: A 74-year-old female with a past medical history of GERD, CKD, telemetry HTN, depression and anxiety, hyperlipidemia, type 1 diabetes presents to the ED on 07/26/2025 with complaints of her continuous glucose monitor reading ?high? all day. Denies polydipsia, polyuria, altered mental status. Patient also believes she has a UTI due to a burning sensation while urinating. Denies urine retention and urgency. Denies fever, cough, chills, shortness of breath, chest pain. Symptoms of her UTI and hyperglycemia started 1 day prior to arrival and patient attempted to bring her sugar down at home with insulin boluses. Patient has had the insulin pump for about 1 year and is compliant with it. She states the last time she was hyperglycemic like this she had a UTI. Her insulin pump is working and she believes the UTI is contributing to her hyperglycemia. Urine culture from October 2024 grew E coli pansensitive to the antibiotics tested. Vital signs in the ED are significant for hypertension. She is afebrile. UA shows infection with WBC 20 1-50, leukocyte esterase 1+, 1+ blood, and rbc's 3-5. Glucosuria noted but no ketonuria. Labs notable for stable normocytic anemia, BERTA on baseline CKD. Sodium corrects to 140/145 given glucose. Glucose greater than 700 on chemistry and CO2 17 but patient is not acidotic and is without anion gap. Viral PCR negative and chest x-ray shows no acute abnormalities. CT abdomen pelvis with enteritis and cystitis. Suspect superimposed ascending pyelitis. Review of Systems Review of Systems: All systems reviewed & are unremarkable except as noted in HPI and below [facility] Past Medical History Medical History Diabetic polyneuropathy Minimal cognitive impairment Hyperlipidemia Barretts esophagus GERD (gastroesophageal reflux disease) Chronic kidney disease, stage 3b Right ankle injury Osteoporosis Kidney disease IBS (irritable bowel syndrome) Hypertension Diabetes Arthritis Depression Anxiety Anemia Surgical History Surgical History Status post amputation of toe of left foot History of right shoulder replacement Family History Family History Father Alcoholism Cerebrovascular accident Heart disease Grandparent Cancer of unknown origin Son Diabetes mellitus Daughter Diabetes mellitus Daughter Depression Social History Social History Smoking packs per day: 1 Smoking cigarettes per day: 20.0 Years smoked: 30 Smoking pack-years: 30.00 Smoking status: Former smoker Tobacco type: cigarettes Second hand tobacco smoke exposure: No Smoking end date: 08/13/19 Alcohol intake: never Alcohol use details: socially Substance use: never Substance use type: does not use Do You Feel Safe in your Home?: Yes Lack of Transportation: No Lack of Food: Never True Current Housing: I Have Housing Concerned About Future Housing: No Difficulty Paying Gas/Electric Bills: No Difficulty Paying for Meds: No Currently Unemployed: No Education: Bachelor's Degree Difficulty w/ Childcare or Family Care: No Living arrangements: with family Additional living arrangements comments: daughter Occupation/Education: retired Gender identity (if verbalized by the patient): Female Spiritual care concerns: No Agree to blood products: Yes Meds Home Medications and Allergies Home Medications ?Medication ?Instructions ?Recorded ?Confirmed ?Type cholecalciferol (vitamin D3) 125 125 mcg PO EVERY OTHER DAY 02/10/24 07/26/25 History mcg (5,000 unit) capsule ferrous sulfate 325 mg (65 mg 325 mg PO DAILY 02/10/24 07/26/25 History iron) tablet mecobalamin (vitamin B12) 2,500 2,500 mcg PO DAILY 02/10/24 07/26/25 History mcg chewable tablet multivitamin 1 tablet PO DAILY 02/10/24 07/26/25 History glucagon 1 mg/0.2 mL subcutaneous 1 mg (0.2 mL) subcut ONCE #0.4 mL 03/16/24 07/26/25 Rx auto-injector (Gvoke HypoPen 2-Pack) glucose 4 gram chewable tablet 16 g (4 x 4 gram) PO Q15M PRN 03/16/24 07/26/25 Rx (Dex4 Glucose) hypoglycemia #60 tabs omeprazole 40 mg capsule,delayed 40 mg PO BID 90 days #180 caps 06/28/24 07/26/25 Rx release colestipol 1 gram tablet (Colestid) 1 g PO BID #60 tabs 12/07/24 07/26/25 Rx insulin aspart U-100 100 unit/mL 60 unit (0.6 mL) continuous 03/28/25 07/26/25 Rx subcutaneous solution (Novolog subcutaneous infusion DAILY 90 U-100 Insulin aspart) days #54 mL sertraline 100 mg tablet 100 mg PO HS #30 tabs 05/18/25 07/26/25 Rx gabapentin 300 mg capsule See Rx Instructions .Route 05/23/25 07/26/25 Rx .COMPLEX #180 caps atorvastatin 40 mg tablet See Rx Instructions .Route 06/02/25 07/26/25 Rx .COMPLEX #90 tabs ondansetron 4 mg disintegrating 4 mg PO Q8H PRN nausea and 07/12/25 07/26/25 Rx tablet vomiting #7 tabs Held on 07/26/25. Instructions: .Provider Order furosemide 20 mg tablet 40 mg PO QAM 07/26/25 07/26/25 History Allergies Allergy/AdvReac Type Severity Reaction Status Date / Time No Known Allergies Allergy Mild Verified 07/26/25 02:02 Vital Signs Vital Signs - 24 hr 07/26/25 02:00 07/26/25 02:12 07/26/25 02:24 Temperature 97.9 F 98.7 F Pulse Rate 78 80 Respiratory Rate 18 16 Blood Pressure 205/66 H 215/80 H 206/69 H Pulse Oximetry 98 97 100 07/26/25 02:26 07/26/25 02:31 07/26/25 03:14 Temperature Pulse Rate 78 Respiratory Rate 18 Blood Pressure 206/69 H 204/65 H 199/73 H Pulse Oximetry 100 99 100 07/26/25 03:16 07/26/25 04:02 07/26/25 05:01 Temperature Pulse Rate Respiratory Rate Blood Pressure 196/63 H 195/70 H 159/66 H Pulse Oximetry 100 99 07/26/25 05:16 07/26/25 05:31 07/26/25 05:46 Temperature Pulse Rate Respiratory Rate Blood Pressure 180/67 H 184/69 H 171/66 H Pulse Oximetry 98 98 07/26/25 05:57 07/26/25 06:00 07/26/25 06:01 Temperature Pulse Rate 86 Respiratory Rate 18 Blood Pressure 171/66 H 171/62 H Pulse Oximetry 98 96 97 07/26/25 06:46 07/26/25 07:01 07/26/25 07:16 Temperature Pulse Rate Respiratory Rate Blood Pressure 157/56 H 151/56 H 156/53 H Pulse Oximetry 07/26/25 07:31 07/26/25 08:01 07/26/25 08:12 Temperature Pulse Rate Respiratory Rate Blood Pressure 160/64 H 159/63 H Pulse Oximetry 96 07/26/25 08:21 07/26/25 08:40 07/26/25 08:45 Temperature Pulse Rate 82 83 82 Respiratory Rate 20 16 19 Blood Pressure 136/107 H 169/74 H Pulse Oximetry 98 98 97 07/26/25 09:12 07/26/25 09:16 07/26/25 09:56 Temperature Pulse Rate 83 83 78 Respiratory Rate 17 15 20 Blood Pressure 192/71 H Pulse Oximetry 97 97 99 07/26/25 11:10 Temperature 97.6 F Pulse Rate 72 Respiratory Rate 15 Blood Pressure 152/63 H Pulse Oximetry 99 Exam Narrative: GENERAL: non-toxic appearing, in no acute distress. HEAD: Normocephalic, atraumatic. EYES: PERRLA. Conjunctivae clear. NOSE: Normal no drainage. THROAT: Pharynx clear, no exudate. NECK: Trachea midline. No adenopathy, no masses. RESPIRATORY: Airway patent, respirations nonlabored. CTA. CARDIOVASCULAR: Regular rate and rhythm. BREASTS: Defer GASTROINTESTINAL: Abdomen is soft and nontender. No organomegaly. Bowel sounds normal in all quadrants. MUSCULOSKELETAL: Moves all extremities. No gross deformities. No calf tenderness. +2 pitting edema to bilateral lower extremities SKIN: Warm, dry, normal color. NEURO: A&O X4. Speech clear PSYCHIATRIC: Normal interaction H&P: Results Labs Labs: Short CBC 07/26/25 Range/Units 02:25 WBC 5.8 (4.5-10.0) K/mm3 Hgb 9.2 L (12.0-15.0) g/dL Hct 28.9 L (37.0-47.0) % Plt Count 201 (150-375) k/mm3 BMP 07/26/25 07/26/25 07/26/25 02:25 08:12 08:12 Sodium 129 L 130 L Cancelled Potassium 5.3 H 5.0 Chloride 102 Carbon Dioxide 17 L BUN 50 H D Creatinine 2.07 H Glucose 762 H* Calcium 8.1 L 07/26/25 07/26/25 07/26/25 08:12 08:12 08:12 Sodium Potassium Cancelled Chloride 106 Cancelled Carbon Dioxide 15 L Cancelled BUN 49 H Creatinine Glucose Calcium 07/26/25 07/26/25 07/26/25 08:12 08:12 08:12 Sodium Potassium Chloride Carbon Dioxide BUN Cancelled Creatinine 1.89 H Cancelled Glucose 681 H* Cancelled Calcium 7.5 L 07/26/25 08:12 Sodium Potassium Chloride Carbon Dioxide BUN Creatinine Glucose Calcium Cancelled Liver Function 07/26/25 Range/Units 02:25 Total Bilirubin 0.3 (0.2-1.3) mg/dL AST 23 (14-36) U/L ALT 19 (6-35) U/L Alkaline Phosphatase 92 (38-126) U/L Albumin 3.7 (3.5-5.1) g/dL Urine 07/26/25 Range/Units 02:25 Urine Color Yellow (Yellow) Urine Appearance Cloudy H (Clear) Urine pH 5.5 (5.0-9.0) Ur Specific [place] 1.016 (1.001-1.035) Urine Protein 2+ H (Negative) mg/dL Urine Glucose (UA) 3+ H (Negative) mg/dL Assessment and Plan Assessment and plan (1) Type 1 diabetes mellitus with hyperglycemia: Code(s): E10.65 - Type 1 diabetes mellitus with hyperglycemia Status: Acute Assessment and Plan: CGM reading ?high? starting on 07/25. likely related to UTI. Glucose 762 on admit and CO2 17 but patient is not acidotic and is without anion gap. Insulin pump dependent and compliant. 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 - hypoglycemia protocol - POC blood glucose ACHS -OK to leave CGM in place - home medication: Insulin pump with basal rate and carb dosing -continue insulin pump dosing. Give insulin pump work sheet for patient - A1C 6.5% on 07/18 -family educator consulted (2) Acute kidney injury superimposed on CKD: Code(s): N17.9 - Acute kidney failure, unspecified; N18.9 - Chronic kidney disease, unspecified Status: Acute Assessment and Plan: Creatinine 2.07 on admit with GFR 23. Baseline creatinine around 1.4. Creatinine did improve to 1.89 following 2 L bolus in ED. Follows Nephrology outpatient. Last appointment 06/20/2025. - trend renal function - trend electrolytes, correct as needed (3) UTI (urinary tract infection): Qualifiers: Hematuria presence: without hematuria Urinary tract infection type: site unspecified Qualified Code(s): N39.0 - Urinary tract infection, site not specified Code(s): N39.0 - Urinary tract infection, site not specified Status: Acute Assessment and Plan: Patient presented to ED with burning sensation with urination starting 1 day prior to arrival. Denies retention or urgency. UA shows infection with WBC 20 1-50, leukocyte esterase 1+, 1+ blood, and rbc's 3-5. CT abdomen pelvis reveals cystitis. Urine culture from 10/2024 grew E coli which was pansensitive to the antibiotics tested. -ceftriaxone 1 g Q 24 hours -peridium given in ED. -Tylenol 650 mg q.4 p.r.n. -tramadol 25 mg q.6 p.r.n. (4) Hypertension: Qualifiers: Hypertension type: unspecified Qualified Code(s): I10 - Essential (primary) hypertension Code(s): I10 - Essential (primary) hypertension Status: Chronic Assessment and Plan: Follows Nephrology outpatient. According to most recent note on 06/20/2025, plan was to possibly losartan but holding off for the time being due to lower GFR. In the setting of the BERTA superimposed on CKD with GFR of 23 on admit, will start p.r.n. hydralazine 10 mg for BP >180/90 to see where her GFR lands. Plan Diet: Consistent carb diet GI prophylaxis: Pantoprazole DVT prophylaxis: SCD lines/drains: PIV Fluids: 1 L LR. 1 L NS Code status: Full Quality VTE Prophylaxis VTE prophylaxis: mechanical ordered Hospitalist [facility] Advance Care Plan I have confirmed that the patient's Advanced Care Plan is present, code status is documented, or surrogate decision maker is listed in patient medical record.: Yes Medication Reconciliation I have utilized all available resources to obtain, update and review the patients current medications (includes all prescriptions, OTC, herbals, cannabis, and nutritional supplements).: Yes
[2025-07-26] MEDS: COLESTIPOL HCL 1 GM TABLET PO (18:28)
[2025-07-26] MEDS: PANTOPRAZOLE 40 MG TABLET PO (18:28)
[2025-07-26] MEDS: ATORVASTATIN 40 MG TABLET BY MOUTH (20:26)
[2025-07-26] MEDS: SERTRALINE HCL 50 MG TABLET 100 MG PO (20:26)
[2025-07-26] MEDS: INSULIN HUMAN REGULAR (*BKC) 100 UNITS/ML 8 UNITS SUB-Q (22:52)
[2025-07-27 05:33] VITALS: BP 162/67; PULSE 73; RESP 16; TEMP 37.2; O2SAT 95
[2025-07-27 06:10] LABS: Hematocrit 24.4 % (37.0-47.0); Hemoglobin 7.9 g/dL (12.0-15.0); Mean Corpuscular HGB Conc 32.4 g/dl (32-36); Mean Corpuscular Hemoglobin 31.7 pg (26-34); Mean Corpuscular Volume 98.0 fl (80-100); Platelet Count Result 180 k/mm3 (150-375); Red Blood Count 2.49 M/mm3 (4.2-5.4); White Blood Count 5.2 K/mm3 (4.5-10.0)
[2025-07-27 06:30] LABS: Anion Gap 5 mmol/L (4-12); Blood Urea Nitrogen 46 mg/dL (7-17); Calcium 8.0 mg/dL (8.4-10.2); Carbon Dioxide 20 mmol/L (22-30); Chloride 109 mmol/L (98-107); Estimated CRCL calculation 19 ml/min; Estimated Glomerular Filt Rate 24; Glucose 245 mg/dL (65-110); Magnesium 1.8 mg/dL (1.6-2.3); Potassium 4.5 mmol/L (3.4-5.0); Sodium 134 mmol/L (137-145)
--- NOTE | 2025-07-27 08:28 | PM.IMPN ---
Progress Note: A&P Assessment and Plan (1) Type 1 diabetes mellitus with hyperglycemia: Code(s): E10.65 - Type 1 diabetes mellitus with hyperglycemia Status: Acute Assessment and Plan: Patient endorsed CGM reading ?high? starting on 07/25. Typically runs 70-200 at home. Likely related to UTI. Prior hyperglycemia related to UTI. Glucose 762 on admit and CO2 17 but patient is not acidotic and is without anion gap. Insulin pump dependent and compliant. Last visit with street worker was 07/18/2025. - hypoglycemia protocol - POC blood glucose ACHS - Currently holding patients continuous insulin pump Per endo note on 07/18: Pump setting: basal mn 0.50 8 am 0.55 10 pm 0.5, total 12.7u Bolus carb 20 correction 70 target 110 duration 5 hr - A1C 6.5% on 07/18 - adult educator consulted Glucose levels remained poorly controlled despite patients insulin pump and carb correction. Will discontinue continuous insulin pump. Started patient on basal insulin 13 units and low dose SSI. Continue to monitor. (2) Acute kidney injury superimposed on CKD: Code(s): N17.9 - Acute kidney failure, unspecified; N18.9 - Chronic kidney disease, unspecified Status: Acute Assessment and Plan: Creatinine 2.07 on admit with GFR 23. Baseline creatinine around 1.4-1.8. Creatinine did improve to 1.89 following 2 L bolus in ED. Follows Nephrology outpatient. Last appointment 06/20/2025. - CT showed no hydronephrosis and no noted nephritis - trend renal function - trend electrolytes, correct as needed (3) UTI (urinary tract infection): Qualifiers: Hematuria presence: without hematuria Urinary tract infection type: site unspecified Qualified Code(s): N39.0 - Urinary tract infection, site not specified Code(s): N39.0 - Urinary tract infection, site not specified Status: Acute Assessment and Plan: Patient presented to ED with burning sensation with urination starting 1 day prior to arrival. Denies retention or urgency. - UA: cloudy appearance with 2+ protein, 3+ glucose, 1+ blood, negative nitrates, 1+ leukocytes, 3-5 RBC, 21-50 WBC, 4+ bacteria - UC obtained on - previous micro reviewed Urine culture from 10/2024 grew E coli which was pansensitive to the antibiotics tested. - started on rocephin on 07/26 (4) Hypertension: Qualifiers: Hypertension type: unspecified Qualified Code(s): I10 - Essential (primary) hypertension Code(s): I10 - Essential (primary) hypertension Status: Chronic Assessment and Plan: Follows Nephrology outpatient. According to most recent note on 06/20/2025, plan to possibly start losartan but holding off due to lower GFR. In the setting of the BERTA superimposed on CKD with GFR of 23 on admit, will start p.r.n. hydralazine 10 mg for BP >180/90 Blood pressure currently stable, Continue to monitor Time Spent With Patient Time with patient: 25 - 35 minutes Subjective Date/time seen: 07/27/25 08:28 Interval history: 74-year-old female with a past medical history of GERD, CKD, telemetry HTN, depression and anxiety, hyperlipidemia, type 1 diabetes presents to the hospital with complaints of her continuous glucose monitor reading ?high? all day. Patient pleasant lying comfortably in bed. She states that the burning sensation with urination has since subsided however she does endorse slight left flank pain. She has no other complaints denying chest pain, shortness of breath, palpitations, nausea/vomiting and abdominal pain. She did have an episode of diarrhea which she states is chronic. Review of Systems Review of Systems: All systems reviewed & are unremarkable except as noted in HPI and below Exam Narrative: AF HR 73 RR 16 Spo2 95 BP 162/67 General: Female in no acute respiratory distress who is nontoxic appearing, lying semi recumbent in bed. HEENT: Normocephalic. Atraumatic. Extraocular movement intact. Sclera clear and anicteric. No facial asymmetry. Chest: Lungs are clear to auscultation bilaterally. No wheezes or crackles. CV: Heart was regular rate and rhythm. Murmur. Abd: Abdomen was soft. Nontender. Nondistended. Positive bowel sounds. Slight left CVA tenderness. Ext: No clubbing, cyanosis, or edema. DP pulses bilaterally. Neuro: Patient is alert and oriented x4. Speech is clear. Objective Data Vital Signs Vital Signs: Vital Signs - 24 hr 07/26/25 08:40 07/26/25 08:45 07/26/25 09:12 Temperature Pulse Rate 83 82 83 Respiratory Rate 16 19 17 Blood Pressure 136/107 H 169/74 H Pulse Oximetry 98 97 97 Oxygen Delivery 07/26/25 09:16 07/26/25 09:56 07/26/25 11:10 Temperature 97.6 F Pulse Rate 83 78 72 Respiratory Rate 15 20 15 Blood Pressure 192/71 H 152/63 H Pulse Oximetry 97 99 99 Oxygen Delivery 07/26/25 14:00 07/26/25 20:00 07/26/25 21:26 Temperature 96.1 F L 97.7 F Pulse Rate 68 79 Respiratory Rate 14 14 Blood Pressure 177/65 H 175/66 H Pulse Oximetry 99 98 Oxygen Delivery Room Air 07/26/25 22:04 07/26/25 23:50 07/27/25 05:33 Temperature 99.0 F Pulse Rate 73 Respiratory Rate 16 Blood Pressure 192/62 H 153/65 H 162/67 H Pulse Oximetry 95 Oxygen Delivery Intake/Output Intake/Output: Intake & Output 07/24/25 07/25/25 07/26/25 07/27/25 23:59 23:59 23:59 23:59 Intake Total 2940 0 Balance 2940 0 Meds/Results Medications: Active Medications Generic Name Dose Route Start Last Admin Trade Name Freq PRN Reason Stop Dose Admin Acetaminophen 650 mg 07/26/25 11:32 Acetaminophen 325 Mg Tablet PO Q4H PRN Mild Pain (1-3) or Fever Atorvastatin Calcium 40 mg 07/26/25 21:00 07/26/25 20:26 Atorvastatin 40 Mg Tablet BY MOUTH 40 mg HS BLAKE Administration Colestipol HCl 1 gm 07/26/25 17:00 07/26/25 18:28 Colestipol Hcl 1 Gm Tablet PO 1 gm BID BLAKE Administration Cyanocobalamin 2,000 mcg 07/27/25 09:00 Cyanocobalamin 1,000 Mcg Tablet PO DAILY BLAKE Cyanocobalamin 500 mcg 07/27/25 09:00 Cyanocobalamin 500 Mcg Tablet PO DAILY BLAKE Dextrose 12.5 gm 07/26/25 11:32 Dextrose 50% 25 Gm/50 Ml Syringe IV PUSH PRN PRN Hypoglycemia Protocol Ferrous Sulfate 325 mg 07/27/25 09:00 Ferrous Sulfate 325 Mg Tablet PO DAILY BLAKE Furosemide 40 mg 07/27/25 09:00 Furosemide 40 Mg Tablet PO QAM BLAKE Gabapentin 300 mg 07/26/25 10:00 07/26/25 18:29 Gabapentin 300 Mg Capsule PO 300 mg BID BLAKE Administration Glucagon 1 mg 07/26/25 11:32 Glucagon For Inj 1 Mg Vial IM PRN PRN Hypoglycemia Protocol Glucose 15 gm 07/26/25 11:32 Glucose Oral Gel 15 Gm Of Glucse In 37.5 Gm Tube PO PRN PRN Hypoglycemia Protocol Hydralazine HCl 10 mg 07/26/25 22:11 07/26/25 22:21 Hydralazine 10 Mg Tablet PO 10 mg QID PRN Administration Hypertension, Dextrose 1,000 mls @ 100 mls/hr 07/26/25 11:32 Dextrose 5% 1,000 Ml IVPB PRN PRN Hypoglycemia Protocol Ceftriaxone Sodium 1 gm/ 50 mls @ 100 mls/hr 07/27/25 09:00 Sodium Chloride IVPB Q24H [facility] Multivitamins Therapeutic 1 tablet 07/27/25 09:00 Multivitamins Therapeutic Tab (*Bkc) PO DAILY [facility] Ondansetron HCl 4 mg 07/26/25 11:32 Ondansetron Inj 4 Mg/2 Ml Vial IV PUSH Q4H PRN Nausea Pantoprazole Sodium 40 mg 07/26/25 17:00 07/26/25 18:28 Pantoprazole 40 Mg Tablet PO 40 mg BID [facility] Administration Sertraline HCl 100 mg 07/26/25 21:00 07/26/25 20:26 Sertraline Hcl 50 Mg Tablet PO 100 mg HS [facility] Administration Tramadol HCl 25 mg 07/26/25 19:38 Tramadol Hcl (*Crx) 25 Mg Tablet PO Q6H PRN Pain Rated 4-6 Vitamin D 125 mcg 07/27/25 09:00 Cholecalciferol (Vitamin D3) 125 Mcg (5,000 Units) Tablet PO Q48H [facility] Radiology Results: ITS Impressions Chest X-Ray 07/26/25 06:30 IMPRESSION: 1. No acute cardiopulmonary findings given portable technique. Abdomen/Pelvis CT 07/26/25 09:09 IMPRESSION: 1. Enteritis. 2. Cystitis. Suspect superimposed ascending pyelitis. Labs Labs: Laboratory Results - last 24 hr 07/26/25 07/26/25 07/26/25 08:12 08:12 08:12 WBC RBC Hgb Hct MCV MCH MCHC RDW Plt Count MPV Sodium 130 L Cancelled Potassium 5.0 Cancelled Chloride 106 Carbon Dioxide Anion Gap BUN Creatinine Estim Creat Clear Calc Estimated GFR Glucose POC Capillary Glucose Calcium Phosphorus Magnesium Beta-Hydroxybutyrate/Acetoacetate 07/26/25 07/26/25 07/26/25 08:12 08:12 08:12 WBC RBC Hgb Hct MCV MCH MCHC RDW Plt Count MPV Sodium Potassium Chloride Cancelled Carbon Dioxide 15 L Cancelled Anion Gap 9 Cancelled BUN 49 H Creatinine Estim Creat Clear Calc Estimated GFR Glucose POC Capillary Glucose Calcium Phosphorus Magnesium Beta-Hydroxybutyrate/Acetoacetate 07/26/25 07/26/25 07/26/25 08:12 08:12 08:12 WBC RBC Hgb Hct MCV MCH MCHC RDW Plt Count MPV Sodium Potassium Chloride Carbon Dioxide Anion Gap BUN Cancelled Creatinine 1.89 H Cancelled Estim Creat Clear Calc 20 Cancelled Estimated GFR 26 L Glucose POC Capillary Glucose Calcium Phosphorus Magnesium Beta-Hydroxybutyrate/Acetoacetate 07/26/25 07/26/25 07/26/25 08:12 08:12 08:12 WBC RBC Hgb Hct MCV MCH MCHC RDW Plt Count MPV Sodium Potassium Chloride Carbon Dioxide Anion Gap BUN Creatinine Estim Creat Clear Calc Estimated GFR Cancelled Glucose 681 H* Cancelled POC Capillary Glucose Calcium 7.5 L Cancelled Phosphorus Magnesium Beta-Hydroxybutyrate/Acetoacetate 07/26/25 07/26/25 07/26/25 08:13 09:14 10:08 WBC RBC Hgb Hct MCV MCH MCHC RDW Plt Count MPV Sodium Potassium Chloride Carbon Dioxide Anion Gap BUN Creatinine Estim Creat Clear Calc Estimated GFR Glucose POC Capillary Glucose > 500 H* 417 H Calcium Phosphorus Magnesium Beta-Hydroxybutyrate/Acetoacetate 1.82 H 07/26/25 07/26/25 07/27/25 20:36 21:49 03:11 WBC RBC Hgb Hct MCV MCH MCHC RDW Plt Count MPV Sodium Potassium Chloride Carbon Dioxide Anion Gap BUN Creatinine Estim Creat Clear Calc Estimated GFR Glucose POC Capillary Glucose 359 H 379 H 258 H Calcium Phosphorus Magnesium Beta-Hydroxybutyrate/Acetoacetate 07/27/25 07/27/25 05:22 08:03 WBC 5.2 RBC 2.49 L Hgb 7.9 L Hct 24.4 L MCV 98.0 MCH 31.7 MCHC 32.4 RDW 13.2 Plt Count 180 MPV 11.5 H Sodium 134 L Potassium 4.5 Chloride 109 H Carbon Dioxide 20 L Anion Gap 5 BUN 46 H Creatinine 2.03 H Estim Creat Clear Calc 19 Estimated GFR 24 L Glucose 245 H POC Capillary Glucose 322 H Calcium 8.0 L Phosphorus 3.0 Magnesium 1.8 Beta-Hydroxybutyrate/Acetoacetate Quality VTE Prophylaxis VTE prophylaxis: mechanical ordered
[2025-07-27] MEDS: FUROSEMIDE 40 MG TABLET PO (10:08)
[2025-07-27] MEDS: cefTRIAXone 1 GM in SODIUM CHLORIDE 0.9% IV 50 ML 100 ML IVPB (10:08)
[2025-07-27] MEDS: PANTOPRAZOLE 40 MG TABLET PO ×2 (10:08→17:48)
[2025-07-27] MEDS: GABAPENTIN 300 MG CAPSULE PO ×2 (10:09→17:48)
[2025-07-27] MEDS: CYANOCOBALAMIN 1,000 MCG TABLET 2000 MCG PO (10:09)
[2025-07-27] MEDS: MULTIVITAMINS THERAPEUTIC TAB (*BKC) 1 TABLET PO (10:09)
[2025-07-27] MEDS: FERROUS SULFATE 325 MG TABLET PO (10:09)
[2025-07-27] MEDS: COLESTIPOL HCL 1 GM TABLET PO ×2 (10:09→17:48)
[2025-07-27] MEDS: CHOLECALCIFEROL (VITAMIN D3) 125 MCG (5,000 UNITS) TABLET PO (10:09)
[2025-07-27] MEDS: CYANOCOBALAMIN 500 MCG TABLET PO (10:09)
[2025-07-27] MEDS: INSULIN ASPART (*BKC) 100 UNITS/ML SUB-Q ×3 (13:10→16:13)
[2025-07-27 13:43] VITALS: BP 145/88; PULSE 81; RESP 18; TEMP 36.6; O2SAT 97
[2025-07-27 15:30] VITALS: BMI 23.1
[2025-07-27] MEDS: INSULIN GLARGINE (*BKC) 100 UNITS/ML 13 UNITS SUB-Q (16:07)
[2025-07-27] MEDS: ATORVASTATIN 40 MG TABLET BY MOUTH (20:30)
[2025-07-27] MEDS: SERTRALINE HCL 50 MG TABLET 100 MG PO (20:30)
[2025-07-27] MEDS: INSULIN HUMAN REGULAR (*BKC) 100 UNITS/ML 8 UNITS IV PUSH (20:30)
[2025-07-27 21:34] VITALS: BP 167/72; PULSE 73; RESP 16; TEMP 36.8; O2SAT 100
[2025-07-28 05:49] LABS: Hematocrit 25.7 % (37.0-47.0); Hemoglobin 8.2 g/dL (12.0-15.0); Mean Corpuscular HGB Conc 31.9 g/dl (32-36); Mean Corpuscular Hemoglobin 31.8 pg (26-34); Mean Corpuscular Volume 99.6 fl (80-100); Platelet Count Result 180 k/mm3 (150-375); Red Blood Count 2.58 M/mm3 (4.2-5.4); White Blood Count 5.2 K/mm3 (4.5-10.0)
[2025-07-28 06:00] VITALS: BP 194/70; PULSE 71; RESP 16; TEMP 37; O2SAT 97
[2025-07-28 06:17] LABS: Alanine Aminotransferase 12 U/L (6-35); Albumin Level 3.1 g/dL (3.5-5.1); Alkaline Phosphatase 64 U/L (38-126); Anion Gap 6 mmol/L (4-12); Aspartate Amino Transferase 20 U/L (14-36); Bilirubin,Total 0.3 mg/dL (0.2-1.3); Blood Urea Nitrogen 53 mg/dL (7-17); Calcium 8.5 mg/dL (8.4-10.2); Carbon Dioxide 20 mmol/L (22-30); Chloride 109 mmol/L (98-107); Estimated CRCL calculation 16 ml/min; Estimated Glomerular Filt Rate 19; Glucose 121 mg/dL (65-110); Potassium 5.0 mmol/L (3.4-5.0); Sodium 135 mmol/L (137-145); Total Protein 5.9 g/dL (6.3-8.2)
[2025-07-28 06:31] VITALS: BP 160/63
--- NOTE | 2025-07-28 09:01 | PM.IMPN ---
Progress Note: A&P Assessment and Plan (1) Type 1 diabetes mellitus with hyperglycemia: Code(s): E10.65 - Type 1 diabetes mellitus with hyperglycemia Status: Acute Assessment and Plan: Patient endorsed CGM reading ?high? starting on 07/25. Typically runs 70-200 at home. Likely related to UTI. Prior hyperglycemia related to UTI. Glucose 762 on admit and CO2 17 but patient is not acidotic and is without anion gap. Insulin pump dependent and compliant. Last visit with refrigerating oiler was 07/18/2025. - hypoglycemia protocol - POC blood glucose ACHS - Currently holding patients continuous insulin pump Per endo note on 07/18: Pump setting: basal mn 0.50 8 am 0.55 10 pm 0.5, total 12.7u Bolus carb 20 correction 70 target 110 duration 5 hr - A1C 6.5% on 07/18 - software educator consulted Continue 13 units lantus HS, 3 units lispro TIDWM, and low dose SSI. Glucose better controlled. Continue to monitor. (2) Acute kidney injury superimposed on CKD: Code(s): N17.9 - Acute kidney failure, unspecified; N18.9 - Chronic kidney disease, unspecified Status: Acute Assessment and Plan: Creatinine 2.07 on admit with GFR 23. Baseline creatinine around 1.4-1.8. Creatinine did improve to 1.89 following 2 L bolus in ED. Follows Nephrology outpatient. Last appointment 06/20/2025. - CT showed no hydronephrosis and no noted nephritis - Renal US ordered - trend renal function - trend electrolytes, correct as needed Possibly that patient was dehydrated from hyperglycemia as patient improved slightly with fluids but then started receiving her home lasix causing the return of an BERTA. Will again attempt giving 1L NS at 75 ml/hr and reassess in the am. (3) UTI (urinary tract infection): Qualifiers: Hematuria presence: without hematuria Urinary tract infection type: site unspecified Qualified Code(s): N39.0 - Urinary tract infection, site not specified Code(s): N39.0 - Urinary tract infection, site not specified Status: Acute Assessment and Plan: Patient presented to ED with burning sensation with urination starting 1 day prior to arrival. Denies retention or urgency. - UA: cloudy appearance with 2+ protein, 3+ glucose, 1+ blood, negative nitrates, 1+ leukocytes, 3-5 RBC, 21-50 WBC, 4+ bacteria - UC obtained on 07/26: gram negative bacilli - previous micro reviewed Urine culture from 10/2024 grew E coli which was pansensitive to the antibiotics tested. - started on rocephin on 07/26 (4) Hypertension: Qualifiers: Hypertension type: unspecified Qualified Code(s): I10 - Essential (primary) hypertension Code(s): I10 - Essential (primary) hypertension Status: Chronic Assessment and Plan: Follows Nephrology outpatient. According to most recent note on 06/20/2025, plan was to possibly start losartan but holding off due to lower GFR. In the setting of the BERTA superimposed on CKD with GFR of 23 on admit, will start p.r.n. hydralazine 10 mg for BP >180/90 Blood pressures remain elevated. On chart review patient hypertensive extending back into 2023. Will trial a low dose norvasc. Continue to monitor. Time Spent With Patient Time with patient: 25 - 35 minutes Subjective Date/time seen: 07/28/25 09:01 Interval history: 74-year-old female with a past medical history of GERD, CKD, telemetry HTN, depression and anxiety, hyperlipidemia, type 1 diabetes presents to the hospital with complaints of her continuous glucose monitor reading ?high? all day. Patient is pleasant sitting up comfortably in bed. No acute events overnight. She has no complaints at this time denying chest pain, shortness a breath, palpitations, nausea/vomiting, and abdominal pain. Review of Systems Review of Systems: All systems reviewed & are unremarkable except as noted in HPI and below Exam Narrative: AF HR 71 RR 16 Spo2 97 BP 160/63 General: Female in no acute respiratory distress who is nontoxic appearing, sitting up in bed. HEENT: Normocephalic. Atraumatic. Extraocular movement intact. Sclera clear and anicteric. No facial asymmetry. Chest: Lungs are clear to auscultation bilaterally. No wheezes or crackles. CV: Heart was regular rate and rhythm. Murmur. Abd: Abdomen was soft. Nontender. Nondistended. Positive bowel sounds. Ext: No clubbing, cyanosis, or edema. Partial amputation of the left foot. DP pulses bilaterally. Neuro: Patient is alert and oriented x4. Speech is clear. Objective Data Vital Signs Vital Signs: Vital Signs - 24 hr 07/27/25 13:43 07/27/25 20:00 07/27/25 21:34 Temperature 97.8 F 98.2 F Pulse Rate 81 73 Respiratory Rate 18 16 Blood Pressure 145/88 H 167/72 H Pulse Oximetry 97 100 Oxygen Delivery Room Air 07/28/25 06:00 07/28/25 06:31 Temperature 98.6 F Pulse Rate 71 Respiratory Rate 16 Blood Pressure 194/70 H 160/63 H Pulse Oximetry 97 Oxygen Delivery Intake/Output Intake/Output: Intake & Output 07/25/25 07/26/25 07/27/25 07/28/25 23:59 23:59 23:59 23:59 Intake Total 2940 1446 Balance 2940 1446 Meds/Results Medications: Active Medications Generic Name Dose Route Start Last Admin Trade Name Freq PRN Reason Stop Dose Admin Acetaminophen 650 mg 07/26/25 11:32 Acetaminophen 325 Mg Tablet PO Q4H PRN Mild Pain (1-3) or Fever Atorvastatin Calcium 40 mg 07/26/25 21:00 07/27/25 20:30 Atorvastatin 40 Mg Tablet BY MOUTH 40 mg HS BLAKE Administration Colestipol HCl 1 gm 07/26/25 17:00 07/27/25 17:48 Colestipol Hcl 1 Gm Tablet PO 1 gm BID BLAKE Administration Cyanocobalamin 2,000 mcg 07/27/25 09:00 07/27/25 10:09 Cyanocobalamin 1,000 Mcg Tablet PO 2,000 mcg DAILY BLAKE Administration Cyanocobalamin 500 mcg 07/27/25 09:00 07/27/25 10:09 Cyanocobalamin 500 Mcg Tablet PO 500 mcg DAILY BLAKE Administration Dextrose 12.5 gm 07/27/25 13:01 Dextrose 50% 25 Gm/50 Ml Syringe IV PUSH PRN PRN Hypoglycemia Protocol Ferrous Sulfate 325 mg 07/27/25 09:00 07/27/25 10:09 Ferrous Sulfate 325 Mg Tablet PO 325 mg DAILY BLAKE Administration Furosemide 40 mg 07/27/25 09:00 07/27/25 10:08 Furosemide 40 Mg Tablet PO 40 mg QAM BLAKE Administration Gabapentin 300 mg 07/26/25 10:00 07/27/25 17:48 Gabapentin 300 Mg Capsule PO 300 mg BID BLAKE Administration Glucagon 1 mg 07/27/25 13:01 Glucagon For Inj 1 Mg Vial IM PRN PRN Hypoglycemia Protocol Glucose 15 gm 07/27/25 13:01 Glucose Oral Gel 15 Gm Of Glucse In 37.5 Gm Tube PO PRN PRN Hypoglycemia Protocol Hydralazine HCl 10 mg 07/26/25 22:11 07/28/25 04:34 Hydralazine 10 Mg Tablet PO 10 mg QID PRN Administration Hypertension, Ceftriaxone Sodium 1 gm/ 50 mls @ 100 mls/hr 07/27/25 09:00 07/27/25 10:08 Sodium Chloride IVPB 100 mls/hr Q24H BLAKE Administration Dextrose 1,000 mls @ 100 mls/hr 07/27/25 13:01 Dextrose 5% 1,000 Ml IVPB PRN PRN Hypoglycemia Protocol Insulin Aspart 2 - 5 units 07/27/25 13:10 07/27/25 16:13 Insulin Aspart (*Bkc) 100 Units/Ml SUB-Q 5 units TIDWM BLAKE Administration Protocol Insulin Aspart 3 units 07/27/25 17:00 07/27/25 16:13 Insulin Aspart (*Bkc) 100 Units/Ml 0.05 units/kg (3 units) 3 units SUB-Q Administration TIDWM [facility] Insulin Glargine 13 units 07/28/25 21:00 Insulin Glargine (*Bkc) 100 Units/Ml SUB-Q HS BLAKE Multivitamins Therapeutic 1 tablet 07/27/25 09:00 07/27/25 10:09 Multivitamins Therapeutic Tab (*Bkc) PO 1 tablet DAILY BLAKE Administration Ondansetron HCl 4 mg 07/26/25 11:32 Ondansetron Inj 4 Mg/2 Ml Vial IV PUSH Q4H PRN Nausea Pantoprazole Sodium 40 mg 07/26/25 17:00 07/27/25 17:48 Pantoprazole 40 Mg Tablet PO 40 mg BID BLAKE Administration Sertraline HCl 100 mg 07/26/25 21:00 07/27/25 20:30 Sertraline Hcl 50 Mg Tablet PO 100 mg HS BLAKE Administration Tramadol HCl 25 mg 07/26/25 19:38 Tramadol Hcl (*Crx) 25 Mg Tablet PO Q6H PRN Pain Rated 4-6 Vitamin D 125 mcg 07/27/25 09:00 07/27/25 10:09 Cholecalciferol (Vitamin D3) 125 Mcg (5,000 Units) Tablet PO 125 mcg Q48H BLAKE Administration Radiology Results: ITS Impressions Chest X-Ray 07/26/25 06:30 IMPRESSION: 1. No acute cardiopulmonary findings given portable technique. Abdomen/Pelvis CT 07/26/25 09:09 IMPRESSION: 1. Enteritis. 2. Cystitis. Suspect superimposed ascending pyelitis. Labs Labs: Laboratory Results - last 24 hr 07/27/25 07/27/25 07/27/25 10:23 11:10 16:07 WBC RBC Hgb Hct MCV MCH MCHC RDW Plt Count MPV Sodium Potassium Chloride Carbon Dioxide Anion Gap BUN Creatinine Estim Creat Clear Calc Estimated GFR Glucose POC Capillary Glucose 440 H 449 H 480 H Calcium Total Bilirubin AST ALT Alkaline Phosphatase Total Protein Albumin 07/27/25 07/28/25 07/28/25 20:08 00:33 05:00 WBC 5.2 RBC 2.58 L Hgb 8.2 L Hct 25.7 L MCV 99.6 MCH 31.8 MCHC 31.9 L RDW 13.2 Plt Count 180 MPV 11.4 H Sodium 135 L Potassium 5.0 Chloride 109 H Carbon Dioxide 20 L Anion Gap 6 BUN 53 H Creatinine 2.46 H Estim Creat Clear Calc 16 Estimated GFR 19 L Glucose 121 H POC Capillary Glucose 359 H 185 H Calcium 8.5 Total Bilirubin 0.3 AST 20 ALT 12 Alkaline Phosphatase 64 Total Protein 5.9 L Albumin 3.1 L 07/28/25 07:46 WBC RBC Hgb Hct MCV MCH MCHC RDW Plt Count MPV Sodium Potassium Chloride Carbon Dioxide Anion Gap BUN Creatinine Estim Creat Clear Calc Estimated GFR Glucose POC Capillary Glucose 110 H Calcium Total Bilirubin AST ALT Alkaline Phosphatase Total Protein Albumin Quality VTE Prophylaxis VTE prophylaxis: mechanical ordered
[2025-07-28] MEDS: CYANOCOBALAMIN 500 MCG TABLET PO (10:12)
[2025-07-28] MEDS: FERROUS SULFATE 325 MG TABLET PO (10:12)
[2025-07-28] MEDS: CYANOCOBALAMIN 1,000 MCG TABLET 2000 MCG PO (10:12)
[2025-07-28] MEDS: MULTIVITAMINS THERAPEUTIC TAB (*BKC) 1 TABLET PO (10:13)
[2025-07-28] MEDS: FUROSEMIDE 40 MG TABLET PO (10:13)
[2025-07-28] MEDS: COLESTIPOL HCL 1 GM TABLET PO ×2 (10:13→17:46)
[2025-07-28] MEDS: GABAPENTIN 300 MG CAPSULE PO ×2 (10:13→17:46)
[2025-07-28] MEDS: PANTOPRAZOLE 40 MG TABLET PO ×2 (10:13→17:46)
[2025-07-28] MEDS: INSULIN ASPART (*BKC) 100 UNITS/ML SUB-Q ×5 (10:15→17:47)
[2025-07-28] MEDS: cefTRIAXone 1 GM in SODIUM CHLORIDE 0.9% IV 50 ML 100 ML IVPB (10:23)
[2025-07-28 14:00] VITALS: BP 175/69; PULSE 69; RESP 16; TEMP 36.1; O2SAT 98
[2025-07-28] MEDS: SODIUM CHLORIDE 0.9% IV 1,000 ML 75 ML IV CONT (14:43)
[2025-07-28 20:00] VITALS: PULSE 67; RESP 16; O2SAT 100
[2025-07-28] MEDS: INSULIN GLARGINE (*BKC) 100 UNITS/ML 13 UNITS SUB-Q (20:47)
[2025-07-28] MEDS: ATORVASTATIN 40 MG TABLET BY MOUTH (20:47)
[2025-07-28] MEDS: SERTRALINE HCL 50 MG TABLET 100 MG PO (20:47)
[2025-07-28 20:59] VITALS: BP 186/65; PULSE 67; RESP 16; TEMP 36.4; O2SAT 100
[2025-07-29 06:19] LABS: Hematocrit 24.7 % (37.0-47.0); Hemoglobin 8.1 g/dL (12.0-15.0); Mean Corpuscular HGB Conc 32.8 g/dl (32-36); Mean Corpuscular Hemoglobin 32.1 pg (26-34); Mean Corpuscular Volume 98.0 fl (80-100); Platelet Count Result 181 k/mm3 (150-375); Red Blood Count 2.52 M/mm3 (4.2-5.4); White Blood Count 5.2 K/mm3 (4.5-10.0)
[2025-07-29 07:06] LABS: Alanine Aminotransferase 11 U/L (6-35); Albumin Level 2.8 g/dL (3.5-5.1); Alkaline Phosphatase 56 U/L (38-126); Anion Gap 5 mmol/L (4-12); Aspartate Amino Transferase 17 U/L (14-36); Bilirubin,Total 0.2 mg/dL (0.2-1.3); Blood Urea Nitrogen 44 mg/dL (7-17); Calcium 8.3 mg/dL (8.4-10.2); Carbon Dioxide 21 mmol/L (22-30); Chloride 110 mmol/L (98-107); Estimated CRCL calculation 15 ml/min; Estimated Glomerular Filt Rate 18; Glucose 176 mg/dL (65-110); Potassium 4.5 mmol/L (3.4-5.0); Sodium 136 mmol/L (137-145); Total Protein 5.5 g/dL (6.3-8.2)
[2025-07-29 07:10] VITALS: BP 157/64; PULSE 78; RESP 16; TEMP 36.6; O2SAT 97
--- NOTE | 2025-07-29 07:39 | P.PNIM_ITS ---
Progress Note: A&P Assessment and Plan (1) Type 1 diabetes mellitus with hyperglycemia: Code(s): E10.65 - Type 1 diabetes mellitus with hyperglycemia Status: Acute Assessment and Plan: Patient endorsed CGM reading ?high? starting on 07/25. Typically runs 70-200 at home. Likely related to UTI. Prior hyperglycemia related to UTI. Glucose 762 on admit and CO2 17 but patient is not acidotic and is without anion gap. Insulin pump dependent and compliant. Last visit with bar pointer was 07/18/2025. 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 Glucose remains well controlled. Continue to monitor. (2) Acute kidney injury superimposed on CKD: Code(s): N17.9 - Acute kidney failure, unspecified; N18.9 - Chronic kidney disease, unspecified Status: Acute Assessment and Plan: Creatinine 2.07 on admit with GFR 23. Baseline creatinine around 1.4-1.8. Creatinine did improve to 1.89 following 2 L bolus in ED. Follows Nephrology outpatient. Last appointment 06/20/2025. - CT showed no hydronephrosis and no noted nephritis - trend renal function - monitor I/O, urine output wnl - trend electrolytes, correct as needed Concerned for dehydration from hyperglycemia as patient improved slightly with fluids on admission but then started receiving her home lasix causing the return of an BERTA. Attempted giving 1L NS at 75 ml/hr however Cr continues to worsen. Renal US showed bilateral mild bilateral hydronephrosis but with bilateral ureteral jets visualized in the distended bladder on color Doppler, diffuse bilateral increased renal cortical echogenicity consistent with medical renal disease, and mild left renal atrophy. Bladder scan PRN, per RN patient postvoid was 5 ml in the bladder Nephrology consulted (3) UTI (urinary tract infection): Qualifiers: Hematuria presence: without hematuria Urinary tract infection type: site unspecified Qualified Code(s): N39.0 - Urinary tract infection, site not specified Code(s): N39.0 - Urinary tract infection, site not specified Status: Acute Assessment and Plan: Patient presented to ED with burning sensation with urination starting 1 day prior to arrival. Denies retention or urgency. - UA: cloudy appearance with 2+ protein, 3+ glucose, 1+ blood, negative nitrates, 1+ leukocytes, 3-5 RBC, 21-50 WBC, 4+ bacteria - UC obtained on 07/26: gram negative bacilli - previous micro reviewed Urine culture from 10/2024 grew E coli which was pansensitive to the antibiotics tested. - started on rocephin on 07/26 (4) Hypertension: Qualifiers: Hypertension type: unspecified Qualified Code(s): I10 - Essential (primary) hypertension Code(s): I10 - Essential (primary) hypertension Status: Chronic Assessment and Plan: Follows Nephrology outpatient. According to most recent note on 06/20/2025, plan was to possibly start losartan but holding off due to lower GFR. In the setting of the BERTA superimposed on CKD with GFR of 23 on admit, will start p.r.n. hydralazine 10 mg for BP >180/90 Blood pressures remained elevated. On chart review patient hypertensive extending back into 2023. Continue Amlodipine 5 mg daily Continue to monitor. Time Spent With Patient Time with patient: 25 - 35 minutes Subjective Date/time seen: 07/29/25 07:39 Interval history: 74-year-old female with a past medical history of GERD, CKD, telemetry HTN, depression and anxiety, hyperlipidemia, type 1 diabetes presents to the hospital with complaints of her continuous glucose monitor reading ?high? all day. Patient is pleasant lying comfortably in bed. She has no complaints denying chest pain, shortness a breath, palpitations, nausea vomiting, abdominal pain. She continues to ambulate throughout the room without assistance and denies any weakness, dizziness, lightheadedness. Review of Systems Review of Systems: All systems reviewed & are unremarkable except as noted in HPI and below Exam Narrative: AF HR 75 RR 16 Spo2 99 BP 141/53 General: Female in no acute respiratory distress who is nontoxic appearing, sitting up in bed. HEENT: Normocephalic. Atraumatic. Extraocular movement intact. Sclera clear and anicteric. No facial asymmetry. Chest: Lungs are clear to auscultation bilaterally. No wheezes or crackles. CV: Heart was regular rate and rhythm. Murmur. Abd: Abdomen was soft. Nontender. Nondistended. Positive bowel sounds. Ext: No clubbing, cyanosis, or edema. Partial amputation of the left foot. DP pulses bilaterally. Neuro: Patient is alert. Speech is clear. Objective Data Vital Signs Vital Signs: Vital Signs - 24 hr 07/28/25 14:00 07/28/25 20:00 07/28/25 20:59 Temperature 97 F L 97.6 F Pulse Rate 69 67 67 Respiratory Rate 16 16 16 Blood Pressure 175/69 H 186/65 H Pulse Oximetry 98 100 100 Oxygen Delivery Room Air 07/29/25 07:10 Temperature 97.8 F Pulse Rate 78 Respiratory Rate 16 Blood Pressure 157/64 H Pulse Oximetry 97 Oxygen Delivery Intake/Output Intake/Output: Intake & Output 07/26/25 07/27/25 07/28/25 07/29/25 23:59 23:59 23:59 23:59 Intake Total 2940 1496 1240 400 Output Total 550 Balance 2940 1496 690 400 Meds/Results Medications: Active Medications Generic Name Dose Route Start Last Admin Trade Name Freq PRN Reason Stop Dose Admin Acetaminophen 650 mg 07/26/25 11:32 Acetaminophen 325 Mg Tablet PO Q4H PRN Mild Pain (1-3) or Fever Amlodipine Besylate 5 mg 07/29/25 09:00 Amlodipine Besylate 5 Mg Tablet PO DAILY BLAKE Atorvastatin Calcium 40 mg 07/26/25 21:00 07/28/25 20:47 Atorvastatin 40 Mg Tablet BY MOUTH 40 mg HS BLAKE Administration Colestipol HCl 1 gm 07/26/25 17:00 07/28/25 17:46 Colestipol Hcl 1 Gm Tablet PO 1 gm BID BLAKE Administration Cyanocobalamin 2,000 mcg 07/27/25 09:00 07/28/25 10:12 Cyanocobalamin 1,000 Mcg Tablet PO 2,000 mcg DAILY BLAKE Administration Cyanocobalamin 500 mcg 07/27/25 09:00 07/28/25 10:12 Cyanocobalamin 500 Mcg Tablet PO 500 mcg DAILY BLAKE Administration Dextrose 12.5 gm 07/27/25 13:01 Dextrose 50% 25 Gm/50 Ml Syringe IV PUSH PRN PRN Hypoglycemia Protocol Ferrous Sulfate 325 mg 07/27/25 09:00 07/28/25 10:12 Ferrous Sulfate 325 Mg Tablet PO 325 mg DAILY BLAKE Administration Furosemide 40 mg 07/27/25 09:00 07/28/25 10:13 Furosemide 40 Mg Tablet PO 40 mg On Hold: 07/28/25 14:17 QAM BLAKE Administration Gabapentin 300 mg 07/26/25 10:00 07/28/25 17:46 Gabapentin 300 Mg Capsule PO 300 mg BID BLAKE Administration Glucagon 1 mg 07/27/25 13:01 Glucagon For Inj 1 Mg Vial IM PRN PRN Hypoglycemia Protocol Glucose 15 gm 07/27/25 13:01 Glucose Oral Gel 15 Gm Of Glucse In 37.5 Gm Tube PO PRN PRN Hypoglycemia Protocol Hydralazine HCl 10 mg 07/26/25 22:11 07/28/25 20:55 Hydralazine 10 Mg Tablet PO 10 mg QID PRN Administration Hypertension, Hydralazine HCl 10 mg 07/28/25 22:23 07/28/25 23:07 Hydralazine Hcl 20 Mg/Ml Vial IV PUSH 10 mg Q8H PRN Administration Blood Pressure - High Ceftriaxone Sodium 1 gm/ 50 mls @ 100 mls/hr 07/27/25 09:00 07/28/25 10:53 Sodium Chloride IVPB Infused Q24H BLAKE Infusion Dextrose 1,000 mls @ 100 mls/hr 07/27/25 13:01 Dextrose 5% 1,000 Ml IVPB PRN PRN Hypoglycemia Protocol Insulin Aspart 2 - 5 units 07/27/25 13:10 07/28/25 17:47 Insulin Aspart (*Bkc) 100 Units/Ml SUB-Q 2 units TIDWM BLAKE Administration Protocol Insulin Aspart 3 units 07/27/25 17:00 07/28/25 17:46 Insulin Aspart (*Bkc) 100 Units/Ml 0.05 units/kg (3 units) 3 units SUB-Q Administration TIDWM BLAKE Insulin Glargine 13 units 07/28/25 21:00 07/28/25 20:47 Insulin Glargine (*Bkc) 100 Units/Ml SUB-Q 13 units HS BLAKE Administration Multivitamins Therapeutic 1 tablet 07/27/25 09:00 07/28/25 10:13 Multivitamins Therapeutic Tab (*Bkc) PO 1 tablet DAILY BLAKE Administration Ondansetron HCl 4 mg 07/26/25 11:32 Ondansetron Inj 4 Mg/2 Ml Vial IV PUSH Q4H PRN Nausea Pantoprazole Sodium 40 mg 07/26/25 17:00 07/28/25 17:46 Pantoprazole 40 Mg Tablet PO 40 mg BID BLAKE Administration Prochlorperazine Edisylate 10 mg 07/28/25 22:23 Prochlorperazine Edisylate 10 Mg/2 Ml Vial IV PUSH Q6H PRN Nausea And Vomiting Sertraline HCl 100 mg 07/26/25 21:00 07/28/25 20:47 Sertraline Hcl 50 Mg Tablet PO 100 mg HS BLAKE Administration Tramadol HCl 25 mg 07/26/25 19:38 Tramadol Hcl (*Crx) 25 Mg Tablet PO Q6H PRN Pain Rated 4-6 Vitamin D 125 mcg 07/27/25 09:00 07/27/25 10:09 Cholecalciferol (Vitamin D3) 125 Mcg (5,000 Units) Tablet PO 125 mcg Q48H BLAKE Administration Radiology Results: ITS Impressions Chest X-Ray 07/26/25 06:30 IMPRESSION: 1. No acute cardiopulmonary findings given portable technique. Abdomen/Pelvis CT 07/26/25 09:09 IMPRESSION: 1. Enteritis. 2. Cystitis. Suspect superimposed ascending pyelitis. Renal Ultrasound 07/28/25 16:35 IMPRESSION: 1. Mild bilateral hydronephrosis but with bilateral ureteral jets visualized in the distended bladder on color Doppler. 2. Diffuse bilateral increased renal cortical echogenicity consistent with medical renal disease. 3. Mild left renal atrophy. Labs Labs: Laboratory Results - last 24 hr 07/28/25 07/28/25 07/28/25 07:46 11:45 16:58 WBC RBC Hgb Hct MCV MCH MCHC RDW Plt Count MPV Sodium Potassium Chloride Carbon Dioxide Anion Gap BUN Creatinine Estim Creat Clear Calc Estimated GFR Glucose POC Capillary Glucose 110 H 229 H 225 H Calcium Total Bilirubin AST ALT Alkaline Phosphatase Total Protein Albumin 07/28/25 07/29/25 07/29/25 20:53 05:30 07:31 WBC 5.2 RBC 2.52 L Hgb 8.1 L Hct 24.7 L MCV 98.0 MCH 32.1 MCHC 32.8 RDW 13.4 Plt Count 181 MPV 11.7 H Sodium 136 L Potassium 4.5 Chloride 110 H Carbon Dioxide 21 L Anion Gap 5 BUN 44 H Creatinine 2.56 H Estim Creat Clear Calc 15 Estimated GFR 18 L Glucose 176 H POC Capillary Glucose 255 H 154 H Calcium 8.3 L Total Bilirubin 0.2 AST 17 ALT 11 Alkaline Phosphatase 56 Total Protein 5.5 L Albumin 2.8 L Quality VTE Prophylaxis VTE prophylaxis: mechanical ordered
[2025-07-29 08:00] VITALS: O2SAT 97
[2025-07-29] MEDS: cefTRIAXone 1 GM in SODIUM CHLORIDE 0.9% IV 50 ML 100 ML IVPB (08:08)
[2025-07-29] MEDS: INSULIN ASPART (*BKC) 100 UNITS/ML SUB-Q ×4 (08:11→17:15)
[2025-07-29] MEDS: CYANOCOBALAMIN 500 MCG TABLET PO (08:52)
[2025-07-29] MEDS: CHOLECALCIFEROL (VITAMIN D3) 125 MCG (5,000 UNITS) TABLET PO (08:52)
[2025-07-29] MEDS: MULTIVITAMINS THERAPEUTIC TAB (*BKC) 1 TABLET PO (08:52)
[2025-07-29] MEDS: PANTOPRAZOLE 40 MG TABLET PO ×2 (08:52→17:20)
[2025-07-29] MEDS: CYANOCOBALAMIN 1,000 MCG TABLET 2000 MCG PO (08:52)
[2025-07-29] MEDS: GABAPENTIN 300 MG CAPSULE PO ×2 (08:52→17:15)
[2025-07-29] MEDS: FERROUS SULFATE 325 MG TABLET PO (08:52)
[2025-07-29] MEDS: COLESTIPOL HCL 1 GM TABLET PO ×2 (08:52→17:15)
--- NOTE | 2025-07-29 12:00 | P.CONNP_ITS ---
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 * other(?) * renal ultrasound noted * check urine studies and CPK * diuretics on hold * consider repeat trial of IVFs if no improvement in next 24 hours * follow trend of repeat labs and UOP (2) Stage 4 chronic kidney disease: Code(s): N18.4 - Chronic kidney disease, stage 4 (severe) Status: Acute Assessment and Plan: * baseline creatinine seems to run ~ 1.4 - 2.1mg/dl in the last few years * this causes her to fluctuate between CKD stage 3b and stage 4 * presumably secondary to diabetes, hypertension, vascular disease, and age- related change History of Present Illness Reason for Consult Consult date: 07/29/25 Reason for consult: acute renal failure (on chronic kidney disease) Chief Complaint Chief complaint: berta on ckd,uti,hyperglycemia History of Present Illness Narrative: The patient is a 74-year-old female with a past medical history as outlined below who presented to [facility] Emergency Room with complaints of hyperglycemia. The patient states that according to her continuous glucose monitoring, she has been running high all day prior to her presentation to the emergency room. She gave no complaints with regard to poly dip see a, polyuria, altered mental status or any other clinical symptoms although she does believe that she has a urinary tract infection as she has had a significant issue with dysuria/ burning sensation while urinating. However, she denies any issues or problems that urinary retention, urgency, or incontinence. Furthermore, she denies any fevers, chills, nausea, vomiting, chest pain, shortness of breath, dizziness, lightheadedness, or palpitations. Given that her symptoms of the UTI and her hyperglycemia have been going on for last 24 hours as well as the fact that despite given herself boluses of insulin in an attempt to control this have failed, she presented to the emergency room for further assessment. Workup and evaluation emergency room demonstrated the patient be hemodynamically stable if not a bit hypertensive but otherwise afebrile. Routine blood test demonstrated sodium 129, potassium 5.3, chloride 102, bicarb 17, BUN 50, creatinine 2.07, glucose 762, calcium 8.1, phosphorus 3.7, albumin 3.7, white blood cell count 5.8, hemoglobin 9.2, platelet count of 201, normal LFTs, and magnesium 1.6. Viral testing for influenza, RSV, and COVID were negative and her urinalysis was highly suggestive of urinary tract infection with a cloudy appearance, 2+ protein, 3+ glucose, 1+ blood, 1+ leukocyte esterase, 3-5 red blood cells, 21-50 white blood cells, and 4+ bacteria. Her chest x-ray was negative and a subsequent CT scan of the abdomen pelvis with contrast showed enteritis and possible cystitis With the suspicion for superimposed ascending pyelitis. After appropriate cultures were obtained, she was initiated on IV fluids as well as IV antibiotics and subsequently admitted to the hospital for further evaluation and therapy Since her admission, her blood sugars appear to have stabilized with IV fluids and IV antibiotics however her renal function has been fluctuating with her most recent creatinine at 2.56 mg/dL by labs done this morning Renal consultation was requested due to her acute kidney injury/ acute renal failure on top of her baseline chronic kidney disease. The patient normally follows with Dr. Zion Douglas for management of her chronic kidney disease and her baseline creatinine seems to fluctuate anywhere from 1.4-2.1 mg/dL over last several years causing her to fluctuate between chronic kidney disease stage IIIB and stage IV. The presumed etiology of her chronic kidney disease is secondary to her diabetes, hypertension, vascular disease, and age-related change. As already mentioned, her creatinine has worsened to 2.56 mg/dL today but was already elevated even the day before with a creatinine of 2.46 mg/dL. In spite of these changes in her overall renal function, she has no critical electrolyte abnormalities, metabolic acidosis, volume overload, or evidence of uremia. Currently, at the time my evaluation, she appears to be in no acute distress. Review of Systems 2 Review of Systems: As per HPI. [facility] Past Medical History Medical History (Updated 07/30/25 @ 07:12 by Brent Espana MD) DKA (diabetic ketoacidosis) Chronic diarrhea Diabetic polyneuropathy Minimal cognitive impairment GERD (gastroesophageal reflux disease) Chronic kidney disease, stage 3b Hyperlipidemia Barretts esophagus Right ankle injury Osteoporosis Kidney disease IBS (irritable bowel syndrome) Hypertension Diabetes Arthritis Depression Anxiety Anemia Surgical History Surgical History Status post amputation of toe of left foot History of right shoulder replacement Family History Family History Father Alcoholism Cerebrovascular accident Heart disease Grandparent Cancer of unknown origin Son Diabetes mellitus Daughter Diabetes mellitus Daughter Depression Social History Social History Smoking packs per day: 1 Smoking cigarettes per day: 20.0 Years smoked: 30 Smoking pack-years: 30.00 Smoking status: Former smoker Tobacco type: cigarettes Second hand tobacco smoke exposure: No Smoking end date: 08/13/19 Alcohol intake: never Alcohol use details: socially Substance use: never Substance use type: does not use Do You Feel Safe in your Home?: Yes Lack of Transportation: No Lack of Food: Never True Current Housing: I Have Housing Concerned About Future Housing: No Difficulty Paying Gas/Electric Bills: No Difficulty Paying for Meds: No Currently Unemployed: No Education: Bachelor's Degree Difficulty w/ Childcare or Family Care: No Living arrangements: with family Additional living arrangements comments: daughter Occupation/Education: retired Gender identity (if verbalized by the patient): Female Spiritual care concerns: No Agree to blood products: Yes Meds Home Medications and Allergies Home Medications ?Medication ?Instructions ?Recorded ?Confirmed ?Type cholecalciferol (vitamin D3) 125 125 mcg PO EVERY OTHE R DAY 02/10/24 07/26/25 History mcg (5,000 unit) capsule ferrous sulfate 325 mg (65 mg 325 mg PO DAILY 02/10/24 07/26/25 History iron) tablet mecobalamin (vitamin B12) 2,500 2,500 mcg PO DAILY 07/26/25 History mcg chewable tablet multivitamin 1 tablet PO DAILY 02/10/24 1 History glucagon 1 mg/0.2 mL subcutaneous 1 mg (0.2 mL) subcut ONCE #0.4 mL 03/16/24 07/26/25 Rx auto-injector (Gvoke HypoPen 2-Pack) glucose 4 gram chewable tablet 16 g (4 x 4 gram) PO Q1 5M PRN 03/16/24 07/26/25 Rx (Dex4 Glucose) hypoglycemia #60 tabs omeprazole 40 mg capsule,delayed 40 mg PO BID 90 days #180 caps 06/28/24 07/26/25 Rx release colestipol 1 gram tablet (Colestid) 1 g PO BID #60 tab s 12/07/24 07/26/25 Rx insulin aspart U-100 100 unit/mL 60 unit (0.6 mL) cont inuous 03/28/25 07/26/25 Rx subcutaneous solution (Novolog subcutaneous infusion D AILY 90 U-100 Insulin aspart) days #54 mL sertraline 100 mg tablet 100 mg PO HS #30 tabs 07/26/25 Rx gabapentin 300 mg capsule See Rx Instructions .Route 0 05/23/25 07/26/25 Rx .COMPLEX #180 caps atorvastatin 40 mg tablet See Rx Instructions .Route 0 06/02/25 07/26/25 Rx .COMPLEX #90 tabs ondansetron 4 mg disintegrating 4 mg PO Q8H PRN nausea and 07/12/25 07/26/25 Rx tablet vomiting #7 tabs furosemide 20 mg tablet 40 mg PO QAM 07/26/25 History amlodipine 5 mg tablet (Norvasc) 5 mg PO DAILY #30 tab s 07/30/25 Rx amoxicillin 500 mg-potassium 1 tablet PO Q12H #4 tabs 07/30/25 Rx clavulanate 125 mg tablet (Augmentin) Allergies Allergy/AdvReac Type Severity Reaction Status Date / Time No Known Allergies Allergy Mild Verified 07/26/25 02:02 Vital Signs Vital Signs Temp Pulse Resp BP Pulse Ox O2 Del Method 07/29/25 12:00 97.4 F L 75 16 141/53 H 99 07/29/25 08:00 97 Room Air 07/29/25 07:10 97.8 F 78 16 157/64 H 97 07/28/25 20:59 97.6 F 67 16 186/65 H 100 07/28/25 20:00 67 16 100 Room Air Results Lab Results 07/30/25 05:59 07/30/25 05:59 Lab results: Most recent lab results Calcium 8.3 mg/dL (8.4-10.2) L 07/29/25 05:30 Phosphorus 3.0 mg/dL (2.5-4.5) 07/27/25 05:22 Magnesium 1.8 mg/dL (1.6-2.3) 07/27/25 05:22 Urine Creatinine 75.0 mg/dL 07/29/25 18:18
[2025-07-29 14:00] VITALS: BP 141/53; PULSE 75; RESP 16; TEMP 36.3; O2SAT 99
[2025-07-29 18:45] LABS: Urea Random Urine 620 MG/DL
[2025-07-29 19:43] LABS: Urine Eos QC 2nd Tech Confirmed
[2025-07-29 20:02] LABS: Total Protein Urine Random 384 mg/dL; Ur Ttl Prot Creatinine Ratio 5.12 mg/mg (0-0.20)
[2025-07-29] MEDS: ATORVASTATIN 40 MG TABLET BY MOUTH (21:04)
[2025-07-29] MEDS: INSULIN GLARGINE (*BKC) 100 UNITS/ML 13 UNITS SUB-Q (21:04)
[2025-07-29] MEDS: SERTRALINE HCL 50 MG TABLET 100 MG PO (21:04)
[2025-07-29 23:12] VITALS: BP 137/59; PULSE 72; RESP 18; TEMP 36.5; O2SAT 100
[2025-07-30 06:05] VITALS: BP 150/67; PULSE 78; RESP 18; TEMP 36.8; O2SAT 97
[2025-07-30 06:38] LABS: Hematocrit 24.6 % (37.0-47.0); Hemoglobin 8.0 g/dL (12.0-15.0); Mean Corpuscular HGB Conc 32.5 g/dl (32-36); Mean Corpuscular Hemoglobin 32.1 pg (26-34); Mean Corpuscular Volume 98.8 fl (80-100); Platelet Count Result 169 k/mm3 (150-375); Red Blood Count 2.49 M/mm3 (4.2-5.4); White Blood Count 4.5 K/mm3 (4.5-10.0)
[2025-07-30 07:03] LABS: Alanine Aminotransferase 12 U/L (6-35); Albumin Level 2.7 g/dL (3.5-5.1); Alkaline Phosphatase 55 U/L (38-126); Anion Gap 4 mmol/L (4-12); Aspartate Amino Transferase 19 U/L (14-36); Bilirubin,Total 0.2 mg/dL (0.2-1.3); Blood Urea Nitrogen 49 mg/dL (7-17); Calcium 8.4 mg/dL (8.4-10.2); Carbon Dioxide 21 mmol/L (22-30); Chloride 111 mmol/L (98-107); Creatine Kinase 86 U/L (30-135); Estimated CRCL calculation 17 ml/min; Estimated Glomerular Filt Rate 20; Glucose 91 mg/dL (65-110); Potassium 4.2 mmol/L (3.4-5.0); Sodium 136 mmol/L (137-145); Total Protein 5.4 g/dL (6.3-8.2)
[2025-07-30] MEDS: CYANOCOBALAMIN 1,000 MCG TABLET 2000 MCG PO (08:25)
[2025-07-30] MEDS: MULTIVITAMINS THERAPEUTIC TAB (*BKC) 1 TABLET PO (08:25)
[2025-07-30] MEDS: FERROUS SULFATE 325 MG TABLET PO (08:26)
[2025-07-30] MEDS: cefTRIAXone 1 GM in SODIUM CHLORIDE 0.9% IV 50 ML 100 ML IVPB (08:26)
[2025-07-30] MEDS: PANTOPRAZOLE 40 MG TABLET PO (08:26)
[2025-07-30] MEDS: GABAPENTIN 300 MG CAPSULE PO (08:26)
[2025-07-30] MEDS: COLESTIPOL HCL 1 GM TABLET PO (08:26)
[2025-07-30] MEDS: CYANOCOBALAMIN 500 MCG TABLET PO (08:26)
[2025-07-30] MEDS: INSULIN ASPART (*BKC) 100 UNITS/ML SUB-Q ×2 (10:20→12:29)
--- NOTE | 2025-07-30 10:45 | P.PNNP_ITS ---
Progress Note: A&P Assessment and Plan (1) BERTA (acute kidney injury): Code(s): N17.9 - Acute kidney failure, unspecified Status: Acute Assessment and Plan: * improvement noted * as noted by trend of labs since 07/28 (creatinine increased to 2.46mg/dL) * suspect multifactorial etiology: * fluctuating blood sugars/hyperglycemia * contrast exposure (CT on 07/26) * prerenal factors * infection (UTI) * diuretic therapy [facility] * other(?) * evaluation to date: * renal u/s without obstruction * urine eosinophils negative * urine electrolytes non-prerenal * CPK normal * nephrotic range proteinuria noted * diuretics on hold * follow trend of repeat labs and UOP (2) Stage 4 chronic kidney disease: Code(s): N18.4 - Chronic kidney disease, stage 4 (severe) Status: Acute Assessment and Plan: * baseline creatinine seems to run ~ 1.4 - 2.1mg/dl in the last few years * this causes her to fluctuate between CKD stage 3b and stage 4 * presumably secondary to diabetes, hypertension, vascular disease, and age- related change (3) UTI (urinary tract infection): Qualifiers: Hematuria presence: without hematuria Urinary tract infection type: s ite unspecified Qualified Code(s): N39.0 - Urinary tract infection, site not specified Code(s): N39.0 - Urinary tract infection, site not specified Status: Acute Assessment and Plan: * admission UA suggestive * urine culture with E. coli * on antibiotics (4) Hypertension: Qualifiers: Hypertension type: unspecified Qualified Code(s): I10 - Essential (primary) hypertension Code(s): I10 - Essential (primary) hypertension Status: Chronic Assessment and Plan: * reasonable control * holding off on ADELE/ARB given BERTA and fluctuating CKD * follow trend of hemodynamics (5) Type 1 diabetes mellitus with hyperglycemia: Code(s): E10.65 - Type 1 diabetes mellitus with hyperglycemia Status: Acute Assessment and Plan: * follow accu-cheks/CGM readings * follows with [facility] * glycemic control per hospitalist Will continue to follow. L Subjective Date/time seen: 07/30/25 10:45 Interval history: Follow-up for acute kidney injury/acure renal failure on chronic kidney disease. No apparent distress noted at the time of my visit; renal function/creatinine appears to have improved by trend of labs; no other issues/events overnight or earlier this morning. Exam 2 Narrative: General: elderly but WD/WN female in NAD Heart: normal S1 and S2; no rub Lungs: clear to auscultation Abdomen: soft, nontender, nondistended, positive bowel sounds Extremities: no cyanosis or clubbing; no edema Skin: warm and dry Objective Data Vital Signs Vital Signs: Vital Signs Temp Pulse Resp BP Pulse Ox O2 Del Method 07/30/25 08:20 Room Air 07/30/25 06:05 98.3 F 78 18 150/67 H 97 07/29/25 23:12 97.7 F 72 18 137/59 L 100 07/29/25 20:00 Room Air 07/29/25 14:00 97.4 F L 75 16 141/53 H 99 Intake/Output Intake/Output: Intake & Output 07/27/25 07/28/25 07/29/25 07/30/25 23:59 23:59 23:59 23:59 Intake Total 1496 1240 1410 490 Output Total 550 800 601 Balance 1496 690 610 -111 Meds/Results Medications: Active Medications Generic Name Dose Route Start Last Admin Trade Name Freq PRN Reason Stop Dose Admin Acetaminophen 650 mg 07/26/25 11:32 Acetaminophen 325 Mg Tablet PO Q4H PRN Mild Pain (1-3) or Fever Amlodipine Besylate 5 mg 07/29/25 09:00 07/30/25 08:26 Amlodipine Besylate 5 Mg Tablet PO 5 mg DAILY BLAKE Administration Atorvastatin Calcium 40 mg 07/26/25 21:00 07/29/25 21:04 Atorvastatin 40 Mg Tablet BY MOUTH 40 mg HS BLAKE Administration Colestipol HCl 1 gm 07/26/25 17:00 07/30/25 08:26 Colestipol Hcl 1 Gm Tablet PO 1 gm BID BLAKE Administration Cyanocobalamin 2,000 mcg 07/27/25 09:00 07/30/25 08:25 Cyanocobalamin 1,000 Mcg Tablet PO 2,000 mcg DAILY BLAKE Administration Cyanocobalamin 500 mcg 07/27/25 09:00 07/30/25 08:26 Cyanocobalamin 500 Mcg Tablet PO 500 mcg DAILY BLAKE Administration Dextrose 12.5 gm 07/27/25 13:01 Dextrose 50% 25 Gm/50 Ml Syringe IV PUSH PRN PRN Hypoglycemia Protocol Ferrous Sulfate 325 mg 07/27/25 09:00 07/30/25 08:26 Ferrous Sulfate 325 Mg Tablet PO 325 mg DAILY BLAKE Administration Furosemide 40 mg 07/27/25 09:00 07/28/25 10:13 Furosemide 40 Mg Tablet PO 40 mg On Hold: 07/28/25 14:17 QAM BLAKE Administration Gabapentin 300 mg 07/26/25 10:00 07/30/25 08:26 Gabapentin 300 Mg Capsule PO 300 mg BID BLAKE Administration Glucagon 1 mg 07/27/25 13:01 Glucagon For Inj 1 Mg Vial IM PRN PRN Hypoglycemia Protocol Glucose 15 gm 07/27/25 13:01 Glucose Oral Gel 15 Gm Of Glucse In 37.5 Gm Tube PO PRN PRN Hypoglycemia Protocol Hydralazine HCl 10 mg 07/26/25 22:11 07/28/25 20:55 Hydralazine 10 Mg Tablet PO 10 mg QID PRN Administration Hypertension, Hydralazine HCl 10 mg 07/28/25 22:23 07/28/25 23:07 Hydralazine Hcl 20 Mg/Ml Vial IV PUSH 10 mg Q8H PRN Administration Blood Pressure - High Ceftriaxone Sodium 1 gm/ 50 mls @ 100 mls/hr 07/27/25 09:00 07/30/25 08:26 Sodium Chloride IVPB 100 mls/hr Q24H BLAKE Administration Dextrose 1,000 mls @ 100 mls/hr 07/27/25 13:01 Dextrose 5% 1,000 Ml IVPB PRN PRN Hypoglycemia Protocol Insulin Aspart 2 - 5 units 07/27/25 13:10 07/30/25 12:23 Insulin Aspart (*Bkc) 100 Units/Ml SUB-Q Not Given TIDWM [facility] Protocol Insulin Aspart 3 units 07/27/25 17:00 07/30/25 12:29 Insulin Aspart (*Bkc) 100 Units/Ml 0.05 units/kg (3 units) 3 units SUB-Q Administration TIDWM [facility] Insulin Glargine 13 units 07/28/25 21:00 07/29/25 21:04 Insulin Glargine (*Bkc) 100 Units/Ml SUB-Q 13 units HS BLAKE Administration Multivitamins Therapeutic 1 tablet 07/27/25 09:00 07/30/25 08:25 Multivitamins Therapeutic Tab (*Bkc) PO 1 tablet DAILY BLAKE Administration Ondansetron HCl 4 mg 07/26/25 11:32 Ondansetron Inj 4 Mg/2 Ml Vial IV PUSH Q4H PRN Nausea Pantoprazole Sodium 40 mg 07/26/25 17:00 07/30/25 08:26 Pantoprazole 40 Mg Tablet PO 40 mg BID BLAKE Administration Prochlorperazine Edisylate 10 mg 07/28/25 22:23 Prochlorperazine Edisylate 10 Mg/2 Ml Vial IV PUSH Q6H PRN Nausea And Vomiting Sertraline HCl 100 mg 07/26/25 21:00 07/29/25 21:04 Sertraline Hcl 50 Mg Tablet PO 100 mg HS BLAKE Administration Tramadol HCl 25 mg 07/26/25 19:38 Tramadol Hcl (*Crx) 25 Mg Tablet PO Q6H PRN Pain Rated 4-6 Vitamin D 125 mcg 07/27/25 09:00 07/29/25 08:52 Cholecalciferol (Vitamin D3) 125 Mcg (5,000 Units) Tablet PO 125 mcg Q48H BLAKE Administration Radiology Results: ITS Impressions Chest X-Ray 07/26/25 06:30 IMPRESSION: 1. No acute cardiopulmonary findings given portable technique. Abdomen/Pelvis CT 07/26/25 09:09 IMPRESSION: 1. Enteritis. 2. Cystitis. Suspect superimposed ascending pyelitis. Renal Ultrasound 07/28/25 16:35 IMPRESSION: 1. Mild bilateral hydronephrosis but with bilateral ureteral jets visualized in the distended bladder on color Doppler. 2. Diffuse bilateral increased renal cortical echogenicity consistent with medical renal disease. 3. Mild left renal atrophy. Labs Labs: Laboratory Tests 07/30/25 05:59 07/30/25 05:59 Calcium 8.4 Total Bilirubin 0.2 AST 19 ALT 12 Alkaline Phosphatase 55 Total Creatine Kinase 86 Total Protein 5.4 L Albumin 2.7 L Microbiology 07/26/25 02:25 Urine Clean Catch - Final Escherichia coli.
--- NOTE | 2025-07-30 11:13 | PM.IMPN ---
Progress Note: A&P Assessment and Plan (1) Type 1 diabetes mellitus with hyperglycemia: Code(s): E10.65 - Type 1 diabetes mellitus with hyperglycemia Status: Acute Assessment and Plan: Patient endorsed CGM reading ?high? starting on 07/25. Typically runs 70-200 at home. Likely related to UTI. Prior hyperglycemia related to UTI. Glucose 762 on admit and CO2 17 but patient is not acidotic and is without anion gap. Insulin pump dependent and compliant. Last visit with circulation director was 07/18/2025. - hypoglycemia protocol - POC blood glucose ACHS - Currently holding patients continuous insulin pump Per endo note on 07/18: Pump setting: basal mn 0.50 8 am 0.55 10 pm 0.5, total 12.7u Bolus carb 20 correction 70 target 110 duration 5 hr - A1C 6.5% on 07/18 - life skills educator consulted Continue 13 units lantus HS, 3 units lispro TIDWM, and low dose SSI. Glucose remains well controlled. Continue to monitor. (2) Acute kidney injury superimposed on CKD: Code(s): N17.9 - Acute kidney failure, unspecified; N18.9 - Chronic kidney disease, unspecified Status: Acute Assessment and Plan: Creatinine 2.07 on admit with GFR 23. Baseline creatinine around 1.4-1.8. Creatinine did improve to 1.89 following 2 L bolus in ED. Follows Nephrology outpatient. Last appointment 06/20/2025. - CT showed no hydronephrosis and no noted nephritis - trend renal function - monitor I/O, urine output wnl - trend electrolytes, correct as needed Concerned for dehydration from hyperglycemia as patient improved slightly with fluids on admission but then started receiving her home lasix causing the return of an BERTA. Attempted giving 1L NS at 75 ml/hr however Cr continues to worsen. Renal US showed bilateral mild bilateral hydronephrosis but with bilateral ureteral jets visualized in the distended bladder on color Doppler, diffuse bilateral increased renal cortical echogenicity consistent with medical renal disease, and mild left renal atrophy. Bladder scan PRN, per RN patient postvoid was 5 ml in the bladder Nephrology consulted cr/[id number]/49 today-some improvement nephrology following (3) UTI (urinary tract infection): Qualifiers: Hematuria presence: without hematuria Urinary tract infection type: site unspecified Qualified Code(s): N39.0 - Urinary tract infection, site not specified Code(s): N39.0 - Urinary tract infection, site not specified Status: Acute Assessment and Plan: Patient presented to ED with burning sensation with urination starting 1 day prior to arrival. Denies retention or urgency. - UA: cloudy appearance with 2+ protein, 3+ glucose, 1+ blood, negative nitrates, 1+ leukocytes, 3-5 RBC, 21-50 WBC, 4+ bacteria - UC obtained on 07/26: gram negative bacilli - previous micro reviewed Urine culture from 10/2024 grew E coli which was pansensitive to the antibiotics tested. - started on rocephin on 07/26 continue rocephin for now awaiting culture/sensitivities (4) Hypertension: Qualifiers: Hypertension type: unspecified Qualified Code(s): I10 - Essential (primary) hypertension Code(s): I10 - Essential (primary) hypertension Status: Chronic Assessment and Plan: Follows Nephrology outpatient. According to most recent note on 06/20/2025, plan was to possibly start losartan but holding off due to lower GFR. In the setting of the BERTA superimposed on CKD with GFR of 23 on admit, will start p.r.n. hydralazine 10 mg for BP >180/90 Blood pressures remained elevated. On chart review patient hypertensive extending back into 2023. Continue Amlodipine 5 mg daily Continue to monitor. Time Spent With Patient Time with patient: 25 - 35 minutes Subjective Date/time seen: 07/30/25 11:13 Interval history: 74-year-old female with a past medical history of GERD, CKD, telemetry HTN, depression and anxiety, hyperlipidemia, type 1 diabetes presents to the hospital with complaints of her continuous glucose monitor reading ?high? all day. Patient is seen and examined today. She pleasant, resting in bed. She is denying chest pain, shortness a breath, palpitations, nausea vomiting, abdominal pain. She continues to ambulate throughout the room without assistance and denies any weakness, dizziness, lightheadedness. Nephrology following. Review of Systems Review of Systems: All systems reviewed & are unremarkable except as noted in HPI and below Exam Narrative: General: Female in no acute respiratory distress who is nontoxic appearing, sitting up in bed. HEENT: Normocephalic. Atraumatic. Extraocular movement intact. Sclera clear and anicteric. No facial asymmetry. Chest: Lungs are clear to auscultation bilaterally. No wheezes or crackles. CV: Heart was regular rate and rhythm. Murmur. Abd: Abdomen was soft. Nontender. Nondistended. Positive bowel sounds. Ext: No clubbing, cyanosis, or edema. Partial amputation of the left foot. DP pulses bilaterally. Neuro: Patient is alert. Speech is clear. Const: General: comfortable Objective Data Vital Signs Vital Signs: Vital Signs - 24 hr 07/29/25 14:00 07/29/25 20:00 07/29/25 23:12 Temperature 97.4 F L 97.7 F Pulse Rate 75 72 Respiratory Rate 16 18 Blood Pressure 141/53 H 137/59 L Pulse Oximetry 99 100 Oxygen Delivery Room Air 07/30/25 06:05 07/30/25 08:20 Temperature 98.3 F Pulse Rate 78 Respiratory Rate 18 Blood Pressure 150/67 H Pulse Oximetry 97 Oxygen Delivery Room Air Intake/Output Intake/Output: Intake & Output 07/27/25 07/28/25 07/29/25 07/30/25 23:59 23:59 23:59 23:59 Intake Total 1496 1240 1410 490 Output Total 550 800 601 Balance 1496 690 610 -111 Meds/Results Medications: Active Medications Generic Name Dose Route Start Last Admin Trade Name Freq PRN Reason Stop Dose Admin Acetaminophen 650 mg 07/26/25 11:32 Acetaminophen 325 Mg Tablet PO Q4H PRN Mild Pain (1-3) or Fever Amlodipine Besylate 5 mg 07/29/25 09:00 07/30/25 08:26 Amlodipine Besylate 5 Mg Tablet PO 5 mg DAILY BLAKE Administration Atorvastatin Calcium 40 mg 07/26/25 21:00 07/29/25 21:04 Atorvastatin 40 Mg Tablet BY MOUTH 40 mg HS BLAKE Administration Colestipol HCl 1 gm 07/26/25 17:00 07/30/25 08:26 Colestipol Hcl 1 Gm Tablet PO 1 gm BID BLAKE Administration Cyanocobalamin 2,000 mcg 07/27/25 09:00 07/30/25 08:25 Cyanocobalamin 1,000 Mcg Tablet PO 2,000 mcg DAILY BLKAE Administration Cyanocobalamin 500 mcg 07/27/25 09:00 07/30/25 08:26 Cyanocobalamin 500 Mcg Tablet PO 500 mcg DAILY BLAKE Administration Dextrose 12.5 gm 07/27/25 13:01 Dextrose 50% 25 Gm/50 Ml Syringe IV PUSH PRN PRN Hypoglycemia Protocol Ferrous Sulfate 325 mg 07/27/25 09:00 07/30/25 08:26 Ferrous Sulfate 325 Mg Tablet PO 325 mg DAILY BLAKE Administration Furosemide 40 mg 07/27/25 09:00 07/28/25 10:13 Furosemide 40 Mg Tablet PO 40 mg On Hold: 07/28/25 14:17 QAM BLAKE Administration Gabapentin 300 mg 07/26/25 10:00 07/30/25 08:26 Gabapentin 300 Mg Capsule PO 300 mg BID BLAKE Administration Glucagon 1 mg 07/27/25 13:01 Glucagon For Inj 1 Mg Vial IM PRN PRN Hypoglycemia Protocol Glucose 15 gm 07/27/25 13:01 Glucose Oral Gel 15 Gm Of Glucse In 37.5 Gm Tube PO PRN PRN Hypoglycemia Protocol Hydralazine HCl 10 mg 07/26/25 22:11 07/28/25 20:55 Hydralazine 10 Mg Tablet PO 10 mg QID PRN Administration Hypertension, Hydralazine HCl 10 mg 07/28/25 22:23 07/28/25 23:07 Hydralazine Hcl 20 Mg/Ml Vial IV PUSH 10 mg Q8H PRN Administration Blood Pressure - High Ceftriaxone Sodium 1 gm/ 50 mls @ 100 mls/hr 07/27/25 09:00 07/30/25 08:26 Sodium Chloride IVPB 100 mls/hr Q24H BLAKE Administration Dextrose 1,000 mls @ 100 mls/hr 07/27/25 13:01 Dextrose 5% 1,000 Ml IVPB PRN PRN Hypoglycemia Protocol Insulin Aspart 2 - 5 units 07/27/25 13:10 07/30/25 07:37 Insulin Aspart (*Bkc) 100 Units/Ml SUB-Q Not Given TIDWM [facility] Protocol Insulin Aspart 3 units 07/27/25 17:00 07/30/25 10:20 Insulin Aspart (*Bkc) 100 Units/Ml 0.05 units/kg (3 units) 3 units SUB-Q Administration TIDWM [facility] Insulin Glargine 13 units 07/28/25 21:00 07/29/25 21:04 Insulin Glargine (*Bkc) 100 Units/Ml SUB-Q 13 units HS [facility] Administration Multivitamins Therapeutic 1 tablet 07/27/25 09:00 07/30/25 08:25 Multivitamins Therapeutic Tab (*Bkc) PO 1 tablet DAILY BLAKE Administration Ondansetron HCl 4 mg 07/26/25 11:32 Ondansetron Inj 4 Mg/2 Ml Vial IV PUSH Q4H PRN Nausea Pantoprazole Sodium 40 mg 07/26/25 17:00 07/30/25 08:26 Pantoprazole 40 Mg Tablet PO 40 mg BID BLAKE Administration Prochlorperazine Edisylate 10 mg 07/28/25 22:23 Prochlorperazine Edisylate 10 Mg/2 Ml Vial IV PUSH Q6H PRN Nausea And Vomiting Sertraline HCl 100 mg 07/26/25 21:00 07/29/25 21:04 Sertraline Hcl 50 Mg Tablet PO 100 mg HS [facility] Administration Tramadol HCl 25 mg 07/26/25 19:38 Tramadol Hcl (*Crx) 25 Mg Tablet PO Q6H PRN Pain Rated 4-6 Vitamin D 125 mcg 07/27/25 09:00 07/29/25 08:52 Cholecalciferol (Vitamin D3) 125 Mcg (5,000 Units) Tablet PO 125 mcg Q48H BLAKE Administration Radiology Results: ITS Impressions Chest X-Ray 07/26/25 06:30 IMPRESSION: 1. No acute cardiopulmonary findings given portable technique. Abdomen/Pelvis CT 07/26/25 09:09 IMPRESSION: 1. Enteritis. 2. Cystitis. Suspect superimposed ascending pyelitis. Renal Ultrasound 07/28/25 16:35 IMPRESSION: 1. Mild bilateral hydronephrosis but with bilateral ureteral jets visualized in the distended bladder on color Doppler. 2. Diffuse bilateral increased renal cortical echogenicity consistent with medical renal disease. 3. Mild left renal atrophy. Labs Labs: Laboratory Results - last 24 hr 07/29/25 07/29/25 07/29/25 11:32 16:25 18:18 WBC RBC Hgb Hct MCV MCH MCHC RDW Plt Count MPV Sodium Potassium Chloride Carbon Dioxide Anion Gap BUN Creatinine Estim Creat Clear Calc Estimated GFR Glucose POC Capillary Glucose 164 H 277 H Calcium Total Bilirubin AST ALT Alkaline Phosphatase Total Creatine Kinase Total Protein Albumin Urine Eosinophils None seen U Random Total Protein 384 Ur Random Sodium 54 Ur Random Urea 620 Urine Creatinine 75.0 Protein/Creat Ratio 2 5.12 H 07/29/25 07/30/25 07/30/25 20:58 05:59 07:35 WBC 4.5 RBC 2.49 L Hgb 8.0 L Hct 24.6 L MCV 98.8 MCH 32.1 MCHC 32.5 RDW 13.5 Plt Count 169 MPV 11.5 H Sodium 136 L Potassium 4.2 Chloride 111 H Carbon Dioxide 21 L Anion Gap 4 BUN 49 H Creatinine 2.34 H Estim Creat Clear Calc 17 Estimated GFR 20 L Glucose 91 POC Capillary Glucose 253 H 73 Calcium 8.4 Total Bilirubin 0.2 AST 19 ALT 12 Alkaline Phosphatase 55 Total Creatine Kinase 86 Total Protein 5.4 L Albumin 2.7 L Urine Eosinophils U Random Total Protein Ur Random Sodium Ur Random Urea Urine Creatinine Protein/Creat Ratio 2 07/30/25 10:06 WBC RBC Hgb Hct MCV MCH MCHC RDW Plt Count MPV Sodium Potassium Chloride Carbon Dioxide Anion Gap BUN Creatinine Estim Creat Clear Calc Estimated GFR Glucose POC Capillary Glucose 169 H Calcium Total Bilirubin AST ALT Alkaline Phosphatase Total Creatine Kinase Total Protein Albumin Urine Eosinophils U Random Total Protein Ur Random Sodium Ur Random Urea Urine Creatinine Protein/Creat Ratio 2 Quality VTE Prophylaxis VTE prophylaxis: mechanical ordered
[2025-07-30 14:00] VITALS: BP 145/64; PULSE 72; RESP 14; TEMP 36.6; O2SAT 100
--- NOTE | 2025-07-30 14:27 | P.DS_ITS ---
DS: Admitting Diagnosis Discharge Date 07/30 Admitting Diagnosis hyperglycemia DS: Discharge Diagnosis Discharge Diagnosis (1) Type 1 diabetes mellitus with hyperglycemia: Code(s): E10.65 - Type 1 diabetes mellitus with hyperglycemia Status: Acute (2) Acute kidney injury superimposed on CKD: Code(s): N17.9 - Acute kidney failure, unspecified; N18.9 - Chronic kidney disease, unspecified Status: Acute (3) UTI (urinary tract infection): Qualifiers: Hematuria presence: without hematuria Urinary tract infection type: site unspecified Qualified Code(s): N39.0 - Urinary tract infection, site not specified Code(s): N39.0 - Urinary tract infection, site not specified Status: Acute (4) Hypertension: Qualifiers: Hypertension type: unspecified Qualified Code(s): I10 - Essential (primary) hypertension Code(s): I10 - Essential (primary) hypertension Status: Chronic DS: Summary Hospital Course Hospital Course: 74-year-old female with a past medical history of GERD, CKD, telemetry HTN, depression and anxiety, hyperlipidemia, type 1 diabetes presents to the hospital with complaints of her continuous glucose monitor reading ?high? all day. # Type 1 diabetes mellitus with hyperglycemia: Patient endorsed CGM reading ?high? starting on 07/25. Typically runs 70-200 at home. Likely related to UTI. Prior hyperglycemia related to UTI. Glucose 762 on admit and CO2 17 but patient is not acidotic and is without anion gap. Insulin pump dependent and compliant. Last visit with salesman/owner was 07/18/2025. Per endo note on 07/18: Pump setting: basal mn 0.50 8 am 0.55 10 pm 0.5, total 12.7u Bolus carb 20 correction 70 target 110 duration 5 hr - A1C 6.5% on 07/18 - certified lactation educator consulted Continue 13 units lantus HS, 3 units lispro TIDWM, and low dose SSI. Glucose remains well controlled. Continue to monitor. will need a close f/u with PCP # Acute kidney injury superimposed on CKD: Creatinine 2.07 on admit with GFR 23. Baseline creatinine around 1.4-1.8. Follows Nephrology outpatient. Last appointment 06/20/2025. - CT showed no hydronephrosis and no noted nephritis Concerned for dehydration from hyperglycemia as patient improved slightly with fluids on admission but then started receiving her home lasix causing the return of an BERTA. Attempted giving 1L NS at 75 ml/hr however Cr continues to worsen. Renal US showed bilateral mild bilateral hydronephrosis but with bilateral ureteral jets visualized in the distended bladder on color Doppler, diffuse bilateral increased renal cortical echogenicity consistent with medical renal disease, and mild left renal atrophy. Bladder scan PRN, per RN patient postvoid was 5 ml in the bladder cr/BUN2.34/49 today-some improvement. OK for discharge from nephrology stand point. BERTA likely due to hyperglycemia and UTI. # UTI (urinary tract infection): Patient presented to ED with burning sensation with urination starting 1 day prior to arrival. Denies retention or urgency. - UA: cloudy appearance with 2+ protein, 3+ glucose, 1+ blood, negative nitrates, 1+ leukocytes, 3-5 RBC, 21-50 WBC, 4+ bacteria - UC obtained on 07/26: gram negative bacilli - previous micro reviewed Urine culture from 10/2024 grew E coli which was pansensitive to the antibiotics tested. - started on rocephin on 07/26 - will downgrade ot po to complete the course # htn According to most recent note on 06/20/2025, plan was to possibly start losartan but holding off due to lower GFR. In the setting of the BERTA superimposed on CKD with GFR of 23 on admit, will start p.r.n. hydralazine 10 mg for BP >180/90 Blood pressures remained elevated. On chart review patient hypertensive extending back into 2023. Continue Amlodipine 5 mg daily Status at Discharge Functional status at discharge: independent ambulation Overall status at discharge: patient is progressing back to baseline Time Spent with Patient Time attestation: Total time spent providing and/or coordinating discharge services: Exam Narrative: General: Female in no acute respiratory distress who is nontoxic appearing, sitting up in bed. HEENT: Normocephalic. Atraumatic. Extraocular movement intact. Sclera clear and anicteric. No facial asymmetry. Chest: Lungs are clear to auscultation bilaterally. No wheezes or crackles. CV: Heart was regular rate and rhythm. Murmur. Abd: Abdomen was soft. Nontender. Nondistended. Positive bowel sounds. Ext: No clubbing, cyanosis, or edema. Partial amputation of the left foot. DP pulses bilaterally. Neuro: Patient is alert. Speech is clear. Const: General: comfortable DS: Data Data Completed and Pending Labs on day of discharge: Labs from last 24 hours 07/30/25 07/30/25 07/30/25 11:27 10:06 07:35 WBC RBC Hgb Hct MCV MCH MCHC RDW Plt Count MPV Sodium Potassium Chloride Carbon Dioxide Anion Gap BUN Creatinine Estim Creat Clear Calc Estimated GFR Glucose POC Capillary Glucose 181 H 169 H 73 Calcium Total Bilirubin AST ALT Alkaline Phosphatase Total Creatine Kinase Total Protein Albumin Urine Eosinophils U Random Total Protein Ur Random Sodium Ur Random Urea Urine Creatinine Protein/Creat Ratio 2 07/30/25 07/29/25 07/29/25 05:59 20:58 18:18 WBC 4.5 RBC 2.49 L Hgb 8.0 L Hct 24.6 L MCV 98.8 MCH 32.1 MCHC 32.5 RDW 13.5 Plt Count 169 MPV 11.5 H Sodium 136 L Potassium 4.2 Chloride 111 H Carbon Dioxide 21 L Anion Gap 4 BUN 49 H Creatinine 2.34 H Estim Creat Clear Calc 17 Estimated GFR 20 L Glucose 91 POC Capillary Glucose 253 H Calcium 8.4 Total Bilirubin 0.2 AST 19 ALT 12 Alkaline Phosphatase 55 Total Creatine Kinase 86 Total Protein 5.4 L Albumin 2.7 L Urine Eosinophils None seen U Random Total Protein 384 Ur Random Sodium 54 Ur Random Urea 620 Urine Creatinine 75.0 Protein/Creat Ratio 2 5.12 H 07/29/25 16:25 WBC RBC Hgb Hct MCV MCH MCHC RDW Plt Count MPV Sodium Potassium Chloride Carbon Dioxide Anion Gap BUN Creatinine Estim Creat Clear Calc Estimated GFR Glucose POC Capillary Glucose 277 H Calcium Total Bilirubin AST ALT Alkaline Phosphatase Total Creatine Kinase Total Protein Albumin Urine Eosinophils U Random Total Protein Ur Random Sodium Ur Random Urea Urine Creatinine Protein/Creat Ratio 2 Discharge Plan Discharge Attending physician on discharge: Abdoul Glover Consulting providers: Jeannette Gardiner; Amelia Chen; Brent Espana Discharging Clinician: Court Otoole Patient Disposition: Home Activity: may shower Diet: heart healthy Discharge Instructions: Please complete antibiotics for UTI. Will send lab order to have kidney function repeated to ensure all improving. Please have a close f/u with your pcp/salesman/owner. Please note, due to elevated blood pressure, you were started on amlodipine. BP medications. Please make sure you change position slowly as bp meds can cause dizziness sometimes. monitor your BP every morning and keep log. Bring it for oyur PCP to review and adjst meds if needed. Patient Instructions: Antibiotic Form Patient Language: Greenlandic Stand Alone Forms: General Discharge Information Follow-up/Referrals: Corine Smith MD [Primary Care Provider, [facility]] - 2 Weeks Discharge Medications: New amlodipine [Norvasc] 5 mg Tablet 5 mg PO DAILY Qty: 30 0RF amoxicillin-pot clavulanate [Augmentin] 500-125 mg tablet 1 tablet PO Q12H Qty: 4 0RF Continued omeprazole 40 mg capsule,delayed release(DR/EC) 40 mg PO BID 90 Days Qty: 180 3RF ondansetron 4 mg tablet,disintegrating 4 mg PO Q8H PRN (Reason: nausea and vomiting) Qty: 7 0RF cholecalciferol (vitamin D3) 125 mcg (5,000 unit) capsule 125 mcg PO EVERY OTHER DAY Rx Instructions: 125 mcg orally every other day; DUE NEXT ON TUESDAY 05/22 mecobalamin (vitamin B12) 2,500 mcg tablet,chewable 2,500 mcg PO DAILY ferrous sulfate 325 mg (65 mg iron) tablet 325 mg PO DAILY multivitamin Tablet 1 tablet PO DAILY Gvoke HypoPen 2-Pack 1 mg/0.2 mL auto-injector 1 mg subcut ONCE Qty: 0.4 4RF Rx Instructions: may repeat once after 15 minutes if no response glucose [Dex4 Glucose] 4 gram tablet,chewable 16 g PO Q15M PRN (Reason: hypoglycemia) Qty: 60 1RF Rx Instructions: until symptoms of low blood sugar are controlled furosemide 20 mg tablet 40 mg PO QAM colestipol [Colestid] 1 gram tablet 1 g PO BID Qty: 60 6RF insulin aspart U-100 [Novolog U-100 Insulin aspart] 100 unit/mL solution 60 unit continuous subcutaneous infusion DAILY 90 Days Qty: 54 3RF sertraline 100 mg tablet 100 mg PO HS Qty: 30 6RF gabapentin 300 mg capsule See Rx Instructions .ROUTE .COMPLEX Qty: 180 1RF Dose Instruction: TAKE 1 CAPSULE BY MOUTH TWICE DAILY Rx Instructions: TAKE 1 CAPSULE BY MOUTH TWICE DAILY atorvastatin 40 mg tablet See Rx Instructions .ROUTE .COMPLEX Qty: 90 2RF Dose Instruction: TAKE 1 TABLET BY MOUTH AT BEDTIME Rx Instructions: TAKE 1 TABLET BY MOUTH AT BEDTIME Other Ambulatory Orders: Comprehensive Metabolic Panel (Routine) Timeframe: 1 Week Location: Determined by Patient Ordered By: Court Otoole Date of admission: 07/27/25 10:27 Primary Care Provider: Corine Smith Admitting Provider: Slime Ruiz Attending physician on admission: Slime Ruiz Condition: Stable Quality VTE Prophylaxis VTE prophylaxis: mechanical ordered
--- NOTE | 2025-08-01 12:25 | PCCDE ---
08/01/25: DM courtesy follow up call completed. reports glucose rangin-150 with one time at 92 fasting. Pt attended DSMT in 2023 prior to insulin pump (with dtr) - Has PCP appt tomorrow. - Endo follow up scheduled in Oct.
== END 2025-07-30 15:08 | disposition home or self-care (01) | DRG 690 ==
LOC: ANHED 07:48 → ANH3MEDSUR 12:32
PROVIDERS: Emergency Medicine; Internal Medicine Nephrology; Nurse Practitioner Adult Health; Student in an Organized Health Care Education/Training Program; Admitting Provider Internal Medicine; Emergency Provider Student in an Organized Health Care Education/Training Program; PCP Family Medicine; Visit Provider Nurse Practitioner
DX: N39.0 Urinary tract infection, site not specified (principal); N17.9 Acute kidney failure, unspecified; N18.4 Chronic kidney disease, stage 4 (severe); E10.65 Type 1 diabetes mellitus with hyperglycemia; E10.42 Type 1 diabetes mellitus with diabetic polyneuropathy; E10.22 Type 1 diabetes mellitus with diabetic chronic kidney disease; I12.9 Hypertensive chronic kidney disease with stage 1 through stage 4 chronic kidney disease, or unspecified chronic kidney disease; E86.0 Dehydration; E78.5 Hyperlipidemia, unspecified; D63.1 Anemia in chronic kidney disease; D64.89 Other specified anemias; K58.9 Irritable bowel syndrome, unspecified; K21.9 Gastro-esophageal reflux disease without esophagitis; K22.70 Barrett's esophagus without dysplasia; M19.90 Unspecified osteoarthritis, unspecified site; M81.0 Age-related osteoporosis without current pathological fracture; G31.84 Mild cognitive impairment of uncertain or unknown etiology; B96.20 Unspecified Escherichia coli [E. coli] as the cause of diseases classified elsewhere; F32.A Depression, unspecified; F41.9 Anxiety disorder, unspecified; Z20.822 Contact with and (suspected) exposure to COVID-19; R60.0 Localized edema; Z96.611 Presence of right artificial shoulder joint; Z96.41 Presence of insulin pump (external) (internal); Z89.422 Acquired absence of other left toe(s); Z87.891 Personal history of nicotine dependence; Z79.4 Long term (current) use of insulin
CPT/HCPCS: 36415; 71045; 74177; 76770; 80048; 80053; 81001; 82010; 82550; 82570; 82947; 82948; 83735; 84100; 84156; 84300; 84540; 85025; 85027; 85999; 87086; 87186; 87637; 93005; 96361; 96365; 96375; 99285; A9270; G0378; J0360; J0612; J0696; J1815; J7030; J7120; Q9967

== ENCOUNTER 2025-08-11 07:36 | Inpatient (IN) | payer MEDICARE, SELFPAY ==
--- OUTSIDE RECORDS SUMMARY | 2009-12-13 05:00 | XMS_ITS | Continuity of Care Document ---
Author Organization [facility] Address [address] [place] [address] Phone Care Team Providers Care Product Operations Associate Name Role Phone Aguilar OD, Rory Unavailable Unavailable Procedures Procedure Date Eye Exam & Treatment Refraction BF Plastic Sphcyl Gill To +/-4d .12-2d Frames Deluxe Tax - Medical Advance Directives Directive Yes / No Effective Date File Name No Information Encounters Encounter Description Practice Location Reason(s) For Visit Diagnoses Date Provider Providers Copied on Encounter [facility], [id number] [place] [address] [address], [place], [place], [address], [place] tel:[phone] [facility] No Information Mar-0 3-201 0 Aguilar OD Rory. [address] [facility] , [address], [place], [address], [place]. tel:[phone] [facility], [address] [place] [address] [address], [place], [place], [address], [place] tel:[phone] [facility] No Information Mar-0 3-201 0 [facility] . [address], [address], [place], [place], [address], [place]. tel:[phone] Referring Provider: Rory Aguilar OD Niyah, [address] [place], [place] [address], [place], [address]. tel:[phone] sulting Provider: Jamie March, [address] [place], [place] [address]ate [place], [address]. tel:[phone] Family History Family Member Type Diagnosis Age At Onset No Information Payers Payer name Insurance type Covered green party ID Eugenia baeza(s) [facility] CI [id number] Social History Type Description Quantity Date Captured Comments Sex Female Smoking Status No Information Chief Complaint And Reason For Visit No Information Reason For Referral Reason For Referral No Information History Of Present Illness Encounter Date Complaint History Of Prese nt Illness No Information Functional Status Date Functional Assessmen t No Information Instructions Date Instruction Additional Infor mation No Information Assessments Type Assessment Date No Information Patient Care Teams Name Effective Dates (start - stop) Status Members No Information
[2025-08-11] VITALS (25 sets, daily range): BP systolic 117–169; BP diastolic 53–143; PULSE 77–99; RESP 12–25; TEMP 36.4–36.9; O2SAT 61–100; BMI 20.9
--- NOTE | ~2025-08-11 | XR_ITS ---
EXAMINATION: XR chest 1V portable COMPARISON: No comparisons available. HISTORY: cough FINDINGS: The lungs are clear, no effusion. No pneumothorax. Heart is normal size. Mediastinal and hilar contours are within normal limits. Bony thorax no acute abnormality. Miscellaneous: None Impression: No acute cardiopulmonary abnormality. Reviewed, dictated and finalized at location P. Impression: No acute cardiopulmonary abnormality.
--- NOTE | ~2025-08-11 | CT_ITS ---
CT ABDOMEN AND PELVIS WITHOUT CONTRAST Clinical History: pain Comparison: CT abdomen and pelvis 07/26/2025 Technique: Unenhanced axial images lung bases to symphysis pubis Coronal, sagittal reformats CT images acquired with automatic exposure control for dose reduction DLP: 265 mGy-cm Findings: Without intravenous contrast, sensitivity for detecting visceral parenchymal abnormalities decreased. Lung bases: Scarring. Visualized heart and pericardium: Unremarkable. Liver: Unremarkable. Gallbladder: Unremarkable. Spleen: Unremarkable. Pancreas: Unremarkable. Adrenal glands: Unremarkable. Kidneys: Right kidney- No hydronephrosis. No renal stones. Cyst. Left kidney-atrophic. No hydronephrosis. No renal stones. Cyst. Distal esophagus/stomach: Distal esophageal wall thickening and/or hiatal hernia. Small bowel loops: Normal caliber and wall thickness. Colon: Normal caliber and wall thickness. Appendix poorly seen. Nodes: No enlarged nodes. Peritoneum: No ascites. No free intraperitoneal air. Urinary bladder: Unremarkable. Uterus: Unremarkable. Adnexa: No masses. Bones: No acute bony abnormality. Superior endplate compression deformity L5. Inferior endplate deformity L1. Both unchanged Soft tissues: Unremarkable. Unopacified abdominal aorta: No aneurysmal dilatation. Atherosclerotic disease. IMPRESSION: 1. Small sliding hiatal hernia and/or esophagitis. 2. No other acute abnormality. Reviewed, dictated and finalized at location R.
[2025-08-11 07:52] LABS: Hematocrit 28.5 % (37.0-47.0); Hemoglobin 9.1 g/dL (12.0-15.0); Immature Granulocyte Percent A 0.3 % (0-0.5); Lymphocytes Absolute Auto 0.48 K/mm3 (0.9-3.2); Mean Corpuscular HGB Conc 31.9 g/dl (32-36); Mean Corpuscular Hemoglobin 32.5 pg (26-34); Mean Corpuscular Volume 101.8 fl (80-100); Nucleated Red Blood Cells Absolute Auto 0.000 K/mm3 (0.0-0.012); Nucleated Red Blood Cells Perc 0.0 % (0.0-0.2); Platelet Count Result 189 k/mm3 (150-375); Red Blood Count 2.80 M/mm3 (4.2-5.4); White Blood Count 11.5 K/mm3 (4.5-10.0)
[2025-08-11] MEDS: METOCLOPRAMIDE HCL INJ 10 MG/2 ML VIAL 5 MG IV PUSH ×2 (07:54→18:40)
[2025-08-11] MEDS: SODIUM CHLORIDE 0.9% 1206 ML IV CONT (07:54)
[2025-08-11] MEDS: MORPHINE SULFATE (*CRX) 4 MG/ML INJ IV PUSH (07:54)
--- NOTE | 2025-08-11 07:54 | PC.NURSE ---
per Dr. Gamble, removed pt's insulin pump.
--- NOTE | 2025-08-11 08:12 | PC.NURSE ---
after giving morphine, pt' oxygen saturation dropped to 61% applied 6L of O2 nasal cannula. pt now sating 100%.
[2025-08-11 08:17] LABS: Schistocytes None Seen
[2025-08-11 08:21] LABS: Burr Cells Occasional; Ovalocytes 1+
[2025-08-11] MEDS: INSULIN HUMAN REGULAR (*BKC) 100 UNITS/ML 10 UNITS IV PUSH (08:24)
[2025-08-11 08:26] LABS: Hemoglobin A1C 6.6 % (<5.7)
[2025-08-11 08:35] LABS: Alanine Aminotransferase 44 U/L (6-35); Albumin Level 3.8 g/dL (3.5-5.1); Alkaline Phosphatase 79 U/L (38-126); Anion Gap 18 mmol/L (4-12); Aspartate Amino Transferase 53 U/L (14-36); Bilirubin,Total 0.6 mg/dL (0.2-1.3); Blood Urea Nitrogen 42 mg/dL (7-17); Calcium 9.7 mg/dL (8.4-10.2); Carbon Dioxide 19 mmol/L (22-30); Chloride 96 mmol/L (98-107); Estimated CRCL calculation 16 ml/min; Estimated Glomerular Filt Rate 21; Glucose 701 mg/dL (65-110); Magnesium 1.6 mg/dL (1.6-2.3); Potassium 4.8 mmol/L (3.4-5.0); Sodium 133 mmol/L (137-145); Total Protein 6.3 g/dL (6.3-8.2)
[2025-08-11] MEDS: INSULIN HUMAN REGULAR (*BKC) 100 UNITS in SODIUM CHLORIDE 0.9% IV 99 ML 6 UNITS IV CONT (08:35)
[2025-08-11 09:02] LABS: Add Urine Microscopic? YES; Appearance Urine Clear (Clear); Glucose Urine UA 3+ mg/dL (Negative); Leukocyte Esterase Ur Negative LEU/UL (Negative); Nitrate Urine Negative (Negative); Non Pathogenic Casts 0-2; Specific Grav Ur 1.022 (1.001-1.035)
[2025-08-11 09:54] LABS: Anion Gap 10 mmol/L (4-12); Blood Urea Nitrogen 43 mg/dL (7-17); Calcium 8.9 mg/dL (8.4-10.2); Carbon Dioxide 24 mmol/L (22-30); Chloride 102 mmol/L (98-107); Estimated CRCL calculation 17 ml/min; Estimated Glomerular Filt Rate 23; Glucose 617 mg/dL (65-110); Potassium 3.9 mmol/L (3.4-5.0); Sodium 136 mmol/L (137-145)
--- NOTE | 2025-08-11 10:07 | WPDCNINT ---
Assessment and Plan Assessment and plan (1) DKA (diabetic ketoacidosis): Code(s): E11.10 - Type 2 diabetes mellitus with ketoacidosis without coma Status: Acute Assessment and Plan: Patient presented with DKA likely secondary to malfunctioning of pump which could be secondary to inproper installation On presentation patient had a positive anion gap and acidosis. After administration of IV fluids her anion gap has closed although sugar remains elevated Patient is overall volume overloaded hence I will be cautious with IV fluids. Patient will be started on IV insulin infusion and will be continued with serum BMP monitoring I will hold further IV fluids at this time NPO CT abdomen pelvis is negative, UA was negative for any evidence of UTI (2) Hypertension: Qualifiers: Hypertension type: unspecified Qualified Code(s): I10 - Essential (primary) hypertension Code(s): I10 - Essential (primary) hypertension Status: Chronic Assessment and Plan: Blood pressure is in normal range at this time. Patient is getting IV fluids. Hold amlodipine at this time will resume once blood pressure is elevated. (3) Aortic stenosis: Code(s): I35.0 - Nonrheumatic aortic (valve) stenosis Status: Acute Assessment and Plan: Patient has moderate on last echo. No intervention at this time. (4) Chronic gastritis: Code(s): K29.50 - Unspecified chronic gastritis without bleeding Status: Acute Assessment and Plan: Continue PPI (5) Stage 4 chronic kidney disease: Code(s): N18.4 - Chronic kidney disease, stage 4 (severe) Status: Acute Assessment and Plan: Creatinine remains elevated although close to her baseline. Recent renal ultrasound showed IMPRESSION: 1. Mild bilateral hydronephrosis but with bilateral ureteral jets visualized in the distended bladder on color Doppler. 2. Diffuse bilateral increased renal cortical echogenicity consistent with medical renal disease. 3. Mild left renal atrophy. CT abdomen pelvis was negative for any acute change Consult nephrology (6) Esophagitis: Code(s): K20.90 - Esophagitis, unspecified without bleeding Status: Acute Assessment and Plan: PPI (7) Cough: Code(s): R05.9 - Cough, unspecified Status: Acute Assessment and Plan: Check chest x-ray and viral respiratory panel Plan DVT prophylaxis -Lovenox Stress ulcer prophylaxis -continue home PPI Nutrition - NPO Code Status - Full Code Total Critical Care Time - 30 minutes Due to a high probability of clinically significant, life threatening deterioration, the patient required my highest level of preparedness to intervene emergently and I personally spent this critical care time directly and personally managing the patient. This critical care time included obtaining a history; examining the patient; pulse oximetry; ordering and review of studies; arranging urgent treatment with development of a management plan; evaluation of patient's response to treatment; frequent reassessment; and discussions with other providers. It was exclusive of separately billable procedures and treating other patients and teaching time. 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 Patient was seen in the clinic on 08/02. Patient was discharged on subcutaneous insulin but went back on her insulin pump after discharge Patient states she was doing better and sugars are in controlled until yesterday evening around 6:00 p.m. the blood sugars start creeping up. She was giving herself boluses but was not helping. She started having nausea with a couple of episodes of vomiting. She states she also started having mild abdominal pain which was associated with vomiting. It was diffuse achy all over her belly. She denies any dysuria. She has chronic diarrhea from IBS no constipation. No hematochezia him at emesis or melena no dysuria hematuria. Daughter reports that once she took the pump off today she noticed that the pump was not fully attached to the skin. Review of system was also positive for shortness of breath on exertion. She also complains of lower extremity edema which is chronic and she is on diuretics for that. She also states that she has had a murmur for a long time. Review of system was also positive for cough which is worse with mild phlegm although she denies any fever. Workup in the ER showed white count 11.5 hemoglobin 9.1 platelet 189 Anion gap was 18 his CO2 19 creatinine 2.29 HbA1c 6.6 Magnesium 1.6 UA was negative UTI Patient was given IV fluid bolus and started on IV insulin infusion. Review of Systems Review of Systems: All systems reviewed & are unremarkable except as noted in HPI and below (HPI) [facility] Past Medical History Medical History DKA (diabetic ketoacidosis) Chronic diarrhea Diabetic polyneuropathy Minimal cognitive impairment Hyperlipidemia Barretts esophagus GERD (gastroesophageal reflux disease) Chronic kidney disease, stage 3b Right ankle injury Osteoporosis Kidney disease IBS (irritable bowel syndrome) Hypertension Diabetes Arthritis Depression Anxiety Anemia Surgical History Surgical History Status post amputation of toe of left foot History of right shoulder replacement Family History Family History Father Alcoholism Cerebrovascular accident Heart disease Grandparent Cancer of unknown origin Son Diabetes mellitus Daughter Diabetes mellitus Daughter Depression Social History Social History Smoking packs per day: 1 Smoking cigarettes per day: 20.0 Years smoked: 30 Smoking pack-years: 30.00 Smoking status: Former smoker Tobacco type: cigarettes Second hand tobacco smoke exposure: No Smoking end date: 08/13/19 Alcohol intake: never Alcohol use details: socially Substance use: never Substance use type: does not use Do You Feel Safe in your Home?: Yes Lack of Transportation: No Lack of Food: Never True Current Housing: I Have Housing Concerned About Future Housing: No Difficulty Paying Gas/Electric Bills: No Difficulty Paying for Meds: No Currently Unemployed: No Education: Bachelor's Degree Difficulty w/ Childcare or Family Care: No Living arrangements: with family Additional living arrangements comments: daughter Occupation/Education: retired Gender identity (if verbalized by the patient): Female Spiritual care concerns: No Agree to blood products: Yes Meds Home Medications and Allergies Home Medications ?Medication ?Instructions ?Recorded ?Confirmed ?Type cholecalciferol (vitamin D3) 125 125 mcg PO EVERY OTHER DAY 02/10/24 08/03/25 History mcg (5,000 unit) capsule ferrous sulfate 325 mg (65 mg 325 mg PO DAILY 02/10/24 08/03/25 History iron) tablet mecobalamin (vitamin B12) 2,500 2,500 mcg PO DAILY 02/10/24 08/03/25 History mcg chewable tablet multivitamin 1 tablet PO DAILY 02/10/24 08/03/25 History glucagon 1 mg/0.2 mL subcutaneous 1 mg (0.2 mL) subcut ONCE #0.4 mL 03/16/24 08/03/25 Rx auto-injector (Gvoke HypoPen 2-Pack) glucose 4 gram chewable tablet 16 g (4 x 4 gram) PO Q15M PRN 03/16/24 08/03/25 Rx (Dex4 Glucose) hypoglycemia #60 tabs omeprazole 40 mg capsule,delayed 40 mg PO BID 90 days #180 caps 06/28/24 08/03/25 Rx release colestipol 1 gram tablet (Colestid) 1 g PO BID #60 tabs 12/07/24 08/03/25 Rx sertraline 100 mg tablet 100 mg PO HS #30 tabs 05/18/25 08/03/25 Rx gabapentin 300 mg capsule See Rx Instructions .Route 05/23/25 08/03/25 Rx .COMPLEX #180 caps atorvastatin 40 mg tablet See Rx Instructions .Route 06/02/25 08/03/25 Rx .COMPLEX #90 tabs ondansetron 4 mg disintegrating 4 mg PO Q8H PRN nausea and 07/12/25 08/03/25 Rx tablet vomiting #7 tabs furosemide 20 mg tablet 40 mg PO QAM 07/26/25 08/03/25 History amlodipine 5 mg tablet (Norvasc) 5 mg PO DAILY #30 tabs 07/30/25 08/03/25 Rx amoxicillin 500 mg-potassium 1 tablet PO Q12H #4 tabs 07/30/25 08/03/25 Rx clavulanate 125 mg tablet (Augmentin) insulin aspart U-100 100 unit/mL 60 unit (0.6 mL) continuous 08/02/25 Rx subcutaneous solution (Novolog subcutaneous infusion DAILY 90 U-100 Insulin aspart) days #54 mL Allergies Allergy/AdvReac Type Severity Reaction Status Date / Time No Known Allergies Allergy Mild Verified 08/02/25 14:08 Vital Signs Vital Signs - 24 hr 08/11/25 07:35 08/11/25 07:40 08/11/25 08:11 Temperature 36.4 C Pulse Rate 99 Respiratory Rate 22 H 25 H Blood Pressure 160/143 H Pulse Oximetry 100 61 L Oxygen Delivery Room Air Room Air Oxygen Flow Rate 08/11/25 08:11 08/11/25 08:34 08/11/25 08:46 Temperature Pulse Rate 94 Respiratory Rate 12 Blood Pressure 123/92 H Pulse Oximetry 100 100 100 Oxygen Delivery Nasal Cannula Nasal Cannula Oxygen Flow Rate 6 4 08/11/25 08:47 Temperature Pulse Rate Respiratory Rate 12 Blood Pressure Pulse Oximetry Oxygen Delivery Oxygen Flow Rate Exam Narrative: General: Frail old female who is alert awake and in NAD Lungs/Chest: Trachea central Clear BS B/L, No crackles or wheezing. Cardiac: RRR. Normal S1 S2. Systolic murmur 3/6 Circulation: Pedal pulses are intact and symmetrical. Abdomen: Normal bowel sounds.. Soft. Mild diffuse tenderness to palpation. ND. Extremities: Bilateral pitting edema present : Quinones in place Neurologic: Follows commands. Moves all 4 extremities PERRL AO x3 Skin: No Rash Results Labs 08/11/25 07:45 08/11/25 09:25 Labs: Impressions Abdomen/Pelvis CT 08/11/25 09:58 IMPRESSION: 1. Small sliding hiatal hernia and/or esophagitis. 2. No other acute abnormality. Short CBC 08/11/25 Range/Units 07:45 WBC 11.5 H (4.5-10.0) K/mm3 Hgb 9.1 L (12.0-15.0) g/dL Hct 28.5 L (37.0-47.0) % Plt Count 189 (150-375) k/mm3 BMP 08/11/25 08/11/25 07:45 09:25 Sodium 133 L 136 L Potassium 4.8 3.9 Chloride 96 L 102 Carbon Dioxide 19 L 24 BUN 42 H 43 H Creatinine 2.29 H 2.13 H Glucose 701 H* 617 H* Calcium 9.7 8.9 Liver Function 08/11/25 Range/Units 07:45 Total Bilirubin 0.6 (0.2-1.3) mg/dL AST 53 H (14-36) U/L ALT 44 H (6-35) U/L Alkaline Phosphatase 79 (38-126) U/L Albumin 3.8 (3.5-5.1) g/dL Urine 08/11/25 Range/Units 08:51 Urine Color Yellow (Yellow) Urine Appearance Clear (Clear) Urine pH 5.0 (5.0-9.0) Ur Specific [place] 1.022 (1.001-1.035) Urine Protein 3+ H (Negative) mg/dL Urine Glucose (UA) 3+ H (Negative) mg/dL Quality VTE Prophylaxis VTE prophylaxis: pharmacologic ordered Hospitalist MIPS Advance Care Plan I have confirmed that the patient's Advanced Care Plan is present, code status is documented, or surrogate decision maker is listed in patient medical record.: Yes Medication Reconciliation I have utilized all available resources to obtain, update and review the patients current medications (includes all prescriptions, OTC, herbals, cannabis, and nutritional supplements).: Yes
[2025-08-11] MEDS: MAGNESIUM SULF 2 GM/WATER 50ML 2 GM/50 ML BAG IVPB (10:31)
[2025-08-11 11:23] LABS: Influenza A QL RT-PCR Negative (Negative); Influenza B QL RT-PCR Negative (Negative); RSV RNA, RT-PCR Negative (Negative); SARS-CoV-2 RNA PCR Negative (Negative)
--- NOTE | 2025-08-11 11:50 | ED.GENADULT ---
HPI - General Adult General Chief complaint: Recheck/Abnormal Lab/Rx Stated complaint: high blood sugar Time Seen by Provider: 08/11/25 07:39 Source: patient and family Mode of arrival: EMS Limitations: no limitations History of Present Illness HPI narrative: 74-year-old with a history of hypertension, hyperlipidemia, insulin-dependent diabetic on insulin pump was brought in from home with the complaints of elevated blood sugar since this morning. She also complains of generalized her pain is associated with nausea. She denies any fever or chills. Daughter did mention that she bolused insulin x2 and since this morning still her sugars remain high she also noticed her the pump tubing was kinked and she is not quite sure she got her bolus dose or not. Onset (ago): day(s) (1) Severity: moderate Quality: aching Pain Consistency: constant Relieving factors: none Exacerbating factors: none Associated symptoms: cough and weakness Treatments prior to arrival: none Related Data Home Medications ?Medication ?Instructions ?Recorded ?Confirmed ?Last Taken ?Type cholecalciferol (vitamin D3) 125 125 mcg PO EVERY OTHER DAY 02/10/24 08/03/25 07/25/25 History mcg (5,000 unit) capsule ferrous sulfate 325 mg (65 mg 325 mg PO DAILY 02/10/24 08/03/25 07/25/25 History iron) tablet mecobalamin (vitamin B12) 2,500 2,500 mcg PO DAILY 02/10/24 08/03/25 07/25/25 History mcg chewable tablet multivitamin 1 tablet PO DAILY 02/10/24 08/03/25 07/25/25 History furosemide 20 mg tablet 40 mg PO QAM 07/26/25 08/03/25 07/25/25 History Allergies Allergy/AdvReac Type Severity Reaction Status Date / Time No Known Allergies Allergy Mild Verified 08/02/25 14:08 Review of Systems Review of Systems: All systems reviewed & are unremarkable except as noted in HPI and below Constitutional: Constitutional: Reports no additional constitutional complaints Eyes: Eyes: Reports no additional eye complaints ENT: Reports system reviewed and no additional complaints, except as documented Cardiovascular: Cardiovascular: Reports no additional cardiovascular complaints Respiratory: Respiratory: Reports no additional respiratory complaints Gastrointestinal: Gastrointestinal: Reports no additional gastrointestinal complaints Musculoskeletal: Musculoskeletal: Reports no additional musculoskeletal complaints Neurologic: Reports system reviewed and no additional complaints, except as documented [facility] Past Medical History Medical History DKA (diabetic ketoacidosis) Chronic diarrhea Diabetic polyneuropathy Minimal cognitive impairment Hyperlipidemia Barretts esophagus GERD (gastroesophageal reflux disease) Chronic kidney disease, stage 3b Right ankle injury Osteoporosis Kidney disease IBS (irritable bowel syndrome) Hypertension Diabetes Arthritis Depression Anxiety Anemia Surgical History Surgical History Status post amputation of toe of left foot History of right shoulder replacement Family History Family History Father Alcoholism Cerebrovascular accident Heart disease Grandparent Cancer of unknown origin Son Diabetes mellitus Daughter Diabetes mellitus Daughter Depression Social History Social History Smoking packs per day: 1 Smoking cigarettes per day: 20.0 Years smoked: 30 Smoking pack-years: 30.00 Smoking status: Former smoker Tobacco type: cigarettes Second hand tobacco smoke exposure: No Smoking end date: 08/13/19 Alcohol intake: never Alcohol use details: socially Substance use: never Substance use type: does not use Do You Feel Safe in your Home?: Yes Lack of Transportation: No Lack of Food: Never True Current Housing: I Have Housing Concerned About Future Housing: No Difficulty Paying Gas/Electric Bills: No Difficulty Paying for Meds: No Currently Unemployed: No Education: Bachelor's Degree Difficulty w/ Childcare or Family Care: No Living arrangements: with family Additional living arrangements comments: daughter Occupation/Education: retired Gender identity (if verbalized by the patient): Female Spiritual care concerns: No Agree to blood products: Yes Exam Narrative: GENERAL:ill -appearing, hyper ventilating HEAD: Normocephalic, atraumatic. EYES: PERRLA and EOMI. ENT: Nares clear, no rhinorrhea or epistaxis. Mucous membranes moist. NECK: Supple. CHEST: Clear to auscultation. No respiratory distress. HEART: Regular rate and rhythm. No murmur heard. Normal peripheral pulses. ABDOMEN: Soft, nontender, nondistended, normal active bowel sounds. EXTREMITIES: Normal range of motion. No edema. SKIN: Warm, dry, no rash. NEURO: No focal deficits. Alert and oriented x3. PSYCH: Normal mood and affect. Course Course Emergency Course: Her blood sugars were reading high on the glucose monitor started on a DKA protocol. After IV morphine and Zofran and her pain has markedly reduced and she feels better. Informed patient and her daughter was at bedside about the lab work agreeable with admission. Discussed with Dr. Pritchard recommended CT of the abd and CXR i did review the CXR and CT no acute findings . Vital Signs Vital signs: Vital Signs Temperature 36.4 C 08/11/25 07:35 Pulse Rate 99 08/11/25 07:35 Respiratory Rate 22 H 08/11/25 07:35 Blood Pressure 160/143 H 08/11/25 07:35 Pulse Oximetry 100 08/11/25 07:35 Oxygen Delivery Room Air 08/11/25 07:35 Temperature 36.4 C 08/11/25 07:35 Pulse Rate 91 08/11/25 10:48 Respiratory Rate 14 08/11/25 10:48 Blood Pressure 169/63 H 08/11/25 10:48 Pulse Oximetry 99 08/11/25 10:48 Oxygen Delivery Nasal Cannula 08/11/25 10:47 Oxygen Flow Rate 2 08/11/25 10:47 Medical Decision Making Differential Diagnosis Differential Diagnosis: DKA, hyperosmolar syndrome, sepsis Medical Records Medical records reviewed: Yes I reviewed the external patient's medical records. Vital Signs Vital Signs: Vital Signs Temperature 36.4 C 08/11/25 07:35 Pulse Rate 99 08/11/25 07:35 Respiratory Rate 22 H 08/11/25 07:35 Blood Pressure 160/143 H 08/11/25 07:35 Pulse Oximetry 100 08/11/25 07:35 Oxygen Delivery Room Air 08/11/25 07:35 Temperature 36.4 C 08/11/25 07:35 Pulse Rate 91 08/11/25 10:48 Respiratory Rate 14 08/11/25 10:48 Blood Pressure 169/63 H 08/11/25 10:48 Pulse Oximetry 99 08/11/25 10:48 Oxygen Delivery Nasal Cannula 08/11/25 10:47 Oxygen Flow Rate 2 08/11/25 10:47 Lab Data Lab results reviewed: Yes I reviewed the patient's lab results. 08/11/25 07:45 08/11/25 09:25 Labs: Lab Results 08/11/25 08/11/25 08/11/25 Range/Units 07:45 08:51 09:25 WBC 11.5 H (4.5-10.0) K/mm3 RBC 2.80 L (4.2-5.4) M/mm3 Hgb 9.1 L (12.0-15.0) g/dL Hct 28.5 L (37.0-47.0) % MCV 101.8 H (80-100) fl MCH 32.5 (26-34) pg MCHC 31.9 L (32-36) g/dl RDW 13.5 (11.5-14.5) % Plt Count 189 (150-375) k/mm3 MPV 11.5 H (7.4-10.4) fl Immature Gran % (Auto) 0.3 (0-0.5) % Neut % (Auto) 92.0 H (45.5-73.1) % Lymph % (Auto) 4.2 L (18.3-44.2) % [place] % (Auto) 2.9 (2.6-8.5) % Eos % (Auto) 0.0 (0-4.4) % Baso % (Auto) 0.6 (0.2-1.2) % Lymph # (Auto) 0.48 L (0.9-3.2) K/mm3 [place] # (Auto) 0.3 (0.1-0.6) K/mm3 Eos # (Auto) 0.0 (0-0.3) K/mm3 Baso # (Auto) 0.1 (0.0-0.1) K/mm3 Abs Immat Gran (auto) 0.04 H (0.00-0.031) K/mm3 Absolute Neuts (auto) 10.5 H (1.3-6.7) K/mm3 Absolute Nucleated RBC 0.000 (0.0-0.012) K/mm3 Band Neutrophils % Not Reportable Nucleated RBC % 0.0 (0.0-0.2) % Platelet Estimate Adequate (Adequate) Ovalocytes 1+ Alecia Cells Occasional Schistocytes None seen Sodium 133 L 136 L (137-145) mmol/L Potassium 4.8 3.9 (3.4-5.0) mmol/L Chloride 96 L 102 (98-107) mmol/L Carbon Dioxide 19 L 24 (22-30) mmol/L Anion Gap 18 H 10 (4-12) mmol/L BUN 42 H 43 H (7-17) mg/dL Creatinine 2.29 H 2.13 H (0.7-1.0) mg/dL Estim Creat Clear Calc 16 17 ml/min Estimated GFR 21 L 23 L (59 - ) Glucose 701 H* 617 H* (65-110) mg/dL Hemoglobin A1c 6.6 H (<5.7) % Calcium 9.7 8.9 (8.4-10.2) mg/dL Phosphorus 6.6 H (2.5-4.5) mg/dL Magnesium 1.6 (1.6-2.3) mg/dL Total Bilirubin 0.6 (0.2-1.3) mg/dL AST 53 H (14-36) U/L ALT 44 H (6-35) U/L Alkaline Phosphatase 79 (38-126) U/L Total Protein 6.3 (6.3-8.2) g/dL Albumin 3.8 (3.5-5.1) g/dL Urine Color Yellow (Yellow) Urine Appearance Clear (Clear) Urine pH 5.0 (5.0-9.0) Ur Specific [place] 1.022 (1.001-1.035) Urine Protein 3+ H (Negative) mg/dL Urine Glucose (UA) 3+ H (Negative) mg/dL Urine Ketones Trace H (Negative) mg/dL Ur Blood (Man) Trace (Negative) Urine Nitrate Negative (Negative) Urine Bilirubin Negative (Negative) Urine Urobilinogen 0.2 (<2.0) mg/dL Leukocyte Esterase Rfl Negative (Negative) TAYLOR/UL Urine RBC 0-2 (0-2) /hpf Urine WBC 0-5 (0-3) /hpf Ur Squamous Epith Cells None seen (Few) /hpf Urine Bacteria None seen /hpf Urine Casts 0-2 Influenza A (RT-PCR) Influenza B (RT-PCR) RSV (RT-PCR) (Negative) SARS-CoV-2 RNA (RT-PCR) 08/11/25 08/11/25 08/11/25 Range/Units 10:33 10:33 10:33 WBC (4.5-10.0) K/mm3 RBC (4.2-5.4) M/mm3 Hgb (12.0-15.0) g/dL Hct (37.0-47.0) % MCV (80-100) fl MCH (26-34) pg MCHC (32-36) g/dl RDW (11.5-14.5) % Plt Count (150-375) k/mm3 MPV (7.4-10.4) fl Immature Gran % (Auto) (0-0.5) % Neut % (Auto) (45.5-73.1) % Lymph % (Auto) (18.3-44.2) % [place] % (Auto) (2.6-8.5) % Eos % (Auto) (0-4.4) % Baso % (Auto) (0.2-1.2) % Lymph # (Auto) (0.9-3.2) K/mm3 [place] # (Auto) (0.1-0.6) K/mm3 Eos # (Auto) (0-0.3) K/mm3 Baso # (Auto) (0.0-0.1) K/mm3 Abs Immat Gran (auto) (0.00-0.031) K/mm3 Absolute Neuts (auto) (1.3-6.7) K/mm3 Absolute Nucleated RBC (0.0-0.012) K/mm3 Band Neutrophils % Nucleated RBC % (0.0-0.2) % Platelet Estimate (Adequate) Ovalocytes [place] Cells Schistocytes Sodium (137-145) mmol/L Potassium (3.4-5.0) mmol/L Chloride (98-107) mmol/L Carbon Dioxide (22-30) mmol/L Anion Gap (4-12) mmol/L BUN (7-17) mg/dL Creatinine (0.7-1.0) mg/dL Estim Creat Clear Calc ml/min Estimated GFR (59 - ) Glucose (65-110) mg/dL Hemoglobin A1c (<5.7) % Calcium (8.4-10.2) mg/dL Phosphorus (2.5-4.5) mg/dL Magnesium (1.6-2.3) mg/dL Total Bilirubin (0.2-1.3) mg/dL AST (14-36) U/L ALT (6-35) U/L Alkaline Phosphatase (38-126) U/L Total Protein (6.3-8.2) g/dL Albumin (3.5-5.1) g/dL Urine Color (Yellow) Urine Appearance (Clear) Urine pH (5.0-9.0) Ur Specific [place] (1.001-1.035) Urine Protein (Negative) mg/dL Urine Glucose (UA) (Negative) mg/dL Urine Ketones (Negative) mg/dL Ur Blood (Man) (Negative) Urine Nitrate (Negative) Urine Bilirubin (Negative) Urine Urobilinogen (<2.0) mg/dL Leukocyte Esterase Rfl (Negative) TAYLOR/UL Urine RBC (0-2) /hpf Urine WBC (0-3) /hpf Ur Squamous Epith Cells (Few) /hpf Urine Bacteria /hpf Urine Casts Influenza A (RT-PCR) Cancelled Negative Influenza B (RT-PCR) Cancelled Negative RSV (RT-PCR) Negative (Negative) SARS-CoV-2 RNA (RT-PCR) Cancelled 08/11/25 Range/Units 10:33 WBC (4.5-10.0) K/mm3 RBC (4.2-5.4) M/mm3 Hgb (12.0-15.0) g/dL Hct (37.0-47.0) % MCV (80-100) fl MCH (26-34) pg MCHC (32-36) g/dl RDW (11.5-14.5) % Plt Count (150-375) k/mm3 MPV (7.4-10.4) fl Immature Gran % (Auto) (0-0.5) % Neut % (Auto) (45.5-73.1) % Lymph % (Auto) (18.3-44.2) % [place] % (Auto) (2.6-8.5) % Eos % (Auto) (0-4.4) % Baso % (Auto) (0.2-1.2) % Lymph # (Auto) (0.9-3.2) K/mm3 [place] # (Auto) (0.1-0.6) K/mm3 Eos # (Auto) (0-0.3) K/mm3 Baso # (Auto) (0.0-0.1) K/mm3 Abs Immat Gran (auto) (0.00-0.031) K/mm3 Absolute Neuts (auto) (1.3-6.7) K/mm3 Absolute Nucleated RBC (0.0-0.012) K/mm3 Band Neutrophils % Nucleated RBC % (0.0-0.2) % Platelet Estimate (Adequate) Ovalocytes [place] Cells Schistocytes Sodium (137-145) mmol/L Potassium (3.4-5.0) mmol/L Chloride (98-107) mmol/L Carbon Dioxide (22-30) mmol/L Anion Gap (4-12) mmol/L BUN (7-17) mg/dL Creatinine (0.7-1.0) mg/dL Estim Creat Clear Calc ml/min Estimated GFR (59 - ) Glucose (65-110) mg/dL Hemoglobin A1c (<5.7) % Calcium (8.4-10.2) mg/dL Phosphorus (2.5-4.5) mg/dL Magnesium (1.6-2.3) mg/dL Total Bilirubin (0.2-1.3) mg/dL AST (14-36) U/L ALT (6-35) U/L Alkaline Phosphatase (38-126) U/L Total Protein (6.3-8.2) g/dL Albumin (3.5-5.1) g/dL Urine Color (Yellow) Urine Appearance (Clear) Urine pH (5.0-9.0) Ur Specific [place] (1.001-1.035) Urine Protein (Negative) mg/dL Urine Glucose (UA) (Negative) mg/dL Urine Ketones (Negative) mg/dL Ur Blood (Man) (Negative) Urine Nitrate (Negative) Urine Bilirubin (Negative) Urine Urobilinogen (<2.0) mg/dL Leukocyte Esterase Rfl (Negative) TAYLOR/UL Urine RBC (0-2) /hpf Urine WBC (0-3) /hpf Ur Squamous Epith Cells (Few) /hpf Urine Bacteria /hpf Urine Casts Influenza A (RT-PCR) Influenza B (RT-PCR) RSV (RT-PCR) (Negative) SARS-CoV-2 RNA (RT-PCR) Negative Imaging Data Radiologist's impression: ITS Impressions Abdomen/Pelvis CT 08/11/25 09:58 IMPRESSION: 1. Small sliding hiatal hernia and/or esophagitis. 2. No other acute abnormality. Critical Care Time Critical Care Time Total Critical Care Time: 45 (For DKA management ) Discharge Plan Discharge Clinical Impression: DKA (diabetic ketoacidosis) Qualifiers: Diabetes mellitus type: type 1 Diabetes mellitus complication detail: without coma Qualified Code(s): E10.10 - Type 1 diabetes mellitus with ketoacidosis without coma Patient Disposition: Still a Patient Condition: Stable Time of Disposition: 11:58
--- NOTE | 2025-08-11 12:15 | P.CONNP_ITS ---
Assessment and Plan Assessment and plan (1) Stage 4 chronic kidney disease: Code(s): N18.4 - Chronic kidney disease, stage 4 (severe) Status: Acute Assessment and Plan: * baseline creatinine was running ~ 1.4 - 2.1mg/dl in the last few years * HOWEVER, her most recent admissions demonstrate her creatinine running closer to 1.9 - 2.4mg/dl (element of disease progression?) * suspect her higher creatinines in the last couple of month presumably due to: * prerenal factors (nausea/vomiting) * recurrent hyperglycemia/DKA * need for outpatient diuretic therapy * element of CKD progression(?) * baseline CKD secondary to diabetes, hypertension, vascular disease, and age- related change (2) DKA (diabetic ketoacidosis): Code(s): E11.10 - Type 2 diabetes mellitus with ketoacidosis without coma Status: Acute Assessment and Plan: * as noted on admission/presentation * suspect secondary to malfunctioning of pump due improper installation/positioning on skin * on insulin gtt * IVFs on hold due to concerns for volume overload (as noted by peripheral edema) * no evidence of infection * follow blood sugars (3) Abdominal pain: Code(s): R10.9 - Unspecified abdominal pain Status: Acute Assessment and Plan: * resolved * noted on presentation * associated with nausea + vomiting * does have chronic diarrhea associated with her known history of IBS * CT scan of A/P without acute pathology (4) Hypertension: Qualifiers: Hypertension type: unspecified Qualified Code(s): I10 - Essential (primary) hypertension Code(s): I10 - Essential (primary) hypertension Status: Chronic Assessment and Plan: * reasonable control on admission * slow re-introduce home BP medications as needed * follow trend of hemodynamics (5) Anemia: Code(s): D64.9 - Anemia, unspecified Status: Acute Assessment and Plan: * probably due to CKD * check iron studies * consider WILFRIDO while hospitalized * follow trend of H/H (6) Type 1 diabetes mellitus with hyperglycemia: Code(s): E10.65 - Type 1 diabetes mellitus with hyperglycemia Status: Acute Assessment and Plan: * follows with [facility] * plan transition back to SQ insulin versus insulin pump once DKA resolved * glycemic control per tool drawing checker I will continue to follow the patient with you while she remains hospitalized and make further recommendations as deemed necessary. Thank you for allowing me to participate in the care of this patient. L History of Present Illness Reason for Consult Consult date: 08/11/25 Reason for consult: chronic renal failure Chief Complaint Chief complaint: DKA History of Present Illness Narrative: The patient is a 74-year-old female with a past medical history as outlined below who presented to [facility] Emergency Room with complaints of hyperglycemia. The patient was just recently discharged from [facility] about 2 weeks ago after being hospitalized for hyperglycemia, acute kidney injury on top of her baseline chronic kidney disease, and a urinary tract infection. She received appropriate treatment for all these issues and was eventually stabilized and discharged home. Since her discharge from the hospital, the patient has been doing reasonably well up until the evening before presentation to the ER where she started noticing her blood sugars creeping up. Initially, she was given herself boluses of IV insulin it effort to control this issue but this did not seem to be working. She then developed symptoms of nausea as well as vomiting and mild abdominal pain as well. due to the constellation of these symptoms in conjunction with her significant hyperglycemia despite conservative therapy, she presented to the emergency room for further assessment. It should be noted that when the daughter came to assist the patient, they took her insulin pump off and it was noted that the insulin pump needle was not fully attached to the skin. Workup and evaluation emergency room demonstrated the patient to be hemodynamically stable (if not a bit hypertensive) and afebrile. Routine blood work demonstrated white blood cell count 11.5, hemoglobin 9.1, platelet count 189, sodium 133, potassium 4.8, bicarb 19, BUN 42, creatinine 2.29, glucose 701, calcium 9.7, phosphorus 6.6, magnesium 1.6, totally bilirubin 0.6, AST 53, ALT 44, alkaline phosphatase 79, albumin 3.8 with a hemoglobin A1c of 6.6. Her urinalysis demonstrated 3+ protein, 3+ glucose, trace ketones, trace blood and no significant white blood cells or red blood cells. Viral testing full influenza, RSV. and COVID was negative as well. Given her symptoms of abdominal pain, a CT scan of the abdomen pelvis was done which demonstrated a small sliding hiatal hernia and/or esophagitis with no other clear acute abnormality. Given these laboratory findings and her symptoms, she was given IV fluids and subsequently initiated on IV insulin drip for her diabetic ketoacidosis. She was subsequently transferred to the intensive care unit for further evaluation and therapy. Renal consultation was requested due to her chronic kidney disease. The patient normally follows with Dr. Zion Douglas for management of her chronic kidney disease and her baseline creatinine seems to fluctuate anywhere from 1.4 - 2.1 mg/dL over last several years causing her to fluctuate between chronic kidney disease stage IIIB and stage IV. The presumed etiology of her chronic kidney disease is secondary to her diabetes, hypertension, vascular disease, and age- related change. It should be noted that with her recent hospitalizations the last few months, her creatinine seems to be running a bit higher in the range of 1.9 - 2.4 mg/dL. In spite of these fluctuations in her renal function, she has had no critical electrolyte abnormalities, metabolic acidosis (with the exception of her associated DKA), volume overload, or evidence of uremia. Currently, at the time my evaluation, she appears to be in no acute distress. Review of Systems 2 Review of Systems: As per HPI. [facility] Past Medical History Medical History DKA (diabetic ketoacidosis) Chronic diarrhea Diabetic polyneuropathy Minimal cognitive impairment Hyperlipidemia Barretts esophagus GERD (gastroesophageal reflux disease) Chronic kidney disease, stage 3b Right ankle injury Osteoporosis Kidney disease IBS (irritable bowel syndrome) Hypertension Diabetes Arthritis Depression Anxiety Anemia Surgical History Surgical History Status post amputation of toe of left foot History of right shoulder replacement Family History Family History Father Alcoholism Cerebrovascular accident Heart disease Grandparent Cancer of unknown origin Son Diabetes mellitus Daughter Diabetes mellitus Daughter Depression Social History Social History Smoking packs per day: 1 Smoking cigarettes per day: 20.0 Years smoked: 30 Smoking pack-years: 30.00 Smoking status: Former smoker Second hand tobacco smoke exposure: No Alcohol intake: never Alcohol use details: socially Substance use: never Substance use type: does not use Do You Feel Safe in your Home?: Yes Lack of Transportation: No Lack of Food: Never True Current Housing: I Have Housing Concerned About Future Housing: No Difficulty Paying Gas/Electric Bills: No Difficulty Paying for Meds: No Currently Unemployed: No Education: Bachelor's Degree Difficulty w/ Childcare or Family Care: No Living arrangements: with family Additional living arrangements comments: daughter Occupation/Education: retired Gender identity (if verbalized by the patient): Female Spiritual care concerns: No Agree to blood products: Yes Meds Home Medications and Allergies Home Medications ?Medication ?Instructions ?Recorded ?Confirmed ?Type cholecalciferol (vitamin D3) 125 125 mcg PO EVERY R DAY 02/10/24 08/11/25 History mcg (5,000 unit) capsule ferrous sulfate 325 mg (65 mg 325 mg PO DAILY 02/10/24 08/11/25 History iron) tablet mecobalamin (vitamin B12) 2,500 2,500 mcg PO DAILY 08/11/25 History mcg chewable tablet multivitamin 1 tablet PO DAILY 02/10/24 1 History glucagon 1 mg/0.2 mL subcutaneous 1 mg (0.2 mL) subcut ONCE #0.4 mL 03/16/24 08/11/25 Rx auto-injector (Gvoke HypoPen 2-Pack) glucose 4 gram chewable tablet 16 g (4 x 4 gram) PO Q1 5M PRN 03/16/24 08/11/25 Rx (Dex4 Glucose) hypoglycemia #60 tabs omeprazole 40 mg capsule,delayed 40 mg PO BID 90 days #180 caps 06/28/24 08/11/25 Rx release colestipol 1 gram tablet (Colestid) 1 g PO BID #60 tab s 12/07/24 08/11/25 Rx sertraline 100 mg tablet 100 mg PO HS #30 tabs 08/11/25 Rx gabapentin 300 mg capsule See Rx Instructions .Route 0 05/23/25 08/11/25 Rx .COMPLEX #180 caps atorvastatin 40 mg tablet See Rx Instructions .Route 0 06/02/25 08/11/25 Rx .COMPLEX #90 tabs ondansetron 4 mg disintegrating 4 mg PO Q8H PRN nausea and 07/12/25 08/11/25 Rx tablet vomiting #7 tabs furosemide 20 mg tablet 40 mg PO QAM 07/26/25 History amlodipine 5 mg tablet (Norvasc) 5 mg PO DAILY #30 tab s 07/30/25 08/11/25 Rx insulin aspart U-100 100 unit/mL 60 unit (0.6 mL) cont inuous 08/02/25 08/11/25 Rx subcutaneous solution (Novolog subcutaneous infusion D AILY 90 U-100 Insulin aspart) days #54 mL solifenacin 5 mg tablet 5 mg PO DAILY 08/11/2508/11 History Allergies Allergy/AdvReac Type Severity Reaction Status Date / Time tramadol AdvReac Mild Nausea Verified 08/12/25 13:12 Vital Signs Vital Signs Temp Pulse Resp BP Pulse Ox O2 Del Method O2 Flow Rate 08/11/25 12:07 98.1 F 90 14 139/67 99 08/11/25 12:05 91 08/11/25 10:48 91 14 169/63 H 99 08/11/25 10:47 98 Nasal Cannula 2 08/11/25 08:47 12 08/11/25 08:46 100 Nasal Cannula 4 08/11/25 08:34 94 12 123/92 H 100 08/11/25 08:11 100 Nasal Cannula 6 08/11/25 08:11 61 L Room Air 08/11/25 07:40 25 H 08/11/25 07:35 97.6 F 99 22 H 160/143 H 100 Room Air Exam 2 Narrative: GENERAL APPEARANCE: elderly and frail female in no acute distress HEENT: normocephalic, atraumatic, normal conjunctiva and sclera, nares patient NECK: no lymphadenopathy, thyromegaly, or JVD MOUTH: normal lips, teeth, and gums CARDIOVASCULAR: RRR, normal S1 and S2, no rub RESPIRATORY: clear to auscultation ABDOMEN: soft but mild TTP, nondistended, positive bowel sounds present EXTREMITIES: no evidence of cyanosis, clubbing, 1+ edema NEUROLOGICAL: alert and oriented x 3; CN II - XII intact bilaterally; no focal deficits noted Results Lab Results 08/14/25 05:18 08/14/25 05:18 Lab results: Most recent lab results Calcium 9.0 mg/dL (8.4-10.2) 08/11/25 13:19 Phosphorus 6.6 mg/dL (2.5-4.5) H 08/11/25 07:45 Magnesium 1.6 mg/dL (1.6-2.3) 08/11/25 07:45
--- NOTE | 2025-08-11 12:25 | ADMGEN ---
This patient, Ashley Joseph, was admitted to Intensive Care Unit-2. Patient/family oriented to hospital policies and general routines including ID bracelet, bed and alarms, visiting hours, pain management, procedures, bathroom and other care routines, personal items, smoking policy, room service/diet, and visiting hours. Information on how to activate the Rapid Response Team has been discussed. Patient/Family are encouraged to report perceived risks to care and to ask questions if they do not understand what they are told or what they should do.
[2025-08-11 13:06] LABS: MRSA (PCR) NOT DETECTED (NOT DETECTE)
[2025-08-11 13:39] LABS: Anion Gap 7 mmol/L (4-12); Blood Urea Nitrogen 45 mg/dL (7-17); Calcium 9.0 mg/dL (8.4-10.2); Carbon Dioxide 24 mmol/L (22-30); Chloride 104 mmol/L (98-107); Estimated CRCL calculation 19 ml/min; Estimated Glomerular Filt Rate 24; Glucose 282 mg/dL (65-110); Potassium 4.1 mmol/L (3.4-5.0); Sodium 135 mmol/L (137-145)
--- NOTE | 2025-08-11 14:52 | PM.IMHP ---
H&P: HPI History of Present Illness Date/Time: 08/11/25 14:52 Chief Complaint: high blood sugar Narrative: ER-HPI narrative: 74-year-old with a history of hypertension, hyperlipidemia, insulin-dependent diabetic on insulin pump was brought in from home with the complaints of elevated blood sugar since this morning. She also complains of generalized her pain is associated with nausea. She denies any fever or chills. Daughter did mention that she bolused insulin x2 and since this morning still her sugars remain high she also noticed her the pump tubing was kinked and she is not quite sure she got her bolus dose or not. 74 y/o female presets with elevated blood sugars upon arrival blood sugar was 701, anion GAP 18, and acidosis, with c/o nuasea and vomiting. patient was started on IVF from which did bring her blood sugar and anion gap down, apparently her insulin pump pipe was kinked and patient was not receiving her insulin which resulted in elevated blood sugar and DKA, currently patient is in ICU and under DKA protocol, however patient overly hydrated in ER, now receiving IV insulin, patient is managed by features reporter, will monitor, once patient blood sugars are close to her baseline and anion remains closed,will transfer patient out of ICU. Review of Systems Review of Systems: As per HPI. [facility] Past Medical History Medical History DKA (diabetic ketoacidosis) Chronic diarrhea Diabetic polyneuropathy Minimal cognitive impairment Hyperlipidemia Barretts esophagus GERD (gastroesophageal reflux disease) Chronic kidney disease, stage 3b Right ankle injury Osteoporosis Kidney disease IBS (irritable bowel syndrome) Hypertension Diabetes Arthritis Depression Anxiety Anemia Surgical History Surgical History Status post amputation of toe of left foot History of right shoulder replacement Family History Family History Father Alcoholism Cerebrovascular accident Heart disease Grandparent Cancer of unknown origin Son Diabetes mellitus Daughter Diabetes mellitus Daughter Depression Social History Social History Smoking packs per day: 1 Smoking cigarettes per day: 20.0 Years smoked: 30 Smoking pack-years: 30.00 Smoking status: Former smoker Second hand tobacco smoke exposure: No Alcohol intake: never Alcohol use details: socially Substance use: never Substance use type: does not use Do You Feel Safe in your Home?: Yes Lack of Transportation: No Lack of Food: Never True Current Housing: I Have Housing Concerned About Future Housing: No Difficulty Paying Gas/Electric Bills: No Difficulty Paying for Meds: No Currently Unemployed: No Education: Bachelor's Degree Difficulty w/ Childcare or Family Care: No Living arrangements: with family Additional living arrangements comments: daughter Occupation/Education: retired Gender identity (if verbalized by the patient): Female Spiritual care concerns: No Agree to blood products: Yes Meds Home Medications and Allergies Home Medications ?Medication ?Instructions ?Recorded ?Confirmed ?Type cholecalciferol (vitamin D3) 125 125 mcg PO EVERY OTHER DAY 02/10/24 08/11/25 History mcg (5,000 unit) capsule ferrous sulfate 325 mg (65 mg 325 mg PO DAILY 02/10/24 08/11/25 History iron) tablet mecobalamin (vitamin B12) 2,500 2,500 mcg PO DAILY 02/10/24 08/11/25 History mcg chewable tablet multivitamin 1 tablet PO DAILY 02/10/24 08/11/25 History glucagon 1 mg/0.2 mL subcutaneous 1 mg (0.2 mL) subcut ONCE #0.4 mL 03/16/24 08/11/25 Rx auto-injector (Gvoke HypoPen 2-Pack) glucose 4 gram chewable tablet 16 g (4 x 4 gram) PO Q15M PRN 03/16/24 08/11/25 Rx (Dex4 Glucose) hypoglycemia #60 tabs omeprazole 40 mg capsule,delayed 40 mg PO BID 90 days #180 caps 06/28/24 08/11/25 Rx release colestipol 1 gram tablet (Colestid) 1 g PO BID #60 tabs 12/07/24 08/11/25 Rx sertraline 100 mg tablet 100 mg PO HS #30 tabs 05/18/25 08/11/25 Rx gabapentin 300 mg capsule See Rx Instructions .Route 05/23/25 08/11/25 Rx .COMPLEX #180 caps atorvastatin 40 mg tablet See Rx Instructions .Route 06/02/25 08/11/25 Rx .COMPLEX #90 tabs ondansetron 4 mg disintegrating 4 mg PO Q8H PRN nausea and 07/12/25 08/11/25 Rx tablet vomiting #7 tabs furosemide 20 mg tablet 40 mg PO QAM 07/26/25 08/11/25 History amlodipine 5 mg tablet (Norvasc) 5 mg PO DAILY #30 tabs 07/30/25 08/11/25 Rx insulin aspart U-100 100 unit/mL 60 unit (0.6 mL) continuous 08/02/25 08/11/25 Rx subcutaneous solution (Novolog subcutaneous infusion DAILY 90 U-100 Insulin aspart) days #54 mL solifenacin 5 mg tablet 5 mg PO DAILY 08/11/25 08/11/25 History Allergies Allergy/AdvReac Type Severity Reaction Status Date / Time tramadol AdvReac Mild Nausea Verified 08/11/25 12:36 Vital Signs Vital Signs - 24 hr 08/11/25 07:35 08/11/25 07:40 08/11/25 08:11 Temperature 36.4 C Pulse Rate 99 Respiratory Rate 22 H 25 H Blood Pressure 160/143 H Pulse Oximetry 100 61 L Oxygen Delivery Room Air Room Air Oxygen Flow Rate 08/11/25 08:11 08/11/25 08:34 08/11/25 08:46 Temperature Pulse Rate 94 Respiratory Rate 12 Blood Pressure 123/92 H Pulse Oximetry 100 100 100 Oxygen Delivery Nasal Cannula Nasal Cannula Oxygen Flow Rate 6 4 08/11/25 08:47 08/11/25 10:47 08/11/25 10:48 Temperature Pulse Rate 91 Respiratory Rate 12 14 Blood Pressure 169/63 H Pulse Oximetry 98 99 Oxygen Delivery Nasal Cannula Oxygen Flow Rate 2 08/11/25 12:25 08/11/25 12:27 08/11/25 12:45 Temperature 36.7 C Pulse Rate 91 90 Respiratory Rate 14 Blood Pressure 139/67 Pulse Oximetry 99 100 Oxygen Delivery Nasal Cannula Oxygen Flow Rate 2 08/11/25 12:50 08/11/25 13:00 08/11/25 14:00 Temperature Pulse Rate 84 81 Respiratory Rate 14 Blood Pressure 131/58 L Pulse Oximetry 97 100 Oxygen Delivery Room Air Oxygen Flow Rate 08/11/25 14:00 Temperature 36.8 C Pulse Rate 81 Respiratory Rate 16 Blood Pressure 118/68 Pulse Oximetry 98 Oxygen Delivery Oxygen Flow Rate Exam Narrative: Elderly frail Patient is comfortable, NAD HEENT: eyes are clear and none icteric LUNGS:CTA HEART: RR S1S2 ABD: BS+, Soft and nontender Lower extremities: no edema SKIN: nonjaundiced Neuro: grossly intact. H&P: Results Labs Labs: Short CBC 08/11/25 Range/Units 07:45 WBC 11.5 H (4.5-10.0) K/mm3 Hgb 9.1 L (12.0-15.0) g/dL Hct 28.5 L (37.0-47.0) % Plt Count 189 (150-375) k/mm3 BMP 08/11/25 08/11/25 08/11/25 07:45 09:25 13:19 Sodium 133 L 136 L 135 L Potassium 4.8 3.9 4.1 Chloride 96 L 102 104 Carbon Dioxide 19 L 24 24 BUN 42 H 43 H 45 H Creatinine 2.29 H 2.13 H 2.04 H Glucose 701 H* 617 H* 282 H Calcium 9.7 8.9 9.0 Liver Function 08/11/25 Range/Units 07:45 Total Bilirubin 0.6 (0.2-1.3) mg/dL AST 53 H (14-36) U/L ALT 44 H (6-35) U/L Alkaline Phosphatase 79 (38-126) U/L Albumin 3.8 (3.5-5.1) g/dL Urine 08/11/25 Range/Units 08:51 Urine Color Yellow (Yellow) Urine Appearance Clear (Clear) Urine pH 5.0 (5.0-9.0) Ur Specific [place] 1.022 (1.001-1.035) Urine Protein 3+ H (Negative) mg/dL Urine Glucose (UA) 3+ H (Negative) mg/dL Assessment and Plan Assessment and plan (1) Type 1 diabetes mellitus with hyperglycemia: Code(s): E10.65 - Type 1 diabetes mellitus with hyperglycemia Status: Acute (2) Diabetes: Code(s): E11.9 - Type 2 diabetes mellitus without complications Status: Chronic (3) Hypertension: Qualifiers: Hypertension type: unspecified Qualified Code(s): I10 - Essential (primary) hypertension Code(s): I10 - Essential (primary) hypertension Status: Chronic (4) Hyperlipidemia: Code(s): E78.5 - Hyperlipidemia, unspecified Status: Acute (5) Aortic stenosis: Code(s): I35.0 - Nonrheumatic aortic (valve) stenosis Status: Acute (6) Insulin pump titration: Code(s): Z46.81 - Encounter for fitting and adjustment of insulin pump Status: Acute (7) DKA (diabetic ketoacidosis): Qualifiers: Diabetes mellitus complication detail: without coma Diabetes mellitus type: type 1 Qualified Code(s): E10.10 - Type 1 diabetes mellitus with ketoacidosis without coma Code(s): E11.10 - Type 2 diabetes mellitus with ketoacidosis without coma Status: Acute Plan 74 y/o female presets with elevated blood sugars upon arrival blood sugar was 701, anion GAP 18, and acidosis, with c/o nuasea and vomiting. patient was started on IVF from which did bring her blood sugar and anion gap down, apparently her insulin pump pipe was kinked and patient was not receiving her insulin which resulted in elevated blood sugar and DKA, currently patient is in ICU and under DKA protocol, however patient overly hydrated in ER, now receiving IV insulin, patient is managed by features reporter, will monitor, once patient blood sugars are close to her baseline and anion remains closed,will transfer patient out of ICU. Quality VTE Prophylaxis VTE prophylaxis: pharmacologic ordered Hospitalist MIPS Advance Care Plan The patient's Advanced Care plan is not present because:: Patient doesn't want to name surrogate or provider advance care plan Medication Reconciliation The patient is not eligible for med reconciliation; the patient is in a emergent medical situation where delaying treatment would jeopardize the patients health.: Yes
[2025-08-11 17:45] LABS: Anion Gap 5 mmol/L (4-12); Blood Urea Nitrogen 44 mg/dL (7-17); Calcium 9.5 mg/dL (8.4-10.2); Carbon Dioxide 31 mmol/L (22-30); Chloride 103 mmol/L (98-107); Estimated CRCL calculation 17 ml/min; Estimated Glomerular Filt Rate 21; Glucose 102 mg/dL (65-110); Potassium 4.7 mmol/L (3.4-5.0); Sodium 139 mmol/L (137-145)
[2025-08-11] MEDS: ONDANSETRON INJ 4 MG/2 ML VIAL IV PUSH (22:30)
[2025-08-12] VITALS (23 sets, daily range): BP systolic 133–179; BP diastolic 55–72; PULSE 64–90; RESP 10–23; TEMP 36.6–37.1; O2SAT 94–100; BMI 20.8
[2025-08-12] MEDS: ONDANSETRON INJ 4 MG/2 ML VIAL IV PUSH ×2 (03:57→08:33)
[2025-08-12] MEDS: FAMOTIDINE 20 MG/2 ML VIAL IV PUSH (03:58)
[2025-08-12 04:08] LABS: Hematocrit 24.9 % (37.0-47.0); Hemoglobin 7.9 g/dL (12.0-15.0); Immature Granulocyte Percent A 0.5 % (0-0.5); Lymphocytes Absolute Auto 0.85 K/mm3 (0.9-3.2); Mean Corpuscular HGB Conc 31.7 g/dl (32-36); Mean Corpuscular Hemoglobin 31.6 pg (26-34); Mean Corpuscular Volume 99.6 fl (80-100); Nucleated Red Blood Cells Absolute Auto 0.000 K/mm3 (0.0-0.012); Nucleated Red Blood Cells Perc 0.0 % (0.0-0.2); Platelet Count Result 185 k/mm3 (150-375); Red Blood Count 2.50 M/mm3 (4.2-5.4); White Blood Count 11.4 K/mm3 (4.5-10.0)
[2025-08-12 04:28] LABS: Alanine Aminotransferase 25 U/L (6-35); Albumin Level 3.2 g/dL (3.5-5.1); Alkaline Phosphatase 56 U/L (38-126); Anion Gap 3 mmol/L (4-12); Aspartate Amino Transferase 35 U/L (14-36); Bilirubin,Total 0.3 mg/dL (0.2-1.3); Blood Urea Nitrogen 45 mg/dL (7-17); Calcium 9.1 mg/dL (8.4-10.2); Carbon Dioxide 30 mmol/L (22-30); Chloride 105 mmol/L (98-107); Estimated CRCL calculation 17 ml/min; Estimated Glomerular Filt Rate 21; Glucose 103 mg/dL (65-110); Magnesium 2.1 mg/dL (1.6-2.3); Potassium 4.3 mmol/L (3.4-5.0); Sodium 138 mmol/L (137-145); Total Protein 5.7 g/dL (6.3-8.2)
--- NOTE | 2025-08-12 08:30 | P.CONGI_ITS ---
Assessment and Plan Assessment and plan (1) Dysphagia: Qualifiers: Dysphagia type: esophageal phase Qualified Code(s): R13.19 - Other dysphagia Code(s): R13.10 - Dysphagia, unspecified Status: Acute (2) GERD with esophagitis: Qualifiers: Esophagitis bleeding: without hemorrhage Qualified Code(s): K21.00 - Gastro-esophageal reflux disease with esophagitis, without bleeding Code(s): K21.00 - Gastro-esophageal reflux disease with esophagitis, without bleeding Status: Acute (3) Nausea & vomiting: Qualifiers: Vomiting type: bilious vomiting Qualified Code(s): R11.14 - Bilious vomiting Code(s): R11.2 - Nausea with vomiting, unspecified Status: Inactive (4) Barretts esophagus: Qualifiers: Rees's esophagus type: without dysplasia Qualified Code(s): K22.70 - Rees's esophagus without dysplasia Code(s): K22.70 - Rees's esophagus without dysplasia Status: Inactive (5) Irritable bowel syndrome with diarrhea: Code(s): K58.0 - Irritable bowel syndrome with diarrhea Status: Acute (6) DKA (diabetic ketoacidosis): Qualifiers: Diabetes mellitus type: type 1 Diabetes mellitus complication detail: w ithout coma Qualified Code(s): E10.10 - Type 1 diabetes mellitus with ketoacidosis without coma Code(s): E11.10 - Type 2 diabetes mellitus with ketoacidosis without coma Status: Acute (7) Adenomatous colon polyp: Qualifiers: Colon location: sigmoid Qualified Code(s): D12.5 - Benign neoplasm of sigmoid colon Code(s): D12.6 - Benign neoplasm of colon, unspecified Status: Acute Plan 1. Dysphagia/GERD with esophagitis/Rees's/nausea and vomiting/epigastric pain/hiatal hernia: Last EGD on 04/06/2024 at which time she was noted to have 1 cm column of Rees's esophagus in 3 year repeat EGD was recommended. CT this admission showed small sliding hiatal hernia and/or esophagitis. Prior to admission patient was taking omeprazole 40 mg b.i.d. and states that her reflux is well controlled. She states that shortly before she presented to the emergency room she started having episodes of nausea and vomit but denies that this is irregular occurring problem for her. Nausea and vomiting have improved but not resolved since admission. Since admission the patient complains of a dull epigastric pain and dysphagia with liquids and saliva. She has not attempted swallowing any solid foods. This swallowing difficulty was not occurring prior to her admission. Denies any aspirin, NSAIDs, or anticoagulants prior to admission but is currently on Lovenox with her last dose given at 9:00 a.m. DDX: Esophageal ring or stricture versus hiatal hernia versus motility disorder versus acute inflammatory disorder versus inadequate acid suppression. * Continue Reglan * Continue supportive care with antiemetics * Continue b.i.d. PPI and we will adjust dosing based on endoscopic findings * NPO now * plan for EGD today * Further recommendations to follow endoscopy 2. Macrocytic anemia: Patient with chronic but relatively stable anemia with average hemoglobin between 8-9. Labs today show HGB 8, HCT 25, MCV 100, platelets 185. Patient denies any active GI bleeding including hematochezia, melena, hematemesis, or coffee-ground emesis. Patient was on iron supplement prior to admission. * Primary care team to continue monitoring H&H and transfuse as needed to keep HGB > 7 * Monitor for any signs of GI bleeding while on anticoagulants 3. DKA: Patient admitted with a blood sugar of 701 after she noticed that her insulin pump tubing was kinked. Most recent blood sugar 167. * being treated by primary care team 4. IBS with diarrhea/personal Hx of colon polyps: Patient's last colonoscopy 04/06/2024 at which time she had a tubular adenomatous colon polyp removed in a 5 year repeat colonoscopy was recommended. Gallbladder in Situ. Patient states that for more than 2 years she has been experiencing diarrhea with 2-3 liquid bowel movements per day. Prior to admission she was taking colestipol once daily and Imodium as needed with mild improvement. No recent change in bowel frequency prior to admission. * Patient to continue colestipol 1-2 times daily and Imodium as needed at time of discharge * Patient advised to follow-up in the GI office following her hospitalization to address other possible treatment options and possible need for additional workup Thank you very much for allowing me to share in the care of this very nice patient. This report may have been done utilizing a voice recognition system. Attempts have been made to correct errors. However, there may be uncorrected grammatical, spelling, and recognition errors present. GI Consult Note Consult date/time: 08/12/25 08:30 Reason for consult: Dysphagia and esophagitis HPI: Ashley Joseph is a 74 year old female with history of DKA chronic diarrhea, neuropathy, HLD, IBS, Rees's esophagus, GERD, CKD stage 3, osteoporosis, HTN, diabetes, depression and anxiety. Patient presented to the emergency room yesterday with complaints of high blood sugar after she was noted to have a kink in her insulin pump tubing, patient admitted for DKA. GI has been consulted for dysphagia and esophagitis. Patient states that prior to her ER visit she started having acute nausea and vomiting episodes but denies any nausea or vomiting prior to that. Since her admission her nausea and vomiting has improved but not resolved. She complains of a dull epigastric pain and states that since her admission she has been unable to swallow anything including water or her saliva. She states that it feels like everything is getting stuck your her sternum. Prior to admission she was on omeprazole 40 mg b.i.d. for known history of Rees's and states that her reflux has been well controlled. Admits to chronic diarrhea for more than 2 years stating that she typically has 2-3 liquid bowel movements daily. Prior to admission she was taking Imodium as needed and colestipol once daily with mild improvement of diarrhea. She denies any bloating, odynophagia, or regurgitation, early satiety, appetite or weight loss, constipation, hematochezia, or melena. She denies any NSAID, aspirin, or anticoagulant use prior to admission she is a nondrinker nonsmoker and denies any marijuana use. Family history negative for CRC or IBD. ENDOSCOPY HISTORY: EGD: 04/06/2024 (Dr. Oquendo) for GERD and Rees's esophagus Findings: - evidence of 1 cm Rees's mucosa in the distal esophagus - Recommend EGD in 3 years Bx results: Severe acute and chronic reflux gastroesophagitis with intestinal metaplasia consistent with Rees's esophagus. No evidence of dysplasia noted. Superficial fragments of small bowel mucosa with no evidence of enteritis or celiac disease. COLONOSCOPY: 04/06/2024 (Dr. Oquendo) for altered bowel habits and irritable bowel syndrome Findings: A single 4 mm polyp was observed in the transverse colon and removed with no evidence of colitis. Small internal hemorrhoids noted in the rectum. Recommendation to repeat in 5 years Bx results: Tubular adenoma of transverse colon polyp. LABS AND STOOL STUDIES: Labs 08/12/2025: Sodium 138, potassium 4.3, BUN 45, creatinine 2.32, GFR 21, calcium 9.1, phosphorus 4.5, magnesium 2.1, glucose 167 WBC 11, Hgb 8, Hct 25, MCV 100, platelets 185 Total bilirubin 0.3, AST 35, ALT 25, Alkaline Phos 56, albumin 3.2 Labs 08/11/2025: WBC 12, Hgb 9, Hct 29, MCV 102, platelets 189, Glucose 701 IMAGING: CT abd/pelvis w/o contrast 08/11/2025: Liver: Unremarkable. Gallbladder: Unremarkable. Spleen: Unremarkable. Pancreas: Unremarkable. Adrenal glands: Unremarkable Distal esophagus/stomach: Distal esophageal wall thickening and/or hiatal hernia. Small bowel loops: Normal caliber and wall thickness. Colon: Normal caliber and wall thickness. Appendix poorly seen. IMPRESSION: 1. Small sliding hiatal hernia and/or esophagitis. 2. No other acute abnormality. CT abd/pelvis w/contrast 07/26/2025: IMPRESSION: 1. Enteritis. 2. Cystitis. Suspect superimposed ascending pyelitis. Review of Systems 2 Review of Systems: All systems reviewed & are unremarkable except as noted in HPI and below Constitutional: Constitutional: Reports as per HPI Eyes: Eyes: Reports as per HPI ENT: Reports dysphagia Cardiovascular: Cardiovascular: Reports as per HPI Respiratory: Respiratory: Denies cough, Denies hemoptysis and Denies dyspnea Gastrointestinal: Gastrointestinal: Reports as per HPI, Denies melena, Reports nausea, Reports vomiting and Denies hematemesis Genitourinary: Genitourinary: Reports as per HPI Musculoskeletal: Musculoskeletal: Reports as per HPI Integumentary/Breasts: Skin/Breast: Reports system reviewed and no additional complaints, except as docu Psychiatric: Psychiatric: Denies behavioral changes and Denies confusion Endocrine: Endocrine: Reports no additional endocrine complaints Hematologic/Lymphatic: Hematologic/Lymphatic: Reports no additional hematologic/lymphatic complaints PMFSH Past Medical History Medical History DKA (diabetic ketoacidosis) Chronic diarrhea Diabetic polyneuropathy Minimal cognitive impairment Hyperlipidemia Barretts esophagus GERD (gastroesophageal reflux disease) Chronic kidney disease, stage 3b Right ankle injury Osteoporosis Kidney disease IBS (irritable bowel syndrome) Hypertension Diabetes Arthritis Depression Anxiety Anemia Surgical History Surgical History Status post amputation of toe of left foot History of right shoulder replacement Family History Family History Father Alcoholism Cerebrovascular accident Heart disease Grandparent Cancer of unknown origin Son Diabetes mellitus Daughter Diabetes mellitus Daughter Depression Social History Social History Smoking packs per day: 1 Smoking cigarettes per day: 20.0 Years smoked: 30 Smoking pack-years: 30.00 Smoking status: Former smoker Second hand tobacco smoke exposure: No Alcohol intake: never Alcohol use details: socially Substance use: never Substance use type: does not use Do You Feel Safe in your Home?: Yes Lack of Transportation: No Lack of Food: Never True Current Housing: I Have Housing Concerned About Future Housing: No Difficulty Paying Gas/Electric Bills: No Difficulty Paying for Meds: No Currently Unemployed: No Education: Bachelor's Degree Difficulty w/ Childcare or Family Care: No Living arrangements: with family Additional living arrangements comments: daughter Occupation/Education: retired Gender identity (if verbalized by the patient): Female Spiritual care concerns: No Agree to blood products: Yes Meds Home Medications and Allergies Home Medications ?Medication ?Instructions ?Recorded ?Confirmed ?Type cholecalciferol (vitamin D3) 125 125 mcg PO EVERY OTHE R DAY 02/10/24 08/11/25 History mcg (5,000 unit) capsule ferrous sulfate 325 mg (65 mg 325 mg PO DAILY 02/10/24 08/11/25 History iron) tablet mecobalamin (vitamin B12) 2,500 2,500 mcg PO DAILY 08/11/25 History mcg chewable tablet multivitamin 1 tablet PO DAILY 02/10/24 1 History glucagon 1 mg/0.2 mL subcutaneous 1 mg (0.2 mL) subcut ONCE #0.4 mL 03/16/24 08/11/25 Rx auto-injector (Gvoke HypoPen 2-Pack) glucose 4 gram chewable tablet 16 g (4 x 4 gram) PO Q1 5M PRN 03/16/24 08/11/25 Rx (Dex4 Glucose) hypoglycemia #60 tabs omeprazole 40 mg capsule,delayed 40 mg PO BID 90 days #180 caps 06/28/24 08/11/25 Rx release colestipol 1 gram tablet (Colestid) 1 g PO BID #60 tab s 12/07/24 08/11/25 Rx sertraline 100 mg tablet 100 mg PO HS #30 tabs 08/11/25 Rx gabapentin 300 mg capsule See Rx Instructions .Route 0 05/23/25 08/11/25 Rx .COMPLEX #180 caps atorvastatin 40 mg tablet See Rx Instructions .Route 0 06/02/25 08/11/25 Rx .COMPLEX #90 tabs ondansetron 4 mg disintegrating 4 mg PO Q8H PRN nausea and 07/12/25 08/11/25 Rx tablet vomiting #7 tabs furosemide 20 mg tablet 40 mg PO QAM 07/26/25 History amlodipine 5 mg tablet (Norvasc) 5 mg PO DAILY #30 tab s 07/30/25 08/11/25 Rx insulin aspart U-100 100 unit/mL 60 unit (0.6 mL) cont inuous 08/02/25 08/11/25 Rx subcutaneous solution (Novolog subcutaneous infusion D AILY 90 U-100 Insulin aspart) days #54 mL solifenacin 5 mg tablet 5 mg PO DAILY 08/11/2508/11 History Allergies Allergy/AdvReac Type Severity Reaction Status Date / Time tramadol AdvReac Mild Nausea Verified 08/11/25 12:36 Vital Signs Vital Signs - 24 hr 08/11/25 08:34 08/11/25 08:46 08/11/25 08:47 Temperature Pulse Rate 94 Respiratory Rate 12 12 Blood Pressure 123/92 H Pulse Oximetry 100 100 Oxygen Delivery Nasal Cannula Oxygen Flow Rate 4 08/11/25 10:47 08/11/25 10:48 08/11/25 12:25 Temperature Pulse Rate 91 91 Respiratory Rate 14 Blood Pressure 169/63 H Pulse Oximetry 98 99 Oxygen Delivery Nasal Cannula Oxygen Flow Rate 2 08/11/25 12:27 08/11/25 12:45 08/11/25 12:50 Temperature 98.1 F Pulse Rate 90 Respiratory Rate 14 Blood Pressure 139/67 Pulse Oximetry 99 100 97 Oxygen Delivery Nasal Cannula Room Air Oxygen Flow Rate 2 08/11/25 13:00 08/11/25 14:00 08/11/25 14:00 Temperature 98.2 F Pulse Rate 84 81 81 Respiratory Rate 14 16 Blood Pressure 131/58 L 118/68 Pulse Oximetry 100 98 Oxygen Delivery Oxygen Flow Rate 08/11/25 15:00 08/11/25 16:00 08/11/25 16:00 Temperature 98.3 F Pulse Rate 79 80 Respiratory Rate 15 14 Blood Pressure 117/55 L 124/53 L Pulse Oximetry 93 97 97 Oxygen Delivery Room Air Oxygen Flow Rate 08/11/25 16:00 08/11/25 17:00 08/11/25 18:00 Temperature Pulse Rate 79 84 90 Respiratory Rate 13 Blood Pressure 123/61 Pulse Oximetry 97 Oxygen Delivery Oxygen Flow Rate 08/11/25 18:00 08/11/25 19:00 08/11/25 20:00 Temperature 98.5 F Pulse Rate 90 83 78 Respiratory Rate 18 13 16 Blood Pressure 135/58 L 128/54 L 130/57 L Pulse Oximetry 100 97 97 Oxygen Delivery Oxygen Flow Rate 08/11/25 20:00 08/11/25 20:10 08/11/25 21:00 Temperature Pulse Rate 79 78 82 Respiratory Rate 16 15 Blood Pressure 135/63 Pulse Oximetry 97 96 Oxygen Delivery Room Air Oxygen Flow Rate 08/11/25 22:00 08/11/25 22:00 08/11/25 23:00 Temperature Pulse Rate 80 80 80 Respiratory Rate 17 14 Blood Pressure 138/63 143/66 H Pulse Oximetry 95 94 Oxygen Delivery Oxygen Flow Rate 08/11/25 23:35 08/12/25 00:00 08/12/25 00:00 Temperature 98 F Pulse Rate 77 90 87 Respiratory Rate 14 16 Blood Pressure 143/62 H Pulse Oximetry 95 97 Oxygen Delivery Room Air Oxygen Flow Rate 08/12/25 01:00 08/12/25 02:00 08/12/25 02:00 Temperature Pulse Rate 78 79 79 Respiratory Rate 16 12 Blood Pressure 145/62 H 135/58 L Pulse Oximetry 95 96 Oxygen Delivery Oxygen Flow Rate 08/12/25 03:00 08/12/25 03:48 08/12/25 04:00 Temperature Pulse Rate 73 81 74 Respiratory Rate 10 L 15 Blood Pressure 150/60 H Pulse Oximetry 97 100 Oxygen Delivery Room Air Oxygen Flow Rate 08/12/25 04:00 08/12/25 05:00 08/12/25 06:00 Temperature 97.8 F Pulse Rate 74 71 70 Respiratory Rate 12 13 Blood Pressure 168/67 H 149/64 H Pulse Oximetry 95 97 Oxygen Delivery Oxygen Flow Rate 08/12/25 06:00 08/12/25 07:00 08/12/25 08:00 Temperature 98.2 F Pulse Rate 70 83 78 Respiratory Rate 16 20 17 Blood Pressure 147/64 H 164/67 H 179/72 H Pulse Oximetry 95 97 97 Oxygen Delivery Oxygen Flow Rate Exam 2 Const: General: cooperative, healthy appearing, comfortable, no acute distress and well developed Orientation/consciousness: oriented to person, oriented to place, oriented to time and patient oriented x3 HENMT: Head: normal to inspection, normocephalic and atraumatic Mouth: Yes Normal oral and palatal mucosa present and Yes moist mucous membranes Eyes: General: appearance normal, both eyes and all related structures C onjunctivae: conjunctivae normal Sclera: sclerae normal Pupils: Equal, round and reactive pupils present Neck: Neck: normal visual inspection Chest: Chest palpation & inspection: normal inspection of the chest Resp: Effort & Inspection: normal respiratory effort and able to speak in complete sentences Auscultation: clear to auscultation bilaterally Cardio: Jugular venous distension: no JVD Rate: regular rate Rhythm: r egular rhythm Heart sounds: S1 normal heart sound present and S2 normal heart sound present GI: Inspection: normal to inspection GI Palp: Yes Soft to palpation and Yes No hepatosplenomegaly present Auscultation: normal bowel sounds Rectal Exam: deferred Skin: General skin exam: normal color and no rashes or lesions noted Neuro: General: oriented to person, oriented to place, oriented to time and patient oriented x3 Cranial nerves: Yes Equal, round and reactive pupils present Speech: normal speech Extrem: General: normal to inspection and no clubbing, cyanosis or edema Psych: Appearance: grossly normal and well kempt Affect: normal affect Results Labs 08/12/25 03:39 08/12/25 03:39 Labs: Short CBC 08/12/25 Range/Units 03:39 WBC 11.4 H (4.5-10.0) K/mm3 Hgb 7.9 L (12.0-15.0) g/dL Hct 24.9 L (37.0-47.0) % Plt Count 185 (150-375) k/mm3 BMP 08/11/25 08/11/25 08/11/25 07:45 09:25 13:19 Sodium 133 L 136 L 135 L Potassium 4.8 3.9 4.1 Chloride 96 L 102 104 Carbon Dioxide 19 L 24 24 BUN 42 H 43 H 45 H Creatinine 2.29 H 2.13 H 2.04 H Glucose 701 H* 617 H* 282 H Calcium 9.7 8.9 9.0 08/11/25 08/12/25 17:29 03:39 Sodium 139 138 Potassium 4.7 4.3 Chloride 103 105 Carbon Dioxide 31 H 30 BUN 44 H 45 H Creatinine 2.24 H 2.32 H Glucose 102 103 Calcium 9.5 9.1 Liver Function 08/11/25 08/12/25 Range/Units 07:45 03:39 Total Bilirubin 0.6 0.3 (0.2-1.3) mg/dL AST 53 H 35 (14-36) U/L ALT 44 H 25 (6-35) U/L Alkaline Phosphatase 79 56 (38-126) U/L Albumin 3.8 3.2 L (3.5-5.1) g/dL Urine 08/11/25 Range/Units 08:51 Urine Color Yellow (Yellow) Urine Appearance Clear (Clear) Urine pH 5.0 (5.0-9.0) Ur Specific [place] 1.022 (1.001-1.035) Urine Protein 3+ H (Negative) mg/dL Urine Glucose (UA) 3+ H (Negative) mg/dL
[2025-08-12] MEDS: ENOXAPARIN 30 MG/0.3 ML SYRINGE SUB-Q (08:33)
[2025-08-12] MEDS: PANTOPRAZOLE SODIUM IV 40 MG VIAL IV PUSH ×2 (08:33→20:12)
--- NOTE | 2025-08-12 08:39 | WPDINTPN ---
Progress Note: A&P Assessment and Plan (1) DKA (diabetic ketoacidosis): Code(s): E11.10 - Type 2 diabetes mellitus with ketoacidosis without coma Status: Acute Assessment and Plan: Patient presented with DKA likely secondary to malfunctioning of pump which could be secondary to inproper installation On presentation patient had a positive anion gap and acidosis. After administration of IV fluids her anion gap has closed although sugar remains elevated Patient is overall volume overloaded hence only limited IV fluids were given. Patient was treated with IV insulin infusion. As blood sugars improved patient was transition to her insulin pump. Will continue monitor blood glucose and add supplemental insulin with sliding scale if needed. Clear liquid diet advance as tolerated CT abdomen pelvis is negative, UA was negative for any evidence of UTI (2) Hypertension: Qualifiers: Hypertension type: unspecified Qualified Code(s): I10 - Essential (primary) hypertension Code(s): I10 - Essential (primary) hypertension Status: Chronic Assessment and Plan: Blood pressure is in elevated Patient is getting IV fluids. Resume amlodipine. P.r.n. labetalol and hydralazine. (3) Aortic stenosis: Code(s): I35.0 - Nonrheumatic aortic (valve) stenosis Status: Acute Assessment and Plan: Patient has moderate on last echo. No intervention at this time. (4) Chronic gastritis: Code(s): K29.50 - Unspecified chronic gastritis without bleeding Status: Acute Assessment and Plan: Continue PPI (5) Stage 4 chronic kidney disease: Code(s): N18.4 - Chronic kidney disease, stage 4 (severe) Status: Acute Assessment and Plan: Creatinine remains elevated although close to her baseline. Recent renal ultrasound showed IMPRESSION: 1. Mild bilateral hydronephrosis but with bilateral ureteral jets visualized in the distended bladder on color Doppler. 2. Diffuse bilateral increased renal cortical echogenicity consistent with medical renal disease. 3. Mild left renal atrophy. CT abdomen pelvis was negative for any acute change Consult nephrology (6) Esophagitis: Code(s): K20.90 - Esophagitis, unspecified without bleeding Status: Acute Assessment and Plan: PPI (7) Cough: Code(s): R05.9 - Cough, unspecified Status: Acute Assessment and Plan: Negative chest x-ray and viral respiratory panel (8) Dysphagia: Code(s): R13.10 - Dysphagia, unspecified Status: Acute Assessment and Plan: Patient complaining of symptoms suggestive of dysphagia. Patient has had esophagitis. CT scan does not show any significant abnormality. I will consult GI Change Protonix to IV q.12 hours treat esophagitis (9) Nausea & vomiting: Code(s): R11.2 - Nausea with vomiting, unspecified Status: Inactive Assessment and Plan: Gastroparesis versus esophagitis. IV PPI Reglan Clear liquid diet Plan DVT prophylaxis -Lovenox Stress ulcer prophylaxis -continue home PPI Nutrition -diet as tolerated Code Status - Full Code Incentive spirometry, up in chair Transfer out of ICU Subjective Date/time seen: 08/12/25 Overnight events reviewed. Afebrile Patient was weaned off insulin infusion and placed back on her insulin pump. Sugars have been in acceptable range. Patient this morning states that she is unable to keep food down. She feels food gets stuck in her chest. She denies any fever shortness breath chest pain. All other systems were reviewed and were negative Blood pressure elevated. Other vitals acceptable. Review of Systems Review of Systems: All systems reviewed & are unremarkable except as noted in HPI and below (HPI) Exam Narrative: General: Frail old female who is alert awake and in NAD Lungs/Chest: Trachea central Clear BS B/L, No crackles or wheezing. Cardiac: RRR. Normal S1 S2. Systolic murmur 3/6 Circulation: Pedal pulses are intact and symmetrical. Abdomen: Normal bowel sounds.. Soft. Mild diffuse tenderness to palpation. ND. Extremities: Bilateral pitting edema present : Quinones in place Neurologic: Follows commands. Moves all 4 extremities PERRL AO x3 Skin: No Rash Objective Data Vital Signs Vital Signs: Vital Signs - 24 hr 08/11/25 08:46 08/11/25 08:47 08/11/25 10:47 Temperature Pulse Rate Respiratory Rate 12 Blood Pressure Pulse Oximetry 100 98 Oxygen Delivery Nasal Cannula Nasal Cannula Oxygen Flow Rate 4 2 08/11/25 10:48 08/11/25 12:25 08/11/25 12:27 Temperature 36.7 C Pulse Rate 91 91 90 Respiratory Rate 14 14 Blood Pressure 169/63 H 139/67 Pulse Oximetry 99 99 Oxygen Delivery Oxygen Flow Rate 08/11/25 12:45 08/11/25 12:50 08/11/25 13:00 Temperature Pulse Rate 84 Respiratory Rate 14 Blood Pressure 131/58 L Pulse Oximetry 100 97 100 Oxygen Delivery Nasal Cannula Room Air Oxygen Flow Rate 2 08/11/25 14:00 08/11/25 14:00 08/11/25 15:00 Temperature 36.8 C Pulse Rate 81 81 79 Respiratory Rate 16 15 Blood Pressure 118/68 117/55 L Pulse Oximetry 98 93 Oxygen Delivery Oxygen Flow Rate 08/11/25 16:00 08/11/25 16:00 08/11/25 16:00 Temperature 36.8 C Pulse Rate 80 79 Respiratory Rate 14 Blood Pressure 124/53 L Pulse Oximetry 97 97 Oxygen Delivery Room Air Oxygen Flow Rate 08/11/25 17:00 08/11/25 18:00 08/11/25 18:00 Temperature Pulse Rate 84 90 90 Respiratory Rate 13 18 Blood Pressure 123/61 135/58 L Pulse Oximetry 97 100 Oxygen Delivery Oxygen Flow Rate 08/11/25 19:00 08/11/25 20:00 08/11/25 20:00 Temperature 36.9 C Pulse Rate 83 78 79 Respiratory Rate 13 16 Blood Pressure 128/54 L 130/57 L Pulse Oximetry 97 97 Oxygen Delivery Oxygen Flow Rate 08/11/25 20:10 08/11/25 21:00 08/11/25 22:00 Temperature Pulse Rate 78 82 80 Respiratory Rate 16 15 Blood Pressure 135/63 Pulse Oximetry 97 96 Oxygen Delivery Room Air Oxygen Flow Rate 08/11/25 22:00 08/11/25 23:00 08/11/25 23:35 Temperature Pulse Rate 80 80 77 Respiratory Rate 17 14 14 Blood Pressure 138/63 143/66 H Pulse Oximetry 95 94 95 Oxygen Delivery Room Air Oxygen Flow Rate 08/12/25 00:00 08/12/25 00:00 08/12/25 01:00 Temperature 36.6 C Pulse Rate 90 87 78 Respiratory Rate 16 16 Blood Pressure 143/62 H 145/62 H Pulse Oximetry 97 95 Oxygen Delivery Oxygen Flow Rate 08/12/25 02:00 08/12/25 02:00 08/12/25 03:00 Temperature Pulse Rate 79 79 73 Respiratory Rate 12 10 L Blood Pressure 135/58 L 150/60 H Pulse Oximetry 96 97 Oxygen Delivery Oxygen Flow Rate 08/12/25 03:48 08/12/25 04:00 08/12/25 04:00 Temperature 36.6 C Pulse Rate 81 74 74 Respiratory Rate 15 12 Blood Pressure 168/67 H Pulse Oximetry 100 95 Oxygen Delivery Room Air Oxygen Flow Rate 08/12/25 05:00 08/12/25 06:00 08/12/25 06:00 Temperature Pulse Rate 71 70 70 Respiratory Rate 13 16 Blood Pressure 149/64 H 147/64 H Pulse Oximetry 97 95 Oxygen Delivery Oxygen Flow Rate 08/12/25 07:00 08/12/25 08:00 Temperature 36.8 C Pulse Rate 83 78 Respiratory Rate 20 17 Blood Pressure 164/67 H 179/72 H Pulse Oximetry 97 97 Oxygen Delivery Oxygen Flow Rate Intake/Output Intake/Output: Intake & Output 08/09/25 08/10/25 08/11/25 08/12/25 23:59 23:59 23:59 23:59 Intake Total 1749.7 300 Output Total 680 200 Balance 1069.7 100 Meds/Results Medications: Active Medications Generic Name Dose Route Start Last Admin Trade Name Freq PRN Reason Stop Dose Admin Amlodipine Besylate 5 mg 08/11/25 12:10 08/12/25 08:39 Amlodipine Besylate 5 Mg Tablet PO Not Given DAILY BLAKE Dextrose 12.5 gm 08/11/25 07:47 Dextrose 50% 25 Gm/50 Ml Syringe IV PUSH PRN PRN Hypoglycemia Protocol Enoxaparin Sodium 30 mg 08/12/25 09:00 08/12/25 08:33 Enoxaparin 30 Mg/0.3 Ml Syringe SUB-Q 30 mg DAILY BLAKE Administration Glucagon 1 mg 08/11/25 07:47 Glucagon For Inj 1 Mg Vial IM PRN PRN Hypoglycemia Protocol Glucose 15 gm 08/11/25 07:47 Glucose Oral Gel 15 Gm Of Glucse In 37.5 Gm Tube PO PRN PRN Hypoglycemia Protocol Dextrose 1,000 mls @ 100 mls/hr 08/11/25 07:47 Dextrose 5% 1,000 Ml IVPB PRN PRN Hypoglycemia Protocol Insulin Aspart 3 - 6 units 08/11/25 21:00 08/12/25 07:46 Insulin Aspart (*Bkc) 100 Units/Ml SUB-Q Not Given Q4HR BLAKE Protocol Metoclopramide HCl 10 mg 08/12/25 11:30 Metoclopramide Hcl 10 Mg/10 Ml Soln Udc PO ACHS BLAKE Ondansetron HCl 4 mg 08/11/25 22:29 08/12/25 08:33 Ondansetron Inj 4 Mg/2 Ml Vial IV PUSH 4 mg Q4H PRN Administration Nausea And Vomiting Pantoprazole Sodium 40 mg 08/12/25 09:00 08/12/25 08:33 Pantoprazole Sodium Iv 40 Mg Vial IV PUSH 40 mg Q12HR BLAKE Administration Radiology Results: ITS Impressions Abdomen/Pelvis CT 08/11/25 09:58 IMPRESSION: 1. Small sliding hiatal hernia and/or esophagitis. 2. No other acute abnormality. Chest X-Ray 08/11/25 11:12 Impression: No acute cardiopulmonary abnormality. Labs Labs: Laboratory Results - last 24 hr 08/11/25 08/11/25 08/11/25 08:51 09: 10:33 WBC RBC Hgb Hct MCV MCH MCHC RDW Plt Count MPV Immature Gran % (Auto) Neut % (Auto) Lymph % (Auto) Sutter % (Auto) Eos % (Auto) Baso % (Auto) Lymph # (Auto) Sutter # (Auto) Eos # (Auto) Baso # (Auto) Abs Immat Gran (auto) Absolute Neuts (auto) Absolute Nucleated RBC Nucleated RBC % Sodium 136 L Potassium 3.9 Chloride 102 Carbon Dioxide 24 Anion Gap 10 BUN 43 H Creatinine 2.13 H Estim Creat Clear Calc 17 Estimated GFR 23 L Glucose 617 H* POC Capillary Glucose Calcium 8.9 Phosphorus Magnesium Total Bilirubin AST ALT Alkaline Phosphatase Total Protein Albumin Urine Color Yellow Urine Appearance Clear Urine pH 5.0 Ur Specific Ponce 1.022 Urine Protein 3+ H Urine Glucose (UA) 3+ H Urine Ketones Trace H Ur Blood (Man) Trace Urine Nitrate Negative Urine Bilirubin Negative Urine Urobilinogen 0.2 Leukocyte Esterase Rfl Negative Urine RBC 0-2 Urine WBC 0-5 Ur Squamous Epith Cells None seen Urine Bacteria None seen Urine Casts 0-2 Nasal MRSA (PCR) Influenza A (RT-PCR) Cancelled Influenza B (RT-PCR) RSV (RT-PCR) SARS-CoV-2 RNA (RT-PCR) 08/11/25 08/11/25 08/11/25 10:33 10:33 10:33 WBC RBC Hgb Hct MCV MCH MCHC RDW Plt Count MPV Immature Gran % (Auto) Neut % (Auto) Lymph % (Auto) Sutter % (Auto) Eos % (Auto) Baso % (Auto) Lymph # (Auto) Sutter # (Auto) Eos # (Auto) Baso # (Auto) Abs Immat Gran (auto) Absolute Neuts (auto) Absolute Nucleated RBC Nucleated RBC % Sodium Potassium Chloride Carbon Dioxide Anion Gap BUN Creatinine Estim Creat Clear Calc Estimated GFR Glucose POC Capillary Glucose Calcium Phosphorus Magnesium Total Bilirubin AST ALT Alkaline Phosphatase Total Protein Albumin Urine Color Urine Appearance Urine pH Ur Specific Ponce Urine Protein Urine Glucose (UA) Urine Ketones Ur Blood (Man) Urine Nitrate Urine Bilirubin Urine Urobilinogen Leukocyte Esterase Rfl Urine RBC Urine WBC Ur Squamous Epith Cells Urine Bacteria Urine Casts Nasal MRSA (PCR) Influenza A (RT-PCR) Negative Influenza B (RT-PCR) Cancelled Negative RSV (RT-PCR) Negative SARS-CoV-2 RNA (RT-PCR) Cancelled Negative 08/11/25 08/11/25 08/11/25 11:16 11:22 12:23 WBC RBC Hgb Hct MCV MCH MCHC RDW Plt Count MPV Immature Gran % (Auto) Neut % (Auto) Lymph % (Auto) Sutter % (Auto) Eos % (Auto) Baso % (Auto) Lymph # (Auto) Sutter # (Auto) Eos # (Auto) Baso # (Auto) Abs Immat Gran (auto) Absolute Neuts (auto) Absolute Nucleated RBC Nucleated RBC % Sodium Potassium Chloride Carbon Dioxide Anion Gap BUN Creatinine Estim Creat Clear Calc Estimated GFR Glucose POC Capillary Glucose 366 H 363 H Calcium Phosphorus Magnesium Total Bilirubin AST ALT Alkaline Phosphatase Total Protein Albumin Urine Color Urine Appearance Urine pH Ur Specific Ponce Urine Protein Urine Glucose (UA) Urine Ketones Ur Blood (Man) Urine Nitrate Urine Bilirubin Urine Urobilinogen Leukocyte Esterase Rfl Urine RBC Urine WBC Ur Squamous Epith Cells Urine Bacteria Urine Casts Nasal MRSA (PCR) Not detected Influenza A (RT-PCR) Influenza B (RT-PCR) RSV (RT-PCR) SARS-CoV-2 RNA (RT-PCR) 08/11/25 08/11/25 08/11/25 12:56 13:19 14:08 WBC RBC Hgb Hct MCV MCH MCHC RDW Plt Count MPV Immature Gran % (Auto) Neut % (Auto) Lymph % (Auto) Sutter % (Auto) Eos % (Auto) Baso % (Auto) Lymph # (Auto) Sutter # (Auto) Eos # (Auto) Baso # (Auto) Abs Immat Gran (auto) Absolute Neuts (auto) Absolute Nucleated RBC Nucleated RBC % Sodium 135 L Potassium 4.1 Chloride 104 Carbon Dioxide 24 Anion Gap 7 BUN 45 H Creatinine 2.04 H Estim Creat Clear Calc 19 Estimated GFR 24 L Glucose 282 H POC Capillary Glucose 276 H 214 H Calcium 9.0 Phosphorus Magnesium Total Bilirubin AST ALT Alkaline Phosphatase Total Protein Albumin Urine Color Urine Appearance Urine pH Ur Specific Ponce Urine Protein Urine Glucose (UA) Urine Ketones Ur Blood (Man) Urine Nitrate Urine Bilirubin Urine Urobilinogen Leukocyte Esterase Rfl Urine RBC Urine WBC Ur Squamous Epith Cells Urine Bacteria Urine Casts Nasal MRSA (PCR) Influenza A (RT-PCR) Influenza B (RT-PCR) RSV (RT-PCR) SARS-CoV-2 RNA (RT-PCR) 08/11/25 08/11/25 08/11/25 15:06 16:05 17:00 WBC RBC Hgb Hct MCV MCH MCHC RDW Plt Count MPV Immature Gran % (Auto) Neut % (Auto) Lymph % (Auto) Sutter % (Auto) Eos % (Auto) Baso % (Auto) Lymph # (Auto) Sutter # (Auto) Eos # (Auto) Baso # (Auto) Abs Immat Gran (auto) Absolute Neuts (auto) Absolute Nucleated RBC Nucleated RBC % Sodium Potassium Chloride Carbon Dioxide Anion Gap BUN Creatinine Estim Creat Clear Calc Estimated GFR Glucose POC Capillary Glucose 173 H 137 H 118 H Calcium Phosphorus Magnesium Total Bilirubin AST ALT Alkaline Phosphatase Total Protein Albumin Urine Color Urine Appearance Urine pH Ur Specific Ponce Urine Protein Urine Glucose (UA) Urine Ketones Ur Blood (Man) Urine Nitrate Urine Bilirubin Urine Urobilinogen Leukocyte Esterase Rfl Urine RBC Urine WBC Ur Squamous Epith Cells Urine Bacteria Urine Casts Nasal MRSA (PCR) Influenza A (RT-PCR) Influenza B (RT-PCR) RSV (RT-PCR) SARS-CoV-2 RNA (RT-PCR) 08/11/25 08/11/25 08/11/25 17:29 18:04 20:25 WBC RBC Hgb Hct MCV MCH MCHC RDW Plt Count MPV Immature Gran % (Auto) Neut % (Auto) Lymph % (Auto) Sutter % (Auto) Eos % (Auto) Baso % (Auto) Lymph # (Auto) Sutter # (Auto) Eos # (Auto) Baso # (Auto) Abs Immat Gran (auto) Absolute Neuts (auto) Absolute Nucleated RBC Nucleated RBC % Sodium 139 Potassium 4.7 Chloride 103 Carbon Dioxide 31 H Anion Gap 5 BUN 44 H Creatinine 2.24 H Estim Creat Clear Calc 17 Estimated GFR 21 L Glucose 102 POC Capillary Glucose 119 H 117 H Calcium 9.5 Phosphorus Magnesium Total Bilirubin AST ALT Alkaline Phosphatase Total Protein Albumin Urine Color Urine Appearance Urine pH Ur Specific Ponce Urine Protein Urine Glucose (UA) Urine Ketones Ur Blood (Man) Urine Nitrate Urine Bilirubin Urine Urobilinogen Leukocyte Esterase Rfl Urine RBC Urine WBC Ur Squamous Epith Cells Urine Bacteria Urine Casts Nasal MRSA (PCR) Influenza A (RT-PCR) Influenza B (RT-PCR) RSV (RT-PCR) SARS-CoV-2 RNA (RT-PCR) 08/11/25 08/12/25 08/12/25 23:47 01:28 03:39 WBC 11.4 H RBC 2.50 L Hgb 7.9 L Hct 24.9 L MCV 99.6 MCH 31.6 MCHC 31.7 L RDW 13.7 Plt Count 185 MPV 11.1 H Immature Gran % (Auto) 0.5 Neut % (Auto) 85.3 H Lymph % (Auto) 7.5 L Sutter % (Auto) 6.2 Eos % (Auto) 0.1 Baso % (Auto) 0.4 Lymph # (Auto) 0.85 L Sutter # (Auto) 0.7 H Eos # (Auto) 0.0 Baso # (Auto) 0.0 Abs Immat Gran (auto) 0.06 H Absolute Neuts (auto) 9.7 H Absolute Nucleated RBC 0.000 Nucleated RBC % 0.0 Sodium 138 Potassium 4.3 Chloride 105 Carbon Dioxide 30 Anion Gap 3 L BUN 45 H Creatinine 2.32 H Estim Creat Clear Calc 17 Estimated GFR 21 L Glucose 103 POC Capillary Glucose 112 H 108 H Calcium 9.1 Phosphorus 4.5 Magnesium 2.1 Total Bilirubin 0.3 AST 35 ALT 25 Alkaline Phosphatase 56 Total Protein 5.7 L Albumin 3.2 L Urine Color Urine Appearance Urine pH Ur Specific Ponce Urine Protein Urine Glucose (UA) Urine Ketones Ur Blood (Man) Urine Nitrate Urine Bilirubin Urine Urobilinogen Leukocyte Esterase Rfl Urine RBC Urine WBC Ur Squamous Epith Cells Urine Bacteria Urine Casts Nasal MRSA (PCR) Influenza A (RT-PCR) Influenza B (RT-PCR) RSV (RT-PCR) SARS-CoV-2 RNA (RT-PCR) 08/12/25 07:37 WBC RBC Hgb Hct MCV MCH MCHC RDW Plt Count MPV Immature Gran % (Auto) Neut % (Auto) Lymph % (Auto) Sutter % (Auto) Eos % (Auto) Baso % (Auto) Lymph # (Auto) Sutter # (Auto) Eos # (Auto) Baso # (Auto) Abs Immat Gran (auto) Absolute Neuts (auto) Absolute Nucleated RBC Nucleated RBC % Sodium Potassium Chloride Carbon Dioxide Anion Gap BUN Creatinine Estim Creat Clear Calc Estimated GFR Glucose POC Capillary Glucose 167 H Calcium Phosphorus Magnesium Total Bilirubin AST ALT Alkaline Phosphatase Total Protein Albumin Urine Color Urine Appearance Urine pH Ur Specific Ponce Urine Protein Urine Glucose (UA) Urine Ketones Ur Blood (Man) Urine Nitrate Urine Bilirubin Urine Urobilinogen Leukocyte Esterase Rfl Urine RBC Urine WBC Ur Squamous Epith Cells Urine Bacteria Urine Casts Nasal MRSA (PCR) Influenza A (RT-PCR) Influenza B (RT-PCR) RSV (RT-PCR) SARS-CoV-2 RNA (RT-PCR) Quality VTE Prophylaxis VTE prophylaxis: pharmacologic ordered
--- NOTE | 2025-08-12 10:32 | P.PNNP_ITS ---
Progress Note: A&P Assessment and Plan (1) Stage 4 chronic kidney disease: Code(s): N18.4 - Chronic kidney disease, stage 4 (severe) Status: Acute Assessment and Plan: * baseline creatinine was running ~ 1.4 - 2.1mg/dl in the last few years * HOWEVER, her most recent admissions demonstrate her creatinine running closer to 1.9 - 2.4mg/dl (element of disease progression?) * suspect her higher creatinines in the last couple of month presumably due to: * prerenal factors (nausea/vomiting) * recurrent hyperglycemia/DKA * need for outpatient diuretic therapy * element of CKD progression(?) * baseline CKD secondary to diabetes, hypertension, vascular disease, and age- related change (2) DKA (diabetic ketoacidosis): Qualifiers: Diabetes mellitus type: type 1 Diabetes mellitus complication detail: w ithout coma Qualified Code(s): E10.10 - Type 1 diabetes mellitus with ketoacidosis without coma Code(s): E11.10 - Type 2 diabetes mellitus with ketoacidosis without coma Status: Acute Assessment and Plan: * resolved * as noted on admission/presentation * suspect secondary to malfunctioning of pump due improper installation/positioning on skin * off insulin gtt * IVFs on hold due to concerns for volume overload (as noted by peripheral edema) * no evidence of infection * follow blood sugars (3) Abdominal pain: Code(s): R10.9 - Unspecified abdominal pain Status: Acute Assessment and Plan: * resolved * noted on presentation * associated with nausea + vomiting * does have chronic diarrhea associated with her known history of IBS * CT scan of A/P without acute pathology (4) Hypertension: Qualifiers: Hypertension type: unspecified Qualified Code(s): I10 - Essential (primary) hypertension Code(s): I10 - Essential (primary) hypertension Status: Chronic Assessment and Plan: * reasonable control on admission * slow re-introduce home BP medications as needed/tolerated * follow trend of hemodynamics (5) Anemia: Code(s): D64.9 - Anemia, unspecified Status: Acute Assessment and Plan: * probably due to CKD * consider WILFRIDO while hospitalized * follow trend of H/H (6) Type 1 diabetes mellitus with hyperglycemia: Code(s): E10.65 - Type 1 diabetes mellitus with hyperglycemia Status: Acute Assessment and Plan: * follows with [facility] * back on insulin pump * glycemic control per converter skimmer Will continue to follow. L Subjective Date/time seen: 08/12/25 10:32 Interval history: Follow-up for chronic kidney disease. No acute distress noted but unable to keep any food down due to sensation that food is getting stuck chest area -- seen by Gastroenterology this AM with tentative plan for EGD later today; weaned off insulin gtt and she is back on her insulin pump; BP starting to rise as noted by trend of hemodynamics; renal function/creatinine remains relatively stable. Exam 2 Narrative: General: elderly and frail female in NAD Heart: normal S1 and S2; no rub Lungs: clear to auscultation Abdomen: soft, nontender, nondistended, positive bowel sounds Extremities: no cyanosis or clubbing; 1+ edema Skin: warm and dry Objective Data Vital Signs Vital Signs: Vital Signs Temp Pulse Resp BP Pulse Ox O2 Del Method O2 Flow Rate 08/12/25 10:00 72 12 133/59 L 97 08/12/25 09:28 76 08/12/25 09:24 76 08/12/25 08:00 98.2 F 78 17 179/72 H 97 08/12/25 07:00 83 20 164/67 H 97 08/12/25 06:00 70 16 147/64 H 95 08/12/25 06:00 70 08/12/25 05:00 71 13 149/64 H 97 08/12/25 04:00 97.8 F 74 12 168/67 H 95 08/12/25 04:00 74 08/12/25 03:48 81 15 100 Room Air 08/12/25 03:00 73 10 L 150/60 H 97 08/12/25 02:00 79 12 135/58 L 96 08/12/25 02:00 79 08/12/25 01:00 78 16 145/62 H 95 08/12/25 00:00 87 08/12/25 00:00 98 F 90 16 143/62 H 97 08/11/25 23:35 77 14 95 Room Air 08/11/25 23:00 80 14 143/66 H 94 08/11/25 22:00 80 17 138/63 95 08/11/25 22:00 80 08/11/25 21:00 82 15 135/63 96 08/11/25 20:10 78 16 97 Room Air 08/11/25 20:00 79 08/11/25 20:00 98.5 F 78 16 130/57 L 97 08/11/25 19:00 83 13 128/54 L 97 08/11/25 18:00 90 18 135/58 L 100 08/11/25 18:00 90 08/11/25 17:00 84 13 123/61 97 Intake/Output Intake/Output: Intake & Output 08/09/25 08/10/25 08/11/25 08/12/25 23:59 23:59 23:59 23:59 Intake Total 1749.7 675 Output Total 680 200 Balance 1069.7 475 Meds/Results Medications: Active Medications Generic Name Dose Route Start Last Admin Trade Name Freq PRN Reason Stop Dose Admin Amlodipine Besylate 5 mg 08/11/25 12:10 08/12/25 08:39 Amlodipine Besylate 5 Mg Tablet PO Not Given DAILY BLAKE Dextrose 12.5 gm 08/11/25 07:47 Dextrose 50% 25 Gm/50 Ml Syringe IV PUSH PRN PRN Hypoglycemia Protocol Enoxaparin Sodium 30 mg 08/12/25 09:00 08/12/25 08:33 Enoxaparin 30 Mg/0.3 Ml Syringe SUB-Q 30 mg DAILY BLAKE Administration Glucagon 1 mg 08/11/25 07:47 Glucagon For Inj 1 Mg Vial IM PRN PRN Hypoglycemia Protocol Glucose 15 gm 08/11/25 07:47 Glucose Oral Gel 15 Gm Of Glucse In 37.5 Gm Tube PO PRN PRN Hypoglycemia Protocol Hydralazine HCl 20 mg 08/12/25 08:40 Hydralazine Hcl 20 Mg/Ml Vial IV PUSH Q4H PRN SBP more than 160 Dextrose 1,000 mls @ 100 mls/hr 08/11/25 07:47 Dextrose 5% 1,000 Ml IVPB PRN PRN Hypoglycemia Protocol Insulin Human Regular 1 each 08/13/25 06:00 Home Medication Insulin XX DAILY@0600 BLAKE Labetalol HCl 20 mg 08/12/25 08:40 08/12/25 09:28 Labetalol Hcl Inj 100 Mg/20 Ml Vial IV PUSH 20 mg Q4H PRN Administration SBP > 160 and HR> 60 -1st choice Metoclopramide HCl 10 mg 08/12/25 11:30 08/12/25 16:19 Metoclopramide Hcl 10 Mg/10 Ml Soln Udc PO 10 mg ACHS BLAKE Administration Ondansetron HCl 4 mg 08/11/25 22:29 08/12/25 08:33 Ondansetron Inj 4 Mg/2 Ml Vial IV PUSH 4 mg Q4H PRN Administration Nausea And Vomiting Pantoprazole Sodium 40 mg 08/12/25 09:00 08/12/25 08:33 Pantoprazole Sodium Iv 40 Mg Vial IV PUSH 40 mg Q12HR BLAKE Administration Sucralfate 1,000 mg 08/12/25 16:30 08/12/25 16:19 Sucralfate Susp 100 Mg/Ml 10 Ml Udc PO 1,000 mg ACHS BLAKE Administration Radiology Results: ITS Impressions Abdomen/Pelvis CT 08/11/25 09:58 IMPRESSION: 1. Small sliding hiatal hernia and/or esophagitis. 2. No other acute abnormality. Chest X-Ray 08/11/25 11:12 Impression: No acute cardiopulmonary abnormality. Labs Labs: Laboratory Tests 08/12/25 03:39 08/12/25 03:39 Calcium 9.1 Phosphorus 4.5 Magnesium 2.1 Total Bilirubin 0.3 AST 35 ALT 25 Alkaline Phosphatase 56 Total Protein 5.7 L Albumin 3.2 L
--- NOTE | 2025-08-12 10:47 | PC.NURSE ---
Transfer patient to [facility], report given to Macie GAR
--- NOTE | 2025-08-12 13:20 | SUR.PREOP ---
Patient's blood sugar on insulin pump was 242. Patient signed waiver to keep insulin pump and continuous glucose monitor on. Dr. Muniz notified. okay to leave insulin pump on during procedure.
[2025-08-12] MEDS: LACTATED RINGERS 1,000 ML 150 ML IV CONT (13:24)
--- NOTE | 2025-08-12 14:02 | P.PNAN_ITS ---
Anes - Initial Pre Proc Eval Procedure: Operation Date: 08/12/25 14:30 Proposed Procedures p Esophagogastroduodenoscopy - Timothy Rivas MD Date/Time: 08/12/25 14:02 Surgeon: Marky Stoddard MD Pre Op Diagnosis: DKA Patient Data Age: 74 Gender: F Height: 1.63 m Weight: 55.1 kg Last Vital Signs Temp 36.8 C 08/12/25 13:17 Pulse 75 08/12/25 13:17 Resp 20 08/12/25 13:17 BP 167/61 H 08/12/25 13:17 Pulse Ox 96 08/12/25 13:17 O2 Del Method Room Air 08/12/25 13:22 O2 Flow Rate 2 08/11/25 12:45 Allergies Allergy/AdvReac Type Severity Reaction Status Date / Time tramadol AdvReac Mild Nausea Verified 08/12/25 13:12 Home Medications ?Medication ?Instructions ?Recorded ?Confirmed ?Type cholecalciferol (vitamin D3) 125 125 mcg PO EVERY OTHE R DAY 02/10/24 08/11/25 History mcg (5,000 unit) capsule ferrous sulfate 325 mg (65 mg 325 mg PO DAILY 02/10/24 08/11/25 History iron) tablet mecobalamin (vitamin B12) 2,500 2,500 mcg PO DAILY 08/11/25 History mcg chewable tablet multivitamin 1 tablet PO DAILY 02/10/24 1 History glucagon 1 mg/0.2 mL subcutaneous 1 mg (0.2 mL) subcut ONCE #0.4 mL 03/16/24 08/11/25 Rx auto-injector (Gvoke HypoPen 2-Pack) glucose 4 gram chewable tablet 16 g (4 x 4 gram) PO Q1 5M PRN 03/16/24 08/11/25 Rx (Dex4 Glucose) hypoglycemia #60 tabs omeprazole 40 mg capsule,delayed 40 mg PO BID 90 days #180 caps 06/28/24 08/11/25 Rx release colestipol 1 gram tablet (Colestid) 1 g PO BID #60 tab s 12/07/24 08/11/25 Rx sertraline 100 mg tablet 100 mg PO HS #30 tabs 08/11/25 Rx gabapentin 300 mg capsule See Rx Instructions .Route 0 8/11/25 10/30/25 Rx .COMPLEX #180 caps atorvastatin 40 mg tablet See Rx Instructions .Route 0 06/02/25 08/11/25 Rx .COMPLEX #90 tabs ondansetron 4 mg disintegrating 4 mg PO Q8H PRN nausea and 07/12/25 08/11/25 Rx tablet vomiting #7 tabs furosemide 20 mg tablet 40 mg PO QAM 07/26/25 History amlodipine 5 mg tablet (Norvasc) 5 mg PO DAILY #30 tab s 07/30/25 08/11/25 Rx insulin aspart U-100 100 unit/mL 60 unit (0.6 mL) cont inuous 08/02/25 08/11/25 Rx subcutaneous solution (Novolog subcutaneous infusion D AILY 90 U-100 Insulin aspart) days #54 mL solifenacin 5 mg tablet 5 mg PO DAILY 08/11/2508/11 History Laboratory Tests 08/11/25 08/11/25 08/11/25 07:37 14:08 15:06 WBC RBC Hgb Hct MCV MCH MCHC RDW Plt Count MPV Immature Gran % (Auto) Neut % (Auto) Lymph % (Auto) [place] % (Auto) Eos % (Auto) Baso % (Auto) Lymph # (Auto) [place] # (Auto) Eos # (Auto) Baso # (Auto) Abs Immat Gran (auto) Absolute Neuts (auto) Absolute Nucleated RBC Nucleated RBC % Sodium Potassium Chloride Carbon Dioxide Anion Gap BUN Creatinine Estim Creat Clear Calc Estimated GFR Glucose POC Capillary Glucose > 500 H* mg/dl 214 H mg/dl 173 H mg/dl (65-105) (65-105) (65-105) Calcium Phosphorus Magnesium Total Bilirubin AST ALT Alkaline Phosphatase Total Protein Albumin 08/11/25 08/11/25 08/11/25 16:05 17:00 17:29 WBC RBC Hgb Hct MCV MCH MCHC RDW Plt Count MPV Immature Gran % (Auto) Neut % (Auto) Lymph % (Auto) [place] % (Auto) Eos % (Auto) Baso % (Auto) Lymph # (Auto) [place] # (Auto) Eos # (Auto) Baso # (Auto) Abs Immat Gran (auto) Absolute Neuts (auto) Absolute Nucleated RBC Nucleated RBC % Sodium 139 mmol/L (137-145) Potassium 4.7 mmol/L (3.4-5.0) Chloride 103 mmol/L (98-107) Carbon Dioxide 31 H mmol/L (22-30) Anion Gap 5 mmol/L (4-12) BUN 44 H mg/dL (7-17) Creatinine 2.24 H mg/dL (0.7-1.0) Estim Creat Clear Calc 17 ml/min Estimated GFR 21 L (59 - ) Glucose 102 mg/dL (65-110) POC Capillary Glucose 137 H mg/dl 118 H mg/dl (65-105) (65-105) Calcium 9.5 mg/dL (8.4-10.2) Phosphorus Magnesium Total Bilirubin AST ALT Alkaline Phosphatase Total Protein Albumin 08/11/25 08/11/25 08/11/25 18:04 20:25 23:47 WBC RBC Hgb Hct MCV MCH MCHC RDW Plt Count MPV Immature Gran % (Auto) Neut % (Auto) Lymph % (Auto) [place] % (Auto) Eos % (Auto) Baso % (Auto) Lymph # (Auto) [place] # (Auto) Eos # (Auto) Baso # (Auto) Abs Immat Gran (auto) Absolute Neuts (auto) Absolute Nucleated RBC Nucleated RBC % Sodium Potassium Chloride Carbon Dioxide Anion Gap BUN Creatinine Estim Creat Clear Calc Estimated GFR Glucose POC Capillary Glucose 119 H mg/dl 117 H mg/dl 112 H mg/dl (65-105) (65-105) (65-105) Calcium Phosphorus Magnesium Total Bilirubin AST ALT Alkaline Phosphatase Total Protein Albumin 08/12/25 08/12/25 08/12/25 01:28 03:39 07:37 WBC 11.4 H K/mm3 (4.5-10.0) RBC 2.50 L M/mm3 (4.2-5.4) Hgb 7.9 L g/dL (12.0-15.0) Hct 24.9 L % (37.0-47.0) MCV 99.6 fl (80-100) MCH 31.6 pg (26-34) MCHC 31.7 L g/dl (32-36) RDW 13.7 % (11.5-14.5) Plt Count 185 k/mm3 (150-375) MPV 11.1 H fl (7.4-10.4) Immature Gran % (Auto) 0.5 % (0-0.5) Neut % (Auto) 85.3 H % (45.5-73.1) Lymph % (Auto) 7.5 L % (18.3-44.2) [place] % (Auto) 6.2 % (2.6-8.5) Eos % (Auto) 0.1 % (0-4.4) Baso % (Auto) 0.4 % (0.2-1.2) Lymph # (Auto) 0.85 L K/mm3 (0.9-3.2) [place] # (Auto) 0.7 H K/mm3 (0.1-0.6) Eos # (Auto) 0.0 K/mm3 (0-0.3) Baso # (Auto) 0.0 K/mm3 (0.0-0.1) Abs Immat Gran (auto) 0.06 H K/mm3 (0.00-0.031) Absolute Neuts (auto) 9.7 H K/mm3 (1.3-6.7) Absolute Nucleated RBC 0.000 K/mm3 (0.0-0.012) Nucleated RBC % 0.0 % (0.0-0.2) Sodium 138 mmol/L (137-145) Potassium 4.3 mmol/L (3.4-5.0) Chloride 105 mmol/L (98-107) Carbon Dioxide 30 mmol/L (22-30) Anion Gap 3 L mmol/L (4-12) BUN 45 H mg/dL (7-17) Creatinine 2.32 H mg/dL (0.7-1.0) Estim Creat Clear Calc 17 ml/min Estimated GFR 21 L (59 - ) Glucose 103 mg/dL (65-110) POC Capillary Glucose 108 H mg/dl 167 H mg/dl (65-105) (65-105) Calcium 9.1 mg/dL (8.4-10.2) Phosphorus 4.5 mg/dL (2.5-4.5) Magnesium 2.1 mg/dL (1.6-2.3) Total Bilirubin 0.3 mg/dL (0.2-1.3) AST 35 U/L (14-36) ALT 25 U/L (6-35) Alkaline Phosphatase 56 U/L (38-126) Total Protein 5.7 L g/dL (6.3-8.2) Albumin 3.2 L g/dL (3.5-5.1) 08/12/25 11:44 WBC RBC Hgb Hct MCV MCH MCHC RDW Plt Count MPV Immature Gran % (Auto) Neut % (Auto) Lymph % (Auto) [place] % (Auto) Eos % (Auto) Baso % (Auto) Lymph # (Auto) [place] # (Auto) Eos # (Auto) Baso # (Auto) Abs Immat Gran (auto) Absolute Neuts (auto) Absolute Nucleated RBC Nucleated RBC % Sodium Potassium Chloride Carbon Dioxide Anion Gap BUN Creatinine Estim Creat Clear Calc Estimated GFR Glucose POC Capillary Glucose 189 H mg/dl (65-105) Calcium Phosphorus Magnesium Total Bilirubin AST ALT Alkaline Phosphatase Total Protein Albumin Patient hx anesthesia problems: none Family hx anesthesia problems: none Results Review: All pre-operative results and documents have been reviewed as part of the pre- operative evaluation. [facility] Past Medical History Medical History DKA (diabetic ketoacidosis) Chronic diarrhea Diabetic polyneuropathy Minimal cognitive impairment Hyperlipidemia Barretts esophagus GERD (gastroesophageal reflux disease) Chronic kidney disease, stage 3b Right ankle injury Osteoporosis Kidney disease IBS (irritable bowel syndrome) Hypertension Diabetes Arthritis Depression Anxiety Anemia Surgical History Surgical History Status post amputation of toe of left foot History of right shoulder replacement Family History Family History Father Alcoholism Cerebrovascular accident Heart disease Grandparent Cancer of unknown origin Son Diabetes mellitus Daughter Diabetes mellitus Daughter Depression Social History Social History Smoking packs per day: 1 Smoking cigarettes per day: 20.0 Years smoked: 30 Smoking pack-years: 30.00 Smoking status: Former smoker Second hand tobacco smoke exposure: No Alcohol intake: never Alcohol use details: socially Substance use: never Substance use type: does not use Do You Feel Safe in your Home?: Yes Lack of Transportation: No Lack of Food: Never True Current Housing: I Have Housing Concerned About Future Housing: No Difficulty Paying Gas/Electric Bills: No Difficulty Paying for Meds: No Currently Unemployed: No Education: Bachelor's Degree Difficulty w/ Childcare or Family Care: No Living arrangements: with family Additional living arrangements comments: daughter Occupation/Education: retired Gender identity (if verbalized by the patient): Female Spiritual care concerns: No Agree to blood products: Yes Anes - Eval Final PreProcedure Day of Procedure 08/12/25 14:02 Patient weight: normal Heart: regular rate and rhythm Lungs: clear to auscultation Airway: Mallampati scale class II Neurological: alert and oriented Last oral intake: >/= 8 hours ASA classification: III Emergent: no Anesthetic plan: proceed Anesthesia type and monitoring: general GIVS and standard monitoring Results Review: All pre-operative results and documents have been reviewed as part of the pre- operative evaluation. Informed Consent: The patient's anesthetic plan and its attendant risks and benefits were discussed with the patient/family/POA. Questions were solicited and answers provided to the satisfaction of the patient/family/POA.
--- NOTE | 2025-08-12 14:19 | S_PTH ---
PATIENT: Ashley Joseph LOC: [id number] U#:[id number] AGE/SX: 74/F ROOM: 345 RE08/11/[address]: Tyler Olson MD : 1950 BED: 01 DIS: 08/14/2025 SPEC #: [id number] RECD: 08/15/25 08:02 STATUS: YUDY LIVINGSTON #: [id number] KAREL: 08/12/25 14:[address]: Kurtis Mendez DEPT: [facility] Surgical RECD BY: Martha Berg ENTERED: 08/15/25 08:02 SP TYPE: Surgical OTHR DR: MD Brent Sanford MD Adarsh Sahni, MD Patrick S. Zimmermann, MD Tissues: A - Esophageal Biopsy Procedures: Hematoxylin and Eosin Stain Gross and Microscopic Level 4
--- NOTE | 2025-08-12 15:40 | P.PNIM_ITS ---
Progress Note: A&P Assessment and Plan (1) DKA (diabetic ketoacidosis): Qualifiers: Diabetes mellitus complication detail: without coma Diabetes mellitus type: type 1 Qualified Code(s): E10.10 - Type 1 diabetes mellitus with ketoacidosis without coma Code(s): E11.10 - Type 2 diabetes mellitus with ketoacidosis without coma Status: Acute Assessment and Plan: Patient presented with DKA likely secondary to malfunctioning of pump which could be secondary to inproper installation On presentation patient had a positive anion gap and acidosis. After administration of IV fluids her anion gap has closed although sugar remains elevated Patient is overall volume overloaded hence only limited IV fluids were given. Patient was treated with IV insulin infusion. As blood sugars improved patient was transition to her insulin pump. Will continue monitor blood glucose and add supplemental insulin with sliding scale if needed. Clear liquid diet advance as tolerated CT abdomen pelvis is negative, UA was negative for any evidence of UTI (2) Hypertension: Qualifiers: Hypertension type: unspecified Qualified Code(s): I10 - Essential (primary) hypertension Code(s): I10 - Essential (primary) hypertension Status: Chronic Assessment and Plan: Blood pressure is in elevated Patient is getting IV fluids. Resume amlodipine. P.r.n. labetalol and hydralazine. (3) Aortic stenosis: Code(s): I35.0 - Nonrheumatic aortic (valve) stenosis Status: Acute Assessment and Plan: Patient has moderate on last echo. No intervention at this time. (4) Chronic gastritis: Code(s): K29.50 - Unspecified chronic gastritis without bleeding Status: Acute Assessment and Plan: Continue PPI (5) Stage 4 chronic kidney disease: Code(s): N18.4 - Chronic kidney disease, stage 4 (severe) Status: Acute Assessment and Plan: Creatinine remains elevated although close to her baseline. Recent renal ultrasound showed IMPRESSION: 1. Mild bilateral hydronephrosis but with bilateral ureteral jets visualized in the distended bladder on color Doppler. 2. Diffuse bilateral increased renal cortical echogenicity consistent with medical renal disease. 3. Mild left renal atrophy. CT abdomen pelvis was negative for any acute change Consult nephrology (6) Esophagitis: Code(s): K20.90 - Esophagitis, unspecified without bleeding Status: Acute Assessment and Plan: PPI GI consulted. EGD with reflux esophagitis and Rees's esophagus without dysplasia noted. 08/12/2025. PPI b.i.d. and add Carafate (7) Cough: Code(s): R05.9 - Cough, unspecified Status: Acute Assessment and Plan: Negative chest x-ray and viral respiratory panel (8) Dysphagia: Qualifiers: Dysphagia type: esophageal phase Qualified Code(s): R13.19 - Other dysphagia Code(s): R13.10 - Dysphagia, unspecified Status: Acute Assessment and Plan: Patient complaining of symptoms suggestive of dysphagia. Patient has had esophagitis. CT scan does not show any significant abnormality. I will consult GI Change Protonix to IV q.12 hours treat esophagitis EGD with findings of Rees's esophagus without dysplasia and reflux esophagitis (9) Nausea & vomiting: Qualifiers: Vomiting type: bilious vomiting Qualified Code(s): R11.14 - Bilious vomiting Code(s): R11.2 - Nausea with vomiting, unspecified Status: Inactive Assessment and Plan: Gastroparesis versus esophagitis. IV PPI Reglan Clear liquid diet Plan DVT prophylaxis -Lovenox Stress ulcer prophylaxis -continue home PPI Nutrition -diet as tolerated Code Status - Full Code Subjective Date/time seen: 08/12/25 15:40 Interval history: No overnight events transferred out of the ICU today. Denies any new complaints. Blood sugar trend reviewed. Underwent EGD and findings were reviewed Review of Systems Review of Systems: All systems reviewed & are unremarkable except as noted in HPI and below (HPI) Exam Narrative: General: Frail old female who is alert awake and in NAD Lungs/Chest: Trachea central Clear BS B/L, No crackles or wheezing. Cardiac: RRR. Normal S1 S2. Systolic murmur 3/6 Circulation: Pedal pulses are intact and symmetrical. Abdomen: Normal bowel sounds.. Soft. Mild diffuse tenderness to palpation. ND. Extremities: Bilateral pitting edema present : Quinones in place Neurologic: Follows commands. Moves all 4 extremities PERRL AO x3 Skin: No Rash Objective Data Vital Signs Vital Signs: Vital Signs - 24 hr 08/11/25 16:00 08/11/25 16:00 08/11/25 16:00 Temperature 98.3 F Pulse Rate 80 79 Respiratory Rate 14 Blood Pressure 124/53 L Pulse Oximetry 97 97 Oxygen Delivery Room Air Oxygen Flow Rate 08/11/25 17:00 08/11/25 18:00 08/11/25 18:00 Temperature Pulse Rate 84 90 90 Respiratory Rate 13 18 Blood Pressure 123/61 135/58 L Pulse Oximetry 97 100 Oxygen Delivery Oxygen Flow Rate 08/11/25 19:00 08/11/25 20:00 08/11/25 20:00 Temperature 98.5 F Pulse Rate 83 78 79 Respiratory Rate 13 16 Blood Pressure 128/54 L 130/57 L Pulse Oximetry 97 97 Oxygen Delivery Oxygen Flow Rate 08/11/25 20:10 08/11/25 21:00 08/11/25 22:00 Temperature Pulse Rate 78 82 80 Respiratory Rate 16 15 Blood Pressure 135/63 Pulse Oximetry 97 96 Oxygen Delivery Room Air Oxygen Flow Rate 08/11/25 22:00 08/11/25 23:00 08/11/25 23:35 Temperature Pulse Rate 80 80 77 Respiratory Rate 17 14 14 Blood Pressure 138/63 143/66 H Pulse Oximetry 95 94 95 Oxygen Delivery Room Air Oxygen Flow Rate 08/12/25 00:00 08/12/25 00:00 08/12/25 01:00 Temperature 98 F Pulse Rate 90 87 78 Respiratory Rate 16 16 Blood Pressure 143/62 H 145/62 H Pulse Oximetry 97 95 Oxygen Delivery Oxygen Flow Rate 08/12/25 02:00 08/12/25 02:00 08/12/25 03:00 Temperature Pulse Rate 79 79 73 Respiratory Rate 12 10 L Blood Pressure 135/58 L 150/60 H Pulse Oximetry 96 97 Oxygen Delivery Oxygen Flow Rate 08/12/25 03:48 08/12/25 04:00 08/12/25 04:00 Temperature 97.8 F Pulse Rate 81 74 74 Respiratory Rate 15 12 Blood Pressure 168/67 H Pulse Oximetry 100 95 Oxygen Delivery Room Air Oxygen Flow Rate 08/12/25 05:00 08/12/25 06:00 08/12/25 06:00 Temperature Pulse Rate 71 70 70 Respiratory Rate 13 16 Blood Pressure 149/64 H 147/64 H Pulse Oximetry 97 95 Oxygen Delivery Oxygen Flow Rate 08/12/25 07:00 08/12/25 08:00 08/12/25 09:24 Temperature 98.2 F Pulse Rate 83 78 76 Respiratory Rate 20 17 Blood Pressure 164/67 H 179/72 H Pulse Oximetry 97 97 Oxygen Delivery Oxygen Flow Rate 08/12/25 09:28 08/12/25 10:00 08/12/25 12:00 Temperature Pulse Rate 76 72 73 Respiratory Rate 12 Blood Pressure 133/59 L Pulse Oximetry 97 Oxygen Delivery Oxygen Flow Rate 08/12/25 12:00 08/12/25 13:17 08/12/25 13:22 Temperature 98.5 F 98.2 F Pulse Rate 72 75 Respiratory Rate 18 20 Blood Pressure 143/60 H 167/61 H Pulse Oximetry 94 96 Oxygen Delivery Room Air Room Air Oxygen Flow Rate 08/12/25 14:21 08/12/25 14:31 08/12/25 14:41 Temperature Pulse Rate 64 68 69 Respiratory Rate 16 23 H 18 Blood Pressure 146/65 H 136/61 146/65 H Pulse Oximetry 100 97 95 Oxygen Delivery Nasal Cannula Room Air Room Air Oxygen Flow Rate 3 Intake/Output Intake/Output: Intake & Output 08/09/25 08/10/25 08/11/25 08/12/25 23:59 23:59 23:59 23:59 Intake Total 1749.7 435 Output Total 680 200 Balance 1069.7 235 Meds/Results Medications: Active Medications Generic Name Dose Route Start Last Admin Trade Name Freq PRN Reason Stop Dose Admin Amlodipine Besylate 5 mg 08/11/25 12:10 08/12/25 08:39 Amlodipine Besylate 5 Mg Tablet PO Not Given DAILY BLAKE Dextrose 12.5 gm 08/11/25 07:47 Dextrose 50% 25 Gm/50 Ml Syringe IV PUSH PRN PRN Hypoglycemia Protocol Enoxaparin Sodium 30 mg 08/12/25 09:00 08/12/25 08:33 Enoxaparin 30 Mg/0.3 Ml Syringe SUB-Q 30 mg DAILY BLAKE Administration Glucagon 1 mg 08/11/25 07:47 Glucagon For Inj 1 Mg Vial IM PRN PRN Hypoglycemia Protocol Glucose 15 gm 08/11/25 07:47 Glucose Oral Gel 15 Gm Of Glucse In 37.5 Gm Tube PO PRN PRN Hypoglycemia Protocol Hydralazine HCl 20 mg 08/12/25 08:40 Hydralazine Hcl 20 Mg/Ml Vial IV PUSH Q4H PRN SBP more than 160 Dextrose 1,000 mls @ 100 mls/hr 08/11/25 07:47 Dextrose 5% 1,000 Ml IVPB PRN PRN Hypoglycemia Protocol Insulin Human Regular 1 each 08/13/25 06:00 Home Medication Insulin XX DAILY@0600 [facility] Labetalol HCl 20 mg 08/12/25 08:40 08/12/25 09:28 Labetalol Hcl Inj 100 Mg/20 Ml Vial IV PUSH 20 mg Q4H PRN Administration SBP > 160 and HR> 60 -1st choice Metoclopramide HCl 10 mg 08/12/25 11:30 08/12/25 11:40 Metoclopramide Hcl 10 Mg/10 Ml Soln Udc PO Not Given ACHS [facility] Miscellaneous Information 1 each 08/12/25 15:03 Pharmacist Communication Order XX 08/12/25 15:04 ONCE ONE Ondansetron HCl 4 mg 08/11/25 22:29 08/12/25 08:33 Ondansetron Inj 4 Mg/2 Ml Vial IV PUSH 4 mg Q4H PRN Administration Nausea And Vomiting Pantoprazole Sodium 40 mg 08/12/25 09:00 08/12/25 08:33 Pantoprazole Sodium Iv 40 Mg Vial IV PUSH 40 mg Q12HR BLAKE Administration Sucralfate 1,000 mg 08/12/25 16:30 Sucralfate Susp 100 Mg/Ml 10 Ml Udc PO ACHS [facility] Radiology Results: ITS Impressions Abdomen/Pelvis CT 08/11/25 09:58 IMPRESSION: 1. Small sliding hiatal hernia and/or esophagitis. 2. No other acute abnormality. Chest X-Ray 08/11/25 11:12 Impression: No acute cardiopulmonary abnormality. Labs Labs: Laboratory Results - last 24 hr 08/11/25 08/11/25 08/11/25 07:37 16:05 17:00 WBC RBC Hgb Hct MCV MCH MCHC RDW Plt Count MPV Immature Gran % (Auto) Neut % (Auto) Lymph % (Auto) [place] % (Auto) Eos % (Auto) Baso % (Auto) Lymph # (Auto) [place] # (Auto) Eos # (Auto) Baso # (Auto) Abs Immat Gran (auto) Absolute Neuts (auto) Absolute Nucleated RBC Nucleated RBC % Sodium Potassium Chloride Carbon Dioxide Anion Gap BUN Creatinine Estim Creat Clear Calc Estimated GFR Glucose POC Capillary Glucose > 500 H* 137 H 118 H Calcium Phosphorus Magnesium Total Bilirubin AST ALT Alkaline Phosphatase Total Protein Albumin 08/11/25 08/11/25 08/11/25 17:29 18:04 20:25 WBC RBC Hgb Hct MCV MCH MCHC RDW Plt Count MPV Immature Gran % (Auto) Neut % (Auto) Lymph % (Auto) [place] % (Auto) Eos % (Auto) Baso % (Auto) Lymph # (Auto) [place] # (Auto) Eos # (Auto) Baso # (Auto) Abs Immat Gran (auto) Absolute Neuts (auto) Absolute Nucleated RBC Nucleated RBC % Sodium 139 Potassium 4.7 Chloride 103 Carbon Dioxide 31 H Anion Gap 5 BUN 44 H Creatinine 2.24 H Estim Creat Clear Calc 17 Estimated GFR 21 L Glucose 102 POC Capillary Glucose 119 H 117 H Calcium 9.5 Phosphorus Magnesium Total Bilirubin AST ALT Alkaline Phosphatase Total Protein Albumin 08/11/25 08/12/25 08/12/25 23:47 01:28 03:39 WBC 11.4 H RBC 2.50 L Hgb 7.9 L Hct 24.9 L MCV 99.6 MCH 31.6 MCHC 31.7 L RDW 13.7 Plt Count 185 MPV 11.1 H Immature Gran % (Auto) 0.5 Neut % (Auto) 85.3 H Lymph % (Auto) 7.5 L [place] % (Auto) 6.2 Eos % (Auto) 0.1 Baso % (Auto) 0.4 Lymph # (Auto) 0.85 L [place] # (Auto) 0.7 H Eos # (Auto) 0.0 Baso # (Auto) 0.0 Abs Immat Gran (auto) 0.06 H Absolute Neuts (auto) 9.7 H Absolute Nucleated RBC 0.000 Nucleated RBC % 0.0 Sodium 138 Potassium 4.3 Chloride 105 Carbon Dioxide 30 Anion Gap 3 L BUN 45 H Creatinine 2.32 H Estim Creat Clear Calc 17 Estimated GFR 21 L Glucose 103 POC Capillary Glucose 112 H 108 H Calcium 9.1 Phosphorus 4.5 Magnesium 2.1 Total Bilirubin 0.3 AST 35 ALT 25 Alkaline Phosphatase 56 Total Protein 5.7 L Albumin 3.2 L 08/12/25 08/12/25 08/12/25 07:37 11:44 14:31 WBC RBC Hgb Hct MCV MCH MCHC RDW Plt Count MPV Immature Gran % (Auto) Neut % (Auto) Lymph % (Auto) [place] % (Auto) Eos % (Auto) Baso % (Auto) Lymph # (Auto) [place] # (Auto) Eos # (Auto) Baso # (Auto) Abs Immat Gran (auto) Absolute Neuts (auto) Absolute Nucleated RBC Nucleated RBC % Sodium Potassium Chloride Carbon Dioxide Anion Gap BUN Creatinine Estim Creat Clear Calc Estimated GFR Glucose POC Capillary Glucose 167 H 189 H 154 H Calcium Phosphorus Magnesium Total Bilirubin AST ALT Alkaline Phosphatase Total Protein Albumin
[2025-08-12] MEDS: SUCRALFATE SUSP 100 MG/ML 10 ML UDC 1000 MG PO ×2 (16:19→20:12)
[2025-08-12] MEDS: METOCLOPRAMIDE HCL 10 MG/10 ML SOLN UDC PO ×2 (16:19→20:13)
[2025-08-13] VITALS (10 sets, daily range): BP systolic 125–167; BP diastolic 54–71; PULSE 66–88; RESP 14–20; TEMP 36.5–36.9; O2SAT 97–100
[2025-08-13] MEDS: METOCLOPRAMIDE HCL 10 MG/10 ML SOLN UDC PO ×4 (05:43→20:42)
[2025-08-13] MEDS: SUCRALFATE SUSP 100 MG/ML 10 ML UDC 1000 MG PO ×2 (05:43→12:14)
[2025-08-13 05:45] LABS: Hematocrit 26.7 % (37.0-47.0); Hemoglobin 8.4 g/dL (12.0-15.0); Immature Granulocyte Percent A 0.3 % (0-0.5); Lymphocytes Absolute Auto 1.32 K/mm3 (0.9-3.2); Mean Corpuscular HGB Conc 31.5 g/dl (32-36); Mean Corpuscular Hemoglobin 31.8 pg (26-34); Mean Corpuscular Volume 101.1 fl (80-100); Nucleated Red Blood Cells Absolute Auto 0.000 K/mm3 (0.0-0.012); Nucleated Red Blood Cells Perc 0.0 % (0.0-0.2); Platelet Count Result 158 k/mm3 (150-375); Red Blood Count 2.64 M/mm3 (4.2-5.4); White Blood Count 6.9 K/mm3 (4.5-10.0)
[2025-08-13 06:02] LABS: Alanine Aminotransferase 25 U/L (6-35); Albumin Level 3.1 g/dL (3.5-5.1); Alkaline Phosphatase 49 U/L (38-126); Anion Gap 5 mmol/L (4-12); Aspartate Amino Transferase 32 U/L (14-36); Bilirubin,Total 0.3 mg/dL (0.2-1.3); Blood Urea Nitrogen 37 mg/dL (7-17); Calcium 8.7 mg/dL (8.4-10.2); Carbon Dioxide 27 mmol/L (22-30); Chloride 106 mmol/L (98-107); Estimated CRCL calculation 17 ml/min; Estimated Glomerular Filt Rate 21; Glucose 148 mg/dL (65-110); Magnesium 1.9 mg/dL (1.6-2.3); Potassium 3.3 mmol/L (3.4-5.0); Sodium 138 mmol/L (137-145); Total Protein 5.7 g/dL (6.3-8.2)
[2025-08-13] MEDS: HOME MEDICATION INSULIN 1 EACH XX (08:16)
[2025-08-13] MEDS: POTASSIUM CHLORIDE 20 MEQ ER TABLET PO (09:43)
[2025-08-13] MEDS: PANTOPRAZOLE SODIUM IV 40 MG VIAL IV PUSH (09:43)
[2025-08-13] MEDS: ENOXAPARIN 30 MG/0.3 ML SYRINGE SUB-Q (09:44)
--- NOTE | 2025-08-13 13:23 | P.PNNP_ITS ---
Progress Note: A&P Assessment and Plan (1) Stage 4 chronic kidney disease: Code(s): N18.4 - Chronic kidney disease, stage 4 (severe) Status: Acute Assessment and Plan: * baseline creatinine was running ~ 1.4 - 2.1mg/dl in the last few years * HOWEVER, her most recent admissions demonstrate her creatinine running closer to 1.9 - 2.4mg/dl (element of disease progression?) * suspect her higher creatinines in the last couple of month presumably due to: * prerenal factors (nausea/vomiting) * recurrent hyperglycemia/DKA * need for outpatient diuretic therapy * element of CKD progression(?) * baseline CKD secondary to diabetes, hypertension, vascular disease, and age- related change (2) DKA (diabetic ketoacidosis): Qualifiers: Diabetes mellitus type: type 1 Diabetes mellitus complication detail: w ithout coma Qualified Code(s): E10.10 - Type 1 diabetes mellitus with ketoacidosis without coma Code(s): E11.10 - Type 2 diabetes mellitus with ketoacidosis without coma Status: Acute Assessment and Plan: * resolved * as noted on admission/presentation * suspect secondary to malfunctioning of pump due improper installation/positioning on skin * off insulin gtt * IVFs on hold due to concerns for volume overload (as noted by peripheral edema) * no evidence of infection * follow blood sugars (3) Abdominal pain: Code(s): R10.9 - Unspecified abdominal pain Status: Acute Assessment and Plan: * resolved * noted on presentation * associated with nausea + vomiting * does have chronic diarrhea associated with her known history of IBS * CT scan of A/P without acute pathology (4) Hypertension: Qualifiers: Hypertension type: unspecified Qualified Code(s): I10 - Essential (primary) hypertension Code(s): I10 - Essential (primary) hypertension Status: Chronic Assessment and Plan: * reasonable control on admission * slow re-introduce home BP medications as needed/tolerated * follow trend of hemodynamics (5) Anemia: Code(s): D64.9 - Anemia, unspecified Status: Acute Assessment and Plan: * probably due to CKD * consider WILFRIDO while hospitalized * follow trend of H/H (6) Type 1 diabetes mellitus with hyperglycemia: Code(s): E10.65 - Type 1 diabetes mellitus with hyperglycemia Status: Acute Assessment and Plan: * follows with [facility] * back on insulin pump * 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 L Subjective Date/time seen: 08/13/25 13:23 Interval history: Follow-up for chronic kidney disease. Appears to be doing reasonably well at the time of my visit; no further nausea or vomiting; has been tolerating oral intake with slow advancement of diet; no other issues/events overnight or earlier this morning. Exam 2 Narrative: General: elderly and frail female in NAD Heart: normal S1 and S2; no rub Lungs: clear to auscultation Abdomen: soft, nontender, nondistended, positive bowel sounds Extremities: no cyanosis or clubbing; 1+ edema Skin: warm and intact Objective Data Vital Signs Vital Signs: Vital Signs Temp Pulse Resp BP Pulse Ox O2 Del Method 08/13/25 13:00 97.9 F 69 16 141/55 H 97 08/13/25 08:05 71 08/13/25 08:00 98.1 F 72 14 156/71 H 98 08/13/25 07:45 Room Air 08/13/25 04:00 97.8 F 72 18 139/59 L 97 08/13/25 04:00 66 08/13/25 00:00 74 08/13/25 00:00 97.7 F 88 20 167/65 H 100 08/12/25 22:50 99 Room Air 08/12/25 20:28 98.8 F 74 18 153/55 H 98 08/12/25 20:00 76 08/12/25 20:00 Room Air Intake/Output Intake/Output: Intake & Output 08/10/25 08/11/25 08/12/25 08/13/25 23:59 23:59 23:59 23:59 Intake Total 1749.7 675 2640 Output Total 680 200 Balance 1069.7 475 2640 Meds/Results Medications: Active Medications Generic Name Dose Route Start Last Admin Trade Name Freq PRN Reason Stop Dose Admin Amlodipine Besylate 5 mg 08/11/25 12:10 08/13/25 09:43 Amlodipine Besylate 5 Mg Tablet PO 5 mg DAILY BLAKE Administration Atorvastatin Calcium 40 mg 08/13/25 21:00 Atorvastatin 40 Mg Tablet BY MOUTH BLAKE Colestipol HCl 1 gm 08/13/25 17:00 08/13/25 16:54 Colestipol Hcl 1 Gm Tablet PO 1 gm BID BLAKE Administration Cyanocobalamin 2,000 mcg 08/14/25 09:00 Cyanocobalamin 1,000 Mcg Tablet PO QAM [facility] Cyanocobalamin 500 mcg 08/14/25 09:00 Cyanocobalamin 500 Mcg Tablet PO QAM [facility] Dextrose 12.5 gm 08/11/25 07:47 Dextrose 50% 25 Gm/50 Ml Syringe IV PUSH PRN PRN Hypoglycemia Protocol Enoxaparin Sodium 30 mg 08/12/25 09:00 08/13/25 09:44 Enoxaparin 30 Mg/0.3 Ml Syringe SUB-Q 30 mg DAILY BLAKE Administration Ferrous Sulfate 325 mg 08/14/25 09:00 Ferrous Sulfate 325 Mg Tablet BY MOUTH DAILY [facility] Gabapentin 300 mg 08/13/25 17:00 08/13/25 16:54 Gabapentin 300 Mg Capsule BY MOUTH 300 mg BID BLAKE Administration Glucagon 1 mg 08/11/25 07:47 Glucagon For Inj 1 Mg Vial IM PRN PRN Hypoglycemia Protocol Glucose 15 gm 08/11/25 07:47 Glucose Oral Gel 15 Gm Of Glucse In 37.5 Gm Tube PO PRN PRN Hypoglycemia Protocol Hydralazine HCl 20 mg 08/12/25 08:40 08/13/25 00:17 Hydralazine Hcl 20 Mg/Ml Vial IV PUSH 20 mg Q4H PRN Administration SBP more than 160 Dextrose 1,000 mls @ 100 mls/hr 08/11/25 07:47 Dextrose 5% 1,000 Ml IVPB PRN PRN Hypoglycemia Protocol Insulin Human Regular 1 each 08/13/25 06:00 08/13/25 08:16 Home Medication Insulin XX 1 each DAILY@0600 [facility] Administration Labetalol HCl 20 mg 08/12/25 08:40 08/12/25 09:28 Labetalol Hcl Inj 100 Mg/20 Ml Vial IV PUSH 20 mg Q4H PRN Administration SBP > 160 and HR> 60 -1st choice Metoclopramide HCl 10 mg 08/12/25 11:30 08/13/25 16:54 Metoclopramide Hcl 10 Mg/10 Ml Soln Udc PO 10 mg ACHS BLAKE Administration Multivitamins Therapeutic 1 tablet 08/14/25 09:00 Multivitamins Therapeutic Tab (*Bkc) PO DAILY [facility] Ondansetron HCl 4 mg 08/11/25 22:29 08/12/25 08:33 Ondansetron Inj 4 Mg/2 Ml Vial IV PUSH 4 mg Q4H PRN Administration Nausea And Vomiting Ondansetron HCl 4 mg 08/13/25 16:00 Ondansetron Hcl Odt 4 Mg Tablet PO Q8H PRN Nausea And Vomiting Pantoprazole Sodium 40 mg 08/14/25 09:00 Pantoprazole 40 Mg Tablet PO QAM [facility] Sertraline HCl 100 mg 08/13/25 21:00 Sertraline Hcl 50 Mg Tablet PO HS [facility] Solifenacin 5 mg 08/14/25 09:00 Solifenacin 5 Mg Tablet PO DAILY [facility] Vitamin D 125 mcg 08/13/25 16:00 08/13/25 16:54 Cholecalciferol (Vitamin D3) 125 Mcg (5,000 Units) Tablet PO 125 mcg Q48HR [facility] Administration Radiology Results: ITS Impressions Abdomen/Pelvis CT 08/11/25 09:58 IMPRESSION: 1. Small sliding hiatal hernia and/or esophagitis. 2. No other acute abnormality. Chest X-Ray 08/11/25 11:12 Impression: No acute cardiopulmonary abnormality. Labs Labs: Laboratory Tests 08/13/25 05:29 08/13/25 05:29 Calcium 8.7 Phosphorus 3.5 Magnesium 1.9 Total Bilirubin 0.3 AST 32 ALT 25 Alkaline Phosphatase 49 Total Protein 5.7 L Albumin 3.1 L
--- NOTE | 2025-08-13 14:24 | WPDGIPROGNO ---
Progress Note: A&P Assessment and Plan (1) Dysphagia: Qualifiers: Dysphagia type: esophageal phase Qualified Code(s): R13.19 - Other dysphagia Code(s): R13.10 - Dysphagia, unspecified Status: Acute Assessment and Plan: The patient had transient dysphagia secondary to erosive esophagitis, as shown in EGD done yesterday. Patient tolerated soft food with no problems today. She can be transitioned to oral pantoprazole, and no need for sucralfate. She should continue pantoprazole orally permanently given her chronic erosive esophagitis to prevent progression of disease and further episodes of dysphagia. We can follow her up as an outpatient. Subjective Date/time seen: 08/13/25 14:24 Objective Data Vital Signs Vital Signs: Vital Signs - 24 hr 08/12/25 14:31 08/12/25 14:41 08/12/25 16:00 Temperature Pulse Rate 68 69 71 Respiratory Rate 23 H 18 Blood Pressure 136/61 146/65 H Pulse Oximetry 97 95 Oxygen Delivery Room Air Room Air 08/12/25 16:28 08/12/25 20:00 08/12/25 20:00 Temperature 98.7 F Pulse Rate 79 76 Respiratory Rate 16 Blood Pressure 151/65 H Pulse Oximetry 97 Oxygen Delivery Room Air 08/12/25 20:28 08/12/25 22:50 08/13/25 00:00 Temperature 98.8 F 97.7 F Pulse Rate 74 88 Respiratory Rate 18 20 Blood Pressure 153/55 H 167/65 H Pulse Oximetry 98 99 100 Oxygen Delivery Room Air 08/13/25 00:00 08/13/25 04:00 08/13/25 04:00 Temperature 97.8 F Pulse Rate 74 66 72 Respiratory Rate 18 Blood Pressure 139/59 L Pulse Oximetry 97 Oxygen Delivery 08/13/25 07:45 08/13/25 08:00 08/13/25 08:05 Temperature 98.1 F Pulse Rate 72 71 Respiratory Rate 14 Blood Pressure 156/71 H Pulse Oximetry 98 Oxygen Delivery Room Air 08/13/25 12:00 08/13/25 12:05 Temperature 97.9 F Pulse Rate 69 68 Respiratory Rate 16 Blood Pressure 141/55 H Pulse Oximetry 97 Oxygen Delivery Intake/Output Intake/Output: Intake & Output 08/10/25 08/11/25 08/12/25 08/13/25 23:59 23:59 23:59 23:59 Intake Total 1749.7 678 480 Output Total 680 200 Balance 1069.7 020 480 Meds/Results Medications: Active Medications Generic Name Dose Route Start Last Admin Trade Name Freq PRN Reason Stop Dose Admin Amlodipine Besylate 5 mg 08/11/25 12:10 08/13/25 09:43 Amlodipine Besylate 5 Mg Tablet PO 5 mg DAILY BLAKE Administration Dextrose 12.5 gm 08/11/25 07:47 Dextrose 50% 25 Gm/50 Ml Syringe IV PUSH PRN PRN Hypoglycemia Protocol Enoxaparin Sodium 30 mg 08/12/25 09:00 08/13/25 09:44 Enoxaparin 30 Mg/0.3 Ml Syringe SUB-Q 30 mg DAILY BLAKE Administration Glucagon 1 mg 08/11/25 07:47 Glucagon For Inj 1 Mg Vial IM PRN PRN Hypoglycemia Protocol Glucose 15 gm 08/11/25 07:47 Glucose Oral Gel 15 Gm Of Glucse In 37.5 Gm Tube PO PRN PRN Hypoglycemia Protocol Hydralazine HCl 20 mg 08/12/25 08:40 08/13/25 00:17 Hydralazine Hcl 20 Mg/Ml Vial IV PUSH 20 mg Q4H PRN Administration SBP more than 160 Dextrose 1,000 mls @ 100 mls/hr 08/11/25 07:47 Dextrose 5% 1,000 Ml IVPB PRN PRN Hypoglycemia Protocol Insulin Human Regular 1 each 08/13/25 06:00 08/13/25 08:16 Home Medication Insulin XX 1 each DAILY@0600 BLAKE Administration Labetalol HCl 20 mg 08/12/25 08:40 08/12/25 09:28 Labetalol Hcl Inj 100 Mg/20 Ml Vial IV PUSH 20 mg Q4H PRN Administration SBP > 160 and HR> 60 -1st choice Metoclopramide HCl 10 mg 08/12/25 11:30 08/13/25 12:14 Metoclopramide Hcl 10 Mg/10 Ml Soln Udc PO 10 mg ACHS BLAKE Administration Ondansetron HCl 4 mg 08/11/25 22:29 08/12/25 08:33 Ondansetron Inj 4 Mg/2 Ml Vial IV PUSH 4 mg Q4H PRN Administration Nausea And Vomiting Radiology Results: ITS Impressions Abdomen/Pelvis CT 08/11/25 09:58 IMPRESSION: 1. Small sliding hiatal hernia and/or esophagitis. 2. No other acute abnormality. Chest X-Ray 08/11/25 11:12 Impression: No acute cardiopulmonary abnormality. Labs Labs: Laboratory Results - last 24 hr 08/12/25 08/12/25 08/12/25 14:31 16:11 20:04 WBC RBC Hgb Hct MCV MCH MCHC RDW Plt Count MPV Immature Gran % (Auto) Neut % (Auto) Lymph % (Auto) [place] % (Auto) Eos % (Auto) Baso % (Auto) Lymph # (Auto) [place] # (Auto) Eos # (Auto) Baso # (Auto) Abs Immat Gran (auto) Absolute Neuts (auto) Absolute Nucleated RBC Nucleated RBC % Sodium Potassium Chloride Carbon Dioxide Anion Gap BUN Creatinine Estim Creat Clear Calc Estimated GFR Glucose POC Capillary Glucose 154 H 143 H 164 H Calcium Phosphorus Magnesium Total Bilirubin AST ALT Alkaline Phosphatase Total Protein Albumin 08/13/25 08/13/25 08/13/25 00:10 04:34 05:29 WBC 6.9 RBC 2.64 L Hgb 8.4 L Hct 26.7 L MCV 101.1 H MCH 31.8 MCHC 31.5 L RDW 14.0 Plt Count 158 MPV 11.6 H Immature Gran % (Auto) 0.3 Neut % (Auto) 72.7 Lymph % (Auto) 19.2 [place] % (Auto) 7.0 Eos % (Auto) 0.4 Baso % (Auto) 0.4 Lymph # (Auto) 1.32 [place] # (Auto) 0.5 Eos # (Auto) 0.0 Baso # (Auto) 0.0 Abs Immat Gran (auto) 0.02 Absolute Neuts (auto) 5.0 Absolute Nucleated RBC 0.000 Nucleated RBC % 0.0 Sodium 138 Potassium 3.3 L Chloride 106 Carbon Dioxide 27 Anion Gap 5 BUN 37 H Creatinine 2.27 H Estim Creat Clear Calc 17 Estimated GFR 21 L Glucose 148 H POC Capillary Glucose 126 H 94 Calcium 8.7 Phosphorus 3.5 Magnesium 1.9 Total Bilirubin 0.3 AST 32 ALT 25 Alkaline Phosphatase 49 Total Protein 5.7 L Albumin 3.1 L 08/13/25 08/13/25 08:42 12:07 WBC RBC Hgb Hct MCV MCH MCHC RDW Plt Count MPV Immature Gran % (Auto) Neut % (Auto) Lymph % (Auto) [place] % (Auto) Eos % (Auto) Baso % (Auto) Lymph # (Auto) [place] # (Auto) Eos # (Auto) Baso # (Auto) Abs Immat Gran (auto) Absolute Neuts (auto) Absolute Nucleated RBC Nucleated RBC % Sodium Potassium Chloride Carbon Dioxide Anion Gap BUN Creatinine Estim Creat Clear Calc Estimated GFR Glucose POC Capillary Glucose 178 H 147 H Calcium Phosphorus Magnesium Total Bilirubin AST ALT Alkaline Phosphatase Total Protein Albumin
--- NOTE | 2025-08-13 15:57 | P.PNIM_ITS ---
Progress Note: A&P Assessment and Plan (1) DKA (diabetic ketoacidosis): Qualifiers: Diabetes mellitus type: type 1 Diabetes mellitus complication detail: without coma Qualified Code(s): E10.10 - Type 1 diabetes mellitus with ketoacidosis without coma Code(s): E11.10 - Type 2 diabetes mellitus with ketoacidosis without coma Status: Acute Assessment and Plan: Patient presented with DKA likely secondary to malfunctioning of pump which could be secondary to inproper installation On presentation patient had a positive anion gap and acidosis. After administration of IV fluids her anion gap has closed although sugar remains elevated Patient is overall volume overloaded hence only limited IV fluids were given. Patient was treated with IV insulin infusion. As blood sugars improved patient was transition to her insulin pump. Will continue monitor blood glucose and add supplemental insulin with sliding scale if needed. Clear liquid diet advance as tolerated CT abdomen pelvis is negative, UA was negative for any evidence of UTI (2) Hypertension: Qualifiers: Hypertension type: unspecified Qualified Code(s): I10 - Essential (primary) hypertension Code(s): I10 - Essential (primary) hypertension Status: Chronic Assessment and Plan: Resume amlodipine. P.r.n. labetalol and hydralazine. (3) Aortic stenosis: Code(s): I35.0 - Nonrheumatic aortic (valve) stenosis Status: Acute Assessment and Plan: Patient has moderate on last echo. No intervention at this time. (4) Chronic gastritis: Code(s): K29.50 - Unspecified chronic gastritis without bleeding Status: Acute Assessment and Plan: Continue PPI (5) Stage 4 chronic kidney disease: Code(s): N18.4 - Chronic kidney disease, stage 4 (severe) Status: Acute Assessment and Plan: Creatinine remains elevated although close to her baseline. Recent renal ultrasound showed IMPRESSION: 1. Mild bilateral hydronephrosis but with bilateral ureteral jets visualized in the distended bladder on color Doppler. 2. Diffuse bilateral increased renal cortical echogenicity consistent with medical renal disease. 3. Mild left renal atrophy. CT abdomen pelvis was negative for any acute change Consult nephrology (6) Esophagitis: Code(s): K20.90 - Esophagitis, unspecified without bleeding Status: Acute Assessment and Plan: PPI GI consulted. EGD with reflux esophagitis and Rees's esophagus without dysplasia noted. 08/12/2025. PPI b.i.d. and add Carafate (7) Cough: Code(s): R05.9 - Cough, unspecified Status: Acute Assessment and Plan: Negative chest x-ray and viral respiratory panel (8) Dysphagia: Qualifiers: Dysphagia type: esophageal phase Qualified Code(s): R13.19 - Other dysphagia Code(s): R13.10 - Dysphagia, unspecified Status: Acute Assessment and Plan: Patient complaining of symptoms suggestive of dysphagia. Patient has had esophagitis. CT scan does not show any significant abnormality. I will consult GI Change Protonix to IV q.12 hours treat esophagitis EGD with findings of Rees's esophagus without dysplasia and reflux esophagitis (9) Nausea & vomiting: Qualifiers: Vomiting type: bilious vomiting Qualified Code(s): R11.14 - Bilious vomiting Code(s): R11.2 - Nausea with vomiting, unspecified Status: Inactive Assessment and Plan: Gastroparesis versus esophagitis. IV PPI Reglan Clear liquid diet and advanced as tolerated Plan DVT prophylaxis -Lovenox Stress ulcer prophylaxis -continue home PPI Nutrition -diet as tolerated Code Status - Full Code Subjective Date/time seen: 08/13/25 15:57 Interval history: No overnight events doing well. no nausea, vomiting. only tried clears so far this am. Review of Systems Review of Systems: All systems reviewed & are unremarkable except as noted in HPI and below (HPI) Exam Narrative: General: Frail old female who is alert awake and in NAD Lungs/Chest: Trachea central Clear BS B/L, No crackles or wheezing. Cardiac: RRR. Normal S1 S2. Systolic murmur 3/6 Circulation: Pedal pulses are intact and symmetrical. Abdomen: Normal bowel sounds.. Soft. Mild diffuse tenderness to palpation. ND. Extremities: Bilateral pitting edema present : Quinones in place Neurologic: Follows commands. Moves all 4 extremities PERRL AO x3 Skin: No Rash Objective Data Vital Signs Vital Signs: Vital Signs - 24 hr 08/12/25 16:00 08/12/25 16:28 08/12/25 20:00 Temperature 98.7 F Pulse Rate 71 79 Respiratory Rate 16 Blood Pressure 151/65 H Pulse Oximetry 97 Oxygen Delivery Room Air 08/12/25 20:00 08/12/25 20:28 08/12/25 22:50 Temperature 98.8 F Pulse Rate 76 74 Respiratory Rate 18 Blood Pressure 153/55 H Pulse Oximetry 98 99 Oxygen Delivery Room Air 08/13/25 00:00 08/13/25 00:00 08/13/25 04:00 Temperature 97.7 F Pulse Rate 88 74 66 Respiratory Rate 20 Blood Pressure 167/65 H Pulse Oximetry 100 Oxygen Delivery 08/13/25 04:00 08/13/25 07:45 08/13/25 08:00 Temperature 97.8 F 98.1 F Pulse Rate 72 72 Respiratory Rate 18 14 Blood Pressure 139/59 L 156/71 H Pulse Oximetry 97 98 Oxygen Delivery Room Air 08/13/25 08:05 08/13/25 12:00 08/13/25 12:05 Temperature 97.9 F Pulse Rate 71 69 68 Respiratory Rate 16 Blood Pressure 141/55 H Pulse Oximetry 97 Oxygen Delivery Intake/Output Intake/Output: Intake & Output 08/10/25 08/11/25 08/12/25 08/13/25 23:59 23:59 23:59 23:59 Intake Total 1749.7 675 480 Output Total 680 200 Balance 1069.7 475 480 Meds/Results Medications: Active Medications Generic Name Dose Route Start Last Admin Trade Name Freq PRN Reason Stop Dose Admin Amlodipine Besylate 5 mg 08/11/25 12:10 08/13/25 09:43 Amlodipine Besylate 5 Mg Tablet PO 5 mg DAILY BLAKE Administration Dextrose 12.5 gm 08/11/25 07:47 Dextrose 50% 25 Gm/50 Ml Syringe IV PUSH PRN PRN Hypoglycemia Protocol Enoxaparin Sodium 30 mg 08/12/25 09:00 08/13/25 09:44 Enoxaparin 30 Mg/0.3 Ml Syringe SUB-Q 30 mg DAILY BLAKE Administration Glucagon 1 mg 08/11/25 07:47 Glucagon For Inj 1 Mg Vial IM PRN PRN Hypoglycemia Protocol Glucose 15 gm 08/11/25 07:47 Glucose Oral Gel 15 Gm Of Glucse In 37.5 Gm Tube PO PRN PRN Hypoglycemia Protocol Hydralazine HCl 20 mg 08/12/25 08:40 08/13/25 00:17 Hydralazine Hcl 20 Mg/Ml Vial IV PUSH 20 mg Q4H PRN Administration SBP more than 160 Dextrose 1,000 mls @ 100 mls/hr 08/11/25 07:47 Dextrose 5% 1,000 Ml IVPB PRN PRN Hypoglycemia Protocol Insulin Human Regular 1 each 08/13/25 06:00 08/13/25 08:16 Home Medication Insulin XX 1 each DAILY@0600 BLAKE Administration Labetalol HCl 20 mg 08/12/25 08:40 08/12/25 09:28 Labetalol Hcl Inj 100 Mg/20 Ml Vial IV PUSH 20 mg Q4H PRN Administration SBP > 160 and HR> 60 -1st choice Metoclopramide HCl 10 mg 08/12/25 11:30 08/13/25 12:14 Metoclopramide Hcl 10 Mg/10 Ml Soln Udc PO 10 mg ACHS BLAKE Administration Ondansetron HCl 4 mg 08/11/25 22:29 08/12/25 08:33 Ondansetron Inj 4 Mg/2 Ml Vial IV PUSH 4 mg Q4H PRN Administration Nausea And Vomiting Pantoprazole Sodium 40 mg 08/14/25 09:00 Pantoprazole 40 Mg Tablet PO QAM [facility] Radiology Results: ITS Impressions Abdomen/Pelvis CT 08/11/25 09:58 IMPRESSION: 1. Small sliding hiatal hernia and/or esophagitis. 2. No other acute abnormality. Chest X-Ray 08/11/25 11:12 Impression: No acute cardiopulmonary abnormality. Labs Labs: Laboratory Results - last 24 hr 08/12/25 08/12/25 08/13/25 16:11 20:04 00:10 WBC RBC Hgb Hct MCV MCH MCHC RDW Plt Count MPV Immature Gran % (Auto) Neut % (Auto) Lymph % (Auto) [place] % (Auto) Eos % (Auto) Baso % (Auto) Lymph # (Auto) [place] # (Auto) Eos # (Auto) Baso # (Auto) Abs Immat Gran (auto) Absolute Neuts (auto) Absolute Nucleated RBC Nucleated RBC % Sodium Potassium Chloride Carbon Dioxide Anion Gap BUN Creatinine Estim Creat Clear Calc Estimated GFR Glucose POC Capillary Glucose 143 H 164 H 126 H Calcium Phosphorus Magnesium Total Bilirubin AST ALT Alkaline Phosphatase Total Protein Albumin 08/13/25 08/13/25 08/13/25 04:34 05:29 08:42 WBC 6.9 RBC 2.64 L Hgb 8.4 L Hct 26.7 L MCV 101.1 H MCH 31.8 MCHC 31.5 L RDW 14.0 Plt Count 158 MPV 11.6 H Immature Gran % (Auto) 0.3 Neut % (Auto) 72.7 Lymph % (Auto) 19.2 [place] % (Auto) 7.0 Eos % (Auto) 0.4 Baso % (Auto) 0.4 Lymph # (Auto) 1.32 [place] # (Auto) 0.5 Eos # (Auto) 0.0 Baso # (Auto) 0.0 Abs Immat Gran (auto) 0.02 Absolute Neuts (auto) 5.0 Absolute Nucleated RBC 0.000 Nucleated RBC % 0.0 Sodium 138 Potassium 3.3 L Chloride 106 Carbon Dioxide 27 Anion Gap 5 BUN 37 H Creatinine 2.27 H Estim Creat Clear Calc 17 Estimated GFR 21 L Glucose 148 H POC Capillary Glucose 94 178 H Calcium 8.7 Phosphorus 3.5 Magnesium 1.9 Total Bilirubin 0.3 AST 32 ALT 25 Alkaline Phosphatase 49 Total Protein 5.7 L Albumin 3.1 L 08/13/25 12:07 WBC RBC Hgb Hct MCV MCH MCHC RDW Plt Count MPV Immature Gran % (Auto) Neut % (Auto) Lymph % (Auto) [place] % (Auto) Eos % (Auto) Baso % (Auto) Lymph # (Auto) [place] # (Auto) Eos # (Auto) Baso # (Auto) Abs Immat Gran (auto) Absolute Neuts (auto) Absolute Nucleated RBC Nucleated RBC % Sodium Potassium Chloride Carbon Dioxide Anion Gap BUN Creatinine Estim Creat Clear Calc Estimated GFR Glucose POC Capillary Glucose 147 H Calcium Phosphorus Magnesium Total Bilirubin AST ALT Alkaline Phosphatase Total Protein Albumin
[2025-08-13] MEDS: CHOLECALCIFEROL (VITAMIN D3) 125 MCG (5,000 UNITS) TABLET PO (16:54)
[2025-08-13] MEDS: GABAPENTIN 300 MG CAPSULE BY MOUTH (16:54)
[2025-08-13] MEDS: COLESTIPOL HCL 1 GM TABLET PO (16:54)
[2025-08-13] MEDS: SERTRALINE HCL 50 MG TABLET 100 MG PO (20:42)
[2025-08-13] MEDS: ATORVASTATIN 40 MG TABLET BY MOUTH (20:42)
[2025-08-14] VITALS (7 sets, daily range): BP systolic 125–158; BP diastolic 55–69; PULSE 66–77; RESP 16–18; TEMP 36.4–36.6; O2SAT 96–99
--- NOTE | 2025-08-14 01:00 | PC.NURSE ---
Daylight Savings Time For Daylight Savings Time Ending in the Fall - Clocks are moved back. For Daylight Savings Time Beginning in the Spring - Clocks are moved ahead. For [facility], the time of change occurs at 0200 hrs. Time is taken from the patient observer. This entry on the patient's chart recognizes the change in time reflected during documentation. Example: 2 entries for vital signs may be charted for 0200 hrs.
[2025-08-14] MEDS: METOCLOPRAMIDE HCL 10 MG/10 ML SOLN UDC PO ×2 (05:29→12:15)
[2025-08-14 05:44] LABS: Hematocrit 24.2 % (37.0-47.0); Hemoglobin 7.6 g/dL (12.0-15.0); Immature Granulocyte Percent A 0.4 % (0-0.5); Immature Platelet Fraction Pct 4.2 % (0.9-11.2); Lymphocytes Absolute Auto 1.26 K/mm3 (0.9-3.2); Mean Corpuscular HGB Conc 31.4 g/dl (32-36); Mean Corpuscular Hemoglobin 31.8 pg (26-34); Mean Corpuscular Volume 101.3 fl (80-100); Nucleated Red Blood Cells Absolute Auto 0.000 K/mm3 (0.0-0.012); Nucleated Red Blood Cells Perc 0.0 % (0.0-0.2); Platelet Count Result 138 k/mm3 (150-375); Red Blood Count 2.39 M/mm3 (4.2-5.4); White Blood Count 4.8 K/mm3 (4.5-10.0)
[2025-08-14 06:00] LABS: Alanine Aminotransferase 20 U/L (6-35); Albumin Level 2.8 g/dL (3.5-5.1); Alkaline Phosphatase 47 U/L (38-126); Anion Gap 0 mmol/L (4-12); Aspartate Amino Transferase 32 U/L (14-36); Bilirubin,Total 0.2 mg/dL (0.2-1.3); Blood Urea Nitrogen 30 mg/dL (7-17); Calcium 8.2 mg/dL (8.4-10.2); Carbon Dioxide 31 mmol/L (22-30); Chloride 107 mmol/L (98-107); Estimated CRCL calculation 18 ml/min; Estimated Glomerular Filt Rate 23; Glucose 84 mg/dL (65-110); Magnesium 1.8 mg/dL (1.6-2.3); Potassium 3.8 mmol/L (3.4-5.0); Sodium 138 mmol/L (137-145); Total Protein 5.3 g/dL (6.3-8.2)
[2025-08-14] MEDS: HOME MEDICATION INSULIN 1 EACH XX (06:21)
[2025-08-14] MEDS: MULTIVITAMINS THERAPEUTIC TAB (*BKC) 1 TABLET PO (08:50)
[2025-08-14] MEDS: CYANOCOBALAMIN 500 MCG TABLET PO (08:50)
[2025-08-14] MEDS: CYANOCOBALAMIN 1,000 MCG TABLET 2000 MCG PO (08:50)
[2025-08-14] MEDS: SOLIFENACIN 5 MG TABLET PO (08:51)
[2025-08-14] MEDS: GABAPENTIN 300 MG CAPSULE BY MOUTH (08:51)
[2025-08-14] MEDS: FERROUS SULFATE 325 MG TABLET BY MOUTH (08:51)
[2025-08-14] MEDS: PANTOPRAZOLE 40 MG TABLET PO (08:51)
[2025-08-14] MEDS: COLESTIPOL HCL 1 GM TABLET PO (08:51)
[2025-08-14] MEDS: ENOXAPARIN 30 MG/0.3 ML SYRINGE SUB-Q (08:51)
[2025-08-14] MEDS: EPOETIN ALFA-EPBX 20,000 UNITS/ML VIAL 20000 UNITS SUB-Q (08:54)
--- NOTE | 2025-08-14 12:42 | P.PNNP_ITS ---
Progress Note: A&P Assessment and Plan (1) Stage 4 chronic kidney disease: Code(s): N18.4 - Chronic kidney disease, stage 4 (severe) Status: Acute Assessment and Plan: * baseline creatinine was running ~ 1.4 - 2.1mg/dl in the last few years * HOWEVER, her most recent admissions demonstrate her creatinine running closer to 1.9 - 2.4mg/dl (element of disease progression?) * suspect her higher creatinines in the last couple of month presumably due to: * prerenal factors (nausea/vomiting) * recurrent hyperglycemia/DKA * need for outpatient diuretic therapy * element of CKD progression(?) * baseline CKD secondary to diabetes, hypertension, vascular disease, and age- related change (2) DKA (diabetic ketoacidosis): Qualifiers: Diabetes mellitus type: type 1 Diabetes mellitus complication detail: w ithout coma Qualified Code(s): E10.10 - Type 1 diabetes mellitus with ketoacidosis without coma Code(s): E11.10 - Type 2 diabetes mellitus with ketoacidosis without coma Status: Acute Assessment and Plan: * resolved * as noted on admission/presentation * suspect secondary to malfunctioning of pump due improper installation/positioning on skin * off insulin gtt * IVFs on hold due to concerns for volume overload (as noted by peripheral edema) * no evidence of infection * follow blood sugars (3) Abdominal pain: Code(s): R10.9 - Unspecified abdominal pain Status: Acute Assessment and Plan: * resolved * noted on presentation * associated with nausea + vomiting * does have chronic diarrhea associated with her known history of IBS * CT scan of A/P without acute pathology (4) Hypertension: Qualifiers: Hypertension type: unspecified Qualified Code(s): I10 - Essential (primary) hypertension Code(s): I10 - Essential (primary) hypertension Status: Chronic Assessment and Plan: * reasonable control on admission * back on home medications * follow trend of hemodynamics (5) Anemia: Code(s): D64.9 - Anemia, unspecified Status: Acute Assessment and Plan: * probably due to CKD * empirically dose with Epogen today * follow trend of H/H (6) Type 1 diabetes mellitus with hyperglycemia: Code(s): E10.65 - Type 1 diabetes mellitus with hyperglycemia Status: Acute Assessment and Plan: * follows with [facility] * back on insulin pump * glycemic control per replenishment specialist Not opposed to discharge from renal perspective if otherwise medically stable -- she can follow-up with Dr. Douglas in clinic for ongoing management of her CKD. Will continue to follow. L Subjective Date/time seen: 08/14/25 12:42 Interval history: Follow-up for chronic kidney disease. No apparent distress noted at the time of my visit; feels reasonably well when seen; tolerating oral intake without any issues or problems; no other events overnight or earlier this morning. Exam 2 Narrative: General: elderly and frail female in NAD Heart: normal S1 and S2; no rub Lungs: clear to auscultation Abdomen: soft, nontender, nondistended, positive bowel sounds Extremities: no cyanosis or clubbing; 1+ edema Skin: no rash or nodules Objective Data Vital Signs Vital Signs: Vital Signs Temp Pulse Resp BP Pulse Ox O2 Del Method 08/14/25 12:06 97.6 F 77 18 145/63 H 99 08/14/25 08:45 Room Air 08/14/25 08:06 68 08/14/25 04:00 69 08/14/25 03:00 97.8 F 74 18 158/69 H 98 08/14/25 00:00 97.8 F 66 16 125/55 L 96 08/14/25 00:00 70 08/13/25 20:39 98.4 F 68 16 125/54 L 98 08/13/25 20:00 70 08/13/25 20:00 Room Air Intake/Output Intake/Output: Intake & Output 08/11/25 08/12/25 08/13/25 08/14/25 23:59 23:59 23:59 22:59 Intake Total 1749.7 675 2640 730 Output Total 680 200 Balance 1069.7 475 2640 730 Meds/Results Medications: Active Medications Generic Name Dose Route Start Last Admin Trade Name Freq PRN Reason Stop Dose Admin Amlodipine Besylate 5 mg 08/11/25 12:10 08/13/25 09:43 Amlodipine Besylate 5 Mg Tablet PO 5 mg DAILY BLAKE Administration Atorvastatin Calcium 40 mg 08/13/25 21:00 Atorvastatin 40 Mg Tablet BY MOUTH HS BLAKE Colestipol HCl 1 gm 08/13/25 17:00 08/13/25 16:54 Colestipol Hcl 1 Gm Tablet PO 1 gm BID BLAKE Administration Cyanocobalamin 2,000 mcg 08/14/25 09:00 Cyanocobalamin 1,000 Mcg Tablet PO QAM BLAKE Cyanocobalamin 500 mcg 08/14/25 09:00 Cyanocobalamin 500 Mcg Tablet PO QAM BLAKE Dextrose 12.5 gm 08/11/25 07:47 Dextrose 50% 25 Gm/50 Ml Syringe IV PUSH PRN PRN Hypoglycemia Protocol Enoxaparin Sodium 30 mg 08/12/25 09:00 08/13/25 09:44 Enoxaparin 30 Mg/0.3 Ml Syringe SUB-Q 30 mg DAILY BLAKE Administration Ferrous Sulfate 325 mg 08/14/25 09:00 Ferrous Sulfate 325 Mg Tablet BY MOUTH DAILY BLAKE Gabapentin 300 mg 08/13/25 17:00 08/13/25 16:54 Gabapentin 300 Mg Capsule BY MOUTH 300 mg BID BLAKE Administration Glucagon 1 mg 08/11/25 07:47 Glucagon For Inj 1 Mg Vial IM PRN PRN Hypoglycemia Protocol Glucose 15 gm 08/11/25 07:47 Glucose Oral Gel 15 Gm Of Glucse In 37.5 Gm Tube PO PRN PRN Hypoglycemia Protocol Hydralazine HCl 20 mg 08/12/25 08:40 08/13/25 00:17 Hydralazine Hcl 20 Mg/Ml Vial IV PUSH 20 mg Q4H PRN Administration SBP more than 160 Dextrose 1,000 mls @ 100 mls/hr 08/11/25 07:47 Dextrose 5% 1,000 Ml IVPB PRN PRN Hypoglycemia Protocol Insulin Human Regular 1 each 08/13/25 06:00 08/13/25 08:16 Home Medication Insulin XX 1 each DAILY@0600 [facility] Administration Labetalol HCl 20 mg 08/12/25 08:40 08/12/25 09:28 Labetalol Hcl Inj 100 Mg/20 Ml Vial IV PUSH 20 mg Q4H PRN Administration SBP > 160 and HR> 60 -1st choice Metoclopramide HCl 10 mg 08/12/25 11:30 08/13/25 16:54 Metoclopramide Hcl 10 Mg/10 Ml Soln Udc PO 10 mg ACHS BLAKE Administration Multivitamins Therapeutic 1 tablet 08/14/25 09:00 Multivitamins Therapeutic Tab (*Bkc) PO DAILY [facility] Ondansetron HCl 4 mg 08/11/25 22:29 08/12/25 08:33 Ondansetron Inj 4 Mg/2 Ml Vial IV PUSH 4 mg Q4H PRN Administration Nausea And Vomiting Ondansetron HCl 4 mg 08/13/25 16:00 Ondansetron Hcl Odt 4 Mg Tablet PO Q8H PRN Nausea And Vomiting Pantoprazole Sodium 40 mg 08/14/25 09:00 Pantoprazole 40 Mg Tablet PO QAM [facility] Sertraline HCl 100 mg 08/13/25 21:00 Sertraline Hcl 50 Mg Tablet PO HS [facility] Solifenacin 5 mg 08/14/25 09:00 Solifenacin 5 Mg Tablet PO DAILY [facility] Vitamin D 125 mcg 08/13/25 16:00 08/13/25 16:54 Cholecalciferol (Vitamin D3) 125 Mcg (5,000 Units) Tablet PO 125 mcg Q48HR BLAKE Administration Radiology Results: ITS Impressions Abdomen/Pelvis CT 08/11/25 09:58 IMPRESSION: 1. Small sliding hiatal hernia and/or esophagitis. 2. No other acute abnormality. Chest X-Ray 08/11/25 11:12 Impression: No acute cardiopulmonary abnormality. Labs Labs: Laboratory Tests 08/14/25 05:18 08/14/25 05:18 Calcium 8.2 L Phosphorus 3.1 Magnesium 1.8 Total Bilirubin 0.2 AST 32 ALT 20 Alkaline Phosphatase 47 Total Protein 5.3 L Albumin 2.8 L
--- NOTE | 2025-08-14 14:52 | PM.DS ---
DS: Admitting Diagnosis Discharge Date 08/14/2025 Admitting Diagnosis DKA DS: Discharge Diagnosis Discharge Diagnosis (1) DKA (diabetic ketoacidosis): Qualifiers: Diabetes mellitus complication detail: without coma Diabetes mellitus type: type 1 Qualified Code(s): E10.10 - Type 1 diabetes mellitus with ketoacidosis without coma Code(s): E11.10 - Type 2 diabetes mellitus with ketoacidosis without coma Status: Acute Assessment and Plan: Patient presented with DKA likely secondary to malfunctioning of pump which could be secondary to inproper installation On presentation patient had a positive anion gap and acidosis. After administration of IV fluids her anion gap has closed although sugar remains elevated Patient is overall volume overloaded hence only limited IV fluids were given. Patient was treated with IV insulin infusion. As blood sugars improved patient was transition to her insulin pump. Will continue monitor blood glucose and add supplemental insulin with sliding scale if needed. Clear liquid diet advance as tolerated CT abdomen pelvis is negative, UA was negative for any evidence of UTI (2) Hypertension: Qualifiers: Hypertension type: unspecified Qualified Code(s): I10 - Essential (primary) hypertension Code(s): I10 - Essential (primary) hypertension Status: Chronic Assessment and Plan: Resume amlodipine. P.r.n. labetalol and hydralazine. (3) Aortic stenosis: Code(s): I35.0 - Nonrheumatic aortic (valve) stenosis Status: Acute Assessment and Plan: Patient has moderate on last echo. No intervention at this time. (4) Chronic gastritis: Code(s): K29.50 - Unspecified chronic gastritis without bleeding Status: Acute Assessment and Plan: Continue PPI (5) Stage 4 chronic kidney disease: Code(s): N18.4 - Chronic kidney disease, stage 4 (severe) Status: Acute Assessment and Plan: Creatinine remains elevated although close to her baseline. Recent renal ultrasound showed IMPRESSION: 1. Mild bilateral hydronephrosis but with bilateral ureteral jets visualized in the distended bladder on color Doppler. 2. Diffuse bilateral increased renal cortical echogenicity consistent with medical renal disease. 3. Mild left renal atrophy. CT abdomen pelvis was negative for any acute change Consult nephrology (6) Esophagitis: Code(s): K20.90 - Esophagitis, unspecified without bleeding Status: Acute Assessment and Plan: PPI GI consulted. EGD with reflux esophagitis and Rees's esophagus without dysplasia noted. 08/12/2025. PPI b.i.d. and add Carafate (7) Cough: Code(s): R05.9 - Cough, unspecified Status: Acute Assessment and Plan: Negative chest x-ray and viral respiratory panel (8) Dysphagia: Qualifiers: Dysphagia type: esophageal phase Qualified Code(s): R13.19 - Other dysphagia Code(s): R13.10 - Dysphagia, unspecified Status: Acute Assessment and Plan: Patient complaining of symptoms suggestive of dysphagia. Patient has had esophagitis. CT scan does not show any significant abnormality. I will consult GI Change Protonix to IV q.12 hours treat esophagitis EGD with findings of Rees's esophagus without dysplasia and reflux esophagitis DS: Summary Hospital Course Hospital Course: 74 y/o female presented 08/11/25 with elevated blood sugars upon arrival blood sugar was 701, anion GAP 18, and acidosis, with c/o nuasea and vomiting. patient was started on IVF from which did bring her blood sugar and anion gap down, apparently her insulin pump pipe was kinked and patient was not receiving her insulin which resulted in elevated blood sugar and DKA. She responded well to DKA protocol was transition to subcutaneous and sliding scale and pre meal insulin. Her insulin pump was initiated again August 13. She tolerated this well. Blood sugar on day of discharge ranged from 93-184. She had no nausea vomiting. She was getting about independently. Denied chest pain or shortness of breath or edema. Had no GI or complaints. No abnormal bleeding. She was swallowing well. She was having dysphagia but EGD revealed esophagitis and Rees's esophagus which she had been diagnosed with previously. Protonix 40 mg daily was initiated and she was to continue this chronically. Diagnostic imaging included an unremarkable chest x-ray and CT of the abdomen pelvis remarkable only for of sliding hiatal hernia. Her creatinine was chronically elevated at 2.13 with BUN of 30. Hemoglobin was chronically low at 7.6 with hematocrit 24.2 MCV 101.3 and platelet count [id number] on day of discharge. This of course was after IV hydration and multiple phlebotomies. By day of discharge she was moving about independently performing her own ADLs and tolerating her diet. She wished to go home. Time Spent with Patient Time attestation: Total time spent providing and/or coordinating discharge services: Exam Narrative: HEENT: PERRL, sclerae nonicteric, pharyngeal mucosa pink and intact NECK: No JVD, adenopathy, or thyromegaly CHEST: Clear to auscultation. Normal effort HEART: NL S1/S2, regular, 3/6 LEANNA RUSB radiates to carotids ABDOMEN: BS+, soft, nontender, no mass, no bruits EXTREMITIES: No cyanosis, edema, or clubbing NEUROLOGIC: CN intact and symmetric to inspection. MUSCULOSKELETAL: Tone and strength symmetric PSYCH: Alert. Oriented to person, place, and time DS: Data Data Completed and Pending Pending studies at discharge: Pending at discharge 08/12/25 14:19 Surgical [PTH] Routine Labs on day of discharge: Labs from last 24 hours 08/14/25 08/14/25 08/14/25 11:38 08:08 05:34 WBC RBC Hgb Hct MCV MCH MCHC RDW Plt Count MPV Immature Gran % (Auto) Neut % (Auto) Lymph % (Auto) Towns % (Auto) Eos % (Auto) Baso % (Auto) Lymph # (Auto) Towns # (Auto) Eos # (Auto) Baso # (Auto) Abs Immat Gran (auto) Absolute Neuts (auto) Absolute Nucleated RBC Nucleated RBC % % Immature Plt Fraction Sodium Potassium Chloride Carbon Dioxide Anion Gap BUN Creatinine Estim Creat Clear Calc Estimated GFR Glucose POC Capillary Glucose 184 H 91 93 Calcium Phosphorus Magnesium Total Bilirubin AST ALT Alkaline Phosphatase Total Protein Albumin 08/14/25 08/14/25 08/13/25 05:18 00:50 20:44 WBC 4.8 RBC 2.39 L Hgb 7.6 L Hct 24.2 L MCV 101.3 H MCH 31.8 MCHC 31.4 L RDW 13.5 Plt Count 138 L MPV 10.8 H Immature Gran % (Auto) 0.4 Neut % (Auto) 61.2 Lymph % (Auto) 26.5 Towns % (Auto) 8.6 H Eos % (Auto) 2.5 Baso % (Auto) 0.8 Lymph # (Auto) 1.26 Towns # (Auto) 0.4 Eos # (Auto) 0.1 Baso # (Auto) 0.0 Abs Immat Gran (auto) 0.02 Absolute Neuts (auto) 2.9 Absolute Nucleated RBC 0.000 Nucleated RBC % 0.0 % Immature Plt Fraction 4.2 Sodium 138 Potassium 3.8 Chloride 107 Carbon Dioxide 31 H Anion Gap 0 L BUN 30 H Creatinine 2.13 H Estim Creat Clear Calc 18 Estimated GFR 23 L Glucose 84 POC Capillary Glucose 107 H 192 H Calcium 8.2 L Phosphorus 3.1 Magnesium 1.8 Total Bilirubin 0.2 AST 32 ALT 20 Alkaline Phosphatase 47 Total Protein 5.3 L Albumin 2.8 L 08/13/25 16:50 WBC RBC Hgb Hct MCV MCH MCHC RDW Plt Count MPV Immature Gran % (Auto) Neut % (Auto) Lymph % (Auto) Towns % (Auto) Eos % (Auto) Baso % (Auto) Lymph # (Auto) Towns # (Auto) Eos # (Auto) Baso # (Auto) Abs Immat Gran (auto) Absolute Neuts (auto) Absolute Nucleated RBC Nucleated RBC % % Immature Plt Fraction Sodium Potassium Chloride Carbon Dioxide Anion Gap BUN Creatinine Estim Creat Clear Calc Estimated GFR Glucose POC Capillary Glucose 107 H Calcium Phosphorus Magnesium Total Bilirubin AST ALT Alkaline Phosphatase Total Protein Albumin Discharge Plan Discharge Consulting providers: Sekou Tang; Brent Espana Discharging Clinician: Tyler Olson Patient Disposition: Home Activity: as tolerated Diet: heart healthy and diabetic Patient Instructions: Antibiotic Form Patient Language: Bangladeshi Stand Alone Forms: General Discharge Information Follow-up/Referrals: Dain Smith MD [Primary Care Provider, [facility]] - Call for Appointment Discharge Medications: Continued omeprazole 40 mg capsule,delayed release(DR/EC) 40 mg PO BID 90 Days Qty: 180 3RF ondansetron 4 mg tablet,disintegrating 4 mg PO Q8H PRN (Reason: nausea and vomiting) Qty: 7 0RF cholecalciferol (vitamin D3) 125 mcg (5,000 unit) capsule 125 mcg PO EVERY OTHER DAY Rx Instructions: 125 mcg orally every other day; DUE NEXT ON TUESDAY 05/22 mecobalamin (vitamin B12) 2,500 mcg tablet,chewable 2,500 mcg PO DAILY ferrous sulfate 325 mg (65 mg iron) tablet 325 mg PO DAILY multivitamin Tablet 1 tablet PO DAILY Gvoke HypoPen 2-Pack 1 mg/0.2 mL auto-injector 1 mg subcut ONCE Qty: 0.4 4RF Rx Instructions: may repeat once after 15 minutes if no response glucose [Dex4 Glucose] 4 gram tablet,chewable 16 g PO Q15M PRN (Reason: hypoglycemia) Qty: 60 1RF Rx Instructions: until symptoms of low blood sugar are controlled furosemide 20 mg tablet 40 mg PO QAM amlodipine [Norvasc] 5 mg Tablet 5 mg PO DAILY Qty: 30 0RF solifenacin 5 mg tablet 5 mg PO DAILY colestipol [Colestid] 1 gram tablet 1 g PO BID Qty: 60 6RF sertraline 100 mg tablet 100 mg PO HS Qty: 30 6RF gabapentin 300 mg capsule See Rx Instructions .ROUTE .COMPLEX Qty: 180 1RF Dose Instruction: TAKE 1 CAPSULE BY MOUTH TWICE DAILY Rx Instructions: TAKE 1 CAPSULE BY MOUTH TWICE DAILY atorvastatin 40 mg tablet See Rx Instructions .ROUTE .COMPLEX Qty: 90 2RF Dose Instruction: TAKE 1 TABLET BY MOUTH AT BEDTIME Rx Instructions: TAKE 1 TABLET BY MOUTH AT BEDTIME insulin aspart U-100 [Novolog U-100 Insulin aspart] 100 unit/mL solution 60 unit continuous subcutaneous infusion DAILY 90 Days Qty: 54 3RF Rx Instructions: Type 1 diabetes E10.65 Date of admission: 08/11/25 11:12 Primary Care Provider: Dain Smith Admitting Provider: Marky Stoddard Attending physician on admission: Marky Stoddard Condition: Stable
--- NOTE | 2025-08-15 13:19 | PCCDE ---
DM educator courtesy call placed. Daughter who lives with her and assists answered the phone. She proceeded to tell me they know what happened causing admission and things are good now.
== END 2025-08-14 16:26 | disposition home or self-care (01) | DRG 919 ==
LOC: ANHED 08:03 → ANHICU 11:35 → ANH3MED 08-12 10:36
PROVIDERS: Internal Medicine; Internal Medicine Gastroenterology; Admitting Provider Family Medicine; Emergency Provider Family Medicine; PCP Family Medicine Adolescent Medicine; Visit Provider Internal Medicine
PROC: 0DJ08ZZ Inspection of Upper Intestinal Tract, Via Natural or Artificial Opening Endoscopic (ICD-10-PCS; principal; 2025-08-12 14:30)
DX: T85.694A Other mechanical complication of insulin pump, initial encounter (principal); E10.10 Type 1 diabetes mellitus with ketoacidosis without coma; N18.4 Chronic kidney disease, stage 4 (severe); E10.65 Type 1 diabetes mellitus with hyperglycemia; I35.0 Nonrheumatic aortic (valve) stenosis; K29.50 Unspecified chronic gastritis without bleeding; I12.9 Hypertensive chronic kidney disease with stage 1 through stage 4 chronic kidney disease, or unspecified chronic kidney disease; E10.22 Type 1 diabetes mellitus with diabetic chronic kidney disease; K21.00 Gastro-esophageal reflux disease with esophagitis, without bleeding; K22.70 Barrett's esophagus without dysplasia; R13.10 Dysphagia, unspecified; E78.5 Hyperlipidemia, unspecified; E10.42 Type 1 diabetes mellitus with diabetic polyneuropathy; K21.9 Gastro-esophageal reflux disease without esophagitis; K58.9 Irritable bowel syndrome, unspecified; M81.0 Age-related osteoporosis without current pathological fracture; D64.9 Anemia, unspecified; Z96.611 Presence of right artificial shoulder joint; Z89.422 Acquired absence of other left toe(s); Z87.891 Personal history of nicotine dependence
CPT/HCPCS: 36415; 71045; 74176; 80048; 80053; 81001; 82948; 83036; 83735; 84100; 85025; 85055; 87637; 87641; 88305; 96361; 96365; 96375; 99291; A9270; J0360; J1650; J1815; J2003; J2270; J2405; J2470; J2704; J2765; J3475; J7030; J7120; Q5105